=== PATIENT | female | born 1965 | race Asian ===

== ENCOUNTER → 2018-11-08 | Outpatient (CLI) | payer BC, SELFPAY ==
[2018-11-08 09:49] LABS: Absolute Lymphocyte Count 2.78 X10^3/uL (0.83-4.51); Absolute Neutrophil Count 3.8 X10^3/uL (2.0-7.7); Basophil# 0.06 X10^3/uL; Basophil% 0.8 % (0-1); Eosinophil# 0.29 X10^3/uL; Eosinophils% 3.9 % (0-5); Hematocrit 43.6 % (37-47); Hemoglobin 14.5 g/dL (12.0-15.0); Lymphocyte # 2.78 X10^3/ul (4.0); Lymphocyte % 37.7 % (19-41); Mean Corp Hgb Conc 33.3 g/dL (32-36); Mean Corpuscular Hgb 28.9 pg (27.0-32.0); Mean Corpuscular Volume 86.9 fL (81-99); Mean Platelet Vol. 10.3 fl (6.2-12.0); Monocyte# 0.43 X10^3/uL; Monocyte% 5.8 % (0-10); NRBC Flagged by Analyzer 0 % (0-5); Neutrophil % 51.5 % (47-70); Platelet Count 213 K/mm3 (150-450); RBC Distribution Width SD 40.7 fl (35.1-43.9); Red Blood Count 5.02 M/mm3 (4.2-5.4); White Blood Count 7.4 K/mm3 (4.4-11.0)
[2018-11-08 10:14] LABS: Microalbumin,Random Urine 22.5 mg/L (NO RANGE EST.); Microalbumin:Creatinine Ratio 13.7 mg/g CRE (<30 mg/g CRE)
[2018-11-08 10:36] LABS: AST(SGOT) 21 U/L (15-37); Alanine Aminotransfer ALT/SGPT 38 U/L (13-56); Albumin, Serum 3.7 g/dL (3.2-5.0); Alkaline Phosphatase 77 U/L (45-117); Anion Gap 8 (5-15); BUN 17 mg/dL (7-18); BUN/Creat Ratio 27.8 RATIO (10-20); Chloride 104 mmol/L (98-107); Cholesterol 198 mg/dL (200); Creatinine, Serum 0.61 mg/dL (0.55-1.02); EST Glomerular Filtration Rate 108 mL/min (>60); Est Glom Filt Rate - Afr Amer 131 mL/min (>60); Globulin 3.7 g/dL (2.2-4.2); Glucose 123 mg/dL (74-106); High Density Lipoprotein 45 mg/dL; Potassium 3.3 mmol/L (3.5-5.1); Protein, Total 7.4 g/dL (6.4-8.2); Sodium Level 143 mmol/L (136-145); Thyroid Stim Hormone (TSH) 0.67 uIU/mL (0.358-3.74); Triglycerides 96 mg/dL; Very Low Density Lipoprotein 19 mg/dL (5-40)
== END | disposition home or self-care (01) ==
LOC: LAB 08:14
PROVIDERS: Family Provider Nurse Practitioner; PCP Nurse Practitioner; Referring Provider Nurse Practitioner; Visit Provider Nurse Practitioner
DX: I10 Essential (primary) hypertension (principal)
CPT/HCPCS: 36415; 80053; 80061; 82043; 82570; 84443; 85025

== ENCOUNTER → 2024-12-03 | Outpatient (CLI) | payer BC, SELFPAY ==
[2024-12-03 08:54] LABS: Mucous, Urine 0 SEEN /hpf (<or=2+); Red Blood Cells-Urine 0 SEEN /hpf (0-5); Squamous Epithelial Cells - UA 0 SEEN /hpf (5-10)
[2024-12-03 10:06] LABS: Hematocrit 44.4 % (37-47); Hemoglobin 15.1 g/dL (12.0-15.0); Immature Granulocytes Count 0.010 X10^3/uL (0.0-0.0); Mean Corp Hgb Conc 34.0 g/dL (32-36); Mean Corpuscular Volume 85.7 fL (81-99); Mean Platelet Vol. 10.4 fl (6.2-12.0); NRBC Flagged by Analyzer 0 % (0-5); Platelet Count 206 K/mm3 (150-450); RBC Distribution Width CV 12.6 % (11.6-14.6); RBC Distribution Width SD 39.6 fl (35.1-43.9); Red Blood Count 5.18 M/mm3 (4.2-5.4); White Blood Count 7.3 K/mm3 (4.4-11.0)
[2024-12-03 10:07] LABS: Color, Urine Yellow (Yellow); Glucose, Dipstick 1000 mg/dl (Normal); Ketone-Dipstick Negative (Negative); Leukocyte Esterase-Dipstick Negative /ul (Negative); Nitrite-Dipstick Negative (Negative); Occult Blood-Urine Negative /ul (Negative); Protein-Dipstick 15 mg/dl (Negative); Specific Gravity, Urine 1.015 (1.002-1.030); Urine Bilirubin Dipstick Negative (Negative)
[2024-12-03 10:27] LABS: Creatinine, Urine (random) 84.60 mg/dL (28.00-217.00); Microalbumin,Random Urine 13.0 mg/L (<20 mg/L)
[2024-12-03 11:00] LABS: AST(SGOT) 27 U/L (<=31); Alanine Aminotransfer ALT/SGPT 32 U/L (<=34); Albumin, Serum 4.3 g/dL (3.4-4.8); Alkaline Phosphatase 93 U/L (35-104); Anion Gap 15 (5-15); BUN 13 mg/dL (4-19); BUN/Creat Ratio 27.3 RATIO (10-20); Calcium,Total 9.6 mg/dL (7.6-11.0); Carbon Dioxide 26.0 mmol/L (21.0-32.0); Chloride 99 mmol/L (98-108); Cholesterol 231 mg/dL (<=200); Globulin 2.7 g/dL (2.2-4.2); Glucose 165 mg/dL (70-99); Low Density Lipoprotein Calc. 164 mg/dL; Potassium 3.0 mmol/L (3.3-5.1); Triglycerides 78 mg/dL; Very Low Density Lipoprotein 16 mg/dL (5-40); cholesterol:hdl ratio screen 4.52
== END | disposition home or self-care (01) ==
LOC: MTLAB 08:19
PROVIDERS: PCP Internal Medicine; Referring Provider Internal Medicine; Visit Provider Internal Medicine
DX: E11.65 Type 2 diabetes mellitus with hyperglycemia (principal); E11.29 Type 2 diabetes mellitus with other diabetic kidney complication; E78.5 Hyperlipidemia, unspecified
CPT/HCPCS: 36415; 80053; 80061; 81001; 82043; 82570; 85025

== ENCOUNTER → 2024-12-31 | Outpatient (CLI) | payer BC, SELFPAY ==
--- NOTE | 2024-12-31 06:46 | ECHOCS_ITS ---
Reason For Study Reason For Study: Left Bundle Branch Block Procedure This was a 2D Doppler, Color Flow transthoracic echocardiogram. The study was technically difficult. Contrast injection was performed. Exam performed in department. Left Ventricle Normal LV size. Left ventricular systolic function is normal. The left ventricular ejection fraction is 65 %. Stage 1 diastolic dysfunction. No regional wall motion abnormalities noted. Right Ventricle Normal RV size. Normal systolic function. Atria Normal left atrium. Normal right atrium. Bubble contrast study is negative for PFO/ASD. Mitral Valve There is mild to moderate mitral annular calcification. Tricuspid Valve Normal tricuspid valve. Mild tricuspid valve insufficiency. Aortic Valve Trisinus/trileaflet aortic valve. Pulmonic Valve Normal pulmonic valve. Great Vessels Normal aortic root. The pulmonary artery is normal size. Inferior vena cava collapse with respiration. Pericardium/Pleural No pericardial effusion. Medication 22 gauge I.V. with prn adaptor inserted into right arm. Diluted definity 1ml given slow IV push to enhance endocardial definition. Performed a rapid injection of agitated mix of 9 cc saline and 1cc air to assess for atrial septal defect. MMode/2D Measurements & Calculations LVIDd: 4.3 cm IVSd: 0.97 cm Ao root diam: 3.2 cm LVIDs: 2.9 cm LVPWd: 0.89 cm RVDd: 3.5 cm FS: 31.6 % LAV(MOD-bp): 40.1 ml LVAd ap4: 32.2 cm2 SV(MOD-sp4): 68.2 ml LAV(MOD-bp) Indexed: 24.7 ml/m2 LVLd ap4: 8.1 cm SI(MOD-sp4): 42.0 ml/m2 LAV(MOD-sp2): 43.5 ml EDV(MOD-sp4): 101.6 ml LAV(MOD-sp4): 36.6 ml EDV(sp4-el): 108.5 ml LVAs ap4: 15.8 cm2 LVLs ap4: 6.3 cm ESV(MOD-sp4): 33.4 ml ESV(sp4-el): 33.8 ml EF(MOD-sp4): 67.1 % EF(sp4-el): 68.8 % SV(sp4-el): 74.7 ml LA A4 area: 15.5 cm2 LA dimension(2D): 3.3 cm RA A4 area: 13.0 cm2 TAPSE: 1.2 cm Time Measurements MV dec time: 0.25 sec Doppler Measurements & Calculations MV E max jose: 71.1 cm/sec Lat Peak E' Jose: 8.2 cm/sec Med Peak E' Jose: 4.5 cm/sec MV A max jose: 98.6 cm/sec E/E' lat: 8.7 E/E' med: 15.7 MV E/A: 0.72 MV V2 max: 108.3 cm/sec MV P1/2t max jose: 78.5 cm/sec Ao V2 max: 142.0 cm/sec MV max P.7 mmHg MV P1/2t: 97.7 msec Ao max P.1 mmHg MV V2 mean: 59.5 cm/sec MV dec slope: 235.3 cm/sec2 Ao V2 mean: 100.5 cm/sec MV mean P.7 mmHg MVA(P1/2t): 2.3 cm2 Ao mean P.6 mmHg MV V2 VTI: 30.8 cm Ao V2 VTI: 31.3 cm AV (velocity ratio): 0.79 LV V1 max: 112.7 cm/sec PA V2 max: 115.1 cm/sec TR max jose: 222.8 cm/sec LV V1 max P.1 mmHg TR max P.9 mmHg LV V1 mean P.4 mmHg LV V1 mean: 88.0 cm/sec LV V1 VTI: 24.8 cm ECHO/Echo Complete W/ Contrast Interpretation Summary Bubble contrast study is negative for PFO/ASD. There is mild to moderate mitral annular calcification. Normal LV size. Left ventricular systolic function is normal. The left ventricular ejection fraction is 65 %. Stage 1 diastolic dysfunction. Contrast injection was performed. Ordering Physician: Giulia Prescott Referring Physician: Giulia Prescott Performed By: Ramiro Farmer RCS
--- NOTE | 2024-12-31 06:46 | CDU_ITS ---
Reason For Study Reason For Study: Carotid artery stenosis Rt. Velocities/BP Lt. Velocities/BP Prox CCA 74/13.5 cm/sec. Prox CCA 70.7/13.5 cm/sec. Mid CCA 72.1/17.3 cm/sec. Mid CCA 78.4/20.1 cm/sec. Dist CCA 57/12.6 cm/sec. Dist CCA 67.4/20.1 cm/sec. Prox ICA 59.8/20.1 cm/sec. Prox ICA 59.7/25.6 cm/sec. Mid ICA 69.9/19.2 cm/sec. Mid ICA 67.4/28.9 cm/sec. Dist ICA 59.6/20.8 cm/sec. Dist ICA 58.6/25.6 cm/sec. Rt. ICA/CCA = 0.97. Lt. ICA/CCA = 0.86. Prox ECA 161.3/9.7 cm/sec. Prox ECA 87.2/5.8 cm/sec. Rt. Vert. 45.4/15.7 cm/sec. Lt. Vert. 36.6/8 cm/sec. Right Extracranial There is intimal thickening but no significant atherosclerotic plaque noted in the right common carotid artery. There is heterogeneous, irregular atherosclerotic plaque noted in the right internal carotid artery. There is heterogeneous, irregular atherosclerotic plaque noted in the right external carotid artery. Antegrade flow is noted in the right vertebral artery. Left Extracranial There is homogeneous, smooth atherosclerotic plaque noted in the left common carotid artery. There is heterogeneous, irregular atherosclerotic plaque noted in the left internal carotid artery. There is intimal thickening but no significant atherosclerotic plaque noted in the left external carotid artery. Antegrade flow is noted in the left vertebral artery. Procedure This is a Carotid Duplex examination using B-mode, color flow and specral Doppler. Carotid Duplex [id number]. Exam performed in department. VL/Carotid Duplex Ultrasound Interpretation Summary Mild (<50%) stenosis right extracranial internal carotid. Mild (<50%) stenosis left extracranial internal carotid. Patent and antegrade vertebrals bilaterally. Ordering Physician: Giulia Prescott Referring Physician: Tash Landa Performed By: Shabana Jin RVT
--- OUTSIDE RECORDS SUMMARY | 2024-12-31 06:48 | XMS RPT_ITS | CCD ---
Author Organization [facility] Care Team Providers Care Cad Programmer Name Role Phone Annamaria Zhang E Unavailable Meliza Cullen Unavailable Abby Anmol S Unavailable Laure Kang Unavailable Unavailable Slarb, Ivy Unavailable Unavailable Unavailable Unavailable Annamaria Zhang Unavailable Meliza Cullen Unavailable Abby Anmol S Unavailable Alanis Jarrell Unavailable Unavailable Laure Kang Unavailable Unavailable Slarb, Ivy Unavailable Unavailable Unavailable Unavailable Gold Ward Unavailable Unavailable Alains Jarrell Unavailable Unavailable Gold Colby Unavailable Unavailable Renata Jensen Unavailable Unavailable Annamaria Zhang CNP Unavailable Meliza Cullen MD Unavailable KnapAnmol argueta DO S Unavailable Gold Colby LPN Unavailable Unavailable Slarb TUBE REBUILDER, Ivy Unavailable Unavailable Unavailable Unavailable Annamaria Zhang Unavailable Meliza Cullen MD Unavailable Annamaria Zhang Unavailable Annamaria Zhang Attending Unavailable Meliza Cullen MD Referring Unavailable Annamaria Zhang Consulting Unavailable Tash Landa CNP Unavailable Tash Landa CNP Unavailable Annamaria Zhang Unavailable Knapic DO , Dr. Anmol Wiley S Unavailab le Elmer DEJESUS, FABRICE Unavailable Unavailable Fast DO, Dr. Platt Primary Care Provider [phone] Fast DO, Dr. Platt Attending Provider [phone] Fast DO, Dr. Platt Referring Provider [phone] Fast, Giulia Attending Unavailable Fast, Giulia Referring Unavailable Fast, Giulia Primary Care Unavailable Fast, Giulia Referring Unavailable Tash Landa Primary Care Unavailable Fast, Giulia Attending Unavailable Medications Current Medications Medication Drug Class(es) Dates Sig (Normalized) Sig (Original) aspirin 81 mg chewable tablet (20 sources) Nonsteroidal Anti-inflammatory Drug Start: 01-29-2014 End: 10-26-2014 take 1 tablet by mouth once daily Aspirin 81 MG tablet,chewable Active 81 mg PO DAILY@0800 February 16, 2014 1:00am Completed/Discontinued Medications Medication Drug Class(es) Dates Sig (Normalized) Sig (Original) amLODIPine 5 mg oral tablet (20 sources) Dihydropyridine Calcium Channel Davon Start: 08-01-2022 take 1 tablet by mouth once daily amLODIPine 5 mg oral tablet 1 (one) Tablet qd for 90 days Quantity: 90 {Tablet} Refills: 1 Ordered: 01-Aug-2022 Tash Landa CNP Start : 01-Aug-2022 Active Start: 03-28-2022 take 1 tablet by timo th once daily amLODIPine 5 mg oral tablet 1 (one) Tablet qd for 90 days Quantity: 90 {Tablet} Refills: 1 Ordered: 29-Mar-2022 Tash Landa CNP Start : 29-Mar-2022 Active Start: 12-07-2021 End: 01-06-2022 take 1 tablet by mouth once daily amLODIPine Besylate 5 MG Oral Tablet 1 (one) Tablet qd for 30 days Quantity: 30 {Tablet} Refills: 0 Ordered: 07-Dec-2021 Tash Landa CNP Start : 07-Dec-2021 End : 06-Jan-2022 Inactive Comments: NEEDS OFFICE VISIT FOR FURTHER REFILLS Start: 02-22-2021 take 1 tablet by timo th once daily amLODIPine Besylate 5 MG Oral Tablet 1 (one) Tablet qd for 30 days Quantity: 90 {Tablet} Refills: 3 Ordered: 22-Feb-2021 Annamaria Zhang Mary Start : 22-Feb-2021 Active Start: 02-22-2020 take 1 tablet by timo th once daily amLODIPine Besylate 5 MG Oral Tablet 1 (one) Tablet qd for 30 days Quantity: 90 {Tablet} Refills: 3 Ordered: 22-Feb-2020 Annamaria Zhang CNP, CNP, Mary E Start : 22-Feb-2020 Active Start: 02-12-2019 take 1 tablet by timo th once daily amLODIPine Besylate 5 MG Oral Tablet 1 (one) Tablet qd for 30 days Quantity: 90 {Tablet} Refills: 3 Ordered: 12-Feb-2019 Annamaria Zhang CNP, CNP, Mary E Start : 12-Feb-2019 Active Start: 03-26-2018 take 1 tablet by timo th once daily AmLODIPine Besylate 5 MG Oral Tablet 1 (one) Tablet qd for 30 days Quantity: 90 {Tablet} Refills: 3 Ordered: 26-Mar-2018 Annamaria Zhang CNP, CNP, Mary E Start : 26-Mar-2018 Active Start: 02-16-2014 take 1 tablet by timo th once daily AmLODIPine Besylate 5 MG Oral Tablet 1 (one) Tablet qd for 30 days Quantity: 90 {Tablet} Refills: 3 Ordered: 10-Feb-2017 Annamaria Zhang CNP, CNP, Mary E Start : 10-Feb-2017 Active Start: 03-22-2013 End: 12-27-2013 take 1 tablet by mouth once daily NORVASC, 10MG (Oral Tablet) 1 Tablet QD for 0 days Quantity: 90 {Tablet} Refills: 3 Ordered: 27-Dec-2013 Renata Jensen CMA Start : 22-Mar-2013 End : 27-Dec-2013 Inactive Comment on above: NEEDS OFFICE VISIT F OR FURTHER REFILLS azithromycin 250 mg oral tablet (20 sources) Macrolide Antimicrobial Start: 2013 End: 2013 take 1 tablet by mouth once daily ZITHROMAX Z-GARY, 250MG (Oral Tablet) tad Tablet qd for 0 days Quantity: 1 {Package} Refills: 0 Ordered: 06-Sep-2013 Elizabeth Renteria LPN Start : 07-Jun-2013 End : 30-May-2014 Inactive hydroCHLOROthiazide 50 mg oral tablet (20 sources) Thiazide Diuretic Start: 2022 take 1 tablet by mouth once daily hydroCHLOROthiazide 50 mg oral tablet 1 (one) Tablet qd for 30 days Quantity: 30 {Tablet} Refills: 1 Ordered: 23-Jan-2023 Tash Landa CNP Start : 23-Jan-2023 Active Comments: Needs appt. Start: 06-03-2022 take 1 tablet by timo th once daily hydroCHLOROthiazide 50 mg oral tablet 1 (one) Tablet qd for 30 days Quantity: 30 {Tablet} Refills: 0 Ordered: 03-Jun-2022 Tash Landa CNP Start : 03-Jun-2022 Active Comments: Mail order. Start: 05-09-2022 take 1 tablet by timo th once daily hydroCHLOROthiazide 50 mg oral tablet 1 (one) Tablet qd for 30 days Quantity: 30 {Tablet} Refills: 3 Ordered: 09-May-2022 Tash Landa CNP Start : 09-May-2022 Active Start: 02-17-2022 take 1 tablet by timo th once daily hydroCHLOROthiazide 50 MG Oral Tablet 1 (one) Tablet qd for 30 days Quantity: 30 {Tablet} Refills: 0 Ordered: 17-Feb-2022 Tash Landa CNP Start : 17-Feb-2022 Active Comments: Mail order. Start: 12-07-2021 take 1 tablet by timo th once daily hydroCHLOROthiazide 50 MG Oral Tablet 1 (one) Tablet qd for 30 days Quantity: 30 {Tablet} Refills: 0 Ordered: 07-Dec-2021 Tash Landa CNP Start : 07-Dec-2021 Active Comments: Mail order. Start: 11-25-2020 take 1 tablet by timo th once daily hydroCHLOROthiazide 50 MG Oral Tablet 1 (one) Tablet qd for 30 days Quantity: 30 {Tablet} Refills: 0 Ordered: 25-Nov-2020 Malgorzatamelaniealyssa Annamaria Alex Start : 25-Nov-2020 Active Comments: Mail order. Start: 01-23-2020 take 1 tablet by timo th once daily hydroCHLOROthiazide 50 MG Oral Tablet 1 (one) Tablet qd for 90 days Quantity: 90 {Tablet} Refills: 3 Ordered: 23-Jan-2020 Start : 23-Jan-2020 Active Start: 10-31-2019 take 1 tablet by timo th once daily hydroCHLOROthiazide 50 MG Oral Tablet 1 (one) Tablet qd for 30 days Quantity: 30 {Tablet} Refills: 0 Ordered: 31-Oct-2019 Annamaria Zhang CNP, CNP, Mary E Start : 31-Oct-2019 Active Comments: Mail order. Start: 08-09-2019 take 1 tablet by timo th once daily hydroCHLOROthiazide 50 MG Oral Tablet 1 (one) Tablet qd for 90 days Quantity: 90 {Tablet} Refills: 0 Ordered: 09-Aug-2019 Annamaria Zhang CNP, CNP, Mary E Start : 09-Aug-2019 Active Start: 11-05-2018 take 1 tablet by timo th once daily hydroCHLOROthiazide 50 MG Oral Tablet 1 (one) Tablet qd for 90 days Quantity: 90 {Tablet} Refills: 1 Ordered: 05-Nov-2018 Leatha CHRISTIANSON Annamaria Darling CNP Start : 05-Nov-2018 Active Start: 10-31-2018 take 1 tablet by timo th once daily hydroCHLOROthiazide 50 MG Oral Tablet 1 (one) Tablet qd for 90 days Quantity: 90 {Tablet} Refills: 0 Ordered: 31-Oct-2018 Annamaria Zhang CNP, CNP, Mary E Start : 31-Oct-2018 Active Start: 10-31-2018 take 1 tablet by timo th once daily hydroCHLOROthiazide 50 MG Oral Tablet 1 (one) Tablet qd for 30 days Quantity: 30 {Tablet} Refills: 0 Ordered: 31-Oct-2018 Annamaria Zhang CNP, CNP, Mary E Start : 31-Oct-2018 Active Comments: Mail order. Start: 08-03-2018 End: 01-24-2018 take 1 tablet by mouth once daily HydroCHLOROthiazide 50 MG Oral Tablet 1 (one) Tablet qd for 90 days Quantity: 90 {Tablet} Refills: 0 Ordered: 03-Aug-2018 Annamaria Zhang CNP, CNP, Mary E Start : 03-Aug-2018 End : 24-Jan-2018 Active Start: 08-03-2018 End: 01-24-2018 take 1 tablet by mouth once daily HydroCHLOROthiazide 50 MG Oral Tablet 1 (one) Tablet qd for 90 days Quantity: 90 {Tablet} Refills: 0 Ordered: 03-Aug-2018 Annamaria Zhang CNPa SAMMYAnnamaria Start : 03-Aug-2018 End : 24-Jan-2018 Active Start: 05-09-2018 End: 01-24-2018 take 1 tablet by mouth once daily HydroCHLOROthiazide 50 MG Oral Tablet 1 (one) Tablet qd for 90 days Quantity: 90 {Tablet} Refills: 0 Ordered: 09-May-2018 Gold Ward Start : 09-May-2018 End : 24-Jan-2018 Active Start: 05-09-2018 End: 01-24-2018 take 1 tablet by mouth once daily HydroCHLOROthiazide 50 MG Oral Tablet 1 (one) Tablet qd for 90 days Quantity: 90 {Tablet} Refills: 0 Ordered: 09-May-2018 Gold Ward Start : 09-May-2018 End : 24-Jan-2018 Active Start: 05-09-2018 End: 01-24-2018 take 1 tablet by mouth once daily HydroCHLOROthiazide 50 MG Oral Tablet 1 (one) Tablet qd for 90 days Quantity: 90 {Tablet} Refills: 0 Ordered: 09-May-2018 Gold Ward Start : 09-May-2018 End : 24-Jan-2018 Active Start: 02-10-2018 End: 01-24-2018 take 1 tablet by mouth once daily HydroCHLOROthiazide 50 MG Oral Tablet 1 (one) Tablet qd for 90 days Quantity: 90 {Tablet} Refills: 0 Ordered: 10-Feb-2018 Malgorzatamelaniealyssa CHRISTIANSON Annamaria Zhang SAMMYAnnamaria Start : 10-Feb-2018 End : 24-Jan-2018 Active Start: 02-10-2018 End: 01-24-2018 take 1 tablet by mouth once daily HydroCHLOROthiazide 50 MG Oral Tablet 1 (one) Tablet qd for 90 days Quantity: 90 {Tablet} Refills: 0 Ordered: 10-Feb-2018 Malgorzatamelaniealyssa CHRISTIANSON Vanessa Annamaria Zhang CNP Start : 10-Feb-2018 End : 24-Jan-2018 Active Start: 10-26-2017 End: 01-24-2018 take 1 tablet by mouth once daily HydroCHLOROthiazide 50 MG Oral Tablet 1 (one) Tablet qd for 90 days Quantity: 90 {Tablet} Refills: 0 Ordered: 26-Oct-2017 Leatha SAMMY Annamaria Darling CNP Start : 26-Oct-2017 End : 24-Jan-2018 Inactive Start: 02-16-2014 take 1 tablet by timo th once daily Hydrochlorothiazide 25 MG tablet Active 25 mg PO DAILY February 16, 2014 1:00am Comment on above: Mail order. NEEDS OFFICE VISIT F OR FURTHER REFILLS Needs appt. ketoconazole 20 mg/ml topical cream (20 sources) Azole Antifungal Start: 2 End: 2 KETOCONAZOLE, 2% (External Cream) uad Cream bid to affected area(s) prn for 0 days Quantity: 1 {Cream} Refills: 1 Ordered: 16-Dec-2011 FABRICE Payne LPN Start : 21-Nov-2011 End : 16-Dec-2011 Inactive lisinopril 40 mg oral tablet (20 sources) Angiotensin Converting Enzyme Inhibitor Start: 4 End: 4 take 1 tablet by mouth once daily LISINOPRIL, 40MG (Oral Tablet) 1 Tablet qd for 0 days Quantity: 90 {Tablet} Refills: 0 Ordered: 27-Dec-2013 Hemalatha Nagy DO Start : 27-Dec-2013 End : 27-Dec-2013 Discontinued Comments: ??? making dizzy-- do trial off Comment on above: ??? making dizzy-- d o trial off losartan potassium 50 mg oral tablet (20 sources) Angiotensin 2 Receptor Davon Start: 3 take 1 tablet by mouth once daily losartan 50 mg oral tablet 1 (one) Tablet daily for 0 days Quantity: 30 {Tablet} Refills: 3 Ordered: 17-Oct-2022 Meliza Cullen MD Start : 17-Oct-2022 Active Start: 08-01-2022 take 1 tablet by timo th once daily losartan 50 mg oral tablet 1 (one) Tablet daily for 0 days Quantity: 30 {Tablet} Refills: 3 Ordered: 01-Aug-2022 Tash Landa CNP Start : 01-Aug-2022 Active Start: 05-11-2022 take 1 tablet by timo th once daily losartan 50 mg oral tablet 1 (one) Tablet daily for 0 days Quantity: 30 {Tablet} Refills: 3 Ordered: 11-May-2022 Tash Landa CNP Start : 11-May-2022 Active Start: 06-03-2021 take 1 tablet by timo th once daily Losartan Potassium 50 MG Oral Tablet 1 (one) Tablet daily for 0 days Quantity: 30 {Tablet} Refills: 3 Ordered: 03-Jun-2021 Annamaria Zhang Mary Start : 03-Jun-2021 Active Start: 06-08-2020 take 1 tablet by timo th once daily Losartan Potassium 50 MG Oral Tablet 1 (one) Tablet daily for 0 days Quantity: 30 {Tablet} Refills: 3 Ordered: 08-Jun-2020 Annamaria Zhang CNP E Annamaria Zhang CNP Start : 08-Jun-2020 Active Start: 01-17-2020 End: 09-21-2020 take 1 tablet by mouth once daily Losartan Potassium 25 MG Oral Tablet 1 (one) Tablet daily for 0 days Quantity: 30 {Tablet} Refills: 1 Ordered: 21-Sep-2020 Gold Colby LPN Start : 17-Jan-2020 End : 21-Sep-2020 Inactive Start: 01-17-2020 End: 12-24-2019 take 1 tablet by mouth once daily Losartan Potassium 25 MG Oral Tablet 1 (one) Tablet daily for 0 days Quantity: 30 {Tablet} Refills: 1 Ordered: 17-Jan-2020 [employer] Renata Start : 17-Jan-2020 End : 24-Dec-2019 Active Start: 01-17-2020 End: 12-24-2019 take 1 tablet by mouth once daily Losartan Potassium 25 MG Oral Tablet 1 (one) Tablet daily for 0 days Quantity: 30 {Tablet} Refills: 1 Ordered: 17-Jan-2020 [employer] Renata Start : 17-Jan-2020 End : 24-Dec-2019 Active Start: 01-17-2020 End: 12-24-2019 take 1 tablet by mouth once daily Losartan Potassium 25 MG Oral Tablet 1 (one) Tablet daily for 0 days Quantity: 30 {Tablet} Refills: 1 Ordered: 17-Jan-2020 [employer] Renata Start : 17-Jan-2020 End : 24-Dec-2019 Active Start: 01-17-2020 End: 12-24-2019 take 1 tablet by mouth once daily Losartan Potassium 25 MG Oral Tablet 1 (one) Tablet daily for 0 days Quantity: 30 {Tablet} Refills: 1 Ordered: 17-Jan-2020 [employer] Renata Start : 17-Jan-2020 End : 24-Dec-2019 Active Start: 01-17-2020 End: 12-24-2019 take 1 tablet by mouth once daily Losartan Potassium 25 MG Oral Tablet 1 (one) Tablet daily for 0 days Quantity: 30 {Tablet} Refills: 1 Ordered: 17-Jan-2020 Renata Jensen CMA Start : 17-Jan-2020 End : 24-Dec-2019 Active Start: 01-17-2020 End: 12-24-2019 take 1 tablet by mouth once daily Losartan Potassium 25 MG Oral Tablet 1 (one) Tablet daily for 0 days Quantity: 30 {Tablet} Refills: 1 Ordered: 17-Jan-2020 Renata Jensen CMA Start : 17-Jan-2020 End : 24-Dec-2019 Active Start: 01-17-2020 End: 12-24-2019 take 1 tablet by mouth once daily Losartan Potassium 25 MG Oral Tablet 1 (one) Tablet daily for 0 days Quantity: 30 {Tablet} Refills: 1 Ordered: 17-Jan-2020 Renata Jensen CMA Start : 17-Jan-2020 End : 24-Dec-2019 Active Start: 01-15-2020 take 1 tablet by timo th once daily Losartan Potassium 50 MG Oral Tablet 1 (one) Tablet daily for 0 days Quantity: 30 {Tablet} Refills: 6 Ordered: 15-Jan-2020 Annamaria Zhang CNP, CNP, Mary E Start : 15-Jan-2020 Active Start: 12-24-2019 take 1 tablet by timo th once daily Losartan Potassium 50 MG Oral Tablet 1 (one) Tablet daily for 0 days Quantity: 30 {Tablet} Refills: 6 Ordered: 24-Dec-2019 Annamaria Zhang CNP, CNP, Mary E Start : 24-Dec-2019 Active Start: 04-19-2019 End: 12-24-2019 take 1 tablet by mouth once daily Losartan Potassium 25 MG Oral Tablet 1 (one) Tablet daily for 0 days Quantity: 30 {Tablet} Refills: 1 Ordered: 24-Dec-2019 Annamaria Zhang CNP, CNP, Mary E Start : 19-Apr-2019 End : 24-Dec-2019 Inactive Start: 01-07-2019 take 1 tablet by timo th once daily Losartan Potassium 25 MG Oral Tablet 1 (one) Tablet daily for 0 days Quantity: 30 {Tablet} Refills: 3 Ordered: 07-Jan-2019 CiAnnamaria martin CNP, CNP, Mary E Start : 07-Jan-2019 Active Start: 10-10-2018 take 1 tablet by timo th once daily Losartan Potassium 25 MG Oral Tablet 1 (one) Tablet daily for 0 days Quantity: 30 {Tablet} Refills: 3 Ordered: 10-Oct-2018 Annamaria Zhang CNP, CNP, Mary E Start : 10-Oct-2018 Active Start: 12-05-2017 take 1 tablet by timo th once daily Losartan Potassium 25 MG Oral Tablet 1 (one) Tablet daily for 0 days Quantity: 30 {Tablet} Refills: 3 Ordered: 14-Jul-2018 Annamaria Zhang CNP, CNP, Mary E Start : 14-Jul-2018 Active metFORMIN hydrochloride 500 mg oral tablet (20 sources) Biguanide Start: 12-03-2021 take 2 tablets by mouth twice daily at mealtime metFORMIN HCl 500 MG Oral Tablet 2 (two) Tablet twice daily with largest meals for 0 days Quantity: 60 {Tablet} Refills: 0 Ordered: 03-Dec-2021 Cordell CHRISTIANSONTash Start : 03-Dec-2021 Active Start: 06-03-2021 take 2 tablets by mo [facility] twice daily at mealtime metFORMIN HCl 500 MG Oral Tablet 2 (two) Tablet twice daily with largest meals for 0 days Quantity: 120 {Tablet} Refills: 1 Ordered: 03-Jun-2021 Annamaria Zhang Mary Start : 03-Jun-2021 Active Start: 11-07-2018 End: 09-21-2020 take 2 tablets by mouth twice daily at mealtime metFORMIN HCl 500 MG Oral Tablet 2 (two) Tablet twice daily with largest meals for 0 days Quantity: 120 {Tablet} Refills: 3 Ordered: 21-Sep-2020 Gold Cloby LPN Start : 30-Jan-2019 End : 21-Sep-2020 Inactive Start: 07-15-2016 take 1 tablet by timo twice daily at mealtime MetFORMIN HCl 500 MG Oral Tablet 1 (one) Tablet twice daily with largest meals for 0 days Quantity: 60 {Tablet} Refills: 6 Ordered: 15-Jul-2016 Annamaria Zhang CNP, CNP, Mary E Start : 15-Jul-2016 Active methylPREDNISolone 4 mg oral tablet (20 sources) Corticosteroid Start: 09-21-2020 End: 03-21-2022 Medrol (Gary) 4 mg oral Tablet, Dose Pack as directed for 0 days Quantity: 1 {Package} Refills: 0 Ordered: 21-Mar-2022 Ivy Woodward LPN Start : 21-Sep-2020 End : 21-Mar-2022 Inactive Comments: or generic Start: 09-21-2020 Medrol 4 MG Or al Tablet Therapy Pack as directed for 0 days Quantity: 1 {Package} Refills: 0 Ordered: 21-Sep-2020 Leatha Annamaria Alex Start : 21-Sep-2020 Active Comments: or generic Comment on above: or generic 24 hr metoprolol succinate 100 mg extended release oral tablet (20 sources) beta-Adrenergic Davon Start: 10-17-2022 take 1 tablet by mouth once daily metoprolol succinate 100 mg oral Tablet, Extended Release 24 hr 1 (one) Tablet ER 24HR qd for 0 days Quantity: 90 {Tablet} Refills: 0 Ordered: 17-Oct-2022 Tash Landa CNP Start : 17-Oct-2022 Active Start: 06-21-2022 take 1 tablet by timo th once daily metoprolol succinate 100 mg oral Tablet, Extended Release 24 hr 1 (one) Tablet ER 24HR qd for 0 days Quantity: 90 {Tablet} Refills: 0 Ordered: 21-Jun-2022 Tash Landa CNP Start : 21-Jun-2022 Active Start: 03-21-2022 take 1 tablet by timo th once daily metoprolol succinate 100 mg oral Tablet, Extended Release 24 hr 1 (one) Tablet ER 24HR qd for 0 days Quantity: 90 {Tablet} Refills: 0 Ordered: 21-Mar-2022 Tash Landa CNP Start : 21-Mar-2022 Active Start: 03-18-2022 take 1 tablet by timo th once daily metoprolol succinate 100 mg oral Tablet, Extended Release 24 hr 1 (one) Tablet ER 24HR qd for 0 days Quantity: 90 {Tablet} Refills: 0 Ordered: 18-Mar-2022 Tash Landa CNP Start : 18-Mar-2022 Active Start: 02-10-2022 take 1 tablet by timo th once daily Metoprolol Succinate ER 100 MG Oral Tablet Extended Release 24 Hour 1 (one) Tablet ER 24HR qd for 0 days Quantity: 30 {Tablet} Refills: 0 Ordered: 10-Feb-2022 Tash Landa CNP Start : 10-Feb-2022 Active Comments: pt needs appt. Start: 01-18-2022 take 1 tablet by timo th once daily Metoprolol Succinate ER 100 MG Oral Tablet Extended Release 24 Hour 1 (one) Tablet ER 24HR qd for 0 days Quantity: 30 {Tablet} Refills: 0 Ordered: 18-Jan-2022 Tash Landa CNP Start : 18-Jan-2022 Active Comments: pt needs appt. Start: 12-03-2021 take 1 tablet by timo th once daily Metoprolol Succinate ER 100 MG Oral Tablet Extended Release 24 Hour 1 (one) Tablet ER 24HR qd for 0 days Quantity: 30 {Tablet} Refills: 0 Ordered: 03-Dec-2021 Tash Landa CNP Start : 03-Dec-2021 Active Comments: pt needs appt. Start: 11-25-2020 take 1 tablet by timo th once daily Metoprolol Succinate ER 100 MG Oral Tablet Extended Release 24 Hour 1 (one) Tablet ER 24HR qd for 0 days Quantity: 90 {Tablet} Refills: 3 Ordered: 25-Nov-2020 Annamaria Zhang Mary Start : 25-Nov-2020 Active Start: 12-04-2019 take 1 tablet by timo th once daily Metoprolol Succinate ER 100 MG Oral Tablet Extended Release 24 Hour 1 (one) Tablet ER 24HR qd for 0 days Quantity: 90 {Tablet} Refills: 3 Ordered: 04-Dec-2019 Annamaria Zhang CNP, CNP, Mary E Start : 04-Dec-2019 Active Start: 11-07-2018 take 1 tablet by timo th once daily Metoprolol Succinate ER 100 MG Oral Tablet Extended Release 24 Hour 1 (one) Tablet ER 24HR qd for 0 days Quantity: 90 {Tablet} Refills: 3 Ordered: 07-Nov-2018 Annamaria Zhang CNP, CNP, Mary E Start : 07-Nov-2018 Active Start: 02-10-2018 take 1 tablet by timo th once daily Metoprolol Succinate ER 100 MG Oral Tablet Extended Release 24 Hour 1 (one) Tablet ER 24HR qd for 30 days Quantity: 90 {Tablet} Refills: 3 Ordered: 10-Feb-2018 Annamaria Zhang CNP, CNP, Mary E Start : 10-Feb-2018 Active Start: 02-16-2014 take 1 tablet by timo th once daily Metoprolol Succinate ER 100 MG Oral Tablet Extended Release 24 Hour 1 (one) Tablet ER 24HR qd for 30 days Quantity: 90 {Tablet} Refills: 3 Ordered: 01-May-2017 Annamaria Zhang CNP, CNP, Mary E Start : 01-May-2017 Active Comment on above: pt needs appt. naproxen 500 mg oral tablet (20 sources) Nonsteroidal Anti-inflammatory Drug Start: 10-24-2016 End: 11-24-2017 take 1 tablet by mouth twice daily as needed for pain Naprosyn 500 MG Oral Tablet 1 (one) Tablet bid prn for knee pain for 0 days Quantity: 180 {Tablet} Refills: 0 Ordered: 24-Nov-2017 Annamaria Zhang Start : 24-Oct-2016 End : 24-Nov-2017 Inactive Comments: with food Start: 03-07-2012 End: 12-27-2013 take 1 tablet by mouth twice daily at mealtime for pain NAPROXEN, 500MG (Oral Tablet) 1 Tablet bid prn pain for 0 days Quantity: 30 {Tablet} Refills: 1 Ordered: 27-Dec-2013 Denita Jensen CMAsea Start : 07-Mar-2012 End : 27-Dec-2013 Inactive Comments: take with food Comment on above: with food take with food OneTouch Lancets (1 source) Start: 06-02-2015 ONETOUCH LANCETS (Miscellaneous) 1 (one) Misc Misc qd for 0 days Quantity: 1 {Box} Refills: 3 Ordered: 02-Jun-2015 Meliza Cullen MD Start : 02-Jun-2015 Active Comments: DX: E11.9NPI: [id number] Comment on above: DX: E11.9NPI: [id number] OneTouch Ultra 2 (3 sources) Start: 05-27-2015 ONETOUCH ULTRA 2, w/Device (Kit) uad Kit Kit qd for 0 days Quantity: 1 Kit Refills: 0 Ordered: 27-May-2015 Meliza Cullen MD Start : 27-May-2015 Active Comments: DX: E11.65 Comment on above: DX: E11.65 NPI: [id number] ONETOUCH ULTRA 2, w/Device (Kit) (20 sources) Start: 05-27-2015 ONETOUCH ULTRA 2, w/Device (Kit) uad Kit Kit qd for 0 days Quantity: 1 Kit Refills: 0 Ordered: 27-May-2015 Meliza Cullen MD Start : 27-May-2015 Active Comments: DX: E11.65 Comment on above: DX: E11.65 NPI: [id number] OneTouch Ultra Blue (1 source) Start: 05-27-2015 ONETOUCH ULTRA BLUE (In Vitro Strip) 1 (one) Strip Strip qd for 0 days Quantity: 30 {Strip} Refills: 6 Ordered: 27-May-2015 Meliza Cullen MD Start : 27-May-2015 Active Comments: DX: E11.65NPI: [id number] Comment on above: DX: [id number]: [id number] potassium chloride 20 meq extended release oral tablet (20 sources) Start: 07-26-2022 take 1 tablet by mouth once daily potassium chloride 20 mEq oral tablet, extended release 1 (one) Tablet ER daily for 90 days Quantity: 90 {Tablet} Refills: 1 Ordered: 26-Jul-2022 Tash Landa CNP Start : 26-Jul-2022 Active Start: 06-21-2022 take 1 tablet by timo th once daily potassium chloride 20 mEq oral tablet, extended release 1 (one) Tablet ER daily for 30 days Quantity: 30 {Capsule} Refills: 0 Ordered: 21-Jun-2022 Tash Landa CNP Start : 21-Jun-2022 Active Comments: Mail order. Start: 06-21-2022 take 1 tablet by timo th once daily potassium chloride 20 mEq oral tablet, extended release 1 (one) Tablet ER daily for 30 days Quantity: 30 {Tablet} Refills: 0 Ordered: 21-Jun-2022 Tash Landa CNP Start : 21-Jun-2022 Active Start: 06-03-2022 take 1 tablet by timo th once daily potassium chloride 20 mEq oral tablet, extended release 1 (one) Tablet ER daily for 30 days Quantity: 30 {Capsule} Refills: 0 Ordered: 03-Jun-2022 Tash Landa CNP Start : 03-Jun-2022 Active Comments: Mail order. Start: 06-03-2022 take 1 tablet by timo th once daily potassium chloride 20 mEq oral tablet, extended release 1 (one) Tablet ER daily for 30 days Quantity: 30 {Tablet} Refills: 0 Ordered: 03-Jun-2022 Tash Landa CNP Start : 03-Jun-2022 Active Start: 12-03-2021 take 1 tablet by timo th once daily Potassium Chloride ER 20 MEQ Oral Tablet Extended Release 1 (one) Tablet ER daily for 30 days Quantity: 30 {Tablet} Refills: 0 Ordered: 03-Dec-2021 Tash Landa CNP Start : 03-Dec-2021 Active Start: 11-08-2020 take 1 tablet by timo th once daily Potassium Chloride ER 20 MEQ Oral Tablet Extended Release 1 (one) Tablet ER daily for 90 days Quantity: 90 {Tablet} Refills: 3 Ordered: 08-Nov-2020 Annamaria Zhang Mary Start : 08-Nov-2020 Active Start: 06-08-2020 take 1 tablet by timo th once daily Potassium Chloride ER 20 MEQ Oral Tablet Extended Release 1 (one) Tablet ER daily for 30 days Quantity: 30 {Capsule} Refills: 0 Ordered: 08-Jun-2020 Annamaria Zhang CNP, CNP Vanessa Start : 08-Jun-2020 Active Comments: Mail order. Start: 11-18-2019 take 1 tablet by timo th once daily Potassium Chloride ER 20 MEQ Oral Tablet Extended Release 1 (one) Tablet ER daily for 90 days Quantity: 90 {Tablet} Refills: 3 Ordered: 18-Nov-2019 Annamaria Zhang CNP, CNP Vanessa Start : 18-Nov-2019 Active Start: 01-29-2019 take 1 tablet by timo th once daily Potassium Chloride ER 20 MEQ Oral Tablet Extended Release 1 (one) Tablet ER daily for 90 days Quantity: 90 {Tablet} Refills: 3 Ordered: 29-Jan-2019 Leatha CHRISTIANSON VanessaJavier Zhang CNP Vanessa Start : 29-Jan-2019 Active Start: 02-05-2018 take 1 tablet by timo th once daily Potassium Chloride ER 20 MEQ Oral Tablet Extended Release 1 (one) Tablet ER daily for 90 days Quantity: 90 {Tablet} Refills: 3 Ordered: 05-Feb-2018 Annamaria Zhang CNP, CNP, Mary E Start : 05-Feb-2018 Active Comment on above: Mail order. predniSONE 20 mg oral tablet (20 sources) Corticosteroid Start: 10-20-2011 End: 11-18-2011 take 1 tablet by mouth once daily PREDNISONE, 20MG (Oral Tablet) 1 Tablet qd for 0 days Quantity: 4 {Tablet} Refills: 0 Ordered: 18-Nov-2011 FABRICE Payne LPN Start : 20-Oct-2011 End : 18-Nov-2011 Inactive Problems Active Problems Problem Classification Problem Date Documented Date Episodic/Chronic Acquired foot deformities (4 sources) Bunion; Translations: [Bunion, right] 01-30-2023 Episodic Allergic reactions (20 sources) Dermatitis; Translations: [Eczema] Resolved: 4 05-13-2013 Episodic Comment on above: perservative? in fidel d Conditions associated with dizziness or vertigo (20 sources) Dizziness; Translations: [Dizzy] 12-05-2017 Episodic Conduction disorders (1 source) Left bundle-branch block, unspecified; Translations: [Left bundle-branch block, unspecified] Onset: 5 Chronic Diabetes mellitus with complications (20 sources) Type II diabetes mellitus uncontrolled; Translations: [Diabetes mellitus type 2, uncontrolled (Renamed from Uncontrolled type 2 diabetes mellitus)] Onset: 5 Resolved: 9 12-05-2017 Chronic Comment on above: stable metformin advised her to f/u w ith this. she has testing supplies at home. she is not checking. thinks metformin will cause memory loss. Diabetes mellitus with complications (20 sources) Diabetes mellitus with complications Diabetes mellitus without complication (20 sources) Type 2 diabetes mellitus without complication; Translations: [Type 2 diabetes mellitus] Resolved: 3 12-05-2017 Chronic Comment on above: A1c 6.4, she stopped it worried about Alzheimer stable metformin Diabetes mellitus without complication (20 sources) Hyperglycemia; Translations: [Hyperglycemia] Resolved: 2 12-05-2017 Episodic Diabetes mellitus without complication (20 sources) Diabetes mellitus without complication Disorders of lipid metabolism (20 sources) Hyperlipidemia; Translations: [Hyperlipidemia] 08-23-2021 Chronic Essential hypertension (20 sources) Benign hypertension; Translations: [Hypertension, benign] 12-05-2017 Chronic Comment on above: on amlodipine, metop rolol, hctz, today BP up added losartan will take at night on amlodipine, metop rolol, hctz, losartan Fluid and electrolyte disorders (20 sources) Hypokalemia; Translations: [Hypokalemia] 12-05-2017 Episodic Comment on above: reveiwed with frank de anda recent [facility] Hypertension with complications and secondary hypertension (20 sources) Hypertensive heart disease; Translations: [Hypertensive heart disease] 12-05-2017 Chronic Neoplasms of unspecified nature or uncertain behavior (20 sources) Neoplasm of uncertain behavior of skin; Translations: [Neoplasm of uncertain behavior of skin] Resolved: 4 02-23-2015 Episodic Comment on above: ? neurofibromaSuture s removed easily -- tolerated well. Nonmalignant breast conditions (20 sources) Discharge from nipple; Translations: [Breast discharge] Resolved: 4 03-20-2015 Episodic Comment on above: breast pain as well Occlusion or stenosis of precerebral arteries (20 sources) Bilateral carotid artery occlusion; Translations: [Carotid occlusion, bilateral] 12-05-2017 Chronic Other connective tissue disease (20 sources) Pain in limb; Translations: [Pain in limb] Resolved: 4 05-13-2013 Episodic Other connective tissue disease (20 sources) Leg swelling symptom; Translations: [Swelling of lower limb] 12-05-2017 Episodic Other connective tissue disease (20 sources) Pain in both feet; Translations: [Foot pain, bilateral] 09-21-2020 Episodic Comment on above: try gel pad Other connective tissue disease (4 sources) Pain in right foot; Translations: [Right foot pain] 01-30-2023 Episodic Other liver diseases (20 sources) ALT (SGPT) level raised; Translations: [Elevated ALT measurement] 03-21-2022 Episodic Other lower respiratory disease (20 sources) Cough; Translations: [Cough] Resolved: 2 12-05-2017 Episodic Comment on above: most likely drug foster e effect from sandra Other non-traumatic joint disorders (20 sources) Pain in right knee; Translations: [Knee pain] Resolved: 0 11-24-2017 Episodic Comment on above: suspect tore rt meni scus, sending for xray, nsaid, rest, ice, referral wants to go back to Dr. Mora, had surgery in past (?arthroscopic?)acute on chronic. Other non-traumatic joint disorders (20 sources) Pain in elbow; Translations: [Elbow pain] Resolved: 0 12-05-2017 Episodic Other non-traumatic joint disorders (20 sources) Knee pain; Translations: [Knee pain, left] 12-05-2017 Episodic Comment on above: has been to PT and n said, worsening pain with stepping Other nutritional; endocrine; and metabolic disorders (20 sources) Obesity, unspecified; Translations: [Obesity] Chronic Other nutritional; endocrine; and metabolic disorders (20 sources) Body mass index 30+ - obesity; Translations: [BMI 36.0-36.9,adult] Resolved: 2 12-05-2017 Chronic Other nutritional; endocrine; and metabolic disorders (20 sources) Obesity; Translations: [Obesity, unspecified] 12-05-2017 Chronic Other screening for suspected conditions (not mental disorders or infectious disease) (20 sources) Breast neoplasm screening status; Translations: [Patient encounter status] 11-07-2018 Episodic Other skin disorders (20 sources) Skin tag; Translations: [Skin tag] 12-05-2017 Episodic Other skin disorders (20 sources) Eruption; Translations: [Rash] Resolved: 4 05-13-2013 Episodic Comment on above: left arm with cirula r silvery plaques with some central clearing. treat wfor fungus if not better then biopsy. thickening of areola bilateral look like plague also. if not better biopsy rule out pagets. Other skin disorders (20 sources) Pigmented skin lesion ; Translations: [Skin mole] 11-07-2018 Episodic Comment on above: to return in future for mole removal Other upper respiratory disease (20 sources) Nasal congestion; Translations: [Nasal congestion] Resolved: 0 12-05-2017 Episodic Other upper respiratory infections (20 sources) Acute sinusitis; Translations: [Sinusitis, acute] 12-05-2017 Episodic Residual codes; unclassified (20 sources) Non-smoker; Translations: [Nonsmoker] 09-21-2020 Episodic Spondylosis; intervertebral disc disorders; other back problems (20 sources) Sciatica; Translations: [Sciatica, left side] 09-21-2020 Episodic Unclassified (20 sources) Hypertension,benign(401. 1) Unclassified (20 sources) Hypertension, benign Unclassified (20 sources) Unclassified (20 sources) BMI 37.0-37.9, adult Unclassified (20 sources) Nonsmoker; Translations: [Non-smoker] 12-05-2017 Unclassified (20 sources) BMI 36.0-36.9,adult Unclassified (20 sources) Knee pain, left (719.46) Unclassified (20 sources) Breast discharge (611.79) Unclassified (20 sources) Lesion-Unknown behavior (238.2) Unclassified (20 sources) PRE-OPERATIVE EXAMINATION, UNSPECIFIED (V72.84) Unclassified (20 sources) Rash (782.1) Unclassified (20 sources) WWV V73.21 Resolved: 4 05-13-2013 Unclassified (19 sources) Foot pain, bilateral Unclassified (20 sources) Diabetes mellitus type II, controlled, with no complications (Renamed from Controlled type 2 diabetes mellitus without complication) Past or Other Problems Problem Classification Problem Date Documented Date Episodic/Chronic Other connective tissue disease (9 sources) Pain in both feet; Translations: [Foot pain, bilateral] 12-24-2019 Comment on above: try gel pad Other non-traumatic joint disorders (20 sources) Pain in right knee; Translations: [Right knee pain] Resolved: 12-24-2019 11-24-2017 Comment on above: suspect tore rt meni scus, sending for xray, nsaid, rest, ice, referral Other skin disorders (11 sources) Inflammatory dermatosis; Translations: [Dermatitis] Resolved: 05-13-2013 05-13-2013 Episodic Comment on above: perservative? in fidel d Unclassified (20 sources) Unspecified Diagnosis 08-19-2016 Unclassified (20 sources) Carotid occlusion, bilateral Unclassified (20 sources) Skin Tag, Irritated (701.9) Unclassified (20 sources) Dizzy Unclassified (20 sources) SINUSITIS, ACUTE NOS (461.9) Unclassified (20 sources) Preprocedural examination done; Translations: [Pre-operative examination] Resolved: 05-13-2013 01-13-2015 Comment on above: requested by Dr Bree argueta Unclassified (20 sources) Non-smoker; Translations: [Nonsmoker] 12-05-2017 Unclassified (20 sources) Patient encounter status; Translations: [Pre-operative examination] Resolved: 05-13-2013 01-13-2015 Comment on above: requested by Dr Bree argueta Unclassified (20 sources) Skin mole Unclassified (20 sources) Encounter for screening mammogram for breast cancer (Renamed from Encounter for screening mammogram for malignant neoplasm of breast) Unclassified (4 sources) Sciatica, left side Results Test Name Value Interpretation Reference Range Facility Absolute lymphocyte countOrd ered By: Giulia Prescott on 12-03-2024 Lymphocytes Auto (Unsp spec) [#/Vol] 3.00 10*3/uL 0.83-4.51 [facility] Absolute neutrophil countOrd ered By: Giuliaalyssa Prescott on 12-03-2024 Neutrophils (Bld) [#/Vol] 3.5 10*3/uL 2.0-7.7 [facility] Anion gap in Serum or Plasma Ordered By: Giulia Prescott on 12-03-2024 Anion gap [Moles/Vol] 15 mmol/L 5-15 [facility] Automated lymphocyte count a s percentage of total leukocytesOrdered By: [facility] on 12-03-2024 Lymphocytes/100 WBC Auto (Unsp spec) 41.2 % High 19-41 [facility] BUN/creatinine ratioOrdered By: [facility] on 12-03-2024 Urea nitrogen/Creatinine [Mass ratio] 27.3 mg/mg High 10-20 [facility] Basophil percentageOrdered B y: Giulia on 12-03-2024 Basophils/100 WBC (Bld) 1.1 % High 0-1 [facility] Bilirubin Test strip Ql (U)O rdered By: Giuliaalyssa Prescott on 12-03-2024 Bilirubin Ql (U) Negative Negative [facility] Bilirubin, totalOrdered By: [facility] on 12-03-2024 Bilirubin [Mass/Vol] 0.86 mg/dL Normal 0.00-1.30 [facility] Comment on above: Performed By: #### L 500.4050, L502.0250, L500.4100, L100.0100, L400.0001 #### [facility] [address] [place], [address] CBC W/Diff, Automatedon 08-2 -2024 Absolute Lymph 3.00 X10 3/uL Normal 0.83-4.51 [facility] Comment on above: Performed By: #### L 500.4050, L502.0250, L500.4100, L100.0100, L400.0001 #### [facility] [address] [place], [address] Absolute Neut 3.5 X10 3/uL Normal 2.0-7.7 [facility] Comment on above: Performed By: #### L 500.4050, L502.0250, L500.4100, L100.0100, L400.0001 #### [facility] [address] [place], [address] Basophils/100 WBC (Bld) 1.1 % High 0-1 [facility] Comment on above: Performed By: #### L 500.4050, L502.0250, L500.4100, L100.0100, L400.0001 #### [facility] [address] [place], [address] Eosinophils/100 WBC (Bld) 3.7 % Normal 0-5 [facility] Comment on above: Performed By: #### L 500.4050, L502.0250, L500.4100, L100.0100, L400.0001 #### [facility] [address] [place], [address] Erythrocyte distribution width (RBC) [Ratio] 12.6 % Normal 11.6-14.6 [facility] Comment on above: Performed By: #### L 500.4050, L502.0250, L500.4100, L100.0100, L400.0001 #### [facility] [address] [place], [address] Hematocrit (Bld) [Volume fraction] 44.4 % Normal 37-47 [facility] Comment on above: Performed By: #### L 500.4050, L502.0250, L500.4100, L100.0100, L400.0001 #### [facility] [address] [place], [address] Hemoglobin (Bld) [Mass/Vol] 15.1 g/dL High 12.0-15.0 [facility] Comment on above: Performed By: #### L 500.4050, L502.0250, L500.4100, L100.0100, L400.0001 #### [facility] [address] [place], [address] IG% 0.100 Normal 0.0-0.9 [facility] Comment on above: Result Comment: IG% - Immature Granulocytes (promyelocytes, myelocytes and metamyelocytes) > 1% indicates that a LEFT SHIFT is Present. Performed By: #### L 500.4050, L502.0250, L500.4100, L100.0100, L400.0001 #### [facility] [address] [place], [address] Lymphocytes/100 WBC (Bld) 41.2 % High 19-41 [facility] Comment on above: Performed By: #### L 500.4050, L502.0250, L500.4100, L100.0100, L400.0001 #### [facility] [address] [place], [address] MCH (RBC) [Entitic mass] 29.2 pg Normal 27.0-32.0 [facility] Comment on above: Performed By: #### L 500.4050, L502.0250, L500.4100, L100.0100, L400.0001 #### [facility] [address] [place], [address] MCHC (RBC) [Mass/Vol] 34.0 g/dL Normal 32-36 [facility] Comment on above: Performed By: #### L 500.4050, L502.0250, L500.4100, L100.0100, L400.0001 #### [facility] [address] [place], [address] MCV (RBC) [Entitic vol] 85.7 fL Normal 81-99 [facility] Comment on above: Performed By: #### L 500.4050, L502.0250, L500.4100, L100.0100, L400.0001 #### [facility] [address] [place], [address] Monocytes/100 WBC (Bld) 5.6 % Normal 0-10 [facility] Comment on above: Performed By: #### L 500.4050, L502.0250, L500.4100, L100.0100, L400.0001 #### [facility] [address] [place], [address] Neutrophils/100 WBC (Bld) 48.3 % Normal 47-70 [facility] Comment on above: Performed By: #### L 500.4050, L502.0250, L500.4100, L100.0100, L400.0001 #### [facility] [address] [place], [address] Nucleated RBC (Bld) [#/Vol] 0 10*3/uL Normal 0-5 [facility] Comment on above: Performed By: #### L 500.4050, L502.0250, L500.4100, L100.0100, L400.0001 #### [facility] [address] [place], [address] Platelet mean volume (Bld) [Entitic vol] 10.4 fL Normal 6.2-12.0 [facility] Comment on above: Performed By: #### L 500.4050, L502.0250, L500.4100, L100.0100, L400.0001 #### [facility] [address] [place], [address] Platelets (Bld) [#/Vol] 206 10*3/uL Normal 150-450 [facility] Comment on above: Performed By: #### L 500.4050, L502.0250, L500.4100, L100.0100, L400.0001 #### [facility] [address] [place], [address] RBC (Bld) [#/Vol] 5.18 10*6/uL Normal 4.2-5.4 [facility] Comment on above: Performed By: #### L 500.4050, L502.0250, L500.4100, L100.0100, L400.0001 #### [facility] [address] [place], [address] RDW SD 39.6 fl Normal 35.1-43.9 [facility] Comment on above: Performed By: #### L 500.4050, L502.0250, L500.4100, L100.0100, L400.0001 #### [facility] [address] [place], [address] WBC (Bld) [#/Vol] 7.3 10*3/uL Normal 4.4-11.0 [facility] Comment on above: Performed By: #### L 500.4050, L502.0250, L500.4100, L100.0100, L400.0001 #### [facility] [address] [place], [address] Calculated very low density lipoprotein (VLDL) cholesterol measurementOrdered By: Giulia Fast on 12-03-2024 Calculated very low density lipoprotein (VLDL) cholesterol measurement 16 mg/dL 5-40 [facility] Carbon dioxide, total [Moles /volume] in Central venous bloodOrdered By: Giulia Fast on 12-03-2024 CO2 [Moles/Vol] 26.0 mmol/L Normal 21.0-32.0 [facility] Comment on above: Performed By: #### L 500.4050, L502.0250, L500.4100, L100.0100, L400.0001 #### [facility] [address] [place], [address] Chloride assayOrdered By: De bra Fast on 12-03-2024 Chloride [Moles/Vol] 99 mmol/L Normal 98-108 [facility] Comment on above: Performed By: #### L 500.4050, L502.0250, L500.4100, L100.0100, L400.0001 #### [facility] [address] [place], [address] Comprehensive Metabolic Prof ilon 12-03-2024 ALK PHOS 93 U/L Normal 35-104 [facility] Comment on above: Performed By: #### L 500.4050, L502.0250, L500.4100, L100.0100, L400.0001 #### [facility] [address] [place], [address] BUN/CRE 27.3 RATIO High 10-20 [facility] Comment on above: Performed By: #### L 500.4050, L502.0250, L500.4100, L100.0100, L400.0001 #### [facility] [address] [place], [address] GAP 15 Normal 5-15 [facility] Comment on above: Performed By: #### L 500.4050, L502.0250, L500.4100, L100.0100, L400.0001 #### [facility] [address] [place], [address] Potassium [Moles/Vol] 3.0 mmol/L Low 3.3-5.1 [facility] Comment on above: Performed By: #### L 500.4050, L502.0250, L500.4100, L100.0100, L400.0001 #### [facility] [address] [place], [place], [id number] T PROT 7.0 g/dL Normal 5.9-8.4 [facility] Comment on above: Performed By: #### L 500.4050, L502.0250, L500.4100, L100.0100, L400.0001 #### [facility] [address] [place], [place], [id number] Comprehensive Metabolic Prof ilOrdered By: Giulia Fast on 12-03-2024 AST [Catalytic activity/Vol] 27 U/L Normal <=31 [facility] Comment on above: Performed By: #### L 500.4050, L502.0250, L500.4100, L100.0100, L400.0001 #### [facility] [address] [place], [place], [address] Eosinophil percentageOrdered By: Giulia Fast on 12-03-2024 Eosinophils/100 WBC (Bld) 3.7 % 0-5 [facility] Erythrocyte distribution wid th ratioOrdered By: Giulia Fast on 12-03-2024 Erythrocyte distribution width (RBC) [Ratio] 12.6 % 11.6-14.6 [facility] Erythrocyte distribution wid th standard deviationOrdered By: Giulia Fast on 12-03-2024 Erythrocyte distribution width (RBC) [Ratio] 39.6 fl 35.1-43.9 [facility] Glomerular filtration rate ( GFR) estimation/1.73 sq m using serum, plasma, or whole bOrdered By: Giulia Fast on 12-03-2024 GFR/1.73 sq M.predicted among non-blacks MDRD (S/P/Bld) [Vol rate/Area] 108 mL/min/{1.73_m2} Normal >60 [facility] Comment on above: mL/min/1.73m2 CKD-EP I Creatinine Equation (2020) Result Comment: mL/m in/1.73m2 CKD-EPI Creatinine Equation (2020) Performed By: #### L 500.4050, L502.0250, L500.4100, L100.0100, L400.0001 #### [facility] [address] [place], [address] Hematocrit Auto (Bld) [Volum e fraction]Ordered By: Giulia Fast on 12-03-2024 Hematocrit (Bld) [Volume fraction] 44.4 % 37-47 [facility] Hemoglobin measurementOrdere d By: Giulia Fast on 12-03-2024 Hemoglobin (Bld) [Mass/Vol] 15.1 g/dL High 12.0-15.0 [facility] Immature granulocytes/100 WB C Auto (Bld)Ordered By: Giulia on 12-03-2024 Immature granulocytes/100 WBC (Bld) 0.100 % 0.0-0.9 [facility] Comment on above: IG% - Immature Granu locytes (promyelocytes, myelocytes and metamyelocytes) > 1% indicates that a LEFT SHIFT is Present. Ketones Test strip Ql (U)Ord ered By: Giulia on 12-03-2024 Ketones Ql (U) Negative Negative [facility] LDL calc ser/plasOrdered By: Giulia on 12-03-2024 Cholesterol in LDL [Mass/Vol] 164 mg/dL Normal [facility] Comment on above: Voszlxmirj=296-309 m g/dL & Higher Mtxx=140 mg/dL or greaterFriedwald Equation for LDL-C Result Comment: Bord pyzull=608-875 mg/dL Higher Puzz=519 mg/dL or greater Friedwald Equation for LDL-C Performed By: #### L 500.4050, L502.0250, L500.4100, L100.0100, L400.0001 #### [facility] [address] [place], [address] Lipid Profileon 12-03-2024 CHOL:HDL 4.52 Normal [facility] Comment on above: Performed By: #### L 500.4050, L502.0250, L500.4100, L100.0100, L400.0001 #### [facility] [address] [place], [place], [id number] Cholesterol in VLDL [Mass/Vol] 16 mg/dL Normal 5-40 [facility] Comment on above: Performed By: #### L 500.4050, L502.0250, L500.4100, L100.0100, L400.0001 #### [facility] [address] [place], [place], [id number] MCV (mean corpuscular volume ) determinationOrdered By: Giulia Fast on 12-03-2024 MCV (RBC) [Entitic vol] 85.7 fL 81-99 [facility] Mean corpuscular hemoglobin (MCH) determinationOrdered By: Giulia Fast on 12-03-2024 MCH (RBC) [Entitic mass] 29.2 pg 27.0-32.0 [facility] Mean corpuscular hemoglobin concentration (MCHC) determinationOrdered By: Giulia Fast on 12-03-2024 MCHC (RBC) [Mass/Vol] 34.0 g/dL 32-36 [facility] Mean platelet volume determi nationOrdered By: Giulia Fast on 12-03-2024 Platelet mean volume (Bld) [Entitic vol] 10.4 fL 6.2-12.0 [facility] Microalb:Creat Ratio,Random URon 12-03-2024 Creatinine [Mass/Vol] 84.60 mg/dL Normal 28.00- 217. 00 [facility] Comment on above: Performed By: #### L 500.4050, L502.0250, L500.4100, L100.0100, L400.0001 #### [facility] [address] [place], [address] MALB:CREAT 15.4 mg/g CRE Normal <30 mg/g CRE [facility] Comment on above: Performed By: #### L 500.4050, L502.0250, L500.4100, L100.0100, L400.0001 #### [facility] [address] [place], [place], [id number] MICROALBUMIN,UR 13.0 mg/L Normal <20 mg/L [facility] Comment on above: Performed By: #### L 500.4050, L502.0250, L500.4100, L100.0100, L400.0001 #### [facility] [address] [place], [place], [id number] Microscopic analysis of urin e for red blood cells (RBC)Ordered By: Giulia Fast on 12-03-2024 Microscopic analysis of urine for red blood cells (RBC) 0 SEEN /hpf 0-5 [facility] Monocyte percentageOrdered B y: Giulia Fast on 12-03-2024 Monocytes/100 WBC (Bld) 5.6 % 0-10 [facility] Mucus LM Ql (Urine sed)Order ed By: Giulia Fast on 12-03-2024 Mucus Ql (Urine sed) 0 SEEN /hpf [facility] Neutrophil percentageOrdered By: Giluia Fast on 12-03-2024 Neutrophils/100 WBC (Bld) 48.3 % 47-70 [facility] Nitrite Test strip Ql (U)Ord ered By: Giulia Fast on 12-03-2024 Nitrite Ql (U) Negative Negative [facility] Nucleated red blood cell per centageOrdered By: Giulia Fast on 12-03-2024 Nucleated RBC/100 WBC (Bld) [Ratio] 0 % 0-5 [facility] Platelet countOrdered By: De valentin Fast on 12-03-2024 Platelets (Bld) [#/Vol] 206 10*3/uL 150-450 [facility] Potassium measurement (mass/ volume)Ordered By: Giulia Fast on 12-03-2024 Potassium (Unsp spec) [Mass/Vol] 3.0 mmol/L Low 3.3-5.1 [facility] Protein Test strip Ql (U)Ord ered By: Giulia Fast on 12-03-2024 Protein Ql (U) 15 mg/dl High Negative [facility] RBC Auto (Bld) [#/Vol]Ordere d By: Giulia Fast on 12-03-2024 RBC (Bld) [#/Vol] 5.18 10*6/uL 4.2-5.4 [facility] Random urine creatinine bhumika urement (mass/volume)Ordered By: Giulia on 12-03-2024 Creatinine Unsp time (U) [Mass/Vol] 84.60 mg/dL 28.00-217. 00 [facility] Screening total cholesterol/ high density lipoprotein (HDL) cholesterol ratioOrdered By: Giulia on 12-03-2024 Cholesterol.total/Chol esterol in HDL [Mass ratio] 4.52 {ratio} [facility] Serum creatinine measurement (mass/volume)Ordered By: Giulia Fast on 12-03-2024 Creatinine [Mass/Vol] 0.48 mg/dL Low 0.70-1.20 [facility] Comment on above: Performed By: #### L 500.4050, L502.0250, L500.4100, L100.0100, L400.0001 #### [facility] [address], [place], [id number] Serum globulin measurementOr dered By: on 12-03-2024 Globulin (S) [Mass/Vol] 2.7 g/dL Normal 2.2-4.2 [facility] Comment on above: Performed By: #### L 500.4050, L502.0250, L500.4100, L100.0100, L400.0001 #### [facility] [address], [place], [id number] Serum glucose measurement (m ass/volume)Ordered By: Giulia on 12-03-2024 Glucose [Mass/Vol] 165 mg/dL High 70-99 [facility] Comment on above: Performed By: #### L 500.4050, L502.0250, L500.4100, L100.0100, L400.0001 #### [facility] [address], [place], [id number] (246) Serum or plasma alanine moon otransferase (ALT) measurementOrdered By: Giulia Fast on 12-03-2024 ALT [Catalytic activity/Vol] 32 U/L Normal <=34 [facility] Comment on above: Performed By: #### L 500.4050, L502.0250, L500.4100, L100.0100, L400.0001 #### [facility] [address] [facility]. [place], [place], [id number] Serum or plasma albumin bhumika urement (mass/volume)Ordered By: Giulia Fast on 12-03-2024 Albumin [Mass/Vol] 4.3 g/dL Normal 3.4-4.8 [facility] Comment on above: Performed By: #### L 500.4050, L502.0250, L500.4100, L100.0100, L400.0001 #### [facility] [address], [place], [id number] Serum or plasma albumin/glob ulin mass ratioOrdered By: Giulia Fast on 12-03-2024 Albumin/Globulin [Mass ratio] 1.6 {ratio} Normal 0.9-2.4 [facility] Comment on above: Performed By: #### L 500.4050, L502.0250, L500.4100, L100.0100, L400.0001 #### [facility] [address], [place], [id number] Serum or plasma alkaline vanessa sphatase measurementOrdered By: Giulia Fast on 12-03-2024 ALP [Catalytic activity/Vol] 93 U/L 35-104 [facility] Serum or plasma calcium bhumika urement (mass/volume)Ordered By: Giulia Fast on 12-03-2024 Calcium [Mass/Vol] 9.6 mg/dL Normal 7.6-11.0 [facility] Comment on above: Performed By: #### L 500.4050, L502.0250, L500.4100, L100.0100, L400.0001 #### [facility] [address] [place], [place], [id number] Serum or plasma cholesterol in HDL measurement (mass/volume)Ordered By: Giulia Fast on 12-03-2024 Cholesterol in HDL [Mass/Vol] 51 mg/dL Normal [facility] Comment on above: National Cholesterol Education Program (NCEP) guidelines:<40 mg/dL: Low HDL-cholesterol (major risk factor for CHD)>= 60 mg/dL: High HDL-cholesterol (negative risk factor for CHD)HDL-cholesterol is affected by a number of factors, e.g. smoking, exercise, hormones, sex and age. Result Comment: Opal onal Cholesterol Education Program (NCEP) guidelines: <40 mg/dL: Low HDL-cholesterol (major risk factor for CHD) >= 60 mg/dL: High HDL-cholesterol (negative risk factor for CHD) HDL-cholesterol is affected by a number of factors, e.g. smoking, exercise, hormones, sex and age. Performed By: #### L 500.4050, L502.0250, L500.4100, L100.0100, L400.0001 #### [facility] [address] [place], [place], [address] Serum or plasma cholesterol measurement (mass/volume)Ordered By: Giulia Fast on 12-03-2024 Cholesterol [Mass/Vol] 231 mg/dL High <=200 [facility] Comment on above: Cholesterol level, D esirable <200 mg/dLBorderline high cholesterol 200-239 mg/dLHigh cholesterol >=240 mg/dLRecommendations of the NCEP Adult Treatment Panel for the following risk-cutoff thresholds for the [place] population. Result Comment: Chol esterol level, Desirable <200 mg/dL Borderline high cholesterol 200-239 mg/dL High cholesterol >=240 mg/dL Recommendations of the NCEP Adult Treatment Panel for the following risk-cutoff thresholds for the [place] population. Performed By: #### L 500.4050, L502.0250, L500.4100, L100.0100, L400.0001 #### [facility] [address] [place], [place], [address] Serum or plasma urea nitroge n measurement (mass/volume)Ordered By: Giulia Fast on 12-03-2024 Urea nitrogen [Mass/Vol] 13 mg/dL Normal 4-19 [facility] Comment on above: Performed By: #### L 500.4050, L502.0250, L500.4100, L100.0100, L400.0001 #### [facility] [address] [place], [place], [address] Sodium levelOrdered By: Debr a Fast on 12-03-2024 Sodium [Moles/Vol] 140 mmol/L Normal 133-145 [facility] Comment on above: Performed By: #### L 500.4050, L502.0250, L500.4100, L100.0100, L400.0001 #### [facility] [address] [place], [address] Squamous epithelial cells de tection in urine sediment by light microscopyOrdered By: Giulia Fast on 12-03-2024 Epithelial cells.squamous LM Ql (Urine sed) 0 SEEN /hpf 5-10 [facility] Total proteinOrdered By: Constanza ra Fast on 12-03-2024 Protein [Mass/Vol] 7.0 g/dL 5.9-8.4 [facility] Triglycerides measurementOrd ered By: Giulia Fast on 12-03-2024 Triglyceride [Mass/Vol] 78 mg/dL Normal [facility] Comment on above: The drugs N-Acetylcy steine and Metamizole may falsely depress this assay. Normal range: <150 mg/dLBorderline High: 150-199 mg/dLHigh: 200-499 mg/dLVery High: >500 mg/dL Result Comment: The drugs N-Acetylcysteine and Metamizole may falsely depress this assay. Normal range: <150 mg/dL Borderline High: 150-199 mg/dL High: 200-499 mg/dL Very High: >500 mg/dL Performed By: #### L 500.4050, L502.0250, L500.4100, L100.0100, L400.0001 #### [facility] [address] [place], [address] Urinalysis, Completeon 12-03 BACTERIA 0 SEEN Normal None Seen [facility] Comment on above: Order Comment: CLEAN CATCH Performed By: #### L 500.4050, L502.0250, L500.4100, L100.0100, L400.0001 #### [facility] [address] [place], [address] EPI,SQUAMOUS 0 SEEN Normal 5-10 [facility] Comment on above: Order Comment: CLEAN CATCH Performed By: #### L 500.4050, L502.0250, L500.4100, L100.0100, L400.0001 #### [facility] [address] [place], [address] Mucus Ql (Urine sed) 0 SEEN Normal [facility] Comment on above: Order Comment: CLEAN CATCH Performed By: #### L 500.4050, L502.0250, L500.4100, L100.0100, L400.0001 #### [facility] [address] [place], [address] RBC 0 SEEN Normal 0-5 [facility] Comment on above: Order Comment: CLEAN CATCH Performed By: #### L 500.4050, L502.0250, L500.4100, L100.0100, L400.0001 #### [facility] [address] [place], [address] WBC 0 SEEN Normal 0-5 [facility] Comment on above: Order Comment: CLEAN CATCH Performed By: #### L 500.4050, L502.0250, L500.4100, L100.0100, L400.0001 #### [facility] [address] [place], [address] Urine albumin measurement [facility] detection limit of 20 mg/L or less (mass/volume)Ordered By: Giulia Fast on 12-03-2024 Albumin DL <= 20 mg/L (U) [Mass/Vol] 13.0 mg/L <20 mg/L [facility] Urine clarityOrdered By: Constanza ra Fast on 12-03-2024 Clarity (U) Clear Clear [facility] Urine color determinationOrd ered By: Giulia Fast on 12-03-2024 Color (U) Yellow Yellow [facility] Urine glucose detectionOrder ed By: Giulia Fast on 12-03-2024 Glucose Ql (U) 1000 mg/dl High Normal [facility] Urine leukocyte esterase det ection by dipstickOrdered By: Giulia on 12-03-2024 Leukocyte esterase Test strip Ql (U) Negative Negative [facility] Urine pHOrdered By: Giulia Fa st on 12-03-2024 pH (U) 6.5 [pH] 5.0 - 8.0 [facility] Urine sediment bacteria coun t by microscopy (number/high power field)Ordered By: Giulia on 12-03-2024 Bacteria LM.HPF (Urine sed) [#/Area] 0 /[HPF] None Seen [facility] Urine specific gravity measu rementOrdered By: Giulia on 12-03-2024 Specific gravity (U) [Rel density] 1.015 1.002-1.03 0 [facility] Urine urobilinogen measureme ntOrdered By: Giulia Fast on 12-03-2024 Urobilinogen Ql (U) Normal mg/dl Normal [facility] White blood cell (WBC) count Ordered By: Giulia Fast on 12-03-2024 WBC (Bld) [#/Vol] 7.3 10*3/uL 4.4-11.0 [facility] White blood cell countOrdere d By: Giulia Fast on 12-03-2024 White blood cell count 0 SEEN /hpf 0-5 [facility] CBC, PLATELETS & AUT DIFF ([id number])Ordered By: Aurist on 03-23-2022 Basophils (Bld) [#/Vol] 0.1 10*3/uL Normal 0.0-0.2 [facility]; [facility] Work Phone: Comment on above: PATIENT WAS FASTINGP ERFORMED BY: LabcoSaint Michael's Medical CenterZpkqhs0069 [facility] [id number] Basophils/100 WBC (Bld) 1 % Normal [facility]; [facility] Work Phone: Comment on above: PATIENT WAS FASTINGP ERFORMED BY: [facility] Cnldkv2766 [address] RoadDublin [place] [id number] Eosinophils (Bld) [#/Vol] 0.3 10*3/uL Normal 0.0-0.4 [facility]; [facility] Work Phone: Comment on above: PATIENT WAS FASTINGP ERFORMED BY: [facility] Ftbbtt5919 [address] RoadDublin [place] [id number] Eosinophils/100 WBC (Bld) 4 % Normal [facility]; [facility] Work Phone: Comment on above: PATIENT WAS FASTINGP ERFORMED BY: [facility] Sismej9338 [address] Roadblin [place] [id number] Erythrocyte distribution width (RBC) [Ratio] 13.2 % Normal 11.7-15.4 [facility]; [facility] Work Phone: Comment on above: PATIENT WAS FASTINGP ERFORMED BY: LabMcL[facility]6370 [address] RoadUNC Health Rex [facility] [id number] Hematocrit (Bld) [Volume fraction] 44.5 % Normal 34.0-46.6 [facility]; [facility] Work Phone: Comment on above: PATIENT WAS FASTINGP ERFORMED BY: [facility] Vcjjky25[address] RoadWilson Medical Centerin [place] [id number] Hemoglobin (Bld) [Mass/Vol] 14.5 g/dL Normal 11.1-15.9 [facility]; [facility] Work Phone: Comment on above: PATIENT WAS FASTINGP ERFORMED BY: [facility] Vrpeml5824 [address] RoadDuin [place] [id number] Immature granulocytes (Bld) [#/Vol] 0.0 10*3/uL Normal 0.0-0.1 [facility]; [facility] Work Phone: Comment on above: PATIENT WAS FASTINGP ERFORMED BY: [facility] Vpvxpq3022 [address] RoadDublin [place] [id number] Immature granulocytes/100 WBC (Bld) 0 % Normal [facility]; [facility] Work Phone: Comment on above: PATIENT WAS FASTINGP ERFORMED BY: GABE [facility] Uymttc5780 [address] RoadDublin [place] [id number] Lymphocytes (Bld) [#/Vol] 2.5 10*3/uL Normal 0.7-3.1 [facility]; [facility] Work Phone: Comment on above: PATIENT WAS FASTINGP ERFORMED BY: [facility] Dlgzyj5107 [address] RoadDublin [place] [id number] Lymphocytes/100 WBC (Bld) 41 % Normal [facility]; [facility] Work Phone: Comment on above: PATIENT WAS FASTINGP ERFORMED BY: GABE [facility] Vbkgib5088 [address] Roadblin [place] [id number] MCH (RBC) [Entitic mass] 28.1 pg Normal 26.6-33.0 [facility]; [facility] Work Phone: Comment on above: PATIENT WAS FASTINGP ERFORMED BY: [facility] Msnzig8475 [address] RoadDublin [place] [id number] MCHC (RBC) [Mass/Vol] 32.6 g/dL Normal 31.5-35.7 [facility] prehensive [facility]; [facility] Work Phone: Comment on above: PATIENT WAS FASTINGP ERFORMED BY: GABE [facility] Vlapgu2974 [address] RoadDublin [place] [id number] MCV (RBC) [Entitic vol] 86 fL Normal 79-97 [facility]; [facility] Work Phone: Comment on above: PATIENT WAS FASTINGP ERFORMED BY: GABE [facility] Yyfybm1811 [address] RoadDublin [place] [id number] Monocytes (Bld) [#/Vol] 0.4 10*3/uL Normal 0.1-0.9 [facility]; [facility] Work Phone: Comment on above: PATIENT WAS FASTINGP ERFORMED BY: [facility] Lyjtfg8353 [address] RoadDublin [place] [id number] Monocytes/100 WBC (Bld) 7 % Normal [facility]; [facility] Work Phone: Comment on above: PATIENT WAS FASTINGP ERFORMED BY: CB [facility] Jdknmn0352 [address] RoadDublin [place] [id number] Neutrophils (Bld) [#/Vol] 2.8 10*3/uL Normal 1.4-7.0 [facility]; [facility] Work Phone: Comment on above: PATIENT WAS FASTINGP ERFORMED BY: CB [facility] Zloaud6145 [address] RoadDublin [place] [id number] Neutrophils/100 WBC (Bld) 47 % Normal [facility]; [facility] Work Phone: Comment on above: PATIENT WAS FASTINGP ERFORMED BY: CB [facility] Mrclqy3862 [address] RoadDublin [place] [id number] Platelets (Bld) [#/Vol] 260 10*3/uL Normal 150-450 [facility]; [facility] Work Phone: Comment on above: PATIENT WAS FASTINGP ERFORMED BY: CB [facility] Rthkqw2736 [address] RoadDublin [place] [id number] RBC (Bld) [#/Vol] 5.16 10*6/uL Normal 3.77-5.[address] [facility]; [facility] Work Phone: Comment on above: PATIENT WAS FASTINGP ERFORMED BY: CB [facility] Xrreur8[address] RoadDublin [place] [id number] WBC (Bld) [#/Vol] 6.0 10*3/uL Normal 3.4-10.8 [facility]; [facility] Work Phone: Comment on above: PATIENT WAS FASTINGP ERFORMED BY: CB [facility] Zthqwd2039 [address]Dublin [place] [id number] HGB A1C ([id number])Ordered By: Mi ystem Senior Maintenance Mechanic on 03-23-2022 HbA1c (Bld) [Mass fraction] 12.1 % Abnormal 4.8-5.6 [facility]; [facility] Work Phone: Comment on above: . Prediabetes: 5.7 - 6.4 Diabetes: >6.4 Glycemic control for adults with diabetes: <7.0 PATIENT WAS FASTINGP ERFORMED BY: GABE [facility] Rlxhib6340 [address] RoadDublin [place] [id number] LIPID PANEL (47819)Ordered B y: Aurist on 03-23-2022 Cholesterol [Mass/Vol] 197 mg/dL Normal 100-[address] [facility] [address] [facility]; [facility] Work Phone: Comment on above: PATIENT WAS FASTINGP ERFORMED BY: CB [facility] Mrdzaf2843 [address] RoadDublin [place] [id number] Cholesterol in HDL [Mass/Vol] 45 mg/dL Normal [facility]; [facility] Work Phone: Comment on above: PATIENT WAS FASTINGP ERFORMED BY: GABE [facility] Vbwezl7650 [address] RoadDublin [place] [id number] Triglyceride [Mass/Vol] 100 mg/dL Normal 0-149 [facility]; [facility] Work Phone: Comment on above: PATIENT WAS FASTINGP ERFORMED BY: GABE [facility] Osgwpl8479 [address] RoadDublin [place] [id number] LIPID PANEL (80414) 18 mg/dL Normal 5-40 [facility]; [facility] Work Phone: Comment on above: PATIENT WAS FASTINGP ERFORMED BY: CB [facility] Ywfmfe8618 [address] RoadDublin [place] [id number] LIPID PANEL (51751) 134 mg/dL Abnormal 0-99 [facility]; [facility] Work Phone: Comment on above: PATIENT WAS FASTINGP ERFORMED BY: CB [facility] Yqjlqy1638 [address] RoadDublin [place] [id number] LIPID PANEL (13471) 3.0 {ratio} Normal 0.0-3.2 [facility]erens[facility]; [facility] Work Phone: Comment on above: LDL/HDL Ratio Men Wo men 1/2 Avg.Risk 1.0 1.5 Avg.Risk 3.6 3.2 2X Avg.Risk 6.2 5.0 3X Avg.Risk 8.0 6.1 PATIENT WAS FASTINGP ERFORMED BY: CB [facility] Kqyuwu3270 [address] RoadDublin [place] [id number] METABOLIC PANEL, COMPREHENSI VE (27780)Ordered By: Aurist on 03-23-2022 Albumin [Mass/Vol] 4.2 g/dL Normal 3.8-4.9 [facility]; [facility] Work Phone: Comment on above: PATIENT WAS FASTINGP ERFORMED BY: CB [facility] Kcekph7954 [address] RoadDublin [place] [id number] Albumin/Globulin [Mass ratio] 1.6 {ratio} Normal 1.2-2.2 [facility]; [facility] Work Phone: Comment on above: PATIENT WAS FASTINGP ERFORMED BY: CB [facility] Pmisuo5466 [address] RoadDublin [place] [id number] ALP [Catalytic activity/Vol] 111 U/L Normal 44-121 [facility]; [facility] Work Phone: Comment on above: PATIENT WAS FASTINGP ERFORMED BY: CB [facility] Rkgura4432 [address] RoadDublin [place] [id number] ALT [Catalytic activity/Vol] 26 U/L Normal 0-32 [facility]; [facility] Work Phone: Comment on above: PATIENT WAS FASTINGP ERFORMED BY: CB [facility] Rkjcuw0057 [address] RoadDublin [place] [id number] AST [Catalytic activity/Vol] 21 U/L Normal 0-40 [facility]; [facility] Work Phone: Comment on above: PATIENT WAS FASTINGP ERFORMED BY: CB [facility] Qmuekr1458 [address] RoadDublin [place] [id number] Bilirubin [Mass/Vol] 1.0 mg/dL Normal 0.0-1.2 [facility]; [facility] Work Phone: Comment on above: PATIENT WAS FASTINGP ERFORMED BY: CB [facility] Otqkug0624 [address] RoadDublin [place] [id number] Calcium [Mass/Vol] 9.6 mg/dL Normal 8.7-10.2 [facility]; [facility] Work Phone: Comment on above: PATIENT WAS FASTINGP ERFORMED BY: GABE [facility] Bcghtk[address] [facility]in [place] [id number] Chloride [Moles/Vol] 99 mmol/L Normal 96-106 [facility]erensive [facility]; [facility] Work Phone: Comment on above: PATIENT WAS FASTINGP ERFORMED BY: GABE LabcoNew Mexico Rehabilitation CenterUivlfz[address] [facility] [id number] CO2 [Moles/Vol] 27 mmol/L Normal 20-29 [facility]; [facility] Work Phone: Comment on above: PATIENT WAS FASTINGP ERFORMED BY: GABE [facility] Zzzvcb5113 [facility] [id number] Creatinine [Mass/Vol] 0.58 mg/dL Normal 0.57-1.00 [facility]erensive [facility]; [facility] Work Phone: Comment on above: PATIENT WAS FASTINGP ERFORMED BY: GABE LabMcL[facility] Michigan6370 [facility] [id number] GFR/1.73 sq M.predicted among non-blacks MDRD (S/P/Bld) [Vol rate/Area] 105 mL/min/{1.73_m2} Normal [facility]; [facility] Work Phone: Comment on above: PATIENT WAS FASTINGP ERFORMED BY: GABE [facility] Tgpeem1542 [facility] [id number] Globulin (S) [Mass/Vol] 2.7 g/dL Normal 1.5-4.5 [facility]; [facility] Work Phone: Comment on above: PATIENT WAS FASTINGP ERFORMED BY: GABE [facility] Fnpjqw[address] [facility]in [place] [id number] Glucose [Mass/Vol] 251 mg/dL Abnormal 70-99 [facility]ive [facility]; [facility] Work Phone: Comment on above: PATIENT WAS FASTINGP ERFORMED BY: GABE [facility] Rcrohj3937 [address] RoadDublin [place] [id number] Potassium [Moles/Vol] 3.5 mmol/L Normal 3.5-5.2 [facility]erens[facility]; [facility] Work Phone: Comment on above: PATIENT WAS FASTINGP ERFORMED BY: [facility] Tjoqee8294 [address] RoadDublin [place] [id number] Protein [Mass/Vol] 6.9 g/dL Normal 6.0-8.5 [facility]; [facility] Work Phone: Comment on above: PATIENT WAS FASTINGP ERFORMED BY: [facility] Apajrv1577 [address] RoadDublin [place] [id number] Sodium [Moles/Vol] 140 mmol/L Normal 134-144 [facility]; [facility] Work Phone: Comment on above: PATIENT WAS FASTINGP ERFORMED BY: [facility] Juxtlu4764 [address] RoadDublin [place] [id number] Urea nitrogen [Mass/Vol] 9 mg/dL Normal 6-24 [facility]; [facility] Work Phone: Comment on above: PATIENT WAS FASTINGP ERFORMED BY: [facility] Zdpgre1656 [address] Roadblin [place] [id number] Urea nitrogen/Creatinine [Mass ratio] 16 mg/mg Normal 9-23 [facility]; [facility] Work Phone: Comment on above: PATIENT WAS FASTINGP ERFORMED BY: [facility] Uihnet[address] [facility] Hospitalblin [place] [id number] MICROALB;CREAT RATION, RAND UR ([id number])Ordered By: Aurist on 03-23-2022 Albumin DL <= 20 mg/L (U) [Mass/Vol] 108.9 ug/mL Normal [facility]; [facility] Work Phone: Comment on above: PATIENT WAS FASTINGP ERFORMED BY: [facility] Zzejqi3990 [address] RoadDublin [place] [id number] Albumin/Creatinine (U) [Mass ratio] 53 {mg/g_creat} Abnormal 0-29 [facility]; [facility] Work Phone: Comment on above: Normal: 0 - 29 Moder ately increased: 30 - 300 Severely increased: >300 PATIENT WAS FASTINGP ERFORMED BY: [employer] Iebucv0342 [facility] [id number] Creatinine (U) [Mass/Vol] 205.6 mg/dL Normal [facility]; [facility] Work Phone: Comment on above: PATIENT WAS FASTINGP ERFORMED BY: [employer] SystemsMcLaren Central Michigan6370 [facility] [id number] CBC, Platelets & Auto Diff ( [id number])Ordered By: Aurist on 09-22-2020 Basophils (Bld) [#/Vol] 0.1 10*3/uL Normal 0.0-0.2 [facility]; [facility] Work Phone: Comment on above: PATIENT WAS FASTINGP ERFORMED BY: PixelEXX SystemsUniversity Health [facility] Aciqur3768 [facility] [id number] Basophils/100 WBC (Bld) 1 % Normal [facility]; [facility] Work Phone: Comment on above: PATIENT WAS FASTINGP ERFORMED BY: PixelEXX SystemsUniversity Health [facility] Center Acgidk8378 [facility] [id number] Eosinophils (Bld) [#/Vol] 0.3 10*3/uL Normal 0.0-0.4 [facility]; [facility] Work Phone: Comment on above: PATIENT WAS FASTINGP ERFORMED BY: PixelEXX SystemsDuane L. Waters Hospital6370 [facility] [id number] Eosinophils/100 WBC (Bld) 4 % Normal [facility]; [facility] Work Phone: Comment on above: PATIENT WAS FASTINGP ERFORMED BY: PixelEXX SystemsDuane L. Waters Hospital6370 [facility] [id number] Erythrocyte distribution width (RBC) [Ratio] 13.1 % Normal 11.7-15.4 [facility]; [facility] Work Phone: Comment on above: PATIENT WAS FASTINGP ERFORMED BY: [facility] Xbpysv0095 [address] RoadDublin [place] [id number] Hematocrit (Bld) [Volume fraction] 41.1 % Normal 34.0-46.6 [facility]; [facility] Work Phone: Comment on above: PATIENT WAS FASTINGP ERFORMED BY: [facility] Apbrwp4224 [address] RoadDublin [place] [id number] Hemoglobin (Bld) [Mass/Vol] 13.8 g/dL Normal 11.1-15.9 [facility]; [facility] Work Phone: Comment on above: PATIENT WAS FASTINGP ERFORMED BY: [facility] Ittapo1817 [address] RoadDublin [place] [id number] Immature granulocytes (Bld) [#/Vol] 0.0 10*3/uL Normal 0.0-0.1 [facility] Medicine; [facility] Work Phone: Comment on above: PATIENT WAS FASTINGP ERFORMED BY: [facility] Npuynq8983 [address] RoadDublin [place] [id number] Immature granulocytes/100 WBC (Bld) 0 % Normal [facility]; [facility] Work Phone: Comment on above: PATIENT WAS FASTINGP ERFORMED BY: [facility] Xaiezt3100 [address] RoadDublin [place] [id number] Lymphocytes (Bld) [#/Vol] 2.1 10*3/uL Normal 0.7-3.1 [facility]; [facility] Work Phone: Comment on above: PATIENT WAS FASTINGP ERFORMED BY: [facility] Komcfs3206 [address] RoadDublin [place] [id number] Lymphocytes/100 WBC (Bld) 33 % Normal [facility]; [facility] Work Phone: Comment on above: PATIENT WAS FASTINGP ERFORMED BY: [facility] Fpmhao9058 [address] RoadDublin [place] [id number] MCH (RBC) [Entitic mass] 28.9 pg Normal 26.6-33.0 [facility]; [facility] Work Phone: Comment on above: PATIENT WAS FASTINGP ERFORMED BY: CB [facility] Fpqvvw9329 [address] RoadDublin [place] [id number] MCHC (RBC) [Mass/Vol] 33.6 g/dL Normal 31.5-35.7 [facility] prehensive Internal Medicine; [facility] Work Phone: Comment on above: PATIENT WAS FASTINGP ERFORMED BY: CB [facility] Shnfwn5227 [address] RoadDublin [place] [id number] MCV (RBC) [Entitic vol] 86 fL Normal 79-97 [facility]; [facility] Work Phone: Comment on above: PATIENT WAS FASTINGP ERFORMED BY: CB [facility] Tayzpb4910 [address] RoadDublin [place] [id number] Monocytes (Bld) [#/Vol] 0.4 10*3/uL Normal 0.1-0.9 [facility]; [facility] Work Phone: Comment on above: PATIENT WAS FASTINGP ERFORMED BY: CB [facility] Uwfjtv3329 [address] RoadDublin [place] [id number] Monocytes/100 WBC (Bld) 6 % Normal [facility]; [facility] Work Phone: Comment on above: PATIENT WAS FASTINGP ERFORMED BY: CB [facility] Twtqvw9565 [address] RoadDublin [place] [id number] Neutrophils (Bld) [#/Vol] 3.5 10*3/uL Normal 1.4-7.0 [facility]; [facility] Work Phone: Comment on above: PATIENT WAS FASTINGP ERFORMED BY: CB [facility] Sovxrb6766 [address] RoadDublin [place] [id number] Neutrophils/100 WBC (Bld) 56 % Normal [facility]; [facility] Work Phone: Comment on above: PATIENT WAS FASTINGP ERFORMED BY: CB [facility] Qfzvra9044 [address] RoadDublin [place] [id number] Platelets (Bld) [#/Vol] 217 10*3/uL Normal 150-450 [facility]; [facility] Work Phone: Comment on above: PATIENT WAS FASTINGP ERFORMED BY: GABE Yulia Kamara6370 [address] RoadDublin [place] [id number] RBC (Bld) [#/Vol] 4.77 10*6/uL Normal 3.77-5.28 [facility]; [facility] Work Phone: Comment on above: PATIENT WAS FASTINGP ERFORMED BY: GABE MonicaRhea SchofieldGxcxya4793 [address] RoadDublin [place] [id number] WBC (Bld) [#/Vol] 6.4 10*3/uL Normal 3.4-10.8 [facility] Internal Medicine; [facility] Work Phone: Comment on above: PATIENT WAS FASTINGP ERFORMED BY: GABE MonicaRhea SchofieldQsteps0368 [address] RoadDublin [place] [id number] Lipid Panel (38168)Ordered B y: Aurist on 09-22-2020 Cholesterol [Mass/Vol] 229 mg/dL Abnormal 100-[address] [facility]osephensive Internal Medicine; [facility] Work Phone: Comment on above: PATIENT WAS FASTINGP ERFORMED BY: GABE Tashajoelle Ujlkbe7790 [address] RoadDublin [place] [id number] Cholesterol in HDL [Mass/Vol] 42 mg/dL Normal [facility]; [facility] Work Phone: Comment on above: PATIENT WAS FASTINGP ERFORMED BY: GABE MonicaRhea SchofieldJluyep2546 [address] RoadDublin [place] [id number] Triglyceride [Mass/Vol] 109 mg/dL Normal 0-149 [facility]; [facility] Work Phone: Comment on above: PATIENT WAS FASTINGP ERFORMED BY: GABE LabRhea SchofieldXzctrw7462 [address] RoadDublin [place] [id number] Lipid Panel (12561) 20 mg/dL Normal 5-40 [facility]; [facility] Work Phone: Comment on above: PATIENT WAS FASTINGP ERFORMED BY: GABE LabRhea SchofieldBtlwqm2333 [address] RoadDublin [place] [id number] Lipid Panel (85002) 167 mg/dL Abnormal 0-99 [facility] ehensive Internal Medicine; [facility] Work Phone: Comment on above: PATIENT WAS FASTINGP ERFORMED BY: GABE [facility] HospitalRhea Zxwjqx9743 [facility] [id number] Lipid Panel (47599) 4.0 {ratio} Abnormal 0.0-3.2 Comp [facility] toledoensive [facility]; [facility] Work Phone: Comment on above: LDL/HDL Ratio Men Wo men 1/2 Avg.Risk 1.0 1.5 Avg.Risk 3.6 3.2 2X Avg.Risk 6.2 5.0 3X Avg.Risk 8.0 6.1 PATIENT WAS FASTINGP ERFORMED BY: GABE [facility] HospitalRhea Uwwlri0554 [facility] [id number] MICROALBUMINOrdered By: Syst em Senior Maintenance Mechanic on 09-22-2020 Albumin DL <= 20 mg/L (U) [Mass/Vol] 23.3 ug/mL Normal [facility]; [facility] Work Phone: Comment on above: PATIENT WAS FASTINGP ERFORMED BY: GABE Schofieldlin6370 [facility] [id number] Albumin/Creatinine (U) [Mass ratio] 14 {mg/g_creat} Normal 0-29 [facility]; [facility] Work Phone: Comment on above: Normal: 0 - 29 Moder ately increased: 30 - 300 Severely increased: >300 PATIENT WAS FASTINGP ERFORMED BY: GABE [facility]6370 [facility] [id number] Creatinine (U) [Mass/Vol] 162.4 mg/dL Normal [facility]; [facility] Work Phone: Comment on above: PATIENT WAS FASTINGP ERFORMED BY: GABE PixelEXX SystemsDuane L. Waters Hospital6370 [facility] [id number] Metabolic Panel, Comprehensi ve (56316)Ordered By: Aurist on 09-22-2020 Albumin [Mass/Vol] 4.1 g/dL Normal 3.8-4.9 Compre hensive Internal Medicine; [facility] Work Phone: Comment on above: PATIENT WAS FASTINGP ERFORMED BY: GABE [facility] Zpzzxz0051 [address] RoadDublin [place] [id number] Albumin/Globulin [Mass ratio] 1.4 {ratio} Normal 1.2-2.2 [facility]; [facility] Work Phone: Comment on above: PATIENT WAS FASTINGP ERFORMED BY: CB [facility] Zjmeav7397 [address] RoadDublin [place] [id number] ALP [Catalytic activity/Vol] 92 U/L Normal 48-121 [facility]; [facility] Work Phone: Comment on above: PATIENT WAS FASTINGP ERFORMED BY: GABE [facility] Dnyyzw8577 [address] RoadDublin [place] [id number] ALT [Catalytic activity/Vol] 38 U/L Abnormal 0-32 [facility]; [facility] Work Phone: Comment on above: PATIENT WAS FASTINGP ERFORMED BY: [facility] Xlclmz1092 [address] RoadDublin [place] [id number] AST [Catalytic activity/Vol] 29 U/L Normal 0-40 [facility]; [facility] Work Phone: Comment on above: PATIENT WAS FASTINGP ERFORMED BY: GABE [facility] Hkvyiv5970 [address] RoadDublin [place] [id number] Bilirubin [Mass/Vol] 0.9 mg/dL Normal 0.0-1.2 [facility] Centerensive Internal Medicine; [facility] Internal Medicine Work Phone: Comment on above: PATIENT WAS FASTINGP ERFORMED BY: CB [facility] Mjcobz8206 [address] RoadDublin [place] [id number] Calcium [Mass/Vol] 9.5 mg/dL Normal 8.7-10.2 [facility] Internal Medicine; [facility] Internal Medicine Work Phone: Comment on above: PATIENT WAS FASTINGP ERFORMED BY: CB [facility] Zkvejl3835 [address] RoadDublin [place] [id number] Chloride [Moles/Vol] 102 mmol/L Normal 96-106 Comp rehensive Internal Medicine; [facility] Work Phone: Comment on above: PATIENT WAS FASTINGP ERFORMED BY: [facility]University [facility] Czclsn5124 [facility] [id number] CO2 [Moles/Vol] 28 mmol/L Normal 20-29 [facility] Internal Medicine; [facility] Work Phone: Comment on above: PATIENT WAS FASTINGP ERFORMED BY: [facility]6370 [facility] [id number] Creatinine [Mass/Vol] 0.63 mg/dL Normal 0.57-1.00 [facility]erensive [facility]; [facility] Work Phone: Comment on above: PATIENT WAS FASTINGP ERFORMED BY: [facility]6370 [facility] [id number] GFR/1.73 sq M.predicted among blacks CKD-EPI (S/P/Bld) [Vol rate/Area] 116 mL/min/1.73 Normal [facility]; [facility] Work Phone: Comment on above: [facility] currently reports eGFR in compliance with the current recommendations of the National Kidney Foundation. [facility] will update reporting as new guidelines are published from the NKF-ASN Task force. PATIENT WAS FASTINGP ERFORMED BY: [facility]6370 [facility] [id number] GFR/1.73 sq M.predicted among non-blacks CKD-EPI (S/P/Bld) [Vol rate/Area] 101 mL/min/1.73 Normal [facility]; [facility] Work Phone: Comment on above: PATIENT WAS FASTINGP ERFORMED BY: LabDuane L. Waters Hospital6370 [facility] [id number] Globulin (S) [Mass/Vol] 3.0 g/dL Normal 1.5-4.5 [facility]; [facility] Work Phone: Comment on above: PATIENT WAS FASTINGP ERFORMED BY: LabDuane L. Waters Hospital6370 [facility] [id number] Glucose [Mass/Vol] 162 mg/dL Abnormal 65-99 [facility] Internal Medicine; [facility] Work Phone: Comment on above: PATIENT WAS FASTINGP ERFORMED BY: GABE [facility] Pcwjig2400 [address] RoadDublin [place] [id number] Potassium [Moles/Vol] 3.8 mmol/L Normal 3.5-5.2 [facility] Internal Medicine; [facility] Work Phone: Comment on above: PATIENT WAS FASTINGP ERFORMED BY: CB [facility] Poajha8528 [address] RoadWilson Medical Centerin [place] [id number] Protein [Mass/Vol] 7.1 g/dL Normal 6.0-8.5 [facility] Internal Medicine; [facility] Work Phone: Comment on above: PATIENT WAS FASTINGP ERFORMED BY: [facility] Lqgasy1229 [address] RoadWilson Medical Centerin [place] [id number] Sodium [Moles/Vol] 143 mmol/L Normal 134-144 [facility] Internal Medicine; [facility] Work Phone: Comment on above: PATIENT WAS FASTINGP ERFORMED BY: [facility] Erlizd6512 [address] [facility]in [place] [id number] Urea nitrogen [Mass/Vol] 18 mg/dL Normal 6-24 [facility] Internal Medicine; [facility] Work Phone: Comment on above: PATIENT WAS FASTINGP ERFORMED BY: [facility] Hetjuo8785 [address] [facility] [id number] Urea nitrogen/Creatinine [Mass ratio] 29 mg/mg Abnormal 9-23 [facility]; [facility] Work Phone: Comment on above: PATIENT WAS FASTINGP ERFORMED BY: CB [facility] Lripmx6515 Muhammad [facility] Hospitalblin [place] [id number] TSH (83774)Ordered By: Ashvin Quezada on 09-22-2020 TSH Qn 0.977 {uIU/mL} Normal 0.450-4.50 0 [facility]; [facility] Work Phone: Comment on above: PATIENT WAS FASTINGP ERFORMED BY: [facility]6370 [facility] [id number] Blood Glucose , Office (8296 2)on 12-24-2019 Glucose Glucometer (BldC) [Moles/Vol] 148 1 Normal [facility] Work Phone: CBC, Platelets & Auto Diff ( 27800)Ordered By: Aurist on 12-24-2019 Basophils (Bld) [#/Vol] 0.1 {x10E3/uL} Normal 0.0-0.2 [facility] Work Phone: Comment on above: PATIENT NOT FASTINGP ERFORMED BY: [place] 1458670 [facility] [id number] Basophils (Bld) [#/Vol] 0.1 10*3/uL Normal 0.0-0.2 [facility]; [facility] Work Phone: Comment on above: PATIENT NOT FASTINGP ERFORMED BY: [address] [id number] Basophils/100 WBC (Bld) 1 % Normal [facility] Work Phone: Comment on above: PATIENT NOT FASTINGP ERFORMED BY: [place] 1458670 [facility] [id number] Eosinophils (Bld) [#/Vol] 0.3 {x10E3/uL} Normal 0.0-0.4 [facility] Work Phone: Comment on above: PATIENT NOT FASTINGP ERFORMED BY: [place] 1458670 [facility] [id number] Eosinophils (Bld) [#/Vol] 0.3 10*3/uL Normal 0.0-0.4 [facility]; [facility] Work Phone: Comment on above: PATIENT NOT FASTINGP ERFORMED BY: [place] 1458670 [facility] [id number] Eosinophils/100 WBC (Bld) 4 % Normal [facility] Work Phone: Comment on above: PATIENT NOT FASTINGP ERFORMED BY: [facility] Bclhal8751 [address] [facility]in [place] [id number] Erythrocyte distribution width (RBC) [Ratio] 13.2 % Normal 11.7-15.4 [facility] Work Phone: Comment on above: PATIENT NOT FASTINGP ERFORMED BY: [facility] Ambbcd3747 [address] [facility] [id number] Hematocrit (Bld) [Volume fraction] 43.3 % Normal 34.0-46.6 [facility] Work Phone: Comment on above: PATIENT NOT FASTINGP ERFORMED BY: [facility] Esxgae4256 [address] [facility] [id number] Hemoglobin (Bld) [Mass/Vol] 14.6 g/dL Normal 11.1-15.9 [facility] Work Phone: Comment on above: PATIENT NOT FASTINGP ERFORMED BY: LabUniversity [facility] Odaaaw9532 [address] [facility] [id number] Immature granulocytes (Bld) [#/Vol] 0.0 {x10E3/uL} Normal 0.0-0.1 [facility] Work Phone: Comment on above: PATIENT NOT FASTINGP ERFORMED BY: [facility] Vaufdg2977 [address] [facility]in [place] [id number] Immature granulocytes (Bld) [#/Vol] 0.0 10*3/uL Normal 0.0-0.1 [facility]; [facility] Work Phone: Comment on above: PATIENT NOT FASTINGP ERFORMED BY: [facility] Pmmrlo6686 [address] RoadWilson Medical Centerin [place] [id number] Immature granulocytes/100 WBC (Bld) 0 % Normal [facility] Work Phone: Comment on above: PATIENT NOT FASTINGP ERFORMED BY: [facility] Azgzyk8328 [address] [facility] Hospitalblin [place] [id number] Lymphocytes (Bld) [#/Vol] 3.2 {x10E3/uL} Abnormal 0.7-3.1 [facility] Work Phone: Comment on above: PATIENT NOT FASTINGP ERFORMED BY: GABE [facility] Qtyyec4673 [address] [facility] [id number] Lymphocytes (Bld) [#/Vol] 3.2 10*3/uL Abnormal 0.7-3.1 [facility]; [facility] Work Phone: Comment on above: PATIENT NOT FASTINGP ERFORMED BY: GABE [facility] Qnhuvv7028 [address] [facility] [id number] Lymphocytes/100 WBC (Bld) 40 % Normal [facility] Work Phone: Comment on above: PATIENT NOT FASTINGP ERFORMED BY: CB [facility] Hhpdtx3553 [address] [facility] [id number] MCH (RBC) [Entitic mass] 28.6 pg Normal 26.6-33.0 [facility] Internal Medicine Work Phone: Comment on above: PATIENT NOT FASTINGP ERFORMED BY: [facility] Nrxzgf5577 [facility] [id number] MCHC (RBC) [Mass/Vol] 33.7 g/dL Normal 31.5-35.7 [facility] Internal Medicine Work Phone: Comment on above: PATIENT NOT FASTINGP ERFORMED BY: GABE LabCojoelle SchofieldIgepza1075 [facility] [id number] MCV (RBC) [Entitic vol] 85 fL Normal 79-97 [facility] Internal Medicine Work Phone: Comment on above: PATIENT NOT FASTINGP ERFORMED BY: CB [facility] Rzbmkm9601 [facility] [id number] Monocytes (Bld) [#/Vol] 0.4 {x10E3/uL} Normal 0.1-0.9 [facility] Work Phone: Comment on above: PATIENT NOT FASTINGP ERFORMED BY: CB [facility] Spkkqd0289 [facility] [id number] Monocytes (Bld) [#/Vol] 0.4 10*3/uL Normal 0.1-0.9 [facility]; [facility] Work Phone: Comment on above: PATIENT NOT FASTINGP ERFORMED BY: GABE [facility] Qkoxyq1040 [address] RoadDublin [place] [id number] Monocytes/100 WBC (Bld) 5 % Normal [facility] Work Phone: Comment on above: PATIENT NOT FASTINGP ERFORMED BY: CB [facility] Dipsuc1917 [address] RoadDublin [place] [id number] Neutrophils (Bld) [#/Vol] 4.0 {x10E3/uL} Normal 1.4-7.0 [facility] Work Phone: Comment on above: PATIENT NOT FASTINGP ERFORMED BY: CB [facility] Cqmbtm2523 [address] RoadDublin [place] [id number] Neutrophils (Bld) [#/Vol] 4.0 10*3/uL Normal 1.4-7.0 [facility]; [facility] Work Phone: Comment on above: PATIENT NOT FASTINGP ERFORMED BY: CB LabCojoelle SchofieldOuxdqo3212 [address] RoadDublin [place] [id number] Neutrophils/100 WBC (Bld) 50 % Normal [facility] Work Phone: Comment on above: PATIENT NOT FASTINGP ERFORMED BY: CB [facility] Oqxcoj3707 [address] RoadDublin [place] [id number] Platelets (Bld) [#/Vol] 256 {x10E3/uL} Normal 150-450 [facility] Work Phone: Comment on above: PATIENT NOT FASTINGP ERFORMED BY: CB [facility] Meauqd2198 [address] RoadDublin [place] [id number] Platelets (Bld) [#/Vol] 256 10*3/uL Normal 150-450 [facility]; [facility] Work Phone: Comment on above: PATIENT NOT FASTINGP ERFORMED BY: CB [facility] Bsrjxs7684 [address] RoadDublin [place] [id number] RBC (Bld) [#/Vol] 5.10 {x10E6/uL} Normal 3.77-5.28 [facility] Internal Medicine Work Phone: Comment on above: PATIENT NOT FASTINGP ERFORMED BY: CB [facility] Ctdaxy8351 [address] RoadDublin [place] [id number] RBC (Bld) [#/Vol] 5.10 10*6/uL Normal 3.77-5.28 [facility] Internal Medicine; [facility] Work Phone: Comment on above: PATIENT NOT FASTINGP ERFORMED BY: CB [facility] Xoukiw6439 [address] Roadblin [place] [id number] WBC (Bld) [#/Vol] 7.9 {x10E3/uL} Normal 3.4-10.8 [facility] Internal Medicine Work Phone: Comment on above: PATIENT NOT FASTINGP ERFORMED BY: CB [facility] Vogogn1093 [address] Roadblin [place] [id number] WBC (Bld) [#/Vol] 7.9 10*3/uL Normal 3.4-10.8 [facility] Internal Medicine; [facility] Work Phone: Comment on above: PATIENT NOT FASTINGP ERFORMED BY: CB [facility] Bcltau2221 [address] [facility]in [place] [id number] HgA1C , Office (40651)on HbA1c (Bld) [Mass fraction] 6.9 % Normal 4.6 - 7.1 [facility] Internal Medicine Work Phone: Comment on above: 6.9 Metabolic Panel, Comprehensi ve (17976)Ordered By: Aurist on 12-24-2019 Albumin [Mass/Vol] 4.6 g/dL Normal 3.8-4.9 [facility] Internal Medicine Work Phone: Comment on above: PATIENT NOT FASTINGP ERFORMED BY: CB [facility] Tpyqtx2557 [address] [facility] Hospitalblin [place] [id number] Albumin/Globulin [Mass ratio] 1.5 {ratio} Normal 1.2-2.2 [facility] Internal Medicine Work Phone: Comment on above: PATIENT NOT FASTINGP ERFORMED BY: CB [facility] Lcgjal7918 [address] Roadblin [place] [id number] ALP [Catalytic activity/Vol] 97 [iU]/L Normal 39-117 [facility] Work Phone: Comment on above: PATIENT NOT FASTINGP ERFORMED BY: GABE [facility] Stlrdb3974 [address] RoadDublin [place] [id number] ALP [Catalytic activity/Vol] 97 U/L Normal 39-117 [facility]; [facility] Work Phone: Comment on above: PATIENT NOT FASTINGP ERFORMED BY: CB [facility] Cwvrdr0216 [address] RoadDublin [place] [id number] ALT [Catalytic activity/Vol] 43 [iU]/L Abnormal 0-32 [facility] Work Phone: Comment on above: PATIENT NOT FASTINGP ERFORMED BY: CB [facility] Gcivbt4194 [address] RoadDublin [place] [id number] ALT [Catalytic activity/Vol] 43 U/L Abnormal 0-32 [facility]; [facility] Work Phone: Comment on above: PATIENT NOT FASTINGP ERFORMED BY: CB [facility] Fcuahn9350 [address] RoadDublin [place] [id number] AST [Catalytic activity/Vol] 33 [iU]/L Normal 0-40 [facility] Work Phone: Comment on above: PATIENT NOT FASTINGP ERFORMED BY: GABE [facility] Hdqqdj1820 [address] RoadDublin [place] [id number] AST [Catalytic activity/Vol] 33 U/L Normal 0-40 [facility]; [facility] Work Phone: Comment on above: PATIENT NOT FASTINGP ERFORMED BY: CB [facility] Ksckto8665 [address] RoadDublin [place] [id number] Bilirubin [Mass/Vol] 0.5 mg/dL Normal 0.0-1.2 Comp [facility] toledoensive Internal Medicine Work Phone: Comment on above: PATIENT NOT FASTINGP ERFORMED BY: CB [facility] Tgqsrr8387 [address] RoadDublin [place] [id number] Calcium [Mass/Vol] 10.0 mg/dL Normal 8.7-10.2 [facility] Internal Medicine Work Phone: Comment on above: PATIENT NOT FASTINGP ERFORMED BY: CB [facility] Invmfw1566 [address] RoadDublin [place] [id number] Chloride [Moles/Vol] 99 mmol/L Normal 96-106 Comp rehensive Internal Medicine Work Phone: Comment on above: PATIENT NOT FASTINGP ERFORMED BY: CB [facility] Gucgxk0765 [address] RoadDublin [place] [id number] CO2 [Moles/Vol] 27 mmol/L Normal 20-29 [facility] Internal Medicine Work Phone: Comment on above: PATIENT NOT FASTINGP ERFORMED BY: CB [facility] Tmczei5296 [address] RoadDublin [place] [id number] Creatinine [Mass/Vol] 0.71 mg/dL Normal 0.57-1.00 [facility] Internal Medicine Work Phone: Comment on above: PATIENT NOT FASTINGP ERFORMED BY: CB [facility] Kyuixn4104 [address] RoadDublin [place] [id number] GFR/1.73 sq M predicted among blacks CKD-EPI (S/P/Bld) [Vol rate/Area] 111 mL/min/1.73 Normal [facility] Work Phone: Comment on above: PATIENT NOT FASTINGP ERFORMED BY: CB [facility] Oqkbok3173 [address] RoadDublin [place] [id number] GFR/1.73 sq M predicted among non-blacks CKD-EPI (S/P/Bld) [Vol rate/Area] 96 mL/min/1.73 Normal [facility] Work Phone: Comment on above: PATIENT NOT FASTINGP ERFORMED BY: CB [facility] Yuboek4422 [address] RoadDublin [place] [id number] Globulin (S) [Mass/Vol] 3.0 g/dL Normal 1.5-4.5 [facility] Work Phone: Comment on above: PATIENT NOT FASTINGP ERFORMED BY: CB [facility] Yrpsqu9999 [address] RoadDublin [place] [id number] Glucose [Mass/Vol] 140 mg/dL Abnormal 65-99 [facility] Internal Medicine Work Phone: Comment on above: PATIENT NOT FASTINGP ERFORMED BY: CB [facility] Bqrxqw4704 [address] RoadDublin [place] [id number] Potassium [Moles/Vol] 3.6 mmol/L Normal 3.5-5.2 [facility] Internal Medicine Work Phone: Comment on above: PATIENT NOT FASTINGP ERFORMED BY: CB [facility] Jnaaep3818 [address] RoadDublin [place] [id number] Protein [Mass/Vol] 7.6 g/dL Normal 6.0-8.5 [facility] Internal Medicine Work Phone: Comment on above: PATIENT NOT FASTINGP ERFORMED BY: CB [facility] Pmytsz4690 [address] RoadDublin [place] [id number] Sodium [Moles/Vol] 143 mmol/L Normal 134-144 [facility] Internal Medicine Work Phone: Comment on above: PATIENT NOT FASTINGP ERFORMED BY: CB [facility] Bzclde8030 [address] RoadDublin [place] [id number] Urea nitrogen [Mass/Vol] 13 mg/dL Normal 6-24 [facility] Internal Medicine Work Phone: Comment on above: PATIENT NOT FASTINGP ERFORMED BY: CB [facility] Xpnhyq1808 [address] RoadDublin [place] [id number] Urea nitrogen/Creatinine [Mass ratio] 18 mg/mg Normal 9-23 [facility] Internal Medicine Work Phone: Comment on above: PATIENT NOT FASTINGP ERFORMED BY: CB [facility] Fgwhou8777 [address] RoadDublin [place] [id number] TSH (46532)Ordered By: Ashvin Quezada on 12-24-2019 TSH Qn 1.000 {uIU/mL} Normal 0.450-4.50 0 [facility] Internal Medicine Work Phone: Comment on above: PATIENT NOT FASTINGP ERFORMED BY: CB [facility] Emkhya[address] RoadDublin [place] [id number] Blood Glucose , Office ([phone])Ordered By: Alanis Jarrell on 11-07-2018 Glucose Glucometer (BldC) [Moles/Vol] 116 1 Normal [facility] Work Phone: HgA1C , Office ([phone])Ordere d By: Alanis Jarrell on 11-07-2018 HbA1c (Bld) [Mass fraction] 6.6 % Normal 4.6 - 7.1 [facility] Work Phone: Blood Glucose , Office ([phone])Ordered By: Laure Kang on 11-24-2017 Glucose Glucometer molar conc (BldC) 118 1 Normal [facility] Work Phone: CBC, Platelets & Auto Diff ( [phone])Ordered By: Aurist on 11-24-2017 Basophils #/vol (Bld) 0.1 {x10E3/uL} Normal 0.0-0.2 [facility] Work Phone: Comment on above: PATIENT NOT FASTINGP ERFORMED BY: zoidu LabSnaptracsrp RoboinvestNov[facility] [id number] Basophils (Bld) [#/Vol] 0.1 10*3/uL Normal 0.0-0.2 [facility] Work Phone: Comment on above: PATIENT NOT FASTINGP ERFORMED BY: zoidu [facility] Promoboxxox TeravacNov[facility] [id number] Basophils Auto #/vol (Bld) 0.1 {x10E3/uL} Normal 0.0-0.2 [facility] Work Phone: Basophils/100 WBC (Bld) 1 % Normal [facility] Work Phone: Comment on above: PATIENT NOT FASTINGP ERFORMED BY: zoidu LabSnaptracsrp RoboinvestNovant Health [facility] [id number] Basophils/100 WBC Auto (Bld) 1 % Normal [facility] Work Phone: Eosinophils #/vol (Bld) 0.3 {x10E3/uL} Normal 0.0-0.4 [facility] Work Phone: Comment on above: PATIENT NOT FASTINGP ERFORMED BY: GABE LabDuane L. Waters Hospital6370 [facility] [id number] Eosinophils (Bld) [#/Vol] 0.3 10*3/uL Normal 0.0-0.4 [facility] Work Phone: Comment on above: PATIENT NOT FASTINGP ERFORMED BY: GABE Tasha Uvonjc9350 [facility] [id number] Eosinophils Auto #/vol (Bld) 0.3 {x10E3/uL} Normal 0.0-0.4 [facility] Work Phone: Eosinophils/100 WBC (Bld) 3 % Normal [facility] Work Phone: Comment on above: PATIENT NOT FASTINGP ERFORMED BY: GABE Tasha Ptulvn6101 [facility] [id number] Eosinophils/100 WBC Auto (Bld) 3 % Normal [facility] Work Phone: Erythrocyte distribution width Auto Ratio (RBC) 14.5 % Normal 12.3-15.4 [facility] Work Phone: Erythrocyte distribution width Ratio (RBC) 14.5 % Normal 12.3-15.4 [facility] Work Phone: Comment on above: PATIENT NOT FASTINGP ERFORMED BY: AGBE Tasha Vjuiem3503 [facility] [id number] Hematocrit Auto Volume Fraction (Bld) 40.7 % Normal 34.0-46.6 [facility] Work Phone: Hematocrit Volume Fraction (Bld) 40.7 % Normal 34.0-46.6 [facility] Work Phone: Comment on above: PATIENT NOT FASTINGP ERFORMED BY: LabDuane L. Waters Hospital6370 [facility] [id number] Hemoglobin mass conc (Bld) 13.8 g/dL Normal 11.1-15.9 [facility] Work Phone: Comment on above: PATIENT NOT FASTINGP ERFORMED BY: GABE LabDuane L. Waters Hospital6370 [facility] [id number] Immature granulocytes #/vol (Bld) 0.0 {x10E3/uL} Normal 0.0-0.1 [facility] Work Phone: Comment on above: PATIENT NOT FASTINGP ERFORMED BY: LabCoSaint Michael's Medical CenterMiqmsa9987 Muhammad RoadWilson Medical Centerin [place] [id number] Immature granulocytes (Bld) [#/Vol] 0.0 10*3/uL Normal 0.0-0.1 [facility] Work Phone: Comment on above: PATIENT NOT FASTINGP ERFORMED BY: LabAlice [place] [id number] [facility] [id number] Immature granulocytes/100 WBC (Bld) 0 % Normal [facility] Work Phone: Comment on above: PATIENT NOT FASTINGP ERFORMED BY: [place] [id number] [facility] [id number] Lymphocytes #/vol (Bld) 3.5 {x10E3/uL} Abnormal 0.7-3.1 [facility] Work Phone: Comment on above: PATIENT NOT FASTINGP ERFORMED BY: LabAlice V[place] [id number] [address] [facility] [id number] Lymphocytes (Bld) [#/Vol] 3.5 10*3/uL Abnormal 0.7-3.1 [facility] Work Phone: Comment on above: PATIENT NOT FASTINGP ERFORMED BY: LabAlice V[place] [id number] [address] [facility] [place] [id number] Lymphocytes Auto #/vol (Bld) 3.5 {x10E3/uL} Abnormal 0.7-3.1 [facility] Work Phone: Lymphocytes/100 WBC (Bld) 33 % Normal [facility] Work Phone: Comment on above: PATIENT NOT FASTINGP ERFORMED BY: LabDuane L. Waters Hospital[address] [facility] [place] [id number] Lymphocytes/100 WBC Auto (Bld) 33 % Normal [facility] Work Phone: MCH Auto Entitic mass (RBC) 28.7 pg Normal 26.6-33.0 [facility] Work Phone: MCH Entitic mass (RBC) 28.7 pg Normal 26.6-33.0 [facility] Internal Medicine Work Phone: Comment on above: PATIENT NOT FASTINGP ERFORMED BY: GABE LabDuane L. Waters Hospital6370 [facility] [id number] MCHC Auto mass conc (RBC) 33.9 g/dL Normal 31.5-35.7 [facility] Work Phone: MCHC mass conc (RBC) 33.9 g/dL Normal 31.5-35.7 [facility] Internal Medicine Work Phone: Comment on above: PATIENT NOT FASTINGP ERFORMED BY: GABE LabDuane L. Waters Hospital6370 [facility] [id number] MCV Auto Entitic volume (RBC) 85 fL Normal 79-97 [facility] Work Phone: MCV Entitic volume (RBC) 85 fL Normal 79-97 [facility] Work Phone: Comment on above: PATIENT NOT FASTINGP ERFORMED BY: LabDuane L. Waters Hospital6370 [facility] [id number] Monocytes #/vol (Bld) 0.5 {x10E3/uL} Normal 0.1-0.9 [facility] Work Phone: Comment on above: PATIENT NOT FASTINGP ERFORMED BY: LabDuane L. Waters Hospital6370 [facility] [id number] Monocytes (Bld) [#/Vol] 0.5 10*3/uL Normal 0.1-0.9 [facility] Work Phone: Comment on above: PATIENT NOT FASTINGP ERFORMED BY: LabDuane L. Waters Hospital6370 [facility] [id number] Monocytes Auto #/vol (Bld) 0.5 {x10E3/uL} Normal 0.1-0.9 [facility] Work Phone: Monocytes/100 WBC (Bld) 5 % Normal [facility] Work Phone: Comment on above: PATIENT NOT FASTINGP ERFORMED BY: CB [facility] Wkvojn8756 [address] RoadDublin [place] [id number] Monocytes/100 WBC Auto (Bld) 5 % Normal [facility] Work Phone: Neutrophils #/vol (Bld) 6.1 {x10E3/uL} Normal 1.4-7.0 [facility] Work Phone: Comment on above: PATIENT NOT FASTINGP ERFORMED BY: CB [facility] Lzbddy9091 [address] RoadDublin [place] [id number] Neutrophils (Bld) [#/Vol] 6.1 10*3/uL Normal 1.4-7.0 [facility] Work Phone: Comment on above: PATIENT NOT FASTINGP ERFORMED BY: GABE [facility] Egezof4[address] RoadDublin [place] [id number] Neutrophils Auto #/vol (Bld) 6.1 {x10E3/uL} Normal 1.4-7.0 [facility] Work Phone: Neutrophils/100 WBC (Bld) 58 % Normal [facility] Work Phone: Comment on above: PATIENT NOT FASTINGP ERFORMED BY: CB [facility] Ufivtz1440 [address] RoadWilson Medical Centerin [place] [id number] Neutrophils/100 WBC Auto (Bld) 58 % Normal [facility] Work Phone: Platelets #/vol (Bld) 232 {x10E3/uL} Normal 150-379 [facility] Work Phone: Comment on above: PATIENT NOT FASTINGP ERFORMED BY: CB [facility] Ldsdtl5177 [address] RoadDublin [place] [id number] Platelets (Bld) [#/Vol] 232 10*3/uL Normal 150-379 [facility] Work Phone: Comment on above: PATIENT NOT FASTINGP ERFORMED BY: CB [facility] Zelwsk8059 [address] RoadDublin [place] [id number] Platelets Auto #/vol (Bld) 232 {x10E3/uL} Normal 150-379 [facility] Work Phone: RBC #/vol (Bld) 4.81 {x10E6/uL} Normal 3.77-5.28 [facility] toledoensive Internal Medicine Work Phone: Comment on above: PATIENT NOT FASTINGP ERFORMED BY: CB [facility] Cmevik6823 [address] RoadDublin [place] [id number] RBC (Bld) [#/Vol] 4.81 10*6/uL Normal 3.77-5.28 [facility] Internal Medicine Work Phone: Comment on above: PATIENT NOT FASTINGP ERFORMED BY: CB [facility] Ecmzxy3487 [address] RoadDublin [place] [id number] RBC Auto #/vol (Bld) 4.81 {x10E6/uL} Normal 3.77-5.28 [facility] Work Phone: WBC #/vol (Bld) 10.5 {x10E3/uL} Normal 3.4-10.8 [facility] Internal Medicine Work Phone: Comment on above: PATIENT NOT FASTINGP ERFORMED BY: CB [facility] Wewmid3581 [address] RoadDuin [place] [id number] WBC (Bld) [#/Vol] 10.5 10*3/uL Normal 3.4-10.8 [facility] Internal Medicine Work Phone: Comment on above: PATIENT NOT FASTINGP ERFORMED BY: CB [facility] Khbglc7573 [address] RoadWilson Medical Centerin [place] [id number] WBC Auto #/vol (Bld) 10.5 {x10E3/uL} Normal 3.4-10.8 [facility] Internal Medicine Work Phone: HgA1C , Office ([phone])Ordere d By: Laure Kang on 11-24-2017 Hemoglobin A1c/Hemoglobin.total mass fraction (Bld) 6.4 % Normal 4.6 - 7.1 Comprehensiv e Internal Medicine Work Phone: MICROALBUMINOrdered By: Syst em Senior Maintenance Mechanic on 11-24-2017 Albumin DL <= 20 mg/L mass conc (U) 6.1 ug/mL Normal [facility] Work Phone: Comment on above: PATIENT NOT FASTINGP ERFORMED BY: GABE LabCojoelle Uobaoi5407 [address] RoadDublin [place] [id number] Albumin/Creatinine mass ratio (U) 7.8 {mg/g_creat} Normal 0.0-30.0 [facility] Work Phone: Comment on above: PATIENT NOT FASTINGP ERFORMED BY: GABE [facility] Uyhjku7524 [address] RoadDublin [place] [id number] Creatinine mass conc (U) 78.4 mg/dL Normal [facility] Work Phone: Comment on above: PATIENT NOT FASTINGP ERFORMED BY: GABE LabRhea SchofieldDgzwdu2993 Muhammad Roadblin [place] [id number] Metabolic Panel, Comprehensi ve (66328)Ordered By: Aurist on 11-24-2017 Albumin mass conc 4.2 g/dL Normal 3.5-5.5 Compreh ensive Internal Medicine Work Phone: Comment on above: PATIENT NOT FASTINGP ERFORMED BY: GABE [facility] Yfngld9290 [address] RoadDublin [place] [id number] Albumin/Globulin mass ratio 1.6 {ratio} Normal 1.2-2.2 [facility] Work Phone: Comment on above: PATIENT NOT FASTINGP ERFORMED BY: GABE [facility] Qylmks6357 [address] RoadDublin [place] [id number] ALP [Catalytic activity/Vol] 85 U/L Normal 39-117 [facility] Work Phone: Comment on above: PATIENT NOT FASTINGP ERFORMED BY: GABE [facility] Nbehaw3700 [address] RoadDublin [place] [id number] ALP enzyme act/vol 85 [iU]/L Normal 39-117 [facility]pre [facility] Work Phone: Comment on above: PATIENT NOT FASTINGP ERFORMED BY: GABE [facility] Zczafs1551 [address] RoadDublin [place] [id number] ALT [Catalytic activity/Vol] 36 U/L Abnormal 0-32 [facility] Work Phone: Comment on above: PATIENT NOT FASTINGP ERFORMED BY: CB [facility] Cewqvm1384 [address] RoadDublin [place] [id number] ALT enzyme act/vol 36 [iU]/L Abnormal 0-32 Compre [facility] centerive Internal Medicine Work Phone: Comment on above: PATIENT NOT FASTINGP ERFORMED BY: CB [facility] Welrzc6868 [address] RoadDublin [place] [id number] AST [Catalytic activity/Vol] 26 U/L Normal 0-40 [facility] Work Phone: Comment on above: PATIENT NOT FASTINGP ERFORMED BY: CB [facility] Iqyrhj2534 [address] RoadDublin [place] [id number] AST enzyme act/vol 26 [iU]/L Normal 0-40 [facility] Internal Medicine Work Phone: Comment on above: PATIENT NOT FASTINGP ERFORMED BY: CB [facility] Ddrwzk2188 [address] RoadDublin [place] [id number] Bilirubin mass conc 0.5 mg/dL Normal 0.0-1.2 Compr ensive Internal Medicine Work Phone: Comment on above: PATIENT NOT FASTINGP ERFORMED BY: GABE [facility] Zeflvx9339 [address] RoadDublin [place] [id number] Calcium mass conc 9.2 mg/dL Normal 8.7-10.2 Compreh ensive Internal Medicine Work Phone: Comment on above: PATIENT NOT FASTINGP ERFORMED BY: CB [facility] Daxshh1785 [address] RoadDublin [place] [id number] Chloride molar conc 99 mmol/L Normal 96-106 Compr ensive Internal Medicine Work Phone: Comment on above: PATIENT NOT FASTINGP ERFORMED BY: CB [facility] Ndipmy7750 [address] RoadDublin [place] [id number] CO2 molar conc 26 mmol/L Normal 20-29 Comprehens maximilian Internal Medicine Work Phone: Comment on above: PATIENT NOT FASTINGP ERFORMED BY: CB [facility] Thjhcw6162 [address] RoadDublin [place] [id number] Creatinine mass conc 0.61 mg/dL Normal 0.57-1.00 Comp rehensive Internal Medicine Work Phone: Comment on above: PATIENT NOT FASTINGP ERFORMED BY: GABE [facility] Jtglkv0635 [address] [facility] Hospitalblin [place] [id number] GFR/1.73 sq M predicted among blacks CKD-EPI vol rate/area (S/P/Bld) 120 mL/min/1.73 Normal [facility] Work Phone: Comment on above: PATIENT NOT FASTINGP ERFORMED BY: CB [facility] Twctto3631 [address] RoadWilson Medical Centerin [place] [id number] GFR/1.73 sq M predicted among non-blacks CKD-EPI vol rate/area (S/P/Bld) 104 mL/min/1.73 Normal Comprehensiv e Internal Medicine Work Phone: Comment on above: PATIENT NOT FASTINGP ERFORMED BY: LabCo Jkvxga2205 [address] [facility] [id number] Globulin Calculated mass conc (S) 2.7 g/dL Normal 1.5-4.5 [facility] Work Phone: Globulin mass conc (S) 2.7 g/dL Normal 1.5-4.5 [address] [facility] [address] josephehensive Internal Medicine Work Phone: Comment on above: PATIENT NOT FASTINGP ERFORMED BY: [facility] Xvjiqv2727 [address] [facility] [id number] Glucose mass conc 105 mg/dL Abnormal 65-99 Compreh ensive Internal Medicine Work Phone: Comment on above: PATIENT NOT FASTINGP ERFORMED BY: CB [facility] Rxlhfk8045 [address] [facility]in [place] [id number] Potassium molar conc 3.5 mmol/L Normal 3.5-5.2 Comp rehensive Internal Medicine Work Phone: Comment on above: PATIENT NOT FASTINGP ERFORMED BY: CB [facility] Ypzuas4575 [address] [facility] [id number] Protein mass conc 6.9 g/dL Normal 6.0-8.5 Compreh ensive Internal Medicine Work Phone: Comment on above: PATIENT NOT FASTINGP ERFORMED BY: GABE [facility] Szdcum4607 [facility] [id number] Sodium molar conc 140 mmol/L Normal 134-144 Compreh ensive Internal Medicine Work Phone: Comment on above: PATIENT NOT FASTINGP ERFORMED BY: GABE LabCo Scaaot5291 [facility] [id number] Urea nitrogen mass conc 14 mg/dL Normal 6-24 [facility] Work Phone: Comment on above: PATIENT NOT FASTINGP ERFORMED BY: GABE LabCoSaint Michael's Medical CenterVpxyhz5092 [facility] [id number] Urea nitrogen/Creatinine mass ratio 23 mg/mg Normal 9-23 [facility] Work Phone: Comment on above: PATIENT NOT FASTINGP ERFORMED BY: GABE LabDuane L. Waters Hospital6370 [facility] [id number] Microscopic ExaminationOrder ed By: Aurist on 11-24-2017 Bacteria LM.HPF #/area (Urine sed) Few Normal [facility] Work Phone: Comment on above: PATIENT NOT FASTINGP ERFORMED BY: GABE LabDuane L. Waters Hospital6370 [facility] [id number] Epithelial cells LM.HPF #/area (Urine sed) /[HPF] Abnormal 0 - 10 [facility] Work Phone: Comment on above: PATIENT NOT FASTINGP ERFORMED BY: GABE LabCo Wrnbbl4554 [facility] [id number] Mucus LM Ql (Urine sed) Present Normal [facility] Work Phone: Mucus Ql (Urine sed) Present Normal Comp rehensive Internal Medicine Work Phone: Comment on above: PATIENT NOT FASTINGP ERFORMED BY: GABE LabCoSaint Michael's Medical CenterKtbiya3568 [facility] [id number] RBC LM.HPF #/area (Urine sed) 0-2 Normal 0 - 2 [facility] Work Phone: Comment on above: PATIENT NOT FASTINGP ERFORMED BY: GABE [facility] Bjcehg5162 [address] RoadDublin [place] [id number] WBC LM.HPF #/area (Urine sed) 6-10 Abnormal 0 - 5 [facility] Work Phone: Comment on above: PATIENT NOT FASTINGP ERFORMED BY: GABE [facility] Ihmnyk8993 [address] RoadDublin [place] [id number] TSH (12363)Ordered By: Syste m Senior Maintenance Mechanic on 11-24-2017 Thyrotropin Qn 1.180 {uIU/mL} Normal 0.450-4.50 0 [facility] Work Phone: Comment on above: PATIENT NOT FASTINGP ERFORMED BY: GABE [facility] Qsicoo6996 [address] RoadDublin [place] [id number] URINALYSIS ([id number])Ordered By : Aurist on 11-24-2017 Appearance Nom (U) Clear Normal Compre hensive Internal Medicine Work Phone: Comment on above: PATIENT NOT FASTINGP ERFORMED BY: GABE [facility] Lonnmf3591 [address] RoadDublin [place] [id number] Bilirubin Ql (U) Negative Normal Comprehe nsive Internal Medicine Work Phone: Comment on above: PATIENT NOT FASTINGP ERFORMED BY: GABE LabAmandarp Oabfxu8170 [address] RoadDublin [place] [id number] Bilirubin Ql (U) Negative Normal Comprehe nsive Internal Medicine Work Phone: Comment on above: PATIENT NOT FASTINGP ERFORMED BY: GABE [facility] Ggsvct6237 [address] RoadDublin [place] [id number] Color Nom (U) Yellow Normal Comprehensi ve Internal Medicine Work Phone: Comment on above: PATIENT NOT FASTINGP ERFORMED BY: CB [facility] Rjettw6645 [address] RoadDublin [place] [id number] Glucose Ql (U) Negative Normal Comprehens maximilian Internal Medicine Work Phone: Comment on above: PATIENT NOT FASTINGP ERFORMED BY: CB [facility] Scpthu3518 [address] RoadDublin [place] [id number] Glucose Ql (U) Negative Normal Comprehens maximilian Internal Medicine Work Phone: Comment on above: PATIENT NOT FASTINGP ERFORMED BY: GABE Kamara6370 [address] RoadDublin [place] [id number] Hemoglobin Ql (U) Negative Normal Compreh ensive Internal Medicine Work Phone: Comment on above: PATIENT NOT FASTINGP ERFORMED BY: GABE Kamara6370 [address]Dublin [place] [id number] Hemoglobin Ql (U) Negative Normal Compreh ensive Internal Medicine Work Phone: Comment on above: PATIENT NOT FASTINGP ERFORMED BY: GABE Kamara6370 [address]Dublin [place] [id number] Hemoglobin Test strip Ql (U) Negative Normal [facility] Work Phone: Ketones Ql (U) Negative Normal Comprehens maximilian Internal Medicine Work Phone: Comment on above: PATIENT NOT FASTINGP ERFORMED BY: GABE Schofieldlin6370 [address] RoadDublin [place] [id number] Ketones Ql (U) Negative Normal Comprehens maximilian Internal Medicine Work Phone: Comment on above: PATIENT NOT FASTINGP ERFORMED BY: GABE Schofieldlin6370 [address] RoadDublin [place] [id number] Leukocyte esterase Test strip Ql (U) 1+ Abnormal [facility] Work Phone: Comment on above: PATIENT NOT FASTINGP ERFORMED BY: GABE Schofieldlin6370 [address] RoadDublin [place] [id number] Microscopic observation LM Nom (Urine sed) See below: Normal [facility] Work Phone: Comment on above: Microscopic was moshe cated and was performed. PATIENT NOT FASTINGP ERFORMED BY: GABE Schofieldlin6370 [address] RoadDublin [place] [id number] Nitrite Ql (U) Negative Normal Comprehens maximilian Internal Medicine Work Phone: Comment on above: PATIENT NOT FASTINGP ERFORMED BY: GABE Schofieldlin6370 [address] RoadDublin [place] [id number] Nitrite Ql (U) Negative Normal Comprehens maximilian Internal Medicine Work Phone: Comment on above: PATIENT NOT FASTINGP ERFORMED BY: GABE Kamara6370 [address]Dublin [place] [id number] Nitrite Test strip Ql (U) Negative Normal [facility] Work Phone: pH (U) 7.0 [pH] Normal 5.0-7.5 [facility] Work Phone: Comment on above: PATIENT NOT FASTINGP ERFORMED BY: GABE Schofieldlin6370 [address]Dublin [place] [id number] pH Test strip (U) 7.0 [pH] Normal 5.0-7.5 Compreh ensive Internal Medicine Work Phone: Protein Ql (U) Negative Normal Comprehens maximilian Internal Medicine Work Phone: Comment on above: PATIENT NOT FASTINGP ERFORMED BY: GABE Kamara6370 [address]Dublin [place] [id number] Protein Ql (U) Negative Normal Comprehens maximilian Internal Medicine Work Phone: Comment on above: PATIENT NOT FASTINGP ERFORMED BY: GABE Kamara6370 [address]Dublin [place] [id number] Protein Test strip Ql (U) Negative Normal [facility] Work Phone: Specific gravity Relative Density (U) 1.019 1 Normal 1.005-1.03 0 [facility] Work Phone: Comment on above: PATIENT NOT FASTINGP ERFORMED BY: GABE Schofieldlin6370 [address] RoadDublin [place] [id number] Urobilinogen (U) [Mass/Vol] 0.2 mg/dL Normal 0.2-1.0 [facility] Work Phone: Comment on above: PATIENT NOT FASTINGP ERFORMED BY: GABE LabCojoelle SchofieldMplqlp2272 [address] RoadDublin [place] [id number] Urobilinogen Test strip mass conc (U) 0.2 mg/dL Normal 0.2-1.0 Comprehensiv e Internal Medicine Work Phone: Comment on above: PATIENT NOT FASTINGP ERFORMED BY: CB [facility] Ddbnsv2055 Jb ChavezUNC Health Rex [facility] [id number] Basic Metabolic Profile (BMP )Ordered By: Aurist on 10-06-2016 Basic metabolic 2000 panel 141 mmol/L Normal 136-145 [facility] Work Phone: Comment on above: [facility] [address] [place], [place], [id number] Basic metabolic 2000 panel 26.3 {RATIO} Abnormal 10-20 [facility] Work Phone: Comment on above: [facility] [address]ou[address] [place], [place], [id number] Basic metabolic 2000 panel 155 mL/min Normal [facility] Work Phone: Comment on above: GFR Calc [facility] [address] [place], [place], [id number] Basic metabolic 2000 panel 7 1 Normal 5-15 [facility] Work Phone: Comment on above: [facility] [address] [place], [place], 946401 Basic metabolic 2000 panel 128 mL/min Normal [facility] Work Phone: Comment on above: Non- GFR Calc [facility] Gh[address]smwd[address] [place], [place], [id number] Basic metabolic 2000 panel 0.53 mg/dL Abnormal 0.55-1.02 [facility] Work Phone: Comment on above: The validity of the calculated GFR AND GFRAA in patients over70 years has not been determined. Clinical correlation isessential. [facility] [address] [place], [place], [id number] Basic metabolic 2000 panel 14 mg/dL Normal 7-18 [facility] Work Phone: Comment on above: [facility] [address]qej[address] [place], [place], [id number] Basic metabolic 2000 panel 96 mg/dL Normal 70-110 [facility] Work Phone: Comment on above: [facility] [address] [place], [place], 250291 Basic metabolic 2000 panel 3.3 mmol/L Abnormal 3.5-5.1 [facility] Work Phone: Comment on above: [facility] [address] [place], [place], [id number] Basic metabolic 2000 panel 8.9 mg/dL Normal 8.5-10.1 [facility] Work Phone: Comment on above: [facility] [address] [place], [place], [id number] Basic metabolic 2000 panel 104 mmol/L Normal 98-107 [facility] Work Phone: Comment on above: [facility] [address]qtpld[address] [place], [place], [address]6599691 Basic metabolic 2000 panel 30.0 mmol/L Normal 21.0-32.0 [facility] Work Phone: Comment on above: [facility] [address] [place], [place], [id number] CBC-Complete Blood Cnt No Di ffOrdered By: Aurist on 10-06-2016 Erythrocyte distribution width Auto Ratio (RBC) 13.5 % Normal 11.6-14.6 [facility] Work Phone: Erythrocyte distribution width Ratio (RBC) 13.5 % Normal 11.6-14.6 [facility] Work Phone: Comment on above: [facility] [address] [place], [place], [id number] Hematocrit Auto Volume Fraction (Bld) 39.7 % Normal 37-47 [facility] Work Phone: Hematocrit Volume Fraction (Bld) 39.7 % Normal 37-47 [facility] Work Phone: Comment on above: [facility] [address] [place], [address] Hemoglobin mass conc (Bld) 13.5 g/dL Normal 12.0-15.0 [facility] Work Phone: Comment on above: [facility] [address] [place], [address] MCH Auto Entitic mass (RBC) 29.4 pg Normal 27.0-32.0 [facility] Work Phone: MCH Entitic mass (RBC) 29.4 pg Normal 27.0-32.0 [facility] Internal Medicine Work Phone: Comment on above: [facility] [address] [place], [address] MCHC Auto mass conc (RBC) 34.0 {g/gl} Normal 32-36 [facility] Work Phone: MCHC mass conc (RBC) 34.0 {g/gl} Normal 32-36 [facility] Internal Medicine Work Phone: Comment on above: [facility] [address] [place], [address] MCV Auto Entitic volume (RBC) 86.5 fL Normal 81-99 [facility] Work Phone: MCV Entitic volume (RBC) 86.5 fL Normal 81-99 [facility] Work Phone: Comment on above: [facility] [address] [place], [address] Platelet mean volume Auto Entitic volume (Bld) 10.5 fL Normal 6.2-12.0 [facility] Work Phone: Platelet mean volume Entitic volume (Bld) 10.5 fL Normal 6.2-12.0 Comprehensi Internal Medicine Work Phone: Comment on above: [facility] [address] [place], [address] Platelets #/vol (Bld) 244 10*3/uL Normal 150-450 Co mprehensive [facility] Work Phone: Comment on above: [facility] [address] [place], [address] Platelets Auto #/vol (Bld) 244 10*3/uL Normal 150-450 [facility] Work Phone: RBC #/vol (Bld) 4.59 {M/mm3} Normal 4.2-5.4 Compreh ensive Internal Medicine Work Phone: Comment on above: [facility] [address] [place], [address] RBC Auto #/vol (Bld) 4.59 {M/mm3} Normal 4.2-5.4 [facility] Work Phone: RDW SD 41.9 fL Normal 35.1-43.9 [facility] Work Phone: WBC #/vol (Bld) 8.8 10*3/uL Normal 4.4-11.0 Comprehe nsive Internal Medicine Work Phone: Comment on above: [facility] [address] [place], [address] WBC Auto #/vol (Bld) 8.8 10*3/uL Normal 4.4-11.0 Com prehensive Internal Medicine Work Phone: CBC-Complete Blood Cnt No Diff 41.9 fL Normal 35.1-43.9 [facility] Work Phone: Comment on above: [facility] [address] [place], [address] POTASSIUM SERUM ([id number])Order ed By: Aurist on 07-14-2016 Potassium molar conc 3.9 mmol/L Normal 3.5-5.2 Comp rehensive Internal Medicine Work Phone: Comment on above: to be done in 7 days around July 21the; PATIENT NOT FASTINGPERFORMED BY: [facility]CoSaint [facility] CenterMzmakk0236 J[facility] ChavezWilson [facility] Cent[facility] [place] [id number] CBC W/Diff, AutomatedOrdered By: Aurist on 07-13-2016 Absolute Lymph 2.85 {X10_3/ul} Normal 0.83-4.51 Compr ehensive Internal Medicine Work Phone: Absolute Neut 4.0 {X10_3/uL} Normal 2.0-7.7 Compreh ensive Internal Medicine Work Phone: Comment on above: [facility] [address] [place], [address] Basophils/100 WBC (Bld) 0.5 % Normal 0-1 [facility] Work Phone: Comment on above: [facility] [address] [place], [address] Basophils/100 WBC Auto (Bld) 0.5 % Normal 0-1 [facility] Work Phone: Eosinophils/100 WBC (Bld) 4.0 % Normal 0-5 [facility] Work Phone: Comment on above: [facility] [address] [place], [address] Eosinophils/100 WBC Auto (Bld) 4.0 % Normal 0-5 [facility] Work Phone: Erythrocyte distribution width Auto Ratio (RBC) 13.6 % Normal 11.6-14.6 [facility] Work Phone: Erythrocyte distribution width Ratio (RBC) 13.6 % Normal 11.6-14.6 [facility] Work Phone: Comment on above: [facility] [address] [place], [place], [phone] Hematocrit Auto Volume Fraction (Bld) 42.8 % Normal 37-47 [facility] Work Phone: Hematocrit Volume Fraction (Bld) 42.8 % Normal 37-47 [facility] Work Phone: Comment on above: [facility] [address] [place], [address] Hemoglobin mass conc (Bld) 14.2 g/dL Normal 12.0-15.0 [facility] Work Phone: Comment on above: [facility] [address] [place], [address] IM GRAN % 0.000 % Normal 0.0-0.9 [facility] Work Phone: Comment on above: IG% - Immature Granu locytes (promyelocytes, myelocytes andmetamyelocytes) > 1% indicates that a LEFT SHIFT is Present. [facility] [address] [place], [address] Lymphocytes #/vol (Bld) 2.85 {X10_3/ul} Normal 0.83-4.51 [facility] Work Phone: Comment on above: [facility] [address] [place], [address] Lymphocytes/100 WBC (Bld) 38.3 % Normal 19-41 [facility] Work Phone: Comment on above: [facility] [address] [place], [address] Lymphocytes/100 WBC Auto (Bld) 38.3 % Normal 19-41 [facility] Work Phone: MCH Auto Entitic mass (RBC) 29.5 pg Normal 27.0-32.0 [facility] Work Phone: MCH Entitic mass (RBC) 29.5 pg Normal 27.0-32.0 [facility] Internal Medicine Work Phone: Comment on above: [facility] [address] [place], [address] MCHC Auto mass conc (RBC) 33.2 {g/gl} Normal 32-36 [facility] Work Phone: MCHC mass conc (RBC) 33.2 {g/gl} Normal 32-36 Com prehensive Internal Medicine Work Phone: Comment on above: [facility] [address] [place], [address] MCV Auto Entitic volume (RBC) 88.8 fL Normal 81-99 [facility] Work Phone: MCV Entitic volume (RBC) 88.8 fL Normal 81-99 [facility] Work Phone: Comment on above: [facility] [address] [place], [address] Monocytes/100 WBC Auto (Bld) 4.2 % Normal 0-10 [facility] Work Phone: Comment on above: [facility] [address] [place], [address] Monocytes/100 WBC Auto (Bld) 4.2 % Normal 0-10 [facility] Work Phone: Neutrophils/100 WBC (Bld) 53.0 % Normal 47-70 [facility] Work Phone: Comment on above: [facility] [address] [place], [address] Neutrophils/100 WBC Auto (Bld) 53.0 % Normal 47-70 [facility] Work Phone: Platelet mean volume Auto Entitic volume (Bld) 9.9 fL Normal 6.2-12.0 [facility] Work Phone: Platelet mean volume Entitic volume (Bld) 9.9 fL Normal 6.2-12.0 Comprehensi Internal Medicine Work Phone: Comment on above: [facility] [address] [place], [address] Platelets #/vol (Bld) 254 10*3/uL Normal 150-450 Co mprehensive [facility] Work Phone: Comment on above: [facility] [address] [place], [address] Platelets Auto #/vol (Bld) 254 10*3/uL Normal 150-450 [facility] Work Phone: RBC #/vol (Bld) 4.82 {M/mm3} Normal 4.2-5.4 Compreh ensive Internal Medicine Work Phone: Comment on above: [facility] [address] [place], [address] RBC Auto #/vol (Bld) 4.82 {M/mm3} Normal 4.2-5.4 [facility] [address] [facility] Internal [facility] Work Phone: RDW SD 44.6 fL Abnormal 35.1-43.9 [facility] Internal Medicine Work Phone: Comment on above: [facility] [address] [place], [address] WBC #/vol (Bld) 7.5 10*3/uL Normal 4.4-11.0 [facility] Work Phone: Comment on above: [facility] [address] [place], [address] WBC Auto #/vol (Bld) 7.5 10*3/uL Normal 4.4-11.0 [facility] prehensive Internal Medicine Work Phone: CBC W/Diff, Automated 44.6 fL Abnormal 35.1-43.9 [facility] prehensive Internal Medicine Work Phone: CBC W/Diff, Automated 0.000 % Normal 0.0-0.9 [facility] prehensive Internal Medicine Work Phone: Comment on above: IG% - Immature Granu locytes (promyelocytes, myelocytes andmetamyelocytes) > 1% indicates that a LEFT SHIFT is Present. CBC W/Diff, Automated 4.0 {X10_3/uL} Normal 2.0-7.7 [facility] Work Phone: CBC W/Diff, Automated 2.85 {X10_3/ul} Normal 0.83-4.51 [facility] Work Phone: Comprehensive Metabolic Prof ilOrdered By: Aurist on 07-13-2016 Comprehensive metabolic 2000 panel 0.9 {RATIO} Normal 0.9-2.4 Comprehensi ve Internal Medicine Work Phone: Comment on above: [facility] [address] [place], [place], [id number] [facility] 2000 panel 11 1 Normal 5-15 Comprehensi ve Internal Medicine Work Phone: Comment on above: [facility] [address] [place], [place], [id number] Comprehensive [facility] 2000 panel 8.6 mg/dL Normal 8.5-10.1 Comprehensi ve Internal Medicine Work Phone: Comment on above: [facility] [address] [place], [place], [phone] [facility] 2000 panel 29.0 mmol/L Normal 21.0-32.0 Comprehensi ve Internal Medicine Work Phone: Comment on above: [facility] [address] [place], [place], [id number] Comprehensive metabolic 2000 panel 102 mmol/L Normal 98-107 Comprehensi ve Internal Medicine Work Phone: Comment on above: [facility] [address] [place], [place], [id number] Comprehensive metabolic 2000 panel 14 U/L Abnormal 15-37 Comprehensi ve Internal Medicine Work Phone: Comment on above: [facility] [address] [place], [place], [id number] [facility] 2000 panel 3.9 g/dL Abnormal 2.3-3.5 Comprehensi ve Internal Medicine Work Phone: Comment on above: [facility] [address] [place], [address] Comprehensive metabolic 2000 panel 3.2 mmol/L Abnormal 3.5-5.1 Comprehensi ve Internal Medicine Work Phone: Comment on above: [facility] [address] [place], [address] Comprehensive metabolic 2000 panel 74 U/L Normal 45-117 Comprehensi ve Internal Medicine Work Phone: Comment on above: [facility] [address] [place], [address] Comprehensive metabolic 2000 panel 7.5 g/dL Normal 6.4-8.2 Comprehensi ve Internal Medicine Work Phone: Comment on above: [facility] [address] [place], [address] Comprehensive metabolic 2000 panel 27.5 {RATIO} Abnormal 10-20 Comprehensi ve Internal Medicine Work Phone: Comment on above: [facility] [address] [place], [place], [address] Comprehensive metabolic 2000 panel 163 mL/min Normal Comprehensi ve Internal Medicine Work Phone: Comment on above: GFR Calc [facility] [address] [place], [address] Comprehensive metabolic 2000 panel 30 U/L Normal 12-78 Comprehensi ve Internal Medicine Work Phone: Comment on above: [facility] [address] [place], [address] Comprehensive metabolic 2000 panel 0.60 mg/dL Normal 0.20-1.00 Comprehensi ve Internal Medicine Work Phone: Comment on above: [facility] [address] [place], [address] Comprehensive metabolic 2000 panel 142 mmol/L Normal 136-145 Comprehensi ve Internal Medicine Work Phone: Comment on above: [facility] [address] [place], [place], [phone] Comprehensive metabolic 2000 panel 3.6 g/dL Normal 3.4-5.0 Comprehensi ve Internal Medicine Work Phone: Comment on above: [facility] [address] [place], [place], [phone] Comprehensive metabolic 2000 panel 14 mg/dL Normal 7-18 Comprehensi ve Internal Medicine Work Phone: Comment on above: [facility] [address] [place], [place], [id number] Comprehensive metabolic 2000 panel 108 mg/dL Normal 70-110 Comprehensi ve Internal Medicine Work Phone: Comment on above: [facility] [address] [place], [place], [id number] Comprehensive metabolic 2000 panel 135 mL/min Normal Comprehensi ve Internal Medicine Work Phone: Comment on above: Non- GFR Calc [facility] [address] [place], [place], [phone] [facility] 2000 panel 0.51 mg/dL Abnormal 0.55-1.02 Comprehensi ve Internal Medicine Work Phone: Comment on above: The validity of the calculated GFR AND GFRAA in patients over70 years has not been determined. Clinical correlation isessential. [facility] [address] [place], [place], [phone] Lipid ProfileOrdered By: Frank tem Senior Maintenance Mechanic on 07-13-2016 Cholesterol in HDL mass conc 48 mg/dL Normal [facility] Work Phone: Comment on above: The drugs N-Acetylcy steine and Metamizole may falsely deressthis assay. Reference Range HDL <40 mg/dL Low HDL Cholesterol HDL >or= 60 mg/dL High HDL Cholesterol [facility] [address] [place], [place], [phone] Cholesterol in LDL mass conc 122 mg/dL Normal 0-130 [facility] Work Phone: Cholesterol in LDL mass conc 122 mg/dL Normal 0-130 [facility] Work Phone: Comment on above: [facility] [address] [place], [address] Cholesterol in VLDL mass conc 25 mg/dL Normal 5-40 [facility] Work Phone: Comment on above: [facility] [address] [place], [place], [phone] Cholesterol mass conc 195 mg/dL Normal Com prehensive Internal Medicine Work Phone: Comment on above: <200 mg/dL Desirable 200-240 mg/dL Borderline >240 mg/dL High Risk [facility] [address] [place], [place], [phone] Triglyceride mass conc 126 mg/dL Normal Co mprehensive Internal Medicine Work Phone: Comment on above: The drugs N-Acetylcy steine and Metamizole may falsely deressthis assay.Serum Triglycerides Reference Interval Normal <150 mg/dL Borderline high 150 - 199 mg/dL High 200 - 499 mg/dL Very High > or = 500 mg/dL [facility] [address] [place], [address] Lipid Profile 25 mg/dL Normal 5-40 Comprehensi ve Internal Medicine Work Phone: Comment on above: [facility] [address] [place], [place], [address] MicroalbOrdered By: John wesley on 07-13-2016 Creatinine mass conc 80.5 {mg/g_CRE} Abnormal [facility] Work Phone: Comment on above: [facility] [address] [place], [address] Creatinine mass conc 97.80 mg/dL Normal Com prehensive Internal Medicine Work Phone: Comment on above: [facility] [address] [employer] [place], [id number] MICROALBUMIN,UR 78.7 mg/L Normal Comprehen sive Internal Medicine Work Phone: UR CREAT 97.80 mg/dL Normal [facility] Work Phone: Microalb 78.7 mg/L Normal [facility] Work Phone: Comment on above: [facility] [address] [place] [place], [address] Microalb 97.80 mg/dL Normal [facility] Work Phone: Thyroid Stim Hormone (TSH)Or dered By: Aurist on 07-13-2016 Thyrotropin Qn 0.88 {uIU/mL} Normal 0.358-3.74 Compreh ensive Internal Medicine Work Phone: Comment on above: [facility] [address] [place] [place], [address] Urinalysis, Routine (Dipstic k)Ordered By: Aurist on 07-13-2016 CLARITY Clear Normal [facility] Work Phone: Clarity Nom (U) Clear Normal Comprehen [facility] Internal Medicine Work Phone: Comment on above: How was Urine Obtain ed? [facility] [address] [place], [place], [phone] COLOR Yellow Normal [facility] Work Phone: Color Nom (U) Yellow Normal Comprehensi ve Internal Medicine Work Phone: Comment on above: How was Urine Obtain ed? [facility] [address] [place], [id number] GLUCOSE, UR Normal Normal [facility] Work Phone: LEUK ESTERASE 25 /ul Abnormal Comprehensi ve Internal Medicine Work Phone: NITRITE UR Negative Normal [facility] Work Phone: OCCULT BLOOD-UR 10 /ul Abnormal Comprehen [facility] Internal Medicine Work Phone: pH UR 7.0 1 Normal 5.0 - 8.0 [facility] Work Phone: PROT DIPSTX 30 mg/dL Abnormal [facility] Work Phone: SP.GR. DIPSTX 1.010 1 Normal 1.002-1.03 0 [facility] Work Phone: Urinalysis, Routine (Dipstick) Yellow Normal [facility] Work Phone: Urinalysis, Routine (Dipstick) 25 /ul Abnormal [facility] Work Phone: Comment on above: How was Urine Obtain ed? [facility] [address] [place], [address] Urinalysis, Routine (Dipstick) 10 /ul Abnormal [facility] Work Phone: Comment on above: How was Urine Obtain ed? [facility] [address] [place], [address] Urinalysis, Routine (Dipstick) Negative Normal [facility] Work Phone: Comment on above: How was Urine Obtain ed? [facility] [address] [place], [address] Urinalysis, Routine (Dipstick) Normal Normal [facility] Work Phone: Comment on above: How was Urine Obtain ed? [facility] [address] [place], [address] Urinalysis, Routine (Dipstick) 30 mg/dL Abnormal [facility] Work Phone: Comment on above: How was Urine Obtain ed? [facility] [address] [place], [address] Urinalysis, Routine (Dipstick) 7.0 1 Normal 5.0 - 8.0 [facility] Work Phone: Comment on above: How was Urine Obtain ed? [facility] [address] [place], [place], [phone] Urinalysis, Routine (Dipstick) 1.010 1 Normal 1.002-1.03 0 [facility] Work Phone: Comment on above: How was Urine Obtain ed? [facility] [address] [place], [place], [id number] Urinalysis, Routine (Dipstick) Clear Normal [facility] Work Phone: Blood Glucose , Office ([phone])Ordered By: Ivy Woodward on 06-15-2016 Glucose Glucometer molar conc (BldC) 112 1 Normal [facility] Work Phone: HgA1C , Office ([phone])Ordere d By: Ivy Woodward on 06-15-2016 Hemoglobin A1c/Hemoglobin.total mass fraction (Bld) 6.2 % Normal 4.6 - 7.1 Comprehensiv e Internal Medicine Work Phone: Blood Glucose , Office ([phone])Ordered By: Ivy Woodward on 06-24-2015 Glucose Glucometer molar conc (BldC) 89 1 Normal [facility] Work Phone: HgA1C , Office ([phone])Ordere d By: Edvin Hennessy on 05-26-2015 Hemoglobin A1c/Hemoglobin.total mass fraction (Bld) 6.5 % Normal 4.6 - 7.1 Comprehensiv e Internal Medicine Work Phone: Comment on above: 6.5 CBC W/Diff, AutomatedOrdered By: Aurist on 04-23-2015 Absolute Lymph 2.70 {X10_3/ul} Normal 0.83-4.51 Compr ehensive Internal Medicine Work Phone: Absolute Neut 4.7 {X10_3/uL} Normal 2.0-7.7 Compreh ensive Internal Medicine Work Phone: Comment on above: [facility] [address] [place], [address] Basophils/100 WBC (Bld) 0.5 % Normal 0-1 [facility] Work Phone: Comment on above: [facility] [address] [place], [address] Basophils/100 WBC Auto (Bld) 0.5 % Normal 0-1 [facility] Work Phone: Eosinophils/100 WBC (Bld) 7.7 % Abnormal 0-5 [facility] Work Phone: Comment on above: [facility] [address] [place], [address] Eosinophils/100 WBC Auto (Bld) 7.7 % Abnormal 0-5 [facility] Work Phone: Erythrocyte distribution width Auto Ratio (RBC) 13.7 % Normal 11.6-14.6 [facility] Work Phone: Erythrocyte distribution width Ratio (RBC) 13.7 % Normal 11.6-14.6 [facility] Work Phone: Comment on above: [place] [address] [place], [address] Hematocrit Auto Volume Fraction (Bld) 44.1 % Normal 37-47 [facility] Work Phone: Hematocrit Volume Fraction (Bld) 44.1 % Normal 37-47 [facility] Work Phone: Comment on above: [facility] [address] [place], [address] Hemoglobin mass conc (Bld) 14.2 g/dL Normal 12.0-15.0 [facility] Work Phone: Comment on above: [facility] [address] [place], [address] IM GRAN % 0.200 % Normal 0.0-0.9 [facility] Work Phone: Comment on above: IG% - Immature Granu locytes (promyelocytes, myelocytes andmetamyelocytes) > 1% indicates that a LEFT SHIFT is Present. [facility] [address] [place], [address] Lymphocytes #/vol (Bld) 2.70 {X10_3/ul} Normal 0.83-4.51 [facility] Work Phone: Comment on above: [place] [address] [place], [address] Lymphocytes/100 WBC (Bld) 31.8 % Normal 19-41 [facility] Work Phone: Comment on above: [place] [address] [place], [address] Lymphocytes/100 WBC Auto (Bld) 31.8 % Normal 19-41 [facility] Work Phone: MCH Auto Entitic mass (RBC) 28.6 pg Normal 27.0-32.0 [facility] Work Phone: MCH Entitic mass (RBC) 28.6 pg Normal 27.0-32.0 [facility] Internal Medicine Work Phone: Comment on above: [place] [address] [place], [address] MCHC Auto mass conc (RBC) 32.2 {g/gl} Normal 32-36 [facility] Work Phone: MCHC mass conc (RBC) 32.2 {g/gl} Normal 32-36 [facility] Internal Medicine Work Phone: Comment on above: [facility] [address] [place], [place], [phone] MCV Auto Entitic volume (RBC) 88.7 fL Normal 81-99 [facility] Work Phone: MCV Entitic volume (RBC) 88.7 fL Normal 81-99 [facility] Work Phone: Comment on above: [facility] [address] [place], [address] Monocytes/100 WBC Auto (Bld) 4.8 % Normal 0-10 [facility] Work Phone: Comment on above: [facility] [address] [place], [address] Monocytes/100 WBC Auto (Bld) 4.8 % Normal 0-10 [facility] Work Phone: Neutrophils/100 WBC (Bld) 55.0 % Normal 47-70 [facility] Work Phone: Comment on above: [facility] [address] [place], [address] Neutrophils/100 WBC Auto (Bld) 55.0 % Normal 47-70 [facility] Work Phone: Platelet mean volume Auto Entitic volume (Bld) 10.1 fL Normal 6.2-12.0 [facility] Work Phone: Platelet mean volume Entitic volume (Bld) 10.1 fL Normal 6.2-12.0 Comprehensi ve Internal Medicine Work Phone: Comment on above: [facility] [address] [place], [address] Platelets #/vol (Bld) 251 10*3/uL Normal 150-450 Co mprehensive Internal Medicine Work Phone: Comment on above: [facility] [address] [place], [address] Platelets Auto #/vol (Bld) 251 10*3/uL Normal 150-450 [facility] Work Phone: RBC #/vol (Bld) 4.97 {M/mm3} Normal 4.2-5.4 Compreh ensive Internal Medicine Work Phone: Comment on above: [facility] [address] [place], [address] RBC Auto #/vol (Bld) 4.97 {M/mm3} Normal 4.2-5.4 [facility]: RDW SD 44.0 fL Abnormal 35.1-43.9 Comprehensive Internal Medicine Work Phone: Comment on above: [facility] [address] [place], [address] WBC #/vol (Bld) 8.5 10*3/uL Normal 4.4-11.0 Comprehe nsive Internal Medicine Work Phone: Comment on above: [facility] [address] [place], [address] WBC Auto #/vol (Bld) 8.5 10*3/uL Normal 4.4-11.0 [facility] prehensive Internal Medicine Work Phone: CBC W/Diff, Automated 2.70 {X10_3/ul} Normal 0.83-4.51 [facility] Internal Medicine Work Phone: CBC W/Diff, Automated 44.0 fL Abnormal 35.1-43.9 [facility] prehensive Internal Medicine Work Phone: CBC W/Diff, Automated 0.200 % Normal 0.0-0.9 [facility] prehensive Internal Medicine Work Phone: Comment on above: IG% - Immature Granu locytes (promyelocytes, myelocytes andmetamyelocytes) > 1% indicates that a LEFT SHIFT is Present. CBC W/Diff, Automated 4.7 {X10_3/uL} Normal 2.0-7.7 [facility] Internal Medicine Work Phone: Comprehensive Metabolic Prof ilOrdered By: Aurist on 04-23-2015 Comprehensive metabolic 2000 panel 3.5 mmol/L Normal 3.5-5.1 Comprehensi ve Internal Medicine Work Phone: Comment on above: [facility] [address] [place], [address] Comprehensive metabolic 2000 panel 29.3 {RATIO} Abnormal 10-20 Comprehensi ve Internal Medicine Work Phone: Comment on above: [facility] [address] [place], [place], [address] Comprehensive metabolic 2000 panel 45 U/L Normal 12-78 Comprehensi ve Internal Medicine Work Phone: Comment on above: [facility] [address] [place], [place], [address] Comprehensive metabolic 2000 panel 70 U/L Normal 50-136 Comprehensi ve Internal Medicine Work Phone: Comment on above: [facility] [address] [place], [place], [id number] Comprehensive metabolic 2000 panel 22 U/L Normal 15-37 Comprehensi ve Internal Medicine Work Phone: Comment on above: [facility] [address] [place], [place], [address] Comprehensive metabolic 2000 panel 8.2 mg/dL Abnormal 8.5-10.1 Comprehensi ve Internal Medicine Work Phone: Comment on above: [facility] [address] [place], [place], [address] Comprehensive metabolic 2000 panel 1.0 {RATIO} Normal 0.9-2.4 Comprehensi ve Internal Medicine Work Phone: Comment on above: [facility] [address] [place], [place], [address] Comprehensive metabolic 2000 panel 3.8 g/dL Abnormal 2.3-3.5 Comprehensi ve Internal Medicine Work Phone: Comment on above: [facility] [address] [place], [place], [address] Comprehensive metabolic 2000 panel 3.7 g/dL Normal 3.4-5.0 Comprehensi ve Internal Medicine Work Phone: Comment on above: [facility] [address] [place], [place], [address] Comprehensive metabolic 2000 panel 7.5 g/dL Normal 6.4-8.2 Comprehensi ve Internal Medicine Work Phone: Comment on above: [facility] [address] [place], [place], [address] Comprehensive metabolic 2000 panel 0.50 mg/dL Normal 0.20-1.00 Comprehensi ve Internal Medicine Work Phone: Comment on above: [facility] [address] [place], [place], [id number] Comprehensive metabolic 2000 panel 142 mmol/L Normal 136-145 Comprehensi ve Internal Medicine Work Phone: Comment on above: [facility] [address] [place], [place], [id number] Comprehensive metabolic 2000 panel 117 mL/min Normal Comprehensi ve Internal Medicine Work Phone: Comment on above: Non- GFR Calc [facility] [address] [place], [place], [address] Comprehensive metabolic 2000 panel 0.58 mg/dL Normal 0.55-1.20 Comprehensi ve Internal Medicine Work Phone: Comment on above: The validity of the calculated GFR AND GFRAA in patients over70 years has not been determined. Clinical correlation isessential. [facility] [address] [place], [place], [address] Comprehensive metabolic 2000 panel 17 mg/dL Normal 7-18 Comprehensi ve Internal Medicine Work Phone: Comment on above: [facility] [address] [place], [place], [address] Comprehensive metabolic 2000 panel 119 mg/dL Abnormal 70-110 Comprehensi ve Internal Medicine Work Phone: Comment on above: Fasting Glucose resu lt from 110 to <126 mg/dLsuggests IMPAIRED HOMEOSTASIS per A.D.A. criteria. [facility] [address] [place], [place], [address] Comprehensive metabolic 2000 panel 107 mmol/L Normal 98-107 Comprehensi ve Internal Medicine Work Phone: Comment on above: [facility] [address] [place], [place], [address] Comprehensive metabolic 2000 panel 28.0 mmol/L Normal 21.0-32.0 Comprehensi ve Internal Medicine Work Phone: Comment on above: [facility] [address] [place], [place], [address] Comprehensive metabolic 2000 panel 7 1 Normal 5-15 Comprehensi ve Internal Medicine Work Phone: Comment on above: [facility] [address] [place], [place], [address] Comprehensive metabolic 2000 panel 141 mL/min Normal Comprehensi ve Internal Medicine Work Phone: Comment on above: GFR Calc [facility] [address] [place], [place], [id number] Lipid ProfileOrdered By: Frank tem Senior Maintenance Mechanic on 04-23-2015 Cholesterol in HDL mass conc 47 mg/dL Normal Comprehensive Internal Medicine Work Phone: Comment on above: Reference Range HDL <40 mg/dL Low HDL Cholesterol HDL >or= 60 mg/dL High HDL Cholesterol [place] [address] [place], [place], [address] Cholesterol in LDL mass conc 126 mg/dL Normal 0-130 [facility] Internal Medicine Work Phone: Cholesterol in LDL mass conc 126 mg/dL Normal 0-130 [facility] Internal Medicine Work Phone: Comment on above: [facility] [address] [place], [place], [address] Cholesterol in VLDL mass conc 19 mg/dL Normal 5-40 Comprehensive Internal Medicine Work Phone: Comment on above: [facility] [address] [place], [place], [address] Cholesterol mass conc 192 mg/dL Normal Com prehensive Internal Medicine Work Phone: Comment on above: <200 mg/dL Desirable 200-240 mg/dL Borderline >240 mg/dL High Risk [facility] [address] [place], [place], [address] Triglyceride mass conc 95 mg/dL Normal Co mprehensive Internal Medicine Work Phone: Comment on above: Serum Triglycerides Reference Interval Normal <150 mg/dL Borderline high 150 - 199 mg/dL High 200 - 499 mg/dL Very High > or = 500 mg/dL [facility] [address] [place], [place], [address] Lipid Profile 19 mg/dL Normal 5-40 Comprehensi ve Internal Medicine Work Phone: Comment on above: [facility] [address] [place], [place], [address] Microalbumin,Random UrineOrd ered By: Aurist on 04-23-2015 Albumin DL <= 20 mg/L mass conc (U) 140.0 mg/L Normal Comprehensive Internal Medicine Work Phone: Comment on above: [facility] [address] [place], [place], [address] Thyroid Stim Hormone (TSH)Or dered By: Aurist on 04-23-2015 Thyrotropin Qn 0.62 {uIU/mL} Normal 0.358-3.74 Compreh ensive Internal Medicine Work Phone: Comment on above: [facility] [address] [place], [place], [address] Urinalysis, Office ([id number])Or dered By: Annalee Robledo on 04-17-2015 Bilirubin Ql (U) Negative Normal Comprehe nsive Internal Medicine Work Phone: Glucose Test strip mass conc (U) Negative Normal [facility] Medicine Work Phone: Hemoglobin Ql (U) Negative Normal Compreh ensive Internal Medicine Work Phone: Hemoglobin Test strip Ql (U) Negative Normal [facility] Medicine Work Phone: Ketones Ql (U) Moderate Normal Comprehens [facility] Internal Medicine Work Phone: Leukocyte esterase Test strip Ql (U) Large Normal [facility] Internal Medicine Work Phone: Nitrite Ql (U) Negative Normal Comprehens [facility] Internal Medicine Work Phone: Nitrite Test strip Ql (U) Negative Normal [facility] Work Phone: pH (U) 7.5 [pH] Normal [facility] Work Phone: pH Test strip (U) 7.5 [pH] Normal Compreh ensive Internal Medicine Work Phone: Protein Ql (U) 30 mg/dL Normal Comprehens [facility] Internal Medicine Work Phone: Protein Test strip Ql (U) 30 mg/dL Normal [facility] Medicine Work Phone: Specific gravity Relative Density (U) 1.025 1 Normal Comprehensi ve Internal Medicine Work Phone: Urobilinogen mass/time (24H U) Normal Normal [facility] Medicine Work Phone: Urinalysis, Office ([id number])on 04-17-2015 Bilirubin Ql (U) Negative Normal Comprehe nsive Internal Medicine Work Phone: Glucose Test strip (U) [Mass/Vol] Negative Normal [facility] Medicine Work Phone: Hemoglobin Ql (U) Negative Normal Compreh ensive Internal Medicine Work Phone: Nitrite Ql (U) Negative Normal Comprehens [facility] Internal Medicine Work Phone: ALDOSTERONE ([id number])Ordered B y: Aurist on 02-05-2014 Aldosterone mass conc 4.9 ng/dL Normal 0.0-30.0 Com prehensive Internal Medicine Work Phone: Comment on above: PATIENT NOT FASTINGP ERFORMED BY: [facility] [address] [id number] Information: [id number] CATECHOLAMINES TOTAL, URINE ([id number])Ordered By: Aurist on 02-05-2014 Dopamine mass conc (U) 251 ug/L Normal [facility] Internal Medicine Work Phone: Comment on above: 24 HR URINE COLLECTI ON; PATIENT NOT FASTINGPERFORMED BY: LabSnaptracs[address] [id number] Information: SRC:KARLY [id number] 4@720AM FINIS H Dopamine mass/time (24H U) 226 {ug/24_hr} Normal 0-510 Comprehensive Internal Medicine Work Phone: Comment on above: 24 HR URINE COLLECTI ON; PATIENT NOT FASTINGPERFORMED BY: [employer] [id number] Information: SRC:KARLY [id number] 4@720AM FINIS H Epinephrine mass conc (U) 4 ug/L Normal Comprehensive Internal Medicine Work Phone: Comment on above: 24 HR URINE COLLECTI ON; PATIENT NOT FASTINGPERFORMED BY: [employer] [id number] Information: SRC:KARLY [id number] 4@720AM FINIS H Epinephrine mass/time (24H U) 4 {ug/24_hr} Normal 0-20 Comprehensive Internal Medicine Work Phone: Comment on above: 24 HR URINE COLLECTI ON; PATIENT NOT FASTINGPERFORMED BY: Lab[address] [id number] Information: SRC:KARLY [id number] 4@720AM FINIS H Norepinephrine mass conc (U) 56 ug/L Normal Comprehensive Internal Medicine Work Phone: Comment on above: 24 HR URINE COLLECTI ON; PATIENT NOT FASTINGPERFORMED BY: Lab[address] [id number] Information: SRC:KARLY [id number] 4@720AM FINIS H Norepinephrine mass/time (24H U) 50 {ug/24_hr} Normal 0-135 Comprehensive Internal Medicine Work Phone: Comment on above: 24 HR URINE COLLECTI ON; PATIENT NOT FASTINGPERFORMED BY: [employer]7 [facility] [id number] Information: SRC:KARLY [id number] 4@720AM FINIS H METANEPHRINES - URINE ([id number] )Ordered By: Aurist on 02-05-2014 Metanephrine mass/time (24H U) 104 {ug/24_hr} Normal 45-290 Comprehensive Internal Medicine Work Phone: Comment on above: (Hypertensive) >17 y ears 11 months: 35 - 460 24 HR URINE COLLECTI ON; PATIENT NOT FASTINGPERFORMED BY: [employer] [place] [address] [id number] Metanephrines mass conc (24H U) 116 ug/L Normal Comprehensive Internal Medicine Work Phone: Comment on above: 24 HR URINE COLLECTI ON; PATIENT NOT FASTINGPERFORMED BY: [employer]1447 [facility] [id number] Normetanephrine mass conc (24H U) 406 ug/L Normal Comprehensive Internal Medicine Work Phone: Comment on above: 24 HR URINE COLLECTI ON; PATIENT NOT FASTINGPERFORMED BY: [employer] [id number] Normetanephrine mass/time (24H U) 365 {ug/24_hr} Normal 82-500 Comprehensive Internal Medicine Work Phone: Comment on above: (Hypertensive) >17 y ears 11 months: 110 - 1050 24 HR URINE COLLECTI ON; PATIENT NOT FASTINGPERFORMED BY: Dotstudiozton1447 [facility] [id number] RENIN ([id number])Ordered By: Frank tem Senior Maintenance Mechanic on 02-05-2014 Renin enzyme act/vol (P) 0.15 {ng/mL/hr} Normal Comprehensive Internal Medicine Work Phone: Comment on above: Adult Normal Salt In take: Upright 1.31 - 3.95 Supine 0.15 - 2.33 . Salt Excretion (Na mEq/24 hr): Na= 0 - 30 8.82 - 23.86 Na= 30 - 75 4.09 - 7.73 Na= 75 - 150 1.44 - 2.80 Na= >150 0.39 - 1.31 PATIENT NOT FASTINGP ERFORMED BY: [employer] [address] [id number] Information: [id number] ORDER URINE VMA ([id number])Ordered By: Aurist on 02-05-2014 Vanillylmandelate mass conc (U) 2.8 mg/L Normal Comprehensive Internal Medicine Work Phone: Comment on above: 24 HR URINE COLLECTI ON; PATIENT NOT FASTINGPERFORMED BY: [employer] [id number] Vanillylmandelate mass/time (24H U) 2.5 {mg/24_hr} Normal 0.0-7.5 [facility] Medicine Work Phone: Comment on above: 24 HR URINE COLLECTI ON; PATIENT NOT FASTINGPERFORMED BY: [employer] [id number] CBCDOrdered By: System Manag er on 04-25-2013 Erythrocyte distribution width Auto Ratio (RBC) 13.6 % Normal 11.6-14.6 [facility] Internal Medicine Work Phone: Erythrocyte distribution width Ratio (RBC) 13.6 % Normal 11.6-14.6 [facility] Work Phone: Hematocrit Auto Volume Fraction (Bld) 39.5 % Normal 37-47 [facility] Internal Medicine Work Phone: Hematocrit Volume Fraction (Bld) 39.5 % Normal 37-47 [facility] Internal Medicine Work Phone: Hemoglobin mass conc (Bld) 12.9 g/dL Normal 12.0-15.0 [facility] Internal [facility] Work Phone: MCH Auto Entitic mass (RBC) 27.8 pg Normal 27.0-32.0 [facility] Internal Medicine Work Phone: MCH Entitic mass (RBC) 27.8 pg Normal 27.0-32.0 [facility] Internal [facility] Work Phone: MCHC Auto mass conc (RBC) 32.7 {g/gl} Normal 32-36 Comprehensive Internal Medicine Work Phone: MCHC mass conc (RBC) 32.7 {g/gl} Normal 32-36 Com prehensive Internal Medicine Work Phone: MCV Auto Entitic volume (RBC) 85.1 fL Normal 81-99 [facility] Medicine Work Phone: MCV Entitic volume (RBC) 85.1 fL Normal 81-99 [facility] Internal Medicine Work Phone: Platelet mean volume Auto Entitic volume (Bld) 10.0 fL Normal 6.2-12.0 [facility] Internal Medicine Work Phone: Platelet mean volume Entitic volume (Bld) 10.0 fL Normal 6.2-12.0 Comprehensi ve Internal Medicine Work Phone: Platelets #/vol (Bld) 283 10*3/uL Normal 150-450 [address] [facility] [address] [facility] [facility] Internal [facility] Work Phone: Platelets Auto #/vol (Bld) 283 10*3/uL Normal 150-450 [facility] Internal Medicine Work Phone: RBC #/vol (Bld) 4.64 {M/mm3} Normal 4.2-5.4 Compreh ensive Internal Medicine Work Phone: RBC Auto #/vol (Bld) 4.64 {M/mm3} Normal 4.2-5.4 [facility] [address] [facility] Internal Medicine Work Phone: WBC #/vol (Bld) 6.8 10*3/uL Normal 4.4-11.0 Comprehe nsive Internal Medicine Work Phone: WBC Auto #/vol (Bld) 6.8 10*3/uL Normal 4.4-11.0 Com prehensive Internal Medicine Work Phone: CBCD 0.100 % Normal 0.0-0.9 [facility] Internal Medicine Work Phone: Comment on above: IG% - Immature Granu locytes (promyelocytes, myelocytes andmetamyelocytes) > 1% indicates that a LEFT SHIFT is Present. CBCD 3.7 {X10_3/uL} Normal 2.0-7.7 Comprehens [facility] Internal Medicine Work Phone: CBCD 41.9 fL Normal 35.1-43.9 [facility] Internal Medicine Work Phone: CBCD 54.2 % Normal 47-70 Comprehensive Internal Medicine Work Phone: CBCD 34.8 % Normal 19-41 Comprehensive Internal Medicine Work Phone: CBCD 5.1 % Abnormal 0-5 [facility] Internal Medicine Work Phone: CBCD 0.7 % Normal 0-1 [facility] Internal Medicine Work Phone: CMPOrdered By: System Manage r on 04-25-2013 Albumin mass conc 3.5 g/dL Normal 3.4-5.0 Compreh [facility] Internal Medicine Work Phone: Albumin/Globulin mass ratio 0.9 {RATIO} Normal 0.9-2.4 [facility] Internal Medicine Work Phone: ALP enzyme act/vol 96 U/L Normal 50-136 [facility] Internal Medicine Work Phone: ALT enzyme act/vol 27 U/L Normal 12-78 [facility] Internal Medicine Work Phone: AST enzyme act/vol 15 U/L Normal 15-37 [facility] Internal Medicine Work Phone: Bilirubin mass conc 0.50 mg/dL Normal 0.00-1.00 [facility] Internal Medicine Work Phone: Calcium mass conc 8.6 mg/dL Normal 8.5-10.1 Compreh [facility] Internal Medicine Work Phone: Chloride molar conc 105 mmol/L Normal 98-107 [facility] Internal Medicine Work Phone: CO2 molar conc 26.0 mmol/L Normal 21.0-32.0 [facility] Work Phone: Creatinine mass conc 0.6 mg/dL Normal 0.6-1.0 Comp rehensive Internal Medicine Work Phone: GFR/1.73 sq M predicted among non-blacks MDRD vol rate/area (S/P/Bld) 113 mL/min/{1.73_m2} Normal Compreh ensive Internal Medicine Work Phone: Globulin Calculated mass conc (S) 3.9 g/dL Normal 2.7-4.2 [facility] Medicine Work Phone: Globulin mass conc (S) 3.9 g/dL Normal 2.7-4.2 Co mprehensive Internal Medicine Work Phone: Glucose mass conc 101 mg/dL Normal 70-110 Compreh ensive Internal Medicine Work Phone: Potassium molar conc 4.0 mmol/L Normal 3.5-5.1 Comp rehensive Internal Medicine Work Phone: Protein mass conc 7.4 g/dL Normal 6.4-8.2 Compreh ensive Internal Medicine Work Phone: Sodium molar conc 140 mmol/L Normal 136-145 Compreh ensive Internal Medicine Work Phone: Urea nitrogen mass conc 13 mg/dL Normal 7-18 [facility] Work Phone: Urea nitrogen/Creatinine mass ratio 21.7 {RATIO} Abnormal 10-20 [facility] Work Phone: CMP 137 mL/min Normal [facility] Work Phone: CMP 9 1 Normal 5-15 [facility] Work Phone: CMP 7.4 g/dL Normal 6.4-8.2 [facility] Work Phone: CMP 3.9 g/dL Normal 2.7-4.2 [facility] Work Phone: LIPIDOrdered By: John nathan on 04-25-2013 Cholesterol in HDL mass conc 43 mg/dL Normal Comprehensive Internal Medicine Work Phone: Comment on above: Reference RangeHDL < 40 mg/dL Low HDL CholesterolHDL >or= 60 mg/dL High HDL Cholesterol Cholesterol in LDL mass conc 126 mg/dL Normal 0-130 [facility] Medicine Work Phone: Cholesterol mass conc 183 mg/dL Normal Com prehensive Internal Medicine Work Phone: Comment on above: <200 mg/dL Desirable 200-240 mg/dL Borderline>240 mg/dL High Risk Triglyceride mass conc 71 mg/dL Normal 0-199 Co mprehensive Internal Medicine Work Phone: Comment on above: Serum Triglycerides Reference IntervalNormal <150 mg/dLBorderline high 150 - 199 mg/dLHigh 200 - 499 mg/dLVery High > or = 500 mg/dL LIPID 14 mg/dL Normal 5-40 [facility] Internal Medicine Work Phone: MIACREOrdered By: System Man ager on 04-25-2013 Creatinine mass conc 7.8 {mg/g_CRE} Normal [facility] Medicine Work Phone: MIACRE 133.8 mg/dL Normal [facility] Medicine Work Phone: MIACRE 10.5 mg/L Normal [facility] Work Phone: CBC (Auto) ([id number])Ordered By : Aurist on 04-13-2012 Erythrocyte distribution width Auto Ratio (RBC) 13.9 % Normal 12.3-15.4 [facility] Work Phone: Erythrocyte distribution width Ratio (RBC) 13.9 % Normal 12.3-15.4 [facility] Work Phone: Comment on above: PATIENT NOT FASTINGP ERFORMED BY: CellPly6370 [facility] [id number] Hematocrit Auto Volume Fraction (Bld) 41.9 % Normal 34.0-46.6 [facility] Work Phone: Hematocrit Volume Fraction (Bld) 41.9 % Normal 34.0-46.6 [facility] Work Phone: Comment on above: PATIENT NOT FASTINGP ERFORMED BY: CellPly6370 [facility] [id number] Hemoglobin mass conc (Bld) 13.9 g/dL Normal 11.1-15.9 [facility] Internal Medicine Work Phone: Comment on above: PATIENT NOT FASTINGP ERFORMED BY: GABE [facility] [id number] [facility] [place] [id number] MCH Auto Entitic mass (RBC) 28.4 pg Normal 26.6-33.0 [facility] Internal Medicine Work Phone: MCH Entitic mass (RBC) 28.4 pg Normal 26.6-33.0 [facility] Internal Medicine Work Phone: Comment on above: PATIENT NOT FASTINGP ERFORMED BY: GABE [facility] [id number] [address] [facility] [id number] MCHC Auto mass conc (RBC) 33.2 g/dL Normal 31.5-35.7 [facility] Work Phone: MCHC mass conc (RBC) 33.2 g/dL Normal 31.5-35.7 [facility] Internal Medicine Work Phone: Comment on above: PATIENT NOT FASTINGP ERFORMED BY: GABE [facility] [id number] [facility] [id number] MCV Auto Entitic volume (RBC) 86 fL Normal 79-97 [facility] Work Phone: MCV Entitic volume (RBC) 86 fL Normal 79-97 [facility] Work Phone: Comment on above: PATIENT NOT FASTINGP ERFORMED BY: GABE [facility] [id number] [facility] [id number] Platelets #/vol (Bld) 290 {x10E3/uL} Normal 140-415 [facility] Internal Medicine Work Phone: Comment on above: PATIENT NOT FASTINGP ERFORMED BY: CB [facility] [id number] [facility] [id number] Platelets (Bld) [#/Vol] 290 10*3/uL Normal 140-415 [facility] Medicine Work Phone: Comment on above: PATIENT NOT FASTINGP ERFORMED BY: GABE [facility] [id number] [facility] [id number] Platelets Auto #/vol (Bld) 290 {x10E3/uL} Normal 140-415 [facility] Internal Medicine Work Phone: RBC #/vol (Bld) 4.89 {x10E6/uL} Normal 3.77-5.28 [facility] Internal Medicine Work Phone: Comment on above: PATIENT NOT FASTINGP ERFORMED BY: CB [facility] Gtvlau5658 Muhammad RoadDublin [place] [id number] RBC (Bld) [#/Vol] 4.89 10*6/uL Normal 3.77-5.28 [facility] Internal Medicine Work Phone: Comment on above: PATIENT NOT FASTINGP ERFORMED BY: CB [facility] [id number] [address] RoadWilson [facility] Centerin [place] [id number] RBC Auto #/vol (Bld) 4.89 {x10E6/uL} Normal 3.77-5.28 [facility] Work Phone: WBC #/vol (Bld) 8.6 {x10E3/uL} Normal 4.0-10.5 [facility] Internal Medicine Work Phone: Comment on above: PATIENT NOT FASTINGP ERFORMED BY: CB [facility] Evbzvj7731 [facility] [id number] WBC (Bld) [#/Vol] 8.6 10*3/uL Normal 4.0-10.[address] [facility] Internal [facility] Work Phone: Comment on above: PATIENT NOT FASTINGP ERFORMED BY: CB [facility] Gyeqrb8648 [facility] [id number] WBC Auto #/vol (Bld) 8.6 {x10E3/uL} Normal 4.0-10.5 [facility] Internal Medicine Work Phone: Metabolic Panel, Comprehensi ve ([id number])Ordered By: Aurist on 04-13-2012 Albumin mass conc 4.4 g/dL Normal 3.5-5.5 Compreh [facility] Internal Medicine Work Phone: Comment on above: PATIENT NOT FASTINGP ERFORMED BY: CB [facility] Hktmqh1511 [facility] [id number] Information: [id number] Albumin/Globulin mass ratio 1.7 {ratio} Normal 1.1-2.5 [facility] Work Phone: Comment on above: PATIENT NOT FASTINGP ERFORMED BY: GABE Kamara6370 [facility] [id number] Information: [id number] ALP [Catalytic activity/Vol] 79 U/L Normal 25-150 [facility] Internal Medicine Work Phone: Comment on above: PATIENT NOT FASTINGP ERFORMED BY: GABE [facility]CoSaint [facility] Medical CenterNkogot6841 [facility] [id number] Information: [id number] ALP enzyme act/vol 79 [iU]/L Normal 25-150 [facility] Internal Medicine Work Phone: Comment on above: PATIENT NOT FASTINGP ERFORMED BY: [facility] Bhabtx1199 [facility] [id number] Information: [id number] ALT [Catalytic activity/Vol] 18 U/L Normal 0-32 [facility] Work Phone: Comment on above: PATIENT NOT FASTINGP ERFORMED BY: GABE Cordova Iiiqvj9719 [facility] [id number] Information: [id number] ALT enzyme act/vol 18 [iU]/L Normal 0-32 [facility] Internal Medicine Work Phone: Comment on above: PATIENT NOT FASTINGP ERFORMED BY: GBAE LabCoSaint Michael's Medical CenterLgqtds0635 [facility] [id number] Information: [id number] AST [Catalytic activity/Vol] 16 U/L Normal 0-40 [facility] Work Phone: Comment on above: PATIENT NOT FASTINGP ERFORMED BY: GABE LabAmanda Ehowxl4357 [facility] [id number] Information: [id number] AST enzyme act/vol 16 [iU]/L Normal 0-40 [facility] Internal Medicine Work Phone: Comment on above: PATIENT NOT FASTINGP ERFORMED BY: GABE [facility] Glkuey2258 [facility] RoadWilson [facility] Centerin [place] [id number] Information: [id number] Bilirubin mass conc 0.5 mg/dL Normal 0.0-1.2 Compr ens[facility] Work Phone: Comment on above: PATIENT NOT FASTINGP ERFORMED BY: CB [facility] Lpqnfv8193 [facility] [id number] Information: [id number] Calcium mass conc 9.4 mg/dL Normal 8.7-10.2 Compreh ensive [facility] Work Phone: Comment on above: PATIENT NOT FASTINGP ERFORMED BY: GABE [facility] Pncomi5714 [facility] [id number] Information: [id number] Chloride molar conc 104 mmol/L Normal 97-108 Compr ens[facility] Work Phone: Comment on above: PATIENT NOT FASTINGP ERFORMED BY: GABE [facility] Sbubyo6446 [facility] [place] [id number] Information: [id number] CO2 molar conc 23 mmol/L Normal 20-32 Comprehens [facility] Internal Medicine Work Phone: Comment on above: PATIENT NOT FASTINGP ERFORMED BY: GABE [facility] Inuvdj2349 [facility] [id number] Information: [id number] Creatinine mass conc 0.54 mg/dL Abnormal 0.57-1.00 [facility] to[facility]oensive [facility] Work Phone: Comment on above: PATIENT NOT FASTINGP ERFORMED BY: CB [facility] Fcegxc5696 [facility] [place] [id number] Information: [id number] GFR/1.73 sq M predicted among blacks CKD-EPI vol rate/area (S/P/Bld) 130 mL/min/1.73 Normal [facility] Work Phone: Comment on above: PATIENT NOT FASTINGP ERFORMED BY: GABE [facility]6370 [facility] [id number] Information: [id number] GFR/1.73 sq M predicted among non-blacks CKD-EPI vol rate/area (S/P/Bld) 113 mL/min/1.73 Normal Comprehensiv e Internal Medicine Work Phone: Comment on above: PATIENT NOT FASTINGP ERFORMED BY: [place] 1458670 [facility] [id number] Information: [id number] Globulin Calculated mass conc (S) 2.6 g/dL Normal 1.5-4.5 [facility] Work Phone: Globulin mass conc (S) 2.6 g/dL Normal 1.5-4.5 Co mprehensive [facility] Work Phone: Comment on above: PATIENT NOT FASTINGP ERFORMED BY: [address] [id number] Information: [id number] Glucose mass conc 110 mg/dL Abnormal 65-99 Compreh ensive [facility] Work Phone: Comment on above: PATIENT NOT FASTINGP ERFORMED BY: MonicaAlice [place] [id number] [facility] [id number] Information: [id number] Potassium molar conc 4.0 mmol/L Normal 3.5-5.2 Comp rehensive Internal Medicine Work Phone: Comment on above: PATIENT NOT FASTINGP ERFORMED BY: [place] 1458670 [facility] [id number] Information: [id number] Protein mass conc 7.0 g/dL Normal 6.0-8.5 Compreh ensive [facility] Medicine Work Phone: Comment on above: PATIENT NOT FASTINGP ERFORMED BY: [facility]6370 [facility] [id number] Information: [id number] Sodium molar conc 140 mmol/L Normal 134-144 Compreh ensive [facility] Medicine Work Phone: Comment on above: PATIENT NOT FASTINGP ERFORMED BY: GABE AndersonCojoelle Xiyfso8030 [facility] [id number] Information: [id number] Urea nitrogen mass conc 10 mg/dL Normal 6-24 [facility] Work Phone: Comment on above: PATIENT NOT FASTINGP ERFORMED BY: GABE [facility] Fdwknt0483 [facility] [id number] Information: [id number] Urea nitrogen/Creatinine mass ratio 19 mg/mg Normal 9-23 [facility] Work Phone: Comment on above: PATIENT NOT FASTINGP ERFORMED BY: GABE AndersonCojoelle KamaraVzskoe2110 [facility] [id number] Information: [id number] PT (Prothrobim Time) (88440) Ordered By: Aurist on 04-13-2012 INR Coag RelTime (PPP) 1.0 {INR} Normal 0.8-1.2 Co [facility] Internal Medicine Work Phone: Comment on above: Reference interval i s for non-anticoagulated patients. . Suggested INR therapeutic range for Vitamin K antagonist therapy: Standard Dose (moderate intensity therapeutic range): 2.0 - 3.0 Higher intensity therapeutic range 2.5 - 3.5 PATIENT NOT FASTINGP ERFORMED BY: GABE [facility] Dcgjes6070 [facility] [id number] Prothrombin time (PT) Coag time (PPP) 10.7 {sec} Normal 9.1-12.0 [facility] Internal Medicine Work Phone: Comment on above: PATIENT NOT FASTINGP ERFORMED BY: GABE [facility] Bmzjfm2934 [facility] [place] [id number] PT Coag (PPP) [Time] 10.7 s Normal 9.1-12.0 [facility] Internal Medicine Work Phone: Comment on above: PATIENT NOT FASTINGP ERFORMED BY: GABE [facility] Ypzjfw1044 [facility] [id number] PTT (Activated Partial Throm boplastin Time) (54191)Ordered By: Aurist on 04-13-2012 aPTT Coag (PPP) [Time] 32 s Normal 24-33 [facility] Internal [facility] Work Phone: Comment on above: This test has not be en validated for monitoring unfractionated heparintherapy. aPTT-based therapeutic ranges for unfractionated heparintherapy have not been established. For general guidelines onHeparin monitoring, refer to the [facility] Directory of Services. PATIENT NOT FASTINGP ERFORMED BY: [facility]6370 [facility] [id number] aPTT Coag time (Bld) 32 {sec} Normal 24-33 [facility] Internal Medicine Work Phone: Comment on above: This test has not be en validated for monitoring unfractionated heparintherapy. aPTT-based therapeutic ranges for unfractionated heparintherapy have not been established. For general guidelines onHeparin monitoring, refer to the [facility] Directory of Services. aPTT Coag time (PPP) 32 {sec} Normal 24-33 [facility] Internal [facility] Work Phone: Comment on above: This test has not be en validated for monitoring unfractionated heparintherapy. aPTT-based therapeutic ranges for unfractionated heparintherapy have not been established. For general guidelines onHeparin monitoring, refer to the [facility] Directory of Services. PATIENT NOT FASTINGP ERFORMED BY: [facility]6370 [facility] [id number] LOWER EXT.JOINT ONLY (ROUTIN E)Ordered By: Aurist on 03-16-2012 LOWER EXT.JOINT ONLY (ROUTINE) See Note Normal [facility] Work Phone: Comment on above: PROCEDURE: MRI LEFT KNEE REASON FOR EXAM: Female, 46 years old. Left knee pain status post afall TECHNIQUE: Standardized fat and water weighted pulse sequences wereobtained in all 3 orthogonal planes. COMPARISON: Radiograph-03/07/12 FINDINGS:There is a complex tear of the posterior horn of the medial meniscusextending to the posterior meniscal root ligament with mild medialextrusion of the meniscal body (series 11 images 8-11 and series 6 images8-11). There is diffuse, less than 50% thickness articular cartilagelossof the medial femorotibial compartment. Normal medial femoral condyleandtibial plateau. Normal medial collateral ligamentous complex (MCL). Normal distalsemimembranosus, gracilis and semitendinosus tendons. Normal lateral meniscus. Normal hyaline cartilage of the lateralfemorotibial compartment. Normal lateral femoral condyle and tibialplateau. Normal proximal tibiofibular articulation. Normal lateral collateral(fibular) ligament. Normal popliteus tendon. Normal biceps femoristendon. Normal anterior cruciate ligament (ACL). Normal posterior cruciateligament (PCL). Normal congruent patellofemoral articulation. There is diffuse, % thickness articular cartilage loss of the patellofemoralcompartment.Normal medial and lateral patellar retinaculum. Normal quadriceps tendon. Normal patellar tendon. Normal Hoffa's fatpad. There is a small volume joint effusion. The soft tissues are unremarkable. The otherwise visualized osseousstructures are unremarkable. IMPRESSION:1. Complex medial meniscal tear.2. Arthrosis.3. Joint effusion. Signed:Terry Marlow M.D.March 16, 2012 at 12:59:07 PM [id number] Signed PF/PF If you are the referring physician and would like to consult with theradiologist who provided this interpretation, please contact Terry Johansen M.D. at [phone]. If this radiologist is unavailable, youwill be directed to another radiologist to assist. If you are a patient with a question regarding this report, pleasecontactyour referring physician directly. Professional Interpretation Provided By: Zaranga, Phone , These documents contain legally protected and confidential healthinformation intended only for the use of the individual or entity namedabove. If you are not the intended recipient, you are hereby notifiedthatany disclosure, copying, distribution, or other use of these documents isstrictly prohibited. If you have received this information in error,pleasenotify the sender immediately and arrange for the return or destructionofthese documents. Dictated on 03/16/12 0901 by Terry Marlow MDTranscribed on 03/16/12 1311 by ITS IMPORTSign by Terry Marlow MD on 03/16/12 1312 Sign by: Terry Marlow MD KNEE,4 OR MORE VIEWSOrdered By: Aurist on 03-07-2012 KNEE,4 OR MORE VIEWS See Note Normal Comp rehensive Internal Medicine Work Phone: Comment on above: PROCEDURES: X-RAY - LEFT KNEE REASON FOR EXAM: Female, 46 years old. Pain, twisting injury TECHNIQUE: Four views of the knee. COMPARISON: None. FINDINGS:Normal medial femorotibial compartment. Normal lateral femorotibialcompartment. Normal patellofemoral articulation. There is a moderatevolume joint effusion. Normal visualized distal femur. Normal visualized proximal tibia andfibula. Normal proximal tibiofibular articulation. There is periarticular soft tissue swelling. IMPRESSION:Moderate joint effusion with periarticular soft tissue swelling. Nodestructive bony process or fracture. Signed:Tomas Bazzi M.D.March 08, 2012 at 9:30:02 AM [id number] Signed GB/GB If you are the referring physician and would like to consult with theradiologist who provided this interpretation, please contact Tomas Bazzi M.D. at [phone]. If this radiologist is unavailable, you will bedirected to another radiologist to assist. If you are a patient with a question regarding this report, pleasecontactyour referring physician directly. Professional Interpretation Provided By: Zaranga, Phone , These documents contain legally protected and confidential healthinformation intended only for the use of the individual or entity namedabove. If you are not the intended recipient, you are hereby notifiedthatany disclosure, copying, distribution, or other use of these documents isstrictly prohibited. If you have received this information in error,pleasenotify the sender immediately and arrange for the return or destructionofthese documents. Dictated on 03/07/12 1049 by Tomas Bazzi MD BTranscribed on 03/08/12 0943 by ITS IMPORTSign by Tomas Bazzi MD on 03/08/12 0944 Sign by: Tomas Bazzi MD Pathology ReportOrdered By: Aurist on 01-09-2012 See Note MATER Normal [facility] Work Phone: Comment on above: Material submitted: .EXCISION BACK OF NECK Diagnosis:FIBROLIPOMA..COMMENT:DEEP MARGIN INVOLVED.CORINE/01/11/2012 Electronically signed: .Seble Cuello MD, DermatopathologistGross description: .RECEIVED IN FORMALIN LABELED ANDERS REINALDO DESIGNATED NECK ROXY BROWNLEE ELLIPTICAL PORTION OF SKIN MEASURING 2.6 X 1.1 X 1.5 CM. ONTHE SURFACE THERE IS AN ELEVATED NODULE MEASURING 0.9 CM INDIAMETER. THE MARGIN IS MARKED WITH GREEN INK. IT IS SERIALLYSECTIONED AND SUBMITTED ENTIRELY IN CASSETTES A1-A4 WITH THE TIPSSUBMITTED IN CASSETTE A1. THERE ARE SEVEN PIECES TOTAL.LMS/BXSPathologist provided ICD-9:214.1CPT .275380 PERFORMED BY: KWLAYLA [facility] [id number] [facility] [id number] BY: Jenni# [facility] Ulqpuyhaa161 [facility] [id number] Information: [id number] BILAT SCRN DIGITAL & CADOrde red By: Aurist on 10-31-2011 BILAT SCRN DIGITAL & CAD See Note Normal [facility] Work Phone: Comment on above: MAMMOGRAPHY - BILATE RAL SCREENING REASON FOR EXAM: Female, 46 years old. Routine annual screeningexamination. PERTINENT HISTORY: Superficial skin rash. TECHNIQUE: Digital examination. Mediolateral oblique (MLO) andcraniocaudad (CC) views of both breasts were obtained. CAD: CAD wasperformed on this study. COMPARISON: October 22, 2002 FINDINGS:The breast composition is composed of scattered fibroglandular densities. There are no dominant masses or suspicious calcifications. No other significant abnormalities are identified. IMPRESSION:Stable bilateral screening mammogram. Yearly follow-up recommended. (A) ASSESSMENT CATEGORY:BIRADS Category 2: Benign finding(s). A letter regarding these resultswill be sent to the patient by the facility within 30 days. Approximately 10% of breast cancers are not detected by mammography. Anormal mammogram should not delay biopsy of a clinically suspiciousabnormality. Signed:Lavelle Martinez MDJuly 2011 at 5:53:08 PM [id number] Signed TP/TP If you are the referring physician and would like to consult with theradiologist who provided this interpretation, please contact Lavelle Martinez MD at [phone]. If this radiologist is unavailable, you will bedirected to another radiologist to assist. If you are a patient with a question regarding this report, pleasecontactyour referring physician directly. Professional Interpretation Provided By: Zaranga, Phone , Dictated on 10/31/11 1133 by Lavelle Martinez MDTranscribed on 11/04/111939 by ITS IMPORTSign by Lavelle Martinez MD on 11/04/111940 Sign by: Lavelle Martinez MD Vital Signs Date Time Vital Sign Value Performing Clinician Facility 01-30-2023 13:24-0400 Body height 149.86 cm FABRICE Payne LPN [facility]; [facility] Work Phone: 01-30-2023 13:24-0400 Body mass index (BMI) [Ratio] 36.36 kg/m2 FABRICE Payne LPN [facility]; [facility] Work Phone: 01-30-2023 13:24-0400 Body surface area Derived from formula 1.76 m2 FABRICE Payne LPN [facility]; [facility] Work Phone: 01-30-2023 13:24-0400 Body temperature 97.6 [degF] FABRICE Payne LPN [facility]; [facility] Work Phone: Comment on above: Method: Temporal 01-30-2023 13:24-040 Body weight 81.65 kg FABRICE Payne LPN [facility]; [facility] Work Phone: 01-30-2023 13:24-0400 Diastolic blood pressure 84 mm[Hg] FABRICE Payne LPN [facility]; [facility] Work Phone: Comment on above: Patient Position: Sitting; Cuff Location : Left Arm; Cuff Size: Standard 01-30-2023 13:24-0400 Heart rate 70 /min FABRICE Payne LPN [facility]; [facility] Work Phone: Comment on above: Pattern: Regular 01-30-2023 13:24-0400 Respiratory rate 18 /min FABRICE Payne LPN [facility]; [facility] Work Phone: Comment on above: Pattern: Unlabored 01-30-2023 13:24-0400 SaO2% (BldA) [Mass fraction] 97 % FABRICE Payne LPN [facility]; [facility] Work Phone: Comment on above: Room air 01-30-2023 13:24-0400 Systolic blood pressure 126 mm[Hg] FABRICE Payne LPN [facility]; [facility] Work Phone: Comment on above: Patient Position: Sitting; Cuff Location : Left Arm; Cuff Size: Standard 03-21-2022 10:20-0500 Body height 149.86 cm Tash Landa [employer] Work Phone: [facility]; [facility] Work Phone: Comment on above: pt did not report, says she forgot 03-21-2022 10:20-0500 Body mass index (BMI) [Ratio] 36.36 kg/m2 Tash Landa [employer] Work Phone: [facility]; [facility] Work Phone: Comment on above: pt did not report, says she forgot 03-21-2022 10:20-0500 Body surface area Derived from formula 1.76 m2 Tash Landa [employer] Work Phone: [facility]; [facility] Work Phone: Comment on above: pt did not report, says she forgot 03-21-2022 10:20-0500 Body weight 81.67 kg Tash Landa [employer] Work Phone: [facility]; [facility] Work Phone: Comment on above: pt did not report, says she forgot 09-21-2020 15:50-0400 Body height 149.86 cm Gold Colby LPN [facility]; [facility] Work Phone: 09-21-2020 15:50-0400 Body mass index (BMI) [Ratio] 36.36 kg/m2 Gold Colby LPN [facility]; [facility] Work Phone: 09-21-2020 15:50-0400 Body surface area Derived from formula 1.76 m2 Gold Colby LPN [facility]; [facility] Work Phone: 09-21-2020 15:50-0400 Body temperature 97.8 [degF] Gold Colby LPN [facility]; [facility] Work Phone: Comment on above: Method: Infrared 09-21-2020 15:50-0400 Body weight 81.67 kg Gold Colby LPN [facility]; [facility] Work Phone: 09-21-2020 15:50-0400 Diastolic blood pressure 80 mm[Hg] Gold Colby LPN [facility]; [facility] Work Phone: Comment on above: Patient Position: Sitting; Cuff Location : Left Arm; Cuff Size: Standard 09-21-2020 15:50-0400 Heart rate 75 /min Gold Colby LPN [facility]; [facility] Work Phone: Comment on above: Pattern: Regular 09-21-2020 15:50-0400 Respiratory rate 17 /min Gold Colby LPN [facility]; [facility] Work Phone: Comment on above: Pattern: Unlabored 09-21-2020 15:50-0400 SaO2% (BldA) [Mass fraction] 97 % Gold Colby LPN [facility]; [facility] Work Phone: Comment on above: Room air 09-21-2020 15:50-0400 Systolic blood pressure 140 mm[Hg] Gold Colby LPN [facility]; [facility] Work Phone: Comment on above: Patient Position: Sitting; Cuff Location : Left Arm; Cuff Size: Standard 12-24-2019 10:03-0400 Body height 149.86 cm Annamaria Zhang CNP Work Phone: [facility] Work Phone: 12-24-2019 10:03-0400 Body mass index (BMI) [Ratio] 36.41 kg/m2 Annamaria Zhang CNP Work Phone: [facility] Work Phone: 12-24-2019 10:03-0400 Body surface area Derived from formula 1.76 m2 Annamaria Zhang CNP Work Phone: [facility] Work Phone: 12-24-2019 10:03-0400 Body temperature 97.1 [degF] Annamaria Zhang CNP Work Phone: [facility] Work Phone: Comment on above: Method: Temporal 12-24-2019 10:03-0400 Body weight 81.76 kg Annamaria Zhang CNP Work Phone: [facility] Work Phone: 12-24-2019 10:03-0400 Diastolic blood pressure 110 mm[Hg] Annamaria Zhang CNP Work Phone: [facility] Work Phone: Comment on above: Patient Position: Sitting; Cuff Location : Left Arm; Cuff Size: Standard 12-24-2019 10:03-0400 Heart rate 70 /min Annamaria Zhang [employer] Work Phone: [facility] Work Phone: Comment on above: Pattern: Regular 12-24-2019 10:03-0400 Pulse Oximetry 98 % Annamaria Zhang [facility] Work Phone: Comment on above: Room air 12-24-2019 10:03-0400 Respiratory rate 16 /min Annamaria Zhang [employer] Work Phone: [facility] Work Phone: Comment on above: Pattern: Unlabored 12-24-2019 10:03-0400 SaO2% (BldA) [Mass fraction] 98 % Annamaria Zhang CNP Work Phone: [facility] Work Phone: Comment on above: Room air 12-24-2019 10:03-0400 Systolic blood pressure 160 mm[Hg] Annamaria Zhang [employer] Work Phone: [facility] Work Phone: Comment on above: Patient Position: Sitting; Cuff Location : Left Arm; Cuff Size: Standard 11-07-2018 11:00-0400 BMI (Body Mass Index) 36.56 kg/m2 Alanis Jarrell [facility] Work Phone: 11-07-2018 11:00-0400 Body Temperature 96.9 [degF] Alanis Jarrell RN [facility] Work Phone: Comment on above: Method: Temporal 11-07-2018 11:00-0400 Body weight 82.1 kg Alanis Jarrell RN [facility] Work Phone: 11-07-2018 11:00-0400 BP Diastolic 74 mm[Hg] Alanis Jarrell RN [facility] Work Phone: Comment on above: Patient Position: Sitting; Cuff Location : Left Arm; Cuff Size: Standard 11-07-2018 11:00-0400 BP Systolic 124 mm[Hg] Alanis Jarrell RN [facility] Work Phone: Comment on above: Patient Position: Sitting; Cuff Location : Left Arm; Cuff Size: Standard 11-07-2018 11:00-0400 BSA (Body Surface Area) 1.77 m2 Alanis Jarrell RN [facility] Work Phone: 11-07-2018 11:00-0400 Height 149.86 cm Alanis Jarrell RN [facility] Work Phone: 11-07-2018 11:00-0400 Pulse (Heart Rate) 70 /min Alanis Jarrell RN [facility] Work Phone: Comment on above: Pattern: Regular 11-07-2018 11:00-0400 Pulse Oximetry 96 % Annamaria Zhang [facility] Work Phone: Comment on above: Room air 11-07-2018 11:00-0400 Respiratory Rate 16 /min Alanis Jarrell RN [facility] Work Phone: Comment on above: Pattern: Unlabored 11-07-2018 11:00-0400 SaO2% (BldA) [Mass fraction] 96 % Alanis Jarrell RN [facility] Work Phone: Comment on above: Room air 12-05-2017 09:13-0400 BMI (Body Mass Index) 37.62 kg/m2 Annamaria Zhang CNP Work Phone: [facility] Work Phone: 12-05-2017 09:13-0400 Body Temperature 96.8 [degF] Annamaria Zhang CNP Work Phone: [facility] Work Phone: Comment on above: Method: Temporal 12-05-2017 09:13-0400 Body weight 84.48 kg Annamaria Zhang CNP Work Phone: [facility] Work Phone: 12-05-2017 09:13-0400 BP Diastolic 108 mm[Hg] Annamaria Zhang CNP Work Phone: [facility] Work Phone: Comment on above: Patient Position: Sitting; Cuff Location : Left Arm; Cuff Size: Standard 12-05-2017 09:13-0400 BP Systolic 178 mm[Hg] Annamaria Zhang [employer] Work Phone: [facility] Work Phone: Comment on above: Patient Position: Sitting; Cuff Location : Left Arm; Cuff Size: Standard 12-05-2017 09:13-0400 BSA (Body Surface Area) 1.79 m2 Annamaria Zhang [employer] Work Phone: [facility] Work Phone: 12-05-2017 09:13-0400 Height 149.86 cm Annamaria Zhang [employer] Work Phone: [facility] Work Phone: 12-05-2017 09:13-0400 Pulse (Heart Rate) 94 /min Annamaria Zhang [employer] Work Phone: [facility] Work Phone: Comment on above: Pattern: Regular 12-05-2017 09:13-0400 Pulse Oximetry 96 % Annamaria Zhang [facility] Work Phone: Comment on above: Room air 12-05-2017 09:13-0400 Respiratory Rate 18 /min Annamaria Zhang [employer] Work Phone: [facility] Work Phone: Comment on above: Pattern: Unlabored 12-05-2017 09:13-0400 SaO2% (BldA) [Mass fraction] 96 % Annamaria Zhang [employer] Work Phone: [facility] Work Phone: Comment on above: Room air 12-05-2017 09:13-0400 Weight 84.48 kg Annamaria Zhang [facility] Work Phone: 11-24-2017 11:12-0400 BP Diastolic 105 mm[Hg] Annamaria Zhang [facility] Work Phone: Comment on above: Patient Position: Sitting; Cuff Location : Left Arm; Cuff Size: Standard 11-24-2017 11:12-0400 BP Systolic 185 mm[Hg] Annamaria Zhang [facility] Work Phone: Comment on above: Patient Position: Sitting; Cuff Location : Left Arm; Cuff Size: Standard 11-24-2017 10:12-0400 BMI (Body Mass Index) 37.82 kg/m2 Laure Kang [facility] Work Phone: 11-24-2017 10:12-0400 Body Temperature 97 [degF] Laure Kang [facility] Work Phone: Comment on above: Method: Temporal 11-24-2017 10:120400 Body weight 84.94 kg Laure Kang [facility] Internal Medicine Work Phone: 11-24-2017 10:12-0400 BP Diastolic 110 mm[Hg] Laure Kang [facility] Work Phone: Comment on above: Patient Position: Sitting; Cuff Location : Left Arm; Cuff Size: Standard 11-24-2017 10:12-0400 BP Systolic 192 mm[Hg] Laure Kang [facility] Internal Medicine Work Phone: Comment on above: Patient Position: Sitting; Cuff Location : Left Arm; Cuff Size: Standard 11-24-2017 10:120400 BSA (Body Surface Area) 1.79 m2 Laure Kang [facility] Internal Medicine Work Phone: 11-24-2017 10:12-0400 Height 149.86 cm Laure Kang [facility] Work Phone: 11-24-2017 10:12-0400 Pulse (Heart Rate) 70 /min Laure Kang [facility] Work Phone: Comment on above: Pattern: Regular 11-24-2017 10:12-0400 Pulse Oximetry 98 % Annamaria Zhang [facility] Internal Medicine Work Phone: Comment on above: Room air 11-24-2017 10:12-0400 Respiratory Rate 17 /min Laure Kang [facility] Work Phone: Comment on above: Pattern: Unlabored 11-24-2017 10:12-0400 SaO2% (BldA) [Mass fraction] 98 % Laure Kang [facility] Internal [facility] Work Phone: Comment on above: Room air 11-24-2017 10:12-0400 Weight 84.94 kg Annamaria Zhang [facility] Internal [facility] Work Phone: 08-19-2016 09:19-0400 BMI (Body Mass Index) 36.56 kg/m2 Ivy Woodward LPN [facility] Work Phone: 08-19-2016 09:19-0400 Body Temperature 97.3 [degF] Ivy Woodward [employer] [facility] Work Phone: 08-19-2016 09:0400 Body weight 82.1 kg Ivy Woodward LPN [facility] Work Phone: 08-19-2016 09:0400 BP Diastolic 80 mm[Hg] Ivy Matarb [employer] [facility] Work Phone: Comment on above: Patient Position: Sitting; Cuff Location : Left Arm; Cuff Size: Standard 08-19-2016 09:190400 BP Systolic 124 mm[Hg] Ivy Woodward [employer] [facility] Work Phone: Comment on above: Patient Position: Sitting; Cuff Location : Left Arm; Cuff Size: Standard 08-19-2016 09:0400 BSA (Body Surface Area) 1.77 m2 Ivy Woodward [employer] [facility] Work Phone: 08-19-2016 09:0400 Height 149.86 cm Ivy Woodward [employer] [facility] Work Phone: 08-19-2016 09:19-0400 Pulse (Heart Rate) 68 /min Ivy Woodward LPN [facility] Work Phone: Comment on above: Pattern: Regular 08-19-2016 09:19-0400 Pulse Oximetry 97 % Annamaria Zhang [facility] Work Phone: Comment on above: Room air 08-19-2016 09:19-0400 Respiratory Rate 17 /min Ivy Woodward LPN [facility] Work Phone: Comment on above: Pattern: Unlabored 08-19-2016 09:19-0400 SaO2% (BldA) [Mass fraction] 97 % Ivy Matarb [employer] [facility] Work Phone: Comment on above: Room air 08-19-2016 09:19-0400 Weight 82.1 kg Annamaria Zhang [facility] Work Phone: 06-15-2016 15:00-0500 BMI (Body Mass Index) 36.56 kg/m2 Ivy Woodward [employer] [facility] Work Phone: 06-15-2016 15:00-0500 Body weight 82.1 kg Ivy Woodward [employer] [facility] Work Phone: 06-15-2016 15:00-0500 BP Diastolic 86 mm[Hg] Ivy Matarb [employer] [facility] Work Phone: Comment on above: Patient Position: Sitting; Cuff Location : Left Arm; Cuff Size: Standard 06-15-2016 15:00-0500 BP Systolic 136 mm[Hg] Ivy Matarb [employer] [facility] Work Phone: Comment on above: Patient Position: Sitting; Cuff Location : Left Arm; Cuff Size: Standard 06-15-2016 15:00-0500 BSA (Body Surface Area) 1.77 m2 Ivy Woodward [employer] [facility] Work Phone: 06-15-2016 15:00-0500 Height 149.86 cm Ivy Woodward [employer] [facility] Work Phone: 06-15-2016 15:00-0500 Pulse (Heart Rate) 80 /min Ivy Woodward LPN [facility] Work Phone: Comment on above: Pattern: Regular 06-15-2016 15:00-0500 Pulse Oximetry 94 % Annamaria Zhang [facility] Work Phone: Comment on above: Room air 06-15-2016 15:00-0500 Respiratory Rate 16 /min Ivy Woodward [employer] [facility] Work Phone: Comment on above: Pattern: Unlabored 06-15-2016 15:00-0500 SaO2% (BldA) [Mass fraction] 94 % Ivy Matarb [employer] [facility] Work Phone: Comment on above: Room air 06-15-2016 15:00-0500 Weight 82.1 kg Annamaria Zhang [facility] Work Phone: 06-24-2015 14:04-0400 BMI (Body Mass Index) 36.56 kg/m2 Ivy Slarb [employer] [facility] Work Phone: 06-24-2015 14:04-0400 Body Temperature 97.6 [degF] Ivy Slarb [employer] [facility] Work Phone: 06-24-2015 14:04-0400 Body weight 82.1 kg Ivy Slarb [employer] [facility] Work Phone: 06-24-2015 14:04-0400 BP Diastolic 88 mm[Hg] Ivy Slarb [employer] [facility] Work Phone: Comment on above: Patient Position: Sitting; Cuff Location : Left Arm; Cuff Size: Standard 06-24-2015 14:04-0400 BP Systolic 148 mm[Hg] Ivy Slarb [employer] [facility] Work Phone: Comment on above: Patient Position: Sitting; Cuff Location : Left Arm; Cuff Size: Standard 06-24-2015 14:04-0400 BSA (Body Surface Area) 1.77 m2 Ivy Slarb [employer] [facility] Work Phone: 06-24-2015 14:04-0400 Height 149.86 cm Ivy Slarb [employer] [facility] Work Phone: 06-24-2015 14:04-0400 Pulse (Heart Rate) 73 /min Ivy Slarb [employer] [facility] Work Phone: Comment on above: Pattern: Regular 06-24-2015 14:04-0400 Pulse Oximetry 97 % Annamaria Zhang [facility] Work Phone: Comment on above: Room air 06-24-2015 14:04-0400 Respiratory Rate 16 /min Ivy Slarb [employer] [facility] Work Phone: Comment on above: Pattern: Unlabored 06-24-2015 14:04-0400 SaO2% (BldA) [Mass fraction] 97 % Ivy Woodward [employer] [facility] Work Phone: Comment on above: Room air 06-24-2015 14:04-0400 Weight 82.1 kg Annamaria Zhang [facility] Work Phone: 05-26-2015 13:30-0500 BMI (Body Mass Index) 37.97 kg/m2 Ivy Woodward [employer] [facility] Work Phone: 05-26-2015 13:30-0500 Body Temperature 97.8 [degF] Ivy Slaradha RICHMONDN [facility] Work Phone: 05-26-2015 13:30-0500 Body weight 85.28 kg Ivy Slaradha RICHMONDN [facility] Work Phone: 05-26-2015 13:30-0500 BP Diastolic 88 mm[Hg] Ivy Crissy RICHMONDN [facility] Work Phone: Comment on above: Patient Position: Sitting; Cuff Location : Left Arm; Cuff Size: Standard 05-26-2015 13:30-0500 BP Systolic 152 mm[Hg] Ivy Slaradha RICHMONDN [facility] Work Phone: Comment on above: Patient Position: Sitting; Cuff Location : Left Arm; Cuff Size: Standard 05-26-2015 13:30-0500 BSA (Body Surface Area) 1.8 m2 Ivy Crissy DEJESUS [facility] Work Phone: 05-26-2015 13:30-0500 Height 149.86 cm Ivy Esperanzaradha RICHMONDN [facility] Work Phone: 05-26-2015 13:30-0500 Pulse (Heart Rate) 87 /min Ivyalyssa Woodward [employer] [facility] Work Phone: Comment on above: Pattern: Regular 05-26-2015 13:30-0500 Pulse Oximetry 98 % Annamaria Zhang [facility] Work Phone: Comment on above: Room air 05-26-2015 13:30-0500 Respiratory Rate 18 /min Ivy Slarb [employer] [facility] Work Phone: Comment on above: Pattern: Unlabored 05-26-2015 13:30-0500 SaO2% (BldA) [Mass fraction] 98 % Ivy Woodward LPN [facility] Work Phone: Comment on above: Room air 05-26-2015 13:30-0500 Weight 85.28 kg Annamaria Zhang [facility] Work Phone: 04-17-2015 09:08-0500 BMI (Body Mass Index) 37.97 kg/m2 Ivy Woodward [employer] [facility] Work Phone: 04-17-2015 09:08-0500 Body Temperature 97.6 [degF] Ivy Woodward LPN [facility] Work Phone: 04-17-2015 09:08-0500 Body weight 85.28 kg Ivy Woodward LPN [facility] Work Phone: 04-17-2015 09:08-0500 BP Diastolic 88 mm[Hg] Ivy Woodward LPN [facility] Work Phone: Comment on above: Patient Position: Sitting; Cuff Location : Left Arm; Cuff Size: Standard 04-17-2015 09:08-0500 BP Systolic 132 mm[Hg] Ivy Woodward LPN [facility] Work Phone: Comment on above: Patient Position: Sitting; Cuff Location : Left Arm; Cuff Size: Standard 04-17-2015 09:08-0500 BSA (Body Surface Area) 1.8 m2 Ivy Woodward LPN [facility] Work Phone: 04-17-2015 09:08-0500 Height 149.86 cm Ivy Woodward LPN [facility] Work Phone: 04-17-2015 09:08-0500 Pulse (Heart Rate) 83 /min Ivy Woodward LPN [facility] Work Phone: Comment on above: Pattern: Regular 04-17-2015 09:08-0500 Pulse Oximetry 96 % Annamaria Zhang [facility] Work Phone: Comment on above: Room air 04-17-2015 09:08-0500 Respiratory Rate 18 /min Ivy Woodward [employer] [facility] Work Phone: Comment on above: Pattern: Unlabored 04-17-2015 09:08-0500 SaO2% (BldA) [Mass fraction] 96 % Ivy Matarb [employer] REBU[employer] [facility] Work Phone: Comment on above: Room air 04-17-2015 09:08-0500 Weight 85.28 kg Annamaria Zhang [facility] Work Phone: 02-26-2014 14:40-0500 BMI (Body Mass Index) 36.63 kg/m2 Ivy Esperanzarb TU[employer] REBUILDER [facility] Work Phone: 02-26-2014 14:40-0500 Body Temperature 97.4 [degF] Ivy Matarb [employer] RE[employer] [facility] Work Phone: Comment on above: Method: Tympanic 02-26-2014 14:40-0500 Body weight 82.27 kg Ivy Matarb [employer] RE[employer] [facility] Work Phone: 02-26-2014 14:40-0500 BP Diastolic 82 mm[Hg] Ivy Slarb [employer] RE[employer] [facility] Work Phone: Comment on above: Patient Position: Sitting; Cuff Location : Left Arm; Cuff Size: Standard 02-26-2014 14:40-0500 BP Systolic 124 mm[Hg] Ivy Esperanzarb [employer] REBUILDER [facility] Work Phone: Comment on above: Patient Position: Sitting; Cuff Location : Left Arm; Cuff Size: Standard 02-26-2014 14:40-0500 BSA (Body Surface Area) 1.77 m2 Ivy Esperanzarb [employer] REBUILDER [facility] Work Phone: 02-26-2014 14:40-0500 Height 149.86 cm Ivy Esperanzarb [employer] REBUILDER [facility] Work Phone: 02-26-2014 14:40-0500 Pulse Oximetry 98 % Annamaria Zhang [facility] Work Phone: Comment on above: Room air 02-26-2014 14:40-0500 Respiratory Rate 16 /min Ivy Woodward OLEG [facility] Work Phone: Comment on above: Pattern: Unlabored 02-26-2014 14:40-0500 SaO2% (BldA) [Mass fraction] 98 % Ivy Woodward LPN [facility] Work Phone: Comment on above: Room air 02-26-2014 14:40-0500 Weight 82.27 kg Annamaria Zhang [facility] Work Phone: 01-29-2014 11:41-0400 BMI (Body Mass Index) 36.96 kg/m2 Mariah Ford RN [facility] Work Phone: 01-29-2014 11:41-0400 Body Temperature 98.1 [degF] Mariah Ford RN [facility] Work Phone: Comment on above: Method: Temporal 01-29-2014 11:41-0400 Body weight 83.01 kg Mariah Ford RN [facility] Work Phone: 01-29-2014 11:41-0400 BP Diastolic 78 mm[Hg] Mariah Ford RN [facility] Work Phone: Comment on above: Patient Position: Sitting; Cuff Location : Left Arm; Cuff Size: Large 01-29-2014 11:41-0400 BP Systolic 138 mm[Hg] Mariah Ford RN [facility] Work Phone: Comment on above: Patient Position: Sitting; Cuff Location : Left Arm; Cuff Size: Large 01-29-2014 11:41-0400 BSA (Body Surface Area) 1.78 m2 Mariah Ford RN [facility] Work Phone: 01-29-2014 11:41-0400 Height 149.86 cm Mariah Ford RN [facility] Work Phone: 01-29-2014 11:41-0400 Pulse (Heart Rate) 69 /min Mariah Ford RN [facility] Work Phone: Comment on above: Pattern: Regular 01-29-2014 11:41-0400 Pulse Oximetry 97 % Annamaria Zhang [facility] Work Phone: Comment on above: Room air 01-29-2014 11:41-0400 Respiratory Rate 17 /min Mariah Ford RN [facility] Work Phone: Comment on above: Pattern: Unlabored 01-29-2014 11:41-0400 SaO2% (BldA) [Mass fraction] 97 % Mariah Ford RN [facility] Work Phone: Comment on above: Room air 01-29-2014 11:41-0400 Weight 83.01 kg Annamaria Zhang [facility] Work Phone: 01-08-2014 11:37-0400 BMI (Body Mass Index) 37.05 kg/m2 Mariah Ford RN [facility] Work Phone: 01-08-2014 11:37-0400 Body weight 83.21 kg Mariah Ford RN [facility] Work Phone: 01-08-2014 11:37-0400 BP Diastolic 98 mm[Hg] Mariah Ford RN [facility] Work Phone: Comment on above: Patient Position: Sitting; Cuff Location : Left Arm; Cuff Size: Large 01-08-2014 11:37-0400 BP Systolic 150 mm[Hg] Mariah Ford RN [facility] Work Phone: Comment on above: Patient Position: Sitting; Cuff Location : Left Arm; Cuff Size: Large 01-08-2014 11:37-0400 BSA (Body Surface Area) 1.78 m2 Mariah Ford RN [facility] Work Phone: 01-08-2014 11:37-0400 Height 149.86 cm Mariah Ford RN [facility] Work Phone: 01-08-2014 11:37-0400 Pulse (Heart Rate) 77 /min Mariah Ford RN [facility] Work Phone: Comment on above: Pattern: Regular 01-08-2014 11:37-0400 Pulse Oximetry 98 % Annamaria Zhang [facility] Work Phone: Comment on above: Room air 01-08-2014 11:37-0400 Respiratory Rate 18 /min Mariah Ford RN [facility] Work Phone: Comment on above: Pattern: Unlabored 01-08-2014 11:37-0400 SaO2% (BldA) [Mass fraction] 98 % Mariah Ford RN [facility] Work Phone: Comment on above: Room air 01-08-2014 11:37-0400 Weight 83.21 kg Annamaria Zhang [facility] Work Phone: 12-27-2013 15:48-0400 BP Diastolic 98 mm[Hg] Renata Jensen [facility] Work Phone: Comment on above: Patient Position: Sitting; Cuff Location : Left Arm; Cuff Size: Standard after 2nd catapress 12-27-2013 15:48-0400 BP Systolic 158 mm[Hg] Renata Jensen [facility] Work Phone: Comment on above: Patient Position: Sitting; Cuff Location : Left Arm; Cuff Size: Standard after 2nd catapress 12-27-2013 15:48-0400 Pulse (Heart Rate) 88 /min Renata Jensen [facility] Work Phone: Comment on above: Pattern: Regular after 2nd catapress 12-27-2013 15:33-0400 BP Diastolic 118 mm[Hg] Annamaria Zhang [facility] Work Phone: Comment on above: Patient Position: Sitting; Cuff Location : Left Arm; Cuff Size: Standard 12-27-2013 15:33-0400 BP Systolic 178 mm[Hg] Annamaria Zhang [facility] Work Phone: Comment on above: Patient Position: Sitting; Cuff Location : Left Arm; Cuff Size: Standard 12-27-2013 15:33-0400 Pulse (Heart Rate) 78 /min Annamaria Zhang [facility] Work Phone: Comment on above: Pattern: Regular 12-27-2013 14:19-0400 BMI (Body Mass Index) 36.25 kg/m2 Renata Jensen [facility] Work Phone: 12-27-2013 14:19-0400 Body weight 81.42 kg Renata Jensen [facility] Work Phone: 12-27-2013 14:19-0400 BP Diastolic 112 mm[Hg] Renata Jensen [facility] Work Phone: Comment on above: Patient Position: Sitting; Cuff Location : Left Arm; Cuff Size: Standard 12-27-2013 14:190400 BP Systolic 160 mm[Hg] Renata Jensen [facility] Work Phone: Comment on above: Patient Position: Sitting; Cuff Location : Left Arm; Cuff Size: Standard 12-27-2013 14:0400 BSA (Body Surface Area) 1.76 m2 Renata Jensen [facility] Work Phone: 12-27-2013 14:0400 Height 149.86 cm Renata Jensen [facility] Work Phone: 12-27-2013 14:-0400 Pulse (Heart Rate) 115 /min Renata Jensen [facility] Work Phone: Comment on above: Pattern: Regular 12-27-2013 14:19-0400 Pulse Oximetry 98 % Annamaria Zhang [facility] Work Phone: Comment on above: Room air 12-27-2013 14:19-0400 Respiratory Rate 16 /min Renata Jensen [facility] Work Phone: Comment on above: Pattern: Unlabored 12-27-2013 14:19-0400 SaO2% (BldA) [Mass fraction] 98 % Renata Jensen [facility] Work Phone: Comment on above: Room air 12-27-2013 14:19-0400 Weight 81.42 kg Annamaria Zhang [facility] Work Phone: 09-06-2013 14:07-0400 BMI (Body Mass Index) 36.25 kg/m2 Elizabeth Renteria [facility] Work Phone: 09-06-2013 14:07-0400 Body Temperature 97.8 [degF] Elizabeth Renteria [facility] Work Phone: Comment on above: Method: Oral 09-06-2013 14:07-0400 Body weight 81.42 kg Elizabeth Renteria LPN [facility] Work Phone: 09-06-2013 14:07-0400 BP Diastolic 80 mm[Hg] Elizabeth Renteria LPN [facility] Work Phone: Comment on above: Patient Position: Sitting; Cuff Location : Left Arm; Cuff Size: Standard 09-06-2013 14:07-0400 BP Systolic 128 mm[Hg] Elizabeth Renteria LPN [facility] Work Phone: Comment on above: Patient Position: Sitting; Cuff Location : Left Arm; Cuff Size: Standard 09-06-2013 14:07-0400 BSA (Body Surface Area) 1.76 m2 Elizabeth Renteria LPN [facility] Work Phone: 09-06-2013 14:07-0400 Height 149.86 cm Elizabeth Renteria LPN [facility] Work Phone: 09-06-2013 14:07-0400 Pulse (Heart Rate) 86 /min Elizabeth Renteria LPN [facility] Work Phone: Comment on above: Pattern: Regular 09-06-2013 14:07-0400 Pulse Oximetry 99 % Annamaria Zhang [facility] Work Phone: Comment on above: Room air 09-06-2013 14:07-0400 Respiratory Rate 16 /min Elizabeth Renteria LPN [facility] Work Phone: 09-06-2013 14:07-0400 SaO2% (BldA) [Mass fraction] 99 % Elizabeth Renteria LPN [facility] Work Phone: Comment on above: Room air 09-06-2013 14:07-0400 Weight 81.42 kg Annamaria Zhang [facility] Work Phone: 06-07-2013 10:33-0500 BMI (Body Mass Index) 36.56 kg/m2 Mariah Ford RN [facility] Work Phone: 06-07-2013 10:33-0500 Body Temperature 97.1 [degF] Mariah Ford RN [facility] Work Phone: Comment on above: Method: Oral 06-07-2013 10:33-0500 Body weight 82.1 kg Mariah Ford RN [facility] Work Phone: 06-07-2013 10:33-0500 BP Diastolic 102 mm[Hg] Mariah Ford RN [facility] Work Phone: Comment on above: Patient Position: Sitting; Cuff Location : Left Arm; Cuff Size: Large 06-07-2013 10:33-0500 BP Systolic 160 mm[Hg] Mariah Ford RN [facility] Work Phone: Comment on above: Patient Position: Sitting; Cuff Location : Left Arm; Cuff Size: Large 06-07-2013 10:33-0500 BSA (Body Surface Area) 1.77 m2 Mariah Ford RN [facility] Work Phone: 06-07-2013 10:33-0500 Height 149.86 cm Mariah Ford RN [facility] Work Phone: 06-07-2013 10:33-0500 Pulse (Heart Rate) 122 /min Mariah Ford RN [facility] Work Phone: Comment on above: Pattern: Regular 06-07-2013 10:33-0500 Pulse Oximetry 97 % Annamaria Zhang [facility] Work Phone: Comment on above: Room air 06-07-2013 10:33-0500 Respiratory Rate 20 /min Mariah Ford RN [facility] Work Phone: Comment on above: Pattern: Unlabored 06-07-2013 10:33-0500 SaO2% (BldA) [Mass fraction] 97 % Mariah Ford RN [facility] Work Phone: Comment on above: Room air 06-07-2013 10:33-0500 Weight 82.1 kg Annamaria Zhang [facility] Work Phone: 03-22-2013 08:190500 BMI (Body Mass Index) 36.56 kg/m2 Alanis Jarrell RN [facility] Work Phone: 03-22-2013 08:19-0500 Body Temperature 98 [degF] Alanis Jarrell RN [facility] Work Phone: Comment on above: Method: Temporal 03-22-2013 08:19-0500 Body weight 82.1 kg Alanis Jarrell RN [facility] Work Phone: 03-22-2013 08:19-0500 BP Diastolic 78 mm[Hg] Alanis Jarrell RN [facility] Work Phone: Comment on above: Patient Position: Sitting; Cuff Location : Left Arm; Cuff Size: Standard 03-22-2013 08:19-0500 BP Systolic 130 mm[Hg] Alanis Jarrell RN [facility] Work Phone: Comment on above: Patient Position: Sitting; Cuff Location : Left Arm; Cuff Size: Standard 03-22-2013 08:19-0500 BSA (Body Surface Area) 1.77 m2 Alanis Jarrell RN [facility] Work Phone: 03-22-2013 08:19-0500 Height 149.86 cm Alanis Jarrell RN [facility] Work Phone: 03-22-2013 08:19-0500 Pulse (Heart Rate) 72 /min Alanis Jarrell RN [facility] Work Phone: Comment on above: Pattern: Regular 03-22-2013 08:19-0500 Pulse Oximetry 97 % Annamaria Zhang [facility] Work Phone: Comment on above: Room air 03-22-2013 08:19-0500 Respiratory Rate 16 /min Alanis Jarrell RN [facility] Work Phone: Comment on above: Pattern: Unlabored 03-22-2013 08:19-0500 SaO2% (BldA) [Mass fraction] 97 % Alanis Jarrlel RN [facility] Work Phone: Comment on above: Room air 03-22-2013 08:19-0500 Weight 82.1 kg Annamaria Zhang [facility] Work Phone: 04-13-2012 11:19-0500 BMI (Body Mass Index) 34.36 kg/m2 Mariah Ford RN [facility] Work Phone: 04-13-2012 11:19-0500 Body Temperature 98.6 [degF] Mariah Ford RN [facility] Work Phone: Comment on above: Method: Oral 04-13-2012 11:19-0500 Body weight 77.17 kg Mariah Ford RN [facility] Work Phone: 04-13-2012 11:19-0500 BP Diastolic 80 mm[Hg] Mariah Ford RN [facility] Work Phone: Comment on above: Patient Position: Sitting; Cuff Location : Left Arm; Cuff Size: Large 04-13-2012 11:19-0500 BP Systolic 132 mm[Hg] Mariah Ford RN [facility] Work Phone: Comment on above: Patient Position: Sitting; Cuff Location : Left Arm; Cuff Size: Large 04-13-2012 11:19-0500 BSA (Body Surface Area) 1.72 m2 Mariah Ford RN [facility] Work Phone: 04-13-2012 11:19-0500 Height 149.86 cm Mariah Ford RN [facility] Work Phone: 04-13-2012 11:19-0500 Pulse (Heart Rate) 78 /min Mariah Ford RN [facility] Work Phone: Comment on above: Pattern: Regular 04-13-2012 11:19-0500 Respiratory Rate 16 /min Mariah Ford RN [facility] Work Phone: Comment on above: Pattern: Unlabored 04-13-2012 11:19-0500 Weight 77.17 kg Annamaria Zhang [facility] Work Phone: 03-14-2012 09:56-0500 BMI (Body Mass Index) 33.73 kg/m2 Elizabeth Renteria LPN [facility] Work Phone: 03-14-2012 09:56-0500 Body Temperature 98.6 [degF] Elizabeth Renteria LPN [facility] Work Phone: Comment on above: Method: Oral 03-14-2012 09:56-0500 Body weight 75.75 kg Elizabeth Renteria LPN [facility] Work Phone: 03-14-2012 09:56-0500 BP Diastolic 90 mm[Hg] Elizabeth Renteria LPN [facility] Work Phone: Comment on above: Patient Position: Sitting; Cuff Location : Left Arm; Cuff Size: Standard 03-14-2012 09:56-0500 BP Systolic 148 mm[Hg] Elizabeth Renteria LPN [facility] Work Phone: Comment on above: Patient Position: Sitting; Cuff Location : Left Arm; Cuff Size: Standard 03-14-2012 09:56-0500 BSA (Body Surface Area) 1.71 m2 Elizabeth Renteria LPN [facility] Work Phone: 03-14-2012 09:56-0500 Height 149.86 cm Elizabeth Renteria LPN [facility] Work Phone: 03-14-2012 09:56-0500 Pulse (Heart Rate) 76 /min Elizabeth Renteria LPN [facility] Work Phone: Comment on above: Pattern: Regular 03-14-2012 09:56-0500 Respiratory Rate 17 /min Elizabeth Renteria LPN [facility] Work Phone: Comment on above: Pattern: Unlabored 03-14-2012 09:56-0500 Weight 75.75 kg Annamaria Zhang [facility] Work Phone: 03-07-2012 09:48-0500 BMI (Body Mass Index) 33.73 kg/m2 Elizabeth Renteria LPN [facility] Work Phone: 03-07-2012 09:48-0500 Body Temperature 98.4 [degF] Elizabeth Renteria LPN [facility] Work Phone: Comment on above: Method: Oral 03-07-2012 09:48-0500 Body weight 75.75 kg Elizabeth Renteria LPN [facility] Work Phone: 03-07-2012 09:48-0500 BP Diastolic 80 mm[Hg] Elizabeth Renteria LPN [facility] Work Phone: Comment on above: Patient Position: Sitting; Cuff Location : Left Arm; Cuff Size: Standard 03-07-2012 09:48-0500 BP Systolic 138 mm[Hg] Elizabeth Dexter DEJESUS [facility] Work Phone: Comment on above: Patient Position: Sitting; Cuff Location : Left Arm; Cuff Size: Standard 03-07-2012 09:48-0500 BSA (Body Surface Area) 1.71 m2 Elizabeth Renteria LPN [facility] Work Phone: 03-07-2012 09:48-0500 Height 149.86 cm Elizabeth Dexter DEJESUS [facility] Work Phone: 03-07-2012 09:48-0500 Pulse (Heart Rate) 84 /min Elizabeth Renteria LPN [facility] Work Phone: Comment on above: Pattern: Regular 03-07-2012 09:48-0500 Respiratory Rate 18 /min Elizabeth Renteria LPN [facility] Work Phone: 03-07-2012 09:48-0500 Weight 75.75 kg Annamaria Zhang [facility] Work Phone: 01-18-2012 12:09-0400 BMI (Body Mass Index) 33.73 kg/m2 Alanis Jarrell RN [facility] Work Phone: 01-18-2012 12:09-0400 Body Temperature 98.2 [degF] Alanis Jarrell RN [facility] Work Phone: Comment on above: Method: Oral 01-18-2012 12:09-0400 Body weight 75.75 kg Alanis Jarrell RN [facility] Work Phone: 01-18-2012 12:09-0400 BP Diastolic 84 mm[Hg] Alanis Jarrell RN [facility] Work Phone: Comment on above: Patient Position: Sitting; Cuff Location : Left Arm; Cuff Size: Standard 01-18-2012 12:09-0400 BP Systolic 144 mm[Hg] Alanis Jarrell RN [facility] Work Phone: Comment on above: Patient Position: Sitting; Cuff Location : Left Arm; Cuff Size: Standard 01-18-2012 12:090400 BSA (Body Surface Area) 1.71 m2 Alanis Jarrell RN [facility] Work Phone: 01-18-2012 12:09-0400 Height 149.86 cm Alanis Jarrell RN [facility] Work Phone: 01-18-2012 12:090400 Pulse (Heart Rate) 72 /min Alanis Jarrell RN [facility] Work Phone: Comment on above: Pattern: Regular 01-18-2012 12:090400 Respiratory Rate 16 /min Alanis Jarrell RN [facility] Work Phone: Comment on above: Pattern: Unlabored 01-18-2012 12:09-0400 Weight 75.75 kg Annamaria Zhang [facility] Work Phone: 01-09-2012 11:16-0400 BMI (Body Mass Index) 33.73 kg/m2 FABRICE Payne LPN [facility] Work Phone: 01-09-2012 11:16-0400 Body Temperature 97.8 [degF] FABRICE Payne LPN [facility] Work Phone: Comment on above: Method: Oral 01-09-2012 11:16-0400 Body weight 75.75 kg FABRICE Payne LPN [facility] Work Phone: 01-09-2012 11:16-0400 BP Diastolic 90 mm[Hg] FABRICE Payne LPN [facility] Work Phone: Comment on above: Patient Position: Sitting; Cuff Location : Left Arm; Cuff Size: Standard 01-09-2012 11:16-0400 BP Systolic 142 mm[Hg] FABRICE Payne LPN [facility] Work Phone: Comment on above: Patient Position: Sitting; Cuff Location : Left Arm; Cuff Size: Standard 01-09-2012 11:16-0400 BSA (Body Surface Area) 1.71 m2 FABRICE Payne LPN [facility] Work Phone: 01-09-2012 11:16-0400 Height 149.86 cm FABRICE Payne LPN [facility] Work Phone: 01-09-2012 11:16-0400 Pulse (Heart Rate) 74 /min FABRICE Payne LPN [facility] Work Phone: Comment on above: Pattern: Regular 01-09-2012 11:16-0400 Respiratory Rate 18 /min FABRICE Payne LPN [facility] Work Phone: Comment on above: Pattern: Unlabored 01-09-2012 11:16-0400 Weight 75.75 kg Annamaria Zhang [facility] Work Phone: 12-16-2011 10:31-0400 BP Diastolic 104 mm[Hg] Annamaria Zhang [facility] Work Phone: Comment on above: Patient Position: Sitting; Cuff Location : Left Arm; Cuff Size: Standard 12-16-2011 10:31-0400 BP Systolic 178 mm[Hg] Annamaria Zhang [facility] Work Phone: Comment on above: Patient Position: Sitting; Cuff Location : Left Arm; Cuff Size: Standard 12-16-2011 10:00-0400 BMI (Body Mass Index) 33.73 kg/m2 FABRICE Payne LPN [facility] Work Phone: Comment on above: patient has been rushing around this am and just took her b/p meds 30 minutes ago 12-16-2011 10:00-0400 Body Temperature 98.2 [degF] FABRICE Payne LPN [facility] Work Phone: Comment on above: Method: Oral patient has been nicol alfred around this am and just took her b/p meds 30 minutes ago 12-16-2011 10:00-0400 Body weight 75.75 kg FABRICE Payne LPN [facility] Work Phone: Comment on above: patient has been rushing around this am and just took her b/p meds 30 minutes ago 12-16-2011 10:00-0400 BP Diastolic 100 mm[Hg] FABRICE Payne LPN [facility] Work Phone: Comment on above: Patient Position: Sitting; Cuff Location : Left Arm; Cuff Size: Standard patient has been nicol alfred around this am and just took her b/p meds 30 minutes ago 12-16-2011 10:00-0400 BP Systolic 144 mm[Hg] FABRICE Payne LPN [facility] Work Phone: Comment on above: Patient Position: Sitting; Cuff Location : Left Arm; Cuff Size: Standard patient has been nicol alfred around this am and just took her b/p meds 30 minutes ago 12-16-2011 10:00-0400 BSA (Body Surface Area) 1.71 m2 FABRICE Elmer DEJESUS [facility] Work Phone: Comment on above: patient has been rushing around this am and just took her b/p meds 30 minutes ago 12-16-2011 10:00-0400 Height 149.86 cm FABRICE Payne LPN [facility] Work Phone: Comment on above: patient has been rushing around this am and just took her b/p meds 30 minutes ago 12-16-2011 10:00-0400 Pulse (Heart Rate) 74 /min FABRICE Payne LPN [facility] Work Phone: Comment on above: Pattern: Regular patient has been nicol alfred around this am and just took her b/p meds 30 minutes ago 12-16-2011 10:00-0400 Respiratory Rate 20 /min FABRICE Payne LPN [facility] Work Phone: Comment on above: Pattern: Unlabored patient has been nicol alfred around this am and just took her b/p meds 30 minutes ago 12-16-2011 10:00-0400 Weight 75.75 kg Annamaria Zhang [facility] Work Phone: Comment on above: patient has been rushing around this am and just took her b/p meds 30 minutes ago 11-18-2011 12:02-0400 BP Diastolic 128 mm[Hg] Alanis Jarrell RN [facility] Work Phone: Comment on above: Patient Position: Sitting; Cuff Location : Left Arm; Cuff Size: Standard 11-18-2011 12:02-0400 BP Systolic 192 mm[Hg] Alanis Jarrell RN [facility] Work Phone: Comment on above: Patient Position: Sitting; Cuff Location : Left Arm; Cuff Size: Standard 11-18-2011 11:40-0400 BP Diastolic 122 mm[Hg] Alanis Jarrell RN [facility] Work Phone: Comment on above: Patient Position: Sitting; Cuff Location : Left Arm; Cuff Size: Standard 11-18-2011 11:40-0400 BP Systolic 200 mm[Hg] Alanis Jarrell RN [facility] Work Phone: Comment on above: Patient Position: Sitting; Cuff Location : Left Arm; Cuff Size: Standard 11-18-2011 11:25-0400 BP Diastolic 128 mm[Hg] Alanis Jarrell RN [facility] Work Phone: Comment on above: Patient Position: Sitting; Cuff Location : Left Arm; Cuff Size: Standard 11-18-2011 11:25-0400 BP Systolic 201 mm[Hg] Alanis Jarrell RN [facility] Work Phone: Comment on above: Patient Position: Sitting; Cuff Location : Left Arm; Cuff Size: Standard 11-18-2011 11:05-0400 BP Diastolic 118 mm[Hg] Alanis Jarrell RN [facility] Work Phone: Comment on above: Patient Position: Sitting; Cuff Location : Left Arm; Cuff Size: Standard 11-18-2011 11:05-0400 BP Systolic 200 mm[Hg] Alanis Jarrell RN [facility] Work Phone: Comment on above: Patient Position: Sitting; Cuff Location : Left Arm; Cuff Size: Standard 11-18-2011 09:56-0400 BMI (Body Mass Index) 33.73 kg/m2 FABRICE Payne LPN [facility] Work Phone: 11-18-2011 09:56-0400 Body Temperature 97.8 [degF] FABRICE Payne LPN [facility] Work Phone: Comment on above: Method: Oral 11-18-2011 09:56-0400 Body weight 75.75 kg FABRICE Payne LPN [facility] Work Phone: 11-18-2011 09:56-0400 BP Diastolic 120 mm[Hg] FABRICE Payne OLEG [facility] Work Phone: Comment on above: Patient Position: Sitting; Cuff Location : Left Arm; Cuff Size: Standard 11-18-2011 09:56-0400 BP Systolic 210 mm[Hg] FABRICE Payne OLEG [facility] Work Phone: Comment on above: Patient Position: Sitting; Cuff Location : Left Arm; Cuff Size: Standard 11-18-2011 09:56-0400 BSA (Body Surface Area) 1.71 m2 FABRICE Payne OLEG [facility] Work Phone: 11-18-2011 09:56-0400 Height 149.86 cm FABRICE Payne [employer] [facility] Work Phone: 11-18-2011 09:56-0400 Pulse (Heart Rate) 76 /min FABRICE Elmer [employer] [facility] Work Phone: Comment on above: Pattern: Regular 11-18-2011 09:56-0400 Respiratory Rate 18 /min FABRICE Payne [employer] [facility] Work Phone: Comment on above: Pattern: Unlabored 11-18-2011 09:56-0400 Weight 75.75 kg Annamaria Zhang [facility] Work Phone: 10-31-2011 10:56-0400 BP Diastolic 98 mm[Hg] Alanis Jarrell RN [facility] Work Phone: Comment on above: Patient Position: Sitting; Cuff Location : Left Arm; Cuff Size: Standard 10-31-2011 10:56-0400 BP Systolic 148 mm[Hg] Alanis Jarrell RN [facility] Work Phone: Comment on above: Patient Position: Sitting; Cuff Location : Left Arm; Cuff Size: Standard 10-31-2011 10:13-0400 Body weight 75.81 kg Mraiah Ford RN [facility] Work Phone: 10-31-2011 10:13-0400 BP Diastolic 102 mm[Hg] Mariah Ford RN [facility] Work Phone: Comment on above: Patient Position: Sitting; Cuff Location : Left Arm; Cuff Size: Large 10-31-2011 10:13-0400 BP Systolic 178 mm[Hg] Mariah Ford RN [facility] Work Phone: Comment on above: Patient Position: Sitting; Cuff Location : Left Arm; Cuff Size: Large 10-31-2011 10:13-0400 Pulse (Heart Rate) 88 /min Mariah Ford RN [facility] Work Phone: Comment on above: Pattern: Regular 10-31-2011 10:13-0400 Respiratory Rate 20 /min Mariah Ford RN [facility] Work Phone: Comment on above: Pattern: Unlabored 10-31-2011 10:13-0400 Weight 75.81 kg Annamaria Zhang [facility] Work Phone: 10-20-2011 14:02-0400 Body weight 75.81 kg Mariah Ford RN [facility] Work Phone: 10-20-2011 14:02-0400 BP Diastolic 122 mm[Hg] Mariah Ford RN [facility] Work Phone: Comment on above: Patient Position: Sitting; Cuff Location : Left Arm; Cuff Size: Large 10-20-2011 14:02-0400 BP Systolic 218 mm[Hg] Mariah Ford RN [facility] Work Phone: Comment on above: Patient Position: Sitting; Cuff Location : Left Arm; Cuff Size: Large 10-20-2011 14:02-0400 Pulse (Heart Rate) 100 /min Mariah Ford RN [facility] Work Phone: Comment on above: Pattern: Regular 10-20-2011 14:02-0400 Respiratory Rate 20 /min Mariah Ford RN [facility] Work Phone: Comment on above: Pattern: Unlabored 10-20-2011 14:02-0400 Weight 75.81 kg Annamaria Zhang [facility] Work Phone: 10-18-2006 11:51-0400 Body weight 75.81 kg Elizabeth Renteria LPN [facility] Work Phone: 10-18-2006 11:51-0400 BP Diastolic 90 mm[Hg] Elizabeth Renteria LPN [facility] Work Phone: Comment on above: Patient Position: Sitting; Cuff Location : Left Arm; Cuff Size: Standard 10-18-2006 11:51-0400 BP Systolic 146 mm[Hg] Elizabeth Renteria LPN [facility] Work Phone: Comment on above: Patient Position: Sitting; Cuff Location : Left Arm; Cuff Size: Standard 10-18-2006 11:51-0400 Head Circumference 0 cm Annamaria Zhang [facility] Work Phone: 10-18-2006 11:51-0400 Head Occipital-frontal circumference 0 cm Elizabeth Renteria LPN [facility] Work Phone: 10-18-2006 11:51-0400 Height 0 cm Elizabeth Renteria LPN [facility] Work Phone: 10-18-2006 11:51-0400 Pulse (Heart Rate) 86 /min Elizabeth Renteria LPN [facility] Work Phone: Comment on above: Pattern: Regular 10-18-2006 11:51-0400 Respiratory Rate 16 /min Elizabeth Renteria LPN [facility] Work Phone: Comment on above: Pattern: Unlabored 10-18-2006 11:51-0400 Weight 75.81 kg Annamaria Zhang [facility] Work Phone: Encounters Encounter Date Encounter Type Care Provider Facility Start: 12-31-2024 ambulatory Giulia Fast Facility:[facility] Start: 12-03-2024 End: 12-03-[address] Giulia Prescott DO Work Phone: [facility] Start: 12-03-2024 End: 12-03-[address] Giulia Prescott DO [facility] Work Phone: Start: 12-03-2024 End: 12-03-2024 ambulatory Giulia Fast Facility:[facility] Start: 01-30-2023 Review Tash Landa CNP Work Phone: [facility] Start: 03-21-2022 End: 03-21-2022 Office outpatient visit 15 minutes Annamaria Zhang Work Phone: [facility] Start: 03-18-2022 ambulatory Annamaria Zhang [facility] Start: 11-30-2020 End: 11-30-2020 Annotation/Addendum Annamaria Zhang [employer] Work Phone: [facility] Start: 09-21-2020 End: 09-21-2020 Office outpatient visit 15 minutes Annamaria Zhang [employer] Work Phone: [facility] Start: 04-22-2020 End: 04-22-2020 Phone Encounter Annamaria Zhang [facility] [employer] [facility] Start: 04-21-2020 End: 04-21-2020 Annotation/Addendum Annamaria Zhang [facility] Start: 01-15-2020 End: 01-15-2020 Annotation/Addendum Annamaria Zhang [facility] Start: 12-24-2019 End: 12-24-2019 Office outpatient visit 25 minutes Annamaria Zhang [employer] Work Phone: [facility] Start: 08-09-2019 End: 08-09-2019 Annotation/Addendum Annamaria Zhang [facility] Start: 11-07-2018 End: 11-07-2018 Office outpatient visit 25 minutes Annamaria Zhang [facility] Start: 10-31-2018 End: 10-31-2018 Annotation/Addendum Annamaria Zhang [facility] Start: 12-05-2017 End: 12-05-2017 Office outpatient visit 15 minutes Annamaria Zhang [facility] Start: 11-24-2017 End: 11-24-2017 Office outpatient visit 25 minutes Annamaria Zhang [facility] Start: 11-06-2017 End: 11-06-2017 Lab Order Annamaria Zhang [facility] Start: 11-06-2017 End: 11-06-2017 Annotation/Addendum Annamaria Zhang [facility] Start: 08-19-2016 End: 08-19-2016 Office outpatient visit 15 minutes Annamaria Zhang [facility] Start: 07-15-2016 End: 07-15-2016 Annotation/Addendum Annamaria Zhang [facility] Start: 07-13-2016 End: 07-13-2016 Annotation/Addendum Annamaria Ciesalyssa [facility]ios [employer] [facility] Start: 06-15-2016 End: 06-15-2016 Office outpatient visit 25 minutes Annamaria [facility] Start: 06-24-2015 End: 06-24-2015 Office outpatient visit 15 minutes Annamaria [facility] Start: 06-02-2015 End: 06-02-2015 Refill Request Annamaria Rios [facility] Start: 05-27-2015 End: 05-27-2015 Refill Request Annamaria Rios [employer] [facility] Start: 05-26-2015 End: 05-26-2015 Office outpatient visit 25 minutes Annamaria [facility] Start: 04-17-2015 End: 04-17-2015 Office outpatient visit 15 minutes Annamaria Rios [facility] Start: 02-26-2014 End: 02-26-2014 Annotation/Addendum Annamaria Mcgarrymelaniealyssa Rios [employer] [facility] Start: 02-26-2014 End: 02-26-2014 Office outpatient visit 15 minutes Annamaria [facility] Start: 01-29-2014 End: 01-29-2014 Office outpatient visit 25 minutes Annamaria [facility] Start: 01-08-2014 End: 01-08-2014 Office outpatient visit 15 minutes Annamaria Rios [facility] Start: 12-27-2013 End: 12-30-2013 Office outpatient visit 25 minutes Annamaria Rios [facility] Start: 09-06-2013 End: 09-06-2013 Office outpatient visit 15 minutes Annamaria Rios [facility] Start: 06-07-2013 End: 06-07-2013 Patient encounter Annamaria Rios [employer] [facility] Start: 03-22-2013 End: 03-22-2013 Patient encounter Annamaria Rios [employer] [facility] Start: 03-22-2013 End: 03-22-2013 Preprocedural examination done Annamaria Malgorzatamelaniealyssa Work Phone: [facility] Start: 04-13-2012 End: 04-13-2012 Patient encounter Annamaria Malgorzatamelaniealyssa Rios [employer] [facility] Start: 04-13-2012 End: 04-13-2012 Preprocedural examination done Annamaria Bravoalyssa Work Phone: [facility] Start: 03-14-2012 End: 03-14-2012 Office outpatient visit 15 minutes Annamaria [facility] Start: 03-07-2012 End: 03-07-2012 Office outpatient visit 25 minutes Annamaria Zhang [facility] Start: 01-18-2012 End: 01-18-2012 Patient encounter Annamaria Rios [employer] [facility] Start: 01-09-2012 End: 01-09-2012 Patient encounter Annamaria Rios [employer] [facility] Start: 12-16-2011 End: 12-18-2011 Patient encounter Annamaria Rios [employer] [facility] Start: 11-18-2011 End: 11-18-2011 Patient encounter Annamaria Rios [employer] [facility] Start: 10-31-2011 End: 10-31-2011 Patient encounter Annamaria Rios [employer] [facility] Start: 10-20-2011 End: 10-20-2011 Patient encounter Annamaria Rios [employer] [facility] Start: 10-18-2006 End: 10-18-2006 Patient encounter Annamaria Rios [employer] [facility] Start: 10-18-2006 End: 10-18-2006 Historical Summary Annamaria Zhang [facility] [employer] [facility] Encounter for other preprocedural examination Annamaria Zhang [facility] Work Phone: Comment on above: requested by Dr Bree argueta End: 05-13-2013 Preprocedural examination done [facility] Work Phone: Comment on above: requested by Dr Bree argueta Procedures Date Procedure Procedure Detail Performing Clinician Start: 12-03-2024 Urine microalbumin/creatinin e ratio measurement Dr. Giulia Prescott DO Work Phone: Start: 12-03-2024 Urnls dip stick/tablet reagent auto microscopy Dr. Giulia Prescott DO Work Phone: Start: 01-30-2023 End: 01-30-2023 Foot min 3 Views Procedure Note: See Note; NOTES: [facility] [address] [place] [address] Foot min 3 Views MR#: [id number] Acct: [id number] Name: ANDERS NAJERA Rep #: [id number] : 1965 F [id number] From: Lavelle Martinez MD PCP: Status: DEP AMB Study: Foot min 3 Views Date of Exam: 01/30/23 Exam# [id number] Ordering Dr: Tash LandaC [id number] STUDY: X-RAY - RIGHT FOOT CLINICAL: Female, 57 years old. Pain. TECHNIQUE: 3 view(s) of the foot. COMPARISON: None. FINDINGS: Osteopenia. Mild arthrosis of the tibiotalar Normal subtalar joint. Superior and inferior calcaneal spurs. Mild arthrosis of the midfoot. Mild arthrosis at the TMT joints. Moderate arthrosis of the MTP and IP joints with minimal hammertoe deformities. Hallux valgus deformity with small bunion. . Normal soft tissues otherwise. RAD/Foot min 3 Views IMPRESSION: Osteopenia with osteoarthritic changes as described. Calcaneal Spurs. No acute abnormality or erosive changes. Electronically Signed: Lavelle Martinez MD at 15:13 EDT , CC: CARMEN Landa Academic Affairs Specialist: Signed Tash Landa [facility] Work Phone: Start: 08-19-2016 End: 08-19-2016 Knee 4 or More Views Comments: See Note; NOTES: [facility] Imaging Services [address] [place] [id number] [address] 4[address] Knee 4 or More Views MR#: [id number] Acct: [id number] Name: ANDERS NAJERA Rep #: [id number] : 1965 F 50 From: Jair Moise MD PCP: Annamaria Zhang Status: REG CLI Study: Knee 4 or More Views Date of Exam: 08/19/16 Exam# [id number] Ordering Dr: Annamaria Zhang STUDY: X-RAY - RIGHT KNEE REASON FOR EXAM: Female, 50 years old. Knee pain. Torn meniscus. TECHNIQUE: 4 view(s) of the knee. COMPARISON: September 06, 2013. FINDINGS: Normal visualized distal femur. Normal visualized proximal tibia and fibula. Normal proximal tibiofibular articulation. There is no demonstrated fracture. Normal medial femorotibial compartment. There is mild degenerative arthrosis of the lateral femorotibial compartment. There is mild degenerative arthrosis of the patellofemoral articulation. The soft tissue structures are unremarkable. RAD/Knee 4 or More Views IMPRESSION: Degenerative arthrosis. Electronically Signed: Jair Moise MD at 11:26 EDT , Service support , CC: Annamaria Zhang Academic Affairs Specialist: Signed Annamaria Zhang Work Phone: Start: 04-17-2015 End: 04-17-2015 Ecg routine ecg w/least 12 lds w/i&r [MEASUREMENTS ANALYSIS] Date of Test: 04/17/2015 10:04:14; Heart Rate: 67; OR Interval: 162; QRS: 94; QT Interval: 396; Corrected QT Interval (QTc): 408; P Wave [place]: 53; QRS Wave [place]: 11; T Wave [place]: 56; Blood Pressure: 132/88 [ECG DIAGNOSTIC STATEMENTS] Date of Test: 04/17/2015 10:04:14; Summary: Sinus Rhythm WITHIN NORMAL LIMITS Annamaria Zhang Work Phone: Start: 01-13-2014 End: 01-13-2014 Carotid Duplex Ultrasound Comments: See Note; NOTES: [facility] Cardiovascular Services [address] [place] [address] Carotid Duplex Ultrasound 01/08/14 1318 MR#: [id number] Acct: [id number] Name: ANDERS NAJERA Rep #: [id number] : 1965 48 From: Ajit Fagan MD Attending Dr: Hemalatha Nagy DO Status: REG CLI Ordering Dr: Hemalatha Nagy DO Date: 01/08/14 Location: [facility] Sex: F A Admitted: Rt. Velocities/BP Lt. Velocities/BP Prox CCA 76.8/19.9 cm/sec. Prox CCA 95.1/ 25.1 cm/sec. Mid CCA 90.3/24.6 cm/sec. Mid CCA 85.6/29.1 cm/sec. Dist CCA 79.2/24 cm/sec. Dist CCA 73.1/ 24.4 cm/sec. Subclavian artery 120/13.4 cm/sec. Subclavian artery 207/22 cm/sec. Prox ICA 72.7/27 cm/sec. Prox ICA 78.6/ 19.6 cm/sec. Mid ICA 75.7/22.9 cm/sec. Mid ICA 69.9/23.6 cm/sec. Dist ICA 53.8/16.5 cm/sec. Dist ICA 81.7/ 29.1 cm/sec. Rt. ICA/CCA = 0.8. Lt. ICA/CCA = 1.0. Prox ECA 184/9.8 cm/sec. Prox ECA 129/22 cm/sec. Rt. Vert. 46.9/15.2 cm/sec. Lt. Vert. 44/14.1 cm/sec. Heterogenous structure noted on the L side of the thyroid measuring 0.84 x 1.56 cm. No vascular flow noted within. Right Extracranial There is homogeneous, smooth atherosclerotic plaque noted in the right common carotid artery. There is intimal thickening but no significant atherosclerotic plaque noted in the right internal carotid artery. There is intimal thickening but no significant atherosclerotic plaque noted in the right external carotid artery. Antegrade flow is noted in the right vertebral artery. Left Extracranial There is homogeneous, smooth atherosclerotic plaque noted in the left common carotid artery. There is intimal thickening but no significant atherosclerotic plaque noted in the left internal carotid artery. There is intimal thickening but no significant atherosclerotic plaque noted in the left external carotid artery. Antegrade flow is noted in the left vertebral artery. Procedure Carotid Duplex 37716. The exam was diagnostic. Exam performed in department. Interpretation Summary Mild (<50%) stenosis right extracranial internal carotid. Mild (<50%) stenosis left extracranial internal carotid. Flow within the vertebral arteries is antegrade bilaterally. _ Ordering Physician: Hemalatha Nagy Performed By: CHOCO Perez 01/13/141811 Date Ajit Fagan MD CC: Hemalatha Nagy DO Date Dictated: 01/08/14 1318 Date Transcribed: 01/13/141811 Academic Affairs Specialist: Signed Annamaria Zhang Start: 09-06-2013 End: 09-06-2013 Knee 4 or More Views Comments: See Note; NOTES: [facility] Imaging Services [address] [place] [address] Radiology Report MR#: [id number] Acct: [id number] Name: ANDERS NAJERA Rep #: [id number] : 1965 F 48 From: Warren Cain DO PCP: Status: REG CLI Study: Knee 4 or More Views Date of Exam: 09/06/13 Exam# [id number] Ordering Dr: Annamaria Zhang STUDY: X-RAY - LEFT KNEE REASON FOR EXAM: Female, 48 years old. Bilateral knee pain. TECHNIQUE: 4 view(s) of the knee. COMPARISON: None. FINDINGS: Normal visualized distal femur. Normal visualized proximal tibia and fibula. Normal proximal tibiofibular articulation. There is no acute fracture, dislocation or destructive osseous pathology. Normal medial femorotibial compartment. Normal lateral femorotibial compartment. There is mild degenerative arthrosis of the patellofemoral articulation. There is no demonstrated joint effusion. The soft tissue structures are unremarkable. IMPRESSION: Degenerative arthrosis. Electronically Signed: Warren Cain DO at 16:25 EDT Tel [phone], Service support [phone], CC: Annamaria Zhang Academic Affairs Specialist: Signed Annamaria Zhang Work Phone: Plan of Treatment Date Care Activity Detail Author Start: 01-30-2023 Patient Education Bunion (Hallux Valgus): foot care [facility]; [facility] Work Phone: Start: 01-30-2023 Procedure Education Eprescribed prescriptions (G8553) [facility]; [facility] Work Phone: Start: 01-30-2023 Blood count complete auto&auto difrntl wbc CBC, PLATELETS & AUT DIFF (66213) [facility]; [facility] Work Phone: Start: 01-30-2023 Urinalysis qual/semiquant except immunoassays URINALYSIS (17746) [facility]; [facility] Work Phone: Start: 01-30-2023 Creatinine other source MICROALB;CREAT RATION, RAND UR (94539) [facility]; [facility] Work Phone: Start: 01-30-2023 Lipid panel LIPID PANEL (58265) [facility]; [facility] Work Phone: Start: 01-30-2023 Assay of thyroid stimulating hormone tsh TSH (THYROID STIMULATING HORMONE) (19803) [facility]; [facility] Work Phone: Start: 01-30-2023 Comprehensive metabolic panel METABOLIC PANEL, COMPREHENSIVE (58364) [facility]; [facility] Work Phone: Start: 03-21-2022 Blood count complete auto&auto difrntl wbc CBC, PLATELETS & AUT DIFF (13142) [facility]; [facility] Work Phone: Start: 03-21-2022 Comprehensive metabolic panel METABOLIC PANEL, COMPREHENSIVE (47131) : R74.01 and I10 [facility]; [facility] Work Phone: Start: 03-21-2022 Creatinine other source MICROALB;CREAT RATION, RAND UR (56303) [facility]; [facility] Work Phone: Start: 03-21-2022 Hemoglobin glycosylated a1c HGB A1C (55400) [facility]; [facility] Work Phone: Start: 03-21-2022 Procedure Education Eprescribed prescriptions (G8553) [facility]; [facility] Work Phone: Start: 03-21-2022 Lipid panel LIPID PANEL (89835) [facility]; [facility] Work Phone: Start: 09-22-2020 Urine albumin quantitative MICROALBUMIN: CREATININE RATIO (29367) AND (97311) [facility]; [facility] Work Phone: Start: 09-22-2020 Assay of thyroid stimulating hormone tsh TSH (13040) [facility]; [facility] Work Phone: Start: 09-22-2020 Blood count complete auto&auto difrntl wbc CBC, Platelets & Auto Diff (21728) [facility]; [facility] Work Phone: Start: 09-22-2020 Lipid panel Lipid Panel (00719) [facility]; [facility] Work Phone: Start: 09-22-2020 Comprehensive metabolic panel Metabolic Panel, Comprehensive (36351) [facility]; [facility] Work Phone: Start: 09-21-2020 Patient Education Sciatica: nerve pain [facility]; [facility] Work Phone: Start: 09-21-2020 Procedure Education Eprescribed prescriptions (G8553) [facility]; [facility] Work Phone: Start: 09-21-2020 Provider Instructions for Treatment Follow up if no improvement or if symptoms worsen [facility]; [facility] Work Phone: Start: 04-22-2020 Lipid panel LIPID PANEL (40996) [facility]; [facility] Work Phone: Start: 04-22-2020 25 hydroxy includes fractions if performed CALCIFEDIOL (27040) [facility]; [facility] Work Phone: Start: 04-22-2020 Assay of thyroid stimulating hormone tsh TSH (THYROID STIMULATING HORMONE) (06280) [facility]; [facility] Work Phone: Start: 04-22-2020 TSH Qn TSH (THYROID STIMULATING HORMONE) (75557) [facility]; [facility] Work Phone: Start: 04-22-2020 HbA1c (Bld) [Mass fraction] HGB A1C (93653) [facility]; [facility] Work Phone: Start: 04-22-2020 Hemoglobin glycosylated a1c HGB A1C (54572) [facility]; [facility] Work Phone: Start: 04-22-2020 CBC, PLATELETS & MANUAL DIFF (17088) CBC, PLATELETS & MANUAL DIFF (89776) [facility]; [facility] Work Phone: Start: 04-22-2020 Comprehensive metabolic panel METABOLIC PANEL, COMPREHENSIVE (50102) [facility]; [facility] Work Phone: Start: 04-21-2020 Lipid panel LIPID PANEL (43146) [facility]; [facility] Work Phone: Start: 12-24-2019 Procedure Education Eprescribed prescriptions (G8553) [facility] Work Phone: Start: 12-24-2019 Provider Instructions for Treatment Follow up in 3 months [facility] Work Phone: Start: 12-24-2019 Urnls dip stick/tablet rgnt auto w/o microscopy URINALYSIS W/O MICRO (53350) [facility] Work Phone: Start: 12-24-2019 Urine albumin quantitative MICROALBUMIN: CREATININE RATIO (31164) AND (05315) [facility] Work Phone: Start: 12-24-2019 Assay of thyroid stimulating hormone tsh TSH (21355) [facility] Work Phone: Start: 12-24-2019 Blood count complete auto&auto difrntl wbc CBC, Platelets & Auto Diff (19524) [facility] Work Phone: Start: 12-24-2019 Comprehensive metabolic panel Metabolic Panel, Comprehensive (55062) [facility] Work Phone: Start: 08-09-2019 Lipid panel LIPID PANEL (50443) [facility] Work Phone: Start: 08-09-2019 Comprehensive metabolic panel METABOLIC PANEL, COMPREHENSIVE (68129) [facility] Work Phone: Start: 08-09-2019 Blood count complete auto&auto difrntl wbc CBC, PLATELETS & AUT DIFF (36013) [facility] Work Phone: Start: 08-09-2019 Urine albumin quantitative MICROALBUMIN: CREATININE RATIO (85836) AND (54184) [facility] Work Phone: Start: 08-09-2019 HbA1c (Bld) [Mass fraction] HGB A1C (50812) [facility] Work Phone: Start: 08-09-2019 Hemoglobin glycosylated a1c HGB A1C (54664) [facility] Work Phone: Start: 11-08-2018 Urine albumin quantitative MICROALBUMIN: CREATININE RATIO (96211) AND (46745) [facility] Work Phone: Start: 11-08-2018 Lipid panel LIPID PANEL (15983) [facility] Work Phone: Start: 11-08-2018 Assay of thyroid stimulating hormone tsh TSH (02516) [facility] Work Phone: Start: 11-08-2018 TSH Qn TSH (99969) [facility] Work Phone: Start: 11-08-2018 Blood count complete auto&auto difrntl wbc CBC, Platelets & Auto Diff (78046) [facility] Work Phone: Start: 11-08-2018 Comprehensive metabolic panel Metabolic Panel, Comprehensive (25118) [facility] Work Phone: Start: 11-07-2018 Procedure Education Eprescribed prescriptions (G8553) [facility] Work Phone: Start: 11-07-2018 Provider Instructions for Treatment [facility] Work Phone: Start: 12-05-2017 Procedure Education Eprescribed prescriptions (G8553) [facility] Work Phone: Start: 12-05-2017 Provider Instructions for Treatment Follow up in 3 months [facility] Work Phone: Start: 11-24-2017 Procedure Education Eprescribed prescriptions (G8553) [facility] Work Phone: Start: 11-24-2017 Provider Instructions for Treatment [facility] Work Phone: Start: 11-06-2017 Assay of thyroid stimulating hormone tsh TSH (THYROID STIMULATING HORMONE) (06253) [facility] Work Phone: Start: 11-06-2017 Thyrotropin Qn TSH (THYROID STIMULATING HORMONE) (07776) [facility] Work Phone: Start: 11-06-2017 Lipid panel LIPID PANEL (22082) [facility] Work Phone: Start: 11-06-2017 25 hydroxy includes fractions if performed CALCIFEDIOL (11509) [facility] Work Phone: Start: 11-06-2017 Blood count complete automated CBC & PLATELETS (AUTO) (51984) [facility] Work Phone: Start: 11-06-2017 Comprehensive metabolic panel METABOLIC PANEL, COMPREHENSIVE (58235) [facility] Work Phone: Start: 08-19-2016 Procedure Education Eprescribed prescriptions (G8553) [facility] Work Phone: Start: 08-19-2016 Provider Instructions for Treatment [facility] Work Phone: Start: 06-15-2016 Comprehensive metabolic panel Metabolic Panel, Comprehensive (71396) [facility] Work Phone: Start: 06-15-2016 Lipid panel Lipid Panel (10369) [facility] Work Phone: Start: 06-15-2016 Urine albumin quantitative MICROALBUMIN: CREATININE RATIO (50836) AND (78327) [facility] Work Phone: Start: 06-15-2016 Urinalysis qual/semiquant except immunoassays URINALYSIS (34093) [facility] Work Phone: Start: 06-15-2016 Blood count complete auto&auto difrntl wbc CBC, Platelets & Auto Diff (86794) [facility] Work Phone: Start: 06-15-2016 Assay of thyroid stimulating hormone tsh TSH (92753) [facility] Work Phone: Start: 06-15-2016 Thyrotropin Qn TSH (12078) [facility] Work Phone: Start: 06-15-2016 Procedure Education Eprescribed prescriptions (G8553) [facility] Work Phone: Start: 06-15-2016 Provider Instructions for Treatment Follow up in 3 months [facility] Work Phone: Start: 06-24-2015 Procedure Education Eprescribed prescriptions (G8553) [facility] Work Phone: Start: 06-24-2015 Provider Instructions for Treatment [facility] Work Phone: Start: 05-26-2015 Provider Instructions for Treatment Follow up in 4 weeks [facility] Work Phone: Start: 04-17-2015 Provider Instructions for Treatment Follow up in 3 weeks [facility] Work Phone: Start: 04-17-2015 Assay of thyroid stimulating hormone tsh TSH (17279) [facility] Work Phone: Start: 04-17-2015 Thyrotropin Qn TSH (12049) [facility] Work Phone: Start: 04-17-2015 Urine albumin quantitative MICROALBUMIN URINE QUANT (91972) [facility] Work Phone: Start: 04-17-2015 Comprehensive metabolic panel METABOLIC PANEL, COMPREHENSIVE (97902) [facility] Work Phone: Start: 04-17-2015 Lipid panel LIPID PANEL (63921) [facility] Work Phone: Start: 04-17-2015 Blood count manual cell count each CBC with auto diff (73136) [facility] Work Phone: Start: 02-26-2014 Provider Instructions for Treatment Follow up if no improvement or if symptoms worsen [facility] Work Phone: Start: 01-29-2014 Provider Instructions for Treatment [facility] Work Phone: Start: 01-08-2014 Provider Instructions for Treatment [facility] Work Phone: Start: 12-27-2013 Procedure Education Eprescribed prescriptions (G8553) [facility] Work Phone: Start: 12-27-2013 Provider Instructions for Treatment [facility] Work Phone: Start: 06-07-2013 Provider Instructions for Treatment [facility] Work Phone: Start: 03-22-2013 Urine albumin quantitative MICROALBUMIN: CREATININE RATIO (46006) AND (49277) [facility] Work Phone: Start: 03-22-2013 Comprehensive metabolic panel METABOLIC PANEL, COMPREHENSIVE (22730) [facility] Work Phone: Start: 03-22-2013 Lipid panel LIPID PANEL (39667) [facility] Work Phone: Start: 03-22-2013 Blood count manual cell count each CBC WITH MANUAL DIFF (99652) [facility] Work Phone: Start: 04-13-2012 Patient Education Instructions for the Patient Before and After Surgery *: instructions [facility] Work Phone: Start: 03-14-2012 Provider Instructions for Treatment Follow up - Make appt after diagnostic tests [facility] Work Phone: Start: 03-07-2012 Provider Instructions for Treatment Follow up Dec 5 with [facility] Work Phone: Start: 01-09-2012 Provider Instructions for Treatment Biopsy with Epi [facility] Work Phone: Start: 12-16-2011 Patient Education High Blood Pressure (Essential Hypertension) *: cardiovascular health [facility] Work Phone: Start: 10-31-2011 Patient Education Itching: rash [facility] Work Phone: Start: 10-31-2011 Provider Instructions for Treatment [facility] Work Phone: Start: 10-20-2011 Provider Instructions for Treatment [facility] Work Phone: Start: 10-18-2006 Provider Instructions for Treatment [facility] Work Phone: Start: 10-18-2006 Blood count complete automated CBC (Auto) (36670) [facility] Work Phone: Start: 10-18-2006 Lipid panel Lipid Panel (82795) [facility] Work Phone: Start: 10-18-2006 Potassium molar conc Potassium Serum (80503) [facility] Work Phone: Start: 10-18-2006 Potassium serum plasma/whole blood Potassium Serum (38379) [facility] Work Phone: [facility] Work Phone: [facility] Work Phone: [facility] Work Phone: [facility] Work Phone: [facility] Work Phone: [facility]: [facility]: [facility] Work [facility]: [facility] Work [facility]: [facility] Work [facility]: [facility] Work [facility]: [facility] Work Phone: [facility] Work Phone: [facility] Work Phone[facility] Work Phone[facility] Work Phone: [facility] Work Phone: [facility] Work Phone: [facility] Work Phone: [facility]; [facility] Work Phone: Payers Date Payer Category Payer Self-pay 2006 Unknown [id number] 1965 Unknown [id number] Unknown [place] Unknown [id number] [id number] Unknown [id number] Social History Date Type Detail Facility Current Work/Study Status: Never smoker [facility] Work Phone: Comment on above: [place] Exercise History: Does not exercise. [facility] Work Phone: Living Situation [facility] Work Phone: Comment on above: lives with s pouse Tobacco use: Never smoker. [facility] Work Phone: Current Work/Study Status: Current Work/Study Status: [facility] Work Phone: Comment on above: [place] Exercise History: Exercise History: [facility] Work Phone: Tobacco use: Tobacco use: [facility] Work Phone: Start: 01-30-2023 [facility] Start: 1965 Sex Assigned At Female W [facility] Medical Equipment Procedure Code Equipment Code Equipment Origin al Text Equipment Identifier Dates ONETOUCH LANCETS (Miscellaneous) 1 (one) Misc Misc qd for 0 days Quantity: 1 {Box} Refills: 3 Ordered: 02-Jun-2015 Meliza Cullen MD Start : 02-Jun-2015 Active Comments: DX: E11.9NPI: [id number] Start: 06-02-2015 Comment on above: DX: E11.9NPI: [id number] ONETOUCH ULTRA BLUE (In Vitro Strip) 1 (one) Strip Strip qd for 0 days Quantity: 30 {Strip} Refills: 6 Ordered: 27-May-2015 Meliza Cullen MD Start : 27-May-2015 Active Comments: DX: E11.65NPI: [id number] Start: 05-27-2015 Comment on above: DX: E11.65NPI: [id number] ONETOUCH LANCETS (Miscellaneous) 1 (one) Misc Misc qd for 0 days Quantity: 1 {Box} Refills: 3 Ordered: 02-Jun-2015 Meliza Cullen MD Start : 02-Jun-2015 Active Comments: DX: E11.9NPI: [id number] Start: 06-02-2015 Comment on above: DX: E11.9NPI: [id number] ONETOUCH ULTRA BLUE (In Vitro Strip) 1 (one) Strip Strip qd for 0 days Quantity: 30 {Strip} Refills: 6 Ordered: 27-May-2015 Meliza Cullen MD Start : 27-May-2015 Active Comments: DX: E11.65NPI: [id number] Start: 05-27-2015 Comment on above: DX: E11.65NPI: [id number] ONETOUCH LANCETS (Miscellaneous) 1 (one) Misc Misc qd for 0 days Quantity: 1 {Box} Refills: 3 Ordered: 02-Jun-2015 Meliza Cullen MD Start : 02-Jun-2015 Active Comments: DX: E11.9NPI: [id number] Start: 06-02-2015 Comment on above: DX: E11.9NPI: [id number] ONETOUCH ULTRA BLUE (In Vitro Strip) 1 (one) Strip Strip qd for 0 days Quantity: 30 {Strip} Refills: 6 Ordered: 27-May-2015 Meliza Cullen MD Start : 27-May-2015 Active Comments: DX: E11.65NPI: [id number] Start: 05-27-2015 Comment on above: DX: E11.65NPI: [id number] ONETOUCH LANCETS (Miscellaneous) 1 (one) Misc Misc qd for 0 days Quantity: 1 {Box} Refills: 3 Ordered: 02-Jun-2015 Meliza Cullen MD Start : 02-Jun-2015 Active Comments: DX: E11.9NPI: [id number] Start: 06-02-2015 Comment on above: DX: E11.9NPI: [id number] ONETOUCH ULTRA BLUE (In Vitro Strip) 1 (one) Strip Strip qd for 0 days Quantity: 30 {Strip} Refills: 6 Ordered: 27-May-2015 Meliza Cullen MD Start : 27-May-2015 Active Comments: DX: E11.65NPI: [id number] Start: 05-27-2015 Comment on above: DX: E11.65NPI: [id number] ONETOUCH LANCETS (Miscellaneous) 1 (one) Misc Misc qd for 0 days Quantity: 1 {Box} Refills: 3 Ordered: 02-Jun-2015 Meliza Cullen MD Start : 02-Jun-2015 Active Comments: DX: E11.9NPI: [id number] Start: 06-02-2015 Comment on above: DX: E11.9NPI: [id number] ONETOUCH ULTRA BLUE (In Vitro Strip) 1 (one) Strip Strip qd for 0 days Quantity: 30 {Strip} Refills: 6 Ordered: 27-May-2015 Meliza Cullen MD Start : 27-May-2015 Active Comments: DX: E11.65NPI: [id number] Start: 05-27-2015 Comment on above: DX: E11.65NPI: [id number] ONETOUCH LANCETS (Miscellaneous) 1 (one) Misc Misc qd for 0 days Quantity: 1 {Box} Refills: 3 Ordered: 02-Jun-2015 Meliza Cullen MD Start : 02-Jun-2015 Active Comments: DX: E11.9NPI: [id number] Start: 06-02-2015 Comment on above: DX: E11.9NPI: [id number] ONETOUCH ULTRA BLUE (In Vitro Strip) 1 (one) Strip Strip qd for 0 days Quantity: 30 {Strip} Refills: 6 Ordered: 27-May-2015 Meliza Cullen MD Start : 27-May-2015 Active Comments: DX: E11.65NPI: [id number] Start: 05-27-2015 Comment on above: DX: E11.65NPI: [id number] ONETOUCH LANCETS (Miscellaneous) 1 (one) Misc Misc qd for 0 days Quantity: 1 {Box} Refills: 3 Ordered: 02-Jun-2015 Meliza Cullen MD Start : 02-Jun-2015 Active Comments: DX: E11.9NPI: [id number] Start: 06-02-2015 Comment on above: DX: E11.9NPI: [id number] ONETOUCH ULTRA BLUE (In Vitro Strip) 1 (one) Strip Strip qd for 0 days Quantity: 30 {Strip} Refills: 6 Ordered: 27-May-2015 Meliza Cullen MD Start : 27-May-2015 Active Comments: DX: E11.65NPI: [id number] Start: 05-27-2015 Comment on above: DX: E11.65NPI: [id number] ONETOUCH LANCETS (Miscellaneous) 1 (one) Misc Misc qd for 0 days Quantity: 1 {Box} Refills: 3 Ordered: 02-Jun-2015 Meliza Cullen MD Start : 02-Jun-2015 Active Comments: DX: E11.9NPI: [id number] Start: 06-02-2015 Comment on above: DX: E11.9NPI: [id number] ONETOUCH ULTRA BLUE (In Vitro Strip) 1 (one) Strip Strip qd for 0 days Quantity: 30 {Strip} Refills: 6 Ordered: 27-May-2015 Meliza Cullen MD Start : 27-May-2015 Active Comments: DX: E11.65NPI: [id number] Start: 05-27-2015 Comment on above: DX: E11.65NPI: [id number] ONETOUCH LANCETS (Miscellaneous) 1 (one) Misc Misc qd for 0 days Quantity: 1 {Box} Refills: 3 Ordered: 02-Jun-2015 Meliza Cullen MD Start : 02-Jun-2015 Active Comments: DX: E11.9NPI: [id number] Start: 06-02-2015 Comment on above: DX: E11.9NPI: [id number] ONETOUCH ULTRA BLUE (In Vitro Strip) 1 (one) Strip Strip qd for 0 days Quantity: 30 {Strip} Refills: 6 Ordered: 27-May-2015 Meliza Cullen MD Start : 27-May-2015 Active Comments: DX: E11.65NPI: [id number] Start: 05-27-2015 Comment on above: DX: E11.65NPI: [id number] ONETOUCH LANCETS (Miscellaneous) 1 (one) Misc Misc qd for 0 days Quantity: 1 {Box} Refills: 3 Ordered: 02-Jun-2015 Meliza Cullen MD Start : 02-Jun-2015 Active Comments: DX: E11.9NPI: [id number] Start: 06-02-2015 Comment on above: DX: E11.9NPI: [id number] ONETOUCH ULTRA BLUE (In Vitro Strip) 1 (one) Strip Strip qd for 0 days Quantity: 30 {Strip} Refills: 6 Ordered: 27-May-2015 Meliza Cullen MD Start : 27-May-2015 Active Comments: DX: E11.65NPI: [id number] Start: 05-27-2015 Comment on above: DX: E11.65NPI: [id number] ONETOUCH LANCETS (Miscellaneous) 1 (one) Misc Misc qd for 0 days Quantity: 1 {Box} Refills: 3 Ordered: 02-Jun-2015 Meliza Cullen MD Start : 02-Jun-2015 Active Comments: DX: E11.9NPI: [id number] Start: 06-02-2015 Comment on above: DX: E11.9NPI: [id number] ONETOUCH ULTRA BLUE (In Vitro Strip) 1 (one) Strip Strip qd for 0 days Quantity: 30 {Strip} Refills: 6 Ordered: 27-May-2015 Meliza Cullen MD Start : 27-May-2015 Active Comments: DX: E11.65NPI: [id number] Start: 05-27-2015 Comment on above: DX: E11.65NPI: [id number] ONETOUCH LANCETS (Miscellaneous) 1 (one) Misc Misc qd for 0 days Quantity: 1 {Box} Refills: 3 Ordered: 02-Jun-2015 Meliza Cullen MD Start : 02-Jun-2015 Active Comments: DX: E11.9NPI: [id number] Start: 06-02-2015 Comment on above: DX: E11.9NPI: [id number] ONETOUCH ULTRA BLUE (In Vitro Strip) 1 (one) Strip Strip qd for 0 days Quantity: 30 {Strip} Refills: 6 Ordered: 27-May-2015 Meliza Cullen MD Start : 27-May-2015 Active Comments: DX: E11.65NPI: [id number] Start: 05-27-2015 Comment on above: DX: E11.65NPI: [id number] ONETOUCH LANCETS (Miscellaneous) 1 (one) Misc Misc qd for 0 days Quantity: 1 {Box} Refills: 3 Ordered: 02-Jun-2015 Meliza Cullen MD Start : 02-Jun-2015 Active Comments: DX: E11.9NPI: [id number] Start: 06-02-2015 Comment on above: DX: E11.9NPI: [id number] ONETOUCH ULTRA BLUE (In Vitro Strip) 1 (one) Strip Strip qd for 0 days Quantity: 30 {Strip} Refills: 6 Ordered: 27-May-2015 Meliza Cullen MD Start : 27-May-2015 Active Comments: DX: E11.65NPI: [id number] Start: 05-27-2015 Comment on above: DX: E11.65NPI: [id number] ONETOUCH LANCETS (Miscellaneous) 1 (one) Misc Misc qd for 0 days Quantity: 1 {Box} Refills: 3 Ordered: 02-Jun-2015 Meliza Cullen MD Start : 02-Jun-2015 Active Comments: DX: E11.9NPI: [id number] Start: 06-02-2015 Comment on above: DX: E11.9NPI: [id number] ONETOUCH ULTRA BLUE (In Vitro Strip) 1 (one) Strip Strip qd for 0 days Quantity: 30 {Strip} Refills: 6 Ordered: 27-May-2015 Meliza Cullen MD Start : 27-May-2015 Active Comments: DX: E11.65NPI: [id number] Start: 05-27-2015 Comment on above: DX: E11.65NPI: [id number] ONETOUCH LANCETS (Miscellaneous) 1 (one) Misc Misc qd for 0 days Quantity: 1 {Box} Refills: 3 Ordered: 02-Jun-2015 Meliza Cullen MD Start : 02-Jun-2015 Active Comments: DX: E11.9NPI: [id number] Start: 06-02-2015 Comment on above: DX: E11.9NPI: [id number] ONETOUCH ULTRA BLUE (In Vitro Strip) 1 (one) Strip Strip qd for 0 days Quantity: 30 {Strip} Refills: 6 Ordered: 27-May-2015 Meliza Cullen MD Start : 27-May-2015 Active Comments: DX: E11.65NPI: [id number] Start: 05-27-2015 Comment on above: DX: E11.65NPI: [id number] ONETOUCH LANCETS (Miscellaneous) 1 (one) Misc Misc qd for 0 days Quantity: 1 {Box} Refills: 3 Ordered: 02-Jun-2015 Meliza Cullen MD Start : 02-Jun-2015 Active Comments: DX: E11.9NPI: [id number] Start: 06-02-2015 Comment on above: DX: E11.9NPI: [id number] ONETOUCH ULTRA BLUE (In Vitro Strip) 1 (one) Strip Strip qd for 0 days Quantity: 30 {Strip} Refills: 6 Ordered: 27-May-2015 Meliza Cullen MD Start : 27-May-2015 Active Comments: DX: E11.65NPI: [id number] Start: 05-27-2015 Comment on above: DX: E11.65NPI: [id number] ONETOUCH LANCETS (Miscellaneous) 1 (one) Misc Misc qd for 0 days Quantity: 1 {Box} Refills: 3 Ordered: 02-Jun-2015 Meliza Cullen MD Start : 02-Jun-2015 Active Comments: DX: E11.9NPI: [id number] Start: 06-02-2015 Comment on above: DX: E11.9NPI: [id number] ONETOUCH ULTRA BLUE (In Vitro Strip) 1 (one) Strip Strip qd for 0 days Quantity: 30 {Strip} Refills: 6 Ordered: 27-May-2015 Meliza Cullen MD Start : 27-May-2015 Active Comments: DX: E11.65NPI: [id number] Start: 05-27-2015 Comment on above: DX: E11.65NPI: [id number] ONETOUCH LANCETS (Miscellaneous) 1 (one) Misc Misc qd for 0 days Quantity: 1 {Box} Refills: 3 Ordered: 02-Jun-2015 Meliza Cullen MD Start : 02-Jun-2015 Active Comments: DX: E11.9NPI: [id number] Start: 06-02-2015 Comment on above: DX: E11.9NPI: [id number] ONETOUCH ULTRA BLUE (In Vitro Strip) 1 (one) Strip Strip qd for 0 days Quantity: 30 {Strip} Refills: 6 Ordered: 27-May-2015 Meliza Cullen MD Start : 27-May-2015 Active Comments: DX: E11.65NPI: [id number] Start: 05-27-2015 Comment on above: DX: E11.65NPI: [id number] ONETOUCH LANCETS (Miscellaneous) 1 (one) Misc Misc qd for 0 days Quantity: 1 {Box} Refills: 3 Ordered: 02-Jun-2015 Meliza Cullen MD Start : 02-Jun-2015 Active Comments: DX: E11.9NPI: [id number] Start: 06-02-2015 Comment on above: DX: E11.9NPI: [id number] ONETOUCH ULTRA BLUE (In Vitro Strip) 1 (one) Strip Strip qd for 0 days Quantity: 30 {Strip} Refills: 6 Ordered: 27-May-2015 Meliza Cullen MD Start : 27-May-2015 Active Comments: DX: E11.65NPI: [id number] Start: 05-27-2015 Comment on above: DX: E11.65NPI: [id number] ONETOUCH LANCETS (Miscellaneous) 1 (one) Misc Misc qd for 0 days Quantity: 1 {Box} Refills: 3 Ordered: 02-Jun-2015 Meliza Cullen MD Start : 02-Jun-2015 Active Comments: DX: E11.9NPI: [id number] Start: 06-02-2015 Comment on above: DX: E11.9NPI: [id number] ONETOUCH ULTRA BLUE (In Vitro Strip) 1 (one) Strip Strip qd for 0 days Quantity: 30 {Strip} Refills: 6 Ordered: 27-May-2015 Meliza Cullen MD Start : 27-May-2015 Active Comments: DX: E11.65NPI: [id number] Start: 05-27-2015 Comment on above: DX: E11.65NPI: [id number] ONETOUCH LANCETS (Miscellaneous) 1 (one) Misc Misc qd for 0 days Quantity: 1 {Box} Refills: 3 Ordered: 02-Jun-2015 Meliza Cullen MD Start : 02-Jun-2015 Active Comments: DX: E11.9NPI: [id number] Start: 06-02-2015 Comment on above: DX: E11.9NPI: [id number] ONETOUCH ULTRA BLUE (In Vitro Strip) 1 (one) Strip Strip qd for 0 days Quantity: 30 {Strip} Refills: 6 Ordered: 27-May-2015 Meliza Cullen MD Start : 27-May-2015 Active Comments: DX: E11.65NPI: [id number] Start: 05-27-2015 Comment on above: DX: E11.65NPI: [id number] ONETOUCH LANCETS (Miscellaneous) 1 (one) Misc Misc qd for 0 days Quantity: 1 {Box} Refills: 3 Ordered: 02-Jun-2015 Meliza Cullen MD Start : 02-Jun-2015 Active Comments: DX: E11.9NPI: [id number] Start: 06-02-2015 Comment on above: DX: E11.9NPI: [id number] ONETOUCH ULTRA BLUE (In Vitro Strip) 1 (one) Strip Strip qd for 0 days Quantity: 30 {Strip} Refills: 6 Ordered: 27-May-2015 Meliza Cullen MD Start : 27-May-2015 Active Comments: DX: E11.65NPI: [id number] Start: 05-27-2015 Comment on above: DX: E11.65NPI: [id number] ONETOUCH LANCETS (Miscellaneous) 1 (one) Misc Misc qd for 0 days Quantity: 1 {Box} Refills: 3 Ordered: 02-Jun-2015 Meliza Cullen MD Start : 02-Jun-2015 Active Comments: DX: E11.9NPI: [id number] Start: 06-02-2015 Comment on above: DX: E11.9NPI: [id number] ONETOUCH ULTRA BLUE (In Vitro Strip) 1 (one) Strip Strip qd for 0 days Quantity: 30 {Strip} Refills: 6 Ordered: 27-May-2015 Meliza Cullen MD Start : 27-May-2015 Active Comments: DX: E11.65NPI: [id number] Start: 05-27-2015 Comment on above: DX: E11.65NPI: [id number] ONETOUCH LANCETS (Miscellaneous) 1 (one) Misc Misc qd for 0 days Quantity: 1 {Box} Refills: 3 Ordered: 02-Jun-2015 Meliza Cullen MD Start : 02-Jun-2015 Active Comments: DX: E11.9NPI: [id number] Start: 06-02-2015 Comment on above: DX: E11.9NPI: [id number] 8869 ONETOUCH ULTRA BLUE (In Vitro Strip) 1 (one) Strip Strip qd for 0 days Quantity: 30 {Strip} Refills: 6 Ordered: 27-May-2015 Meliza Cullen MD Start : 27-May-2015 Active Comments: DX: E11.65NPI: [id number] Start: 05-27-2015 Comment on above: DX: E11.65NPI: [id number] ONETOUCH LANCETS (Miscellaneous) 1 (one) Misc Misc qd for 0 days Quantity: 1 {Box} Refills: 3 Ordered: 02-Jun-2015 Meliza Cullen MD Start : 02-Jun-2015 Active Comments: DX: E11.9NPI: [id number] Start: 06-02-2015 Comment on above: DX: E11.9NPI: [id number] ONETOUCH ULTRA BLUE (In Vitro Strip) 1 (one) Strip Strip qd for 0 days Quantity: 30 {Strip} Refills: 6 Ordered: 27-May-2015 Meliza Cullen MD Start : 27-May-2015 Active Comments: DX: E11.65NPI: [id number] Start: 05-27-2015 Comment on above: DX: E11.65NPI: [id number] [id number] ONETOUCH LANCETS (Miscellaneous) 1 (one) Misc Misc qd for 0 days Quantity: 1 {Box} Refills: 3 Ordered: 02-Jun-2015 Meliza Cullen MD Start : 02-Jun-2015 Active Comments: DX: E11.9NPI: [id number] Start: 06-02-2015 Comment on above: DX: E11.9NPI: [id number] [id number] ONETOUCH ULTRA BLUE (In Vitro Strip) 1 (one) Strip Strip qd for 0 days Quantity: 30 {Strip} Refills: 6 Ordered: 27-May-2015 Meliza Cullen MD Start : 27-May-2015 Active Comments: DX: E11.65NPI: [id number] Start: 05-27-2015 Comment on above: DX: E11.65NPI: [id number] ONETOUCH LANCETS (Miscellaneous) 1 (one) Misc Misc qd for 0 days Quantity: 1 {Box} Refills: 3 Ordered: 02-Jun-2015 Meliza Cullen MD Start : 02-Jun-2015 Active Comments: DX: E11.9NPI: [id number] Start: 06-02-2015 Comment on above: DX: E11.9NPI: [id number] ONETOUCH ULTRA BLUE (In Vitro Strip) 1 (one) Strip Strip qd for 0 days Quantity: 30 {Strip} Refills: 6 Ordered: 27-May-2015 Meliza Cullen MD Start : 27-May-2015 Active Comments: DX: E11.65NPI: [id number] Start: 05-27-2015 Comment on above: DX: E11.65NPI: [id number] ONETOUCH LANCETS (Miscellaneous) 1 (one) Misc Misc qd for 0 days Quantity: 1 {Box} Refills: 3 Ordered: 02-Jun-2015 Meliza Cullen MD Start : 02-Jun-2015 Active Comments: DX: E11.9NPI: [id number] Start: 06-02-2015 Comment on above: DX: E11.9NPI: [id number] [id number] ONETOUCH ULTRA BLUE (In Vitro Strip) 1 (one) Strip Strip qd for 0 days Quantity: 30 {Strip} Refills: 6 Ordered: 27-May-2015 Meliza Cullen MD Start : 27-May-2015 Active Comments: DX: E11.65NPI: [id number] Start: 05-27-2015 Comment on above: DX: E11.65NPI: [id number] ONETOUCH LANCETS (Miscellaneous) 1 (one) Misc Misc qd for 0 days Quantity: 1 {Box} Refills: 3 Ordered: 02-Jun-2015 Meliza Cullen MD Start : 02-Jun-2015 Active Comments: DX: E11.9NPI: [id number] Start: 06-02-2015 Comment on above: DX: E11.9NPI: [id number] [id number] ONETOUCH ULTRA BLUE (In Vitro Strip) 1 (one) Strip Strip qd for 0 days Quantity: 30 {Strip} Refills: 6 Ordered: 27-May-2015 Meliza Cullen MD Start : 27-May-2015 Active Comments: DX: E11.65NPI: [id number] Start: 05-27-2015 Comment on above: DX: E11.65NPI: [id number] ONETOUCH LANCETS (Miscellaneous) 1 (one) Misc Misc qd for 0 days Quantity: 1 {Box} Refills: 3 Ordered: 02-Jun-2015 Meliza Cullen MD Start : 02-Jun-2015 Active Comments: DX: E11.9NPI: [id number] Start: 06-02-2015 Comment on above: DX: E11.9NPI: [id number] ONETOUCH ULTRA BLUE (In Vitro Strip) 1 (one) Strip Strip qd for 0 days Quantity: 30 {Strip} Refills: 6 Ordered: 27-May-2015 Meliza Cullen MD Start : 27-May-2015 Active Comments: DX: E11.65NPI: [id number] Start: 05-27-2015 Comment on above: DX: E11.65NPI: [id number] ONETOUCH LANCETS (Miscellaneous) 1 (one) Misc Misc qd for 0 days Quantity: 1 {Box} Refills: 3 Ordered: 02-Jun-2015 Meliza Cullen MD Start : 02-Jun-2015 Active Comments: DX: E11.9NPI: [id number] Start: 06-02-2015 Comment on above: DX: E11.9NPI: [id number] ONETOUCH ULTRA BLUE (In Vitro Strip) 1 (one) Strip Strip qd for 0 days Quantity: 30 {Strip} Refills: 6 Ordered: 27-May-2015 Meliza Cullen MD Start : 27-May-2015 Active Comments: DX: E11.65NPI: [id number] Start: 05-27-2015 Comment on above: DX: E11.65NPI: [id number] ONETOUCH LANCETS (Miscellaneous) 1 (one) Misc Misc qd for 0 days Quantity: 1 {Box} Refills: 3 Ordered: 02-Jun-2015 Meliza Cullen MD Start : 02-Jun-2015 Active Comments: DX: E11.9NPI: [id number] Start: 06-02-2015 Comment on above: DX: E11.9NPI: [id number] [id number] ONETOUCH ULTRA BLUE (In Vitro Strip) 1 (one) Strip Strip qd for 0 days Quantity: 30 {Strip} Refills: 6 Ordered: 27-May-2015 Meliza Cullen MD Start : 27-May-2015 Active Comments: DX: E11.65NPI: [id number] Start: 05-27-2015 Comment on above: DX: E11.65NPI: [id number] ONETOUCH LANCETS (Miscellaneous) 1 (one) Misc Misc qd for 0 days Quantity: 1 {Box} Refills: 3 Ordered: 02-Jun-2015 Meliza Cullen MD Start : 02-Jun-2015 Active Comments: DX: E11.9NPI: [id number] Start: 06-02-2015 Comment on above: DX: E11.9NPI: [id number] [id number] ONETOUCH ULTRA BLUE (In Vitro Strip) 1 (one) Strip Strip qd for 0 days Quantity: 30 {Strip} Refills: 6 Ordered: 27-May-2015 Meliza Cullen MD Start : 27-May-2015 Active Comments: DX: E11.65NPI: [id number] Start: 05-27-2015 Comment on above: DX: E11.65NPI: [id number] ONETOUCH LANCETS (Miscellaneous) 1 (one) Misc Misc qd for 0 days Quantity: 1 {Box} Refills: 3 Ordered: 02-Jun-2015 Meliza Cullen MD Start : 02-Jun-2015 Active Comments: DX: E11.9NPI: [id number] Start: 06-02-2015 Comment on above: DX: E11.9NPI: [id number] ONETOUCH ULTRA BLUE (In Vitro Strip) 1 (one) Strip Strip qd for 0 days Quantity: 30 {Strip} Refills: 6 Ordered: 27-May-2015 Meliza Cullen MD Start : 27-May-2015 Active Comments: DX: E11.65NPI: [id number] Start: 05-27-2015 Comment on above: DX: E11.65NPI: [id number] ONETOUCH LANCETS (Miscellaneous) 1 (one) Misc Misc qd for 0 days Quantity: 1 {Box} Refills: 3 Ordered: 02-Jun-2015 Meliza Cullen MD Start : 02-Jun-2015 Active Comments: DX: E11.9NPI: [id number] Start: 06-02-2015 Comment on above: DX: E11.9NPI: [id number] ONETOUCH ULTRA BLUE (In Vitro Strip) 1 (one) Strip Strip qd for 0 days Quantity: 30 {Strip} Refills: 6 Ordered: 27-May-2015 Meliza Cullen MD Start : 27-May-2015 Active Comments: DX: E11.65NPI: [id number] Start: 05-27-2015 Comment on above: DX: E11.65NPI: [id number] ONETOUCH ULTRA BLUE (In Vitro Strip) 1 (one) Strip Strip qd for 0 days Quantity: 30 {Strip} Refills: 6 Ordered: 27-May-2015 Meliza Cullen MD Start : 27-May-2015 Active Comments: DX: E11.65NPI: [id number] Start: 05-27-2015 Comment on above: DX: E11.65NPI: [id number] ONETOUCH ULTRA BLUE (In Vitro Strip) 1 (one) Strip Strip qd for 0 days Quantity: 30 {Strip} Refills: 6 Ordered: 27-May-2015 Meliza Cullen MD Start : 27-May-2015 Active Comments: DX: E11.65NPI: [id number] Start: 05-27-2015 Comment on above: DX: E11.65NPI: [id number] ONETOUCH ULTRA BLUE (In Vitro Strip) 1 (one) Strip Strip qd for 0 days Quantity: 30 {Strip} Refills: 6 Ordered: 27-May-2015 Meliza Cullen MD Start : 27-May-2015 Active Comments: DX: E11.65NPI: [id number] Start: 05-27-2015 Comment on above: DX: E11.65NPI: [id number] [id number] ONETOUCH ULTRA BLUE (In Vitro Strip) 1 (one) Strip Strip qd for 0 days Quantity: 30 {Strip} Refills: 6 Ordered: 27-May-2015 Meliza Cullen MD Start : 27-May-2015 Active Comments: DX: E11.65NPI: [id number] Start: 05-27-2015 Comment on above: DX: E11.65NPI: [id number] [id number] ONETOUCH ULTRA BLUE (In Vitro Strip) 1 (one) Strip Strip qd for 0 days Quantity: 30 {Strip} Refills: 6 Ordered: 27-May-2015 Meliza Cullen MD Start : 27-May-2015 Active Comments: DX: E11.65NPI: [id number] Start: 05-27-2015 Comment on above: DX: E11.65NPI: [id number] ONETOUCH ULTRA BLUE (In Vitro Strip) 1 (one) Strip Strip qd for 0 days Quantity: 30 {Strip} Refills: 6 Ordered: 27-May-2015 Meliza Cullen MD Start : 27-May-2015 Active Comments: DX: E11.65NPI: [id number] Start: 05-27-2015 Comment on above: DX: E11.65NPI: [id number] [id number] ONETOUCH ULTRA BLUE (In Vitro Strip) 1 (one) Strip Strip qd for 0 days Quantity: 30 {Strip} Refills: 6 Ordered: 27-May-2015 Meliza Cullen MD Start : 27-May-2015 Active Comments: DX: E11.65NPI: [id number] Start: 05-27-2015 Comment on above: DX: E11.65NPI: [id number] ONETOUCH LANCETS (Miscellaneous) 1 (one) Misc Misc qd for 0 days Quantity: 1 {Box} Refills: 3 Ordered: 02-Jun-2015 Meliza Cullen MD Start : 02-Jun-2015 Active Comments: DX: E11.9NPI: [id number] Start: 06-02-2015 Comment on above: DX: E11.9NPI: [id number] [id number] ONETOUCH ULTRA BLUE (In Vitro Strip) 1 (one) Strip Strip qd for 0 days Quantity: 30 {Strip} Refills: 6 Ordered: 27-May-2015 Meliza Cullen MD Start : 27-May-2015 Active Comments: DX: E11.65NPI: [id number] Start: 05-27-2015 Comment on above: DX: E11.65NPI: [id number] [id number] ONETOUCH LANCETS (Miscellaneous) 1 (one) Misc Misc qd for 0 days Quantity: 1 {Box} Refills: 3 Ordered: 02-Jun-2015 Meliza Cullen MD Start : 02-Jun-2015 Active Comments: DX: E11.9NPI: [id number] Start: 06-02-2015 Comment on above: DX: E11.9NPI: [id number] [id number] ONETOUCH ULTRA BLUE (In Vitro Strip) 1 (one) Strip Strip qd for 0 days Quantity: 30 {Strip} Refills: 6 Ordered: 27-May-2015 Meliza Cullen MD Start : 27-May-2015 Active Comments: DX: E11.65NPI: [id number] Start: 05-27-2015 Comment on above: DX: E11.65NPI: [id number] [id number] ONETOUCH LANCETS (Miscellaneous) 1 (one) Misc Misc qd for 0 days Quantity: 1 {Box} Refills: 3 Ordered: 02-Jun-2015 Meliza Cullen MD Start : 02-Jun-2015 Active Comments: DX: E11.9NPI: [id number] Start: 06-02-2015 Comment on above: DX: E11.9NPI: [id number] 0390 ONETOUCH ULTRA BLUE (In Vitro Strip) 1 (one) Strip Strip qd for 0 days Quantity: 30 {Strip} Refills: 6 Ordered: 27-May-2015 Meliza Cullen MD Start : 27-May-2015 Active Comments: DX: E11.65NPI: [id number] Start: 05-27-2015 Comment on above: DX: E11.65NPI: [id number] 61692 ONETOUCH LANCETS (Miscellaneous) 1 (one) Misc Misc qd for 0 days Quantity: 1 {Box} Refills: 3 Ordered: 02-Jun-2015 Meliza Cullen MD Start : 02-Jun-2015 Active Comments: DX: E11.9NPI: [id number] Start: 06-02-2015 Comment on above: DX: E11.9NPI: [id number] 6397 ONETOUCH ULTRA BLUE (In Vitro Strip) 1 (one) Strip Strip qd for 0 days Quantity: 30 {Strip} Refills: 6 Ordered: 27-May-2015 Meliza Cullen MD Start : 27-May-2015 Active Comments: DX: E11.65NPI: [id number] Start: 05-27-2015 Comment on above: DX: E11.65NPI: [id number] ONETOUCH LANCETS (Miscellaneous) 1 (one) Misc Misc qd for 0 days Quantity: 1 {Box} Refills: 3 Ordered: 02-Jun-2015 Meliza Cullen MD Start : 02-Jun-2015 Active Comments: DX: E11.9NPI: [id number] Start: 06-02-2015 Comment on above: DX: E11.9NPI: [id number] [id number] ONETOUCH ULTRA BLUE (In Vitro Strip) 1 (one) Strip Strip qd for 0 days Quantity: 30 {Strip} Refills: 6 Ordered: 27-May-2015 Meliza Cullen MD Start : 27-May-2015 Active Comments: DX: E11.65NPI: [id number] Start: 05-27-2015 Comment on above: DX: E11.65NPI: [id number] ONETOUCH LANCETS (Miscellaneous) 1 (one) Misc Misc qd for 0 days Quantity: 1 {Box} Refills: 3 Ordered: 02-Jun-2015 Meliza Cullen MD Start : 02-Jun-2015 Active Comments: DX: E11.9NPI: [id number] Start: 06-02-2015 Comment on above: DX: E11.9NPI: [id number] ONETOUCH ULTRA BLUE (In Vitro Strip) 1 (one) Strip Strip qd for 0 days Quantity: 30 {Strip} Refills: 6 Ordered: 27-May-2015 Meliza Cullen MD Start : 27-May-2015 Active Comments: DX: E11.65NPI: [id number] Start: 05-27-2015 Comment on above: DX: E11.65NPI: [id number] ONETOUCH LANCETS (Miscellaneous) 1 (one) Misc Misc qd for 0 days Quantity: 1 {Box} Refills: 3 Ordered: 02-Jun-2015 Meliza Cullen MD Start : 02-Jun-2015 Active Comments: DX: E11.9NPI: [id number] Start: 06-02-2015 Comment on above: DX: E11.9NPI: [id number] ONETOUCH ULTRA BLUE (In Vitro Strip) 1 (one) Strip Strip qd for 0 days Quantity: 30 {Strip} Refills: 6 Ordered: 27-May-2015 Meliza Cullen MD Start : 27-May-2015 Active Comments: DX: E11.65NPI: [id number] Start: 05-27-2015 Comment on above: DX: E11.65NPI: [id number] 13553 ONETOUCH LANCETS (Miscellaneous) 1 (one) Misc Misc qd for 0 days Quantity: 1 {Box} Refills: 3 Ordered: 02-Jun-2015 Meliza Cullen MD Start : 02-Jun-2015 Active Comments: DX: E11.9NPI: [id number] Start: 06-02-2015 Comment on above: DX: E11.9NPI: [id number] ONETOUCH ULTRA BLUE (In Vitro Strip) 1 (one) Strip Strip qd for 0 days Quantity: 30 {Strip} Refills: 6 Ordered: 27-May-2015 Meliza Cullen MD Start : 27-May-2015 Active Comments: DX: E11.65NPI: [id number] Start: 05-27-2015 Comment on above: DX: E11.65NPI: [id number] ONETOUCH LANCETS (Miscellaneous) 1 (one) Misc Misc qd for 0 days Quantity: 1 {Box} Refills: 3 Ordered: 02-Jun-2015 Meliza Cullen MD Start : 02-Jun-2015 Active Comments: DX: E11.9NPI: [id number] Start: 06-02-2015 Comment on above: DX: E11.9NPI: [id number] [id number] ONETOUCH ULTRA BLUE (In Vitro Strip) 1 (one) Strip Strip qd for 0 days Quantity: 30 {Strip} Refills: 6 Ordered: 27-May-2015 Meliza Cullen MD Start : 27-May-2015 Active Comments: DX: E11.65NPI: [id number] Start: 05-27-2015 Comment on above: DX: E11.65NPI: [id number] ONETOUCH LANCETS (Miscellaneous) 1 (one) Misc Misc qd for 0 days Quantity: 1 {Box} Refills: 3 Ordered: 02-Jun-2015 Meliza Cullen MD Start : 02-Jun-2015 Active Comments: DX: E11.9NPI: [id number] Start: 06-02-2015 Comment on above: DX: E11.9NPI: [id number] ONETOUCH ULTRA BLUE (In Vitro Strip) 1 (one) Strip Strip qd for 0 days Quantity: 30 {Strip} Refills: 6 Ordered: 27-May-2015 Meliza Cullen MD Start : 27-May-2015 Active Comments: DX: E11.65NPI: [id number] Start: 05-27-2015 Comment on above: DX: E11.65NPI: [id number] ONETOUCH LANCETS (Miscellaneous) 1 (one) Misc Misc qd for 0 days Quantity: 1 {Box} Refills: 3 Ordered: 02-Jun-2015 Meliza Cullen MD Start : 02-Jun-2015 Active Comments: DX: E11.9NPI: [id number] Start: 06-02-2015 Comment on above: DX: E11.9NPI: [id number] ONETOUCH ULTRA BLUE (In Vitro Strip) 1 (one) Strip Strip qd for 0 days Quantity: 30 {Strip} Refills: 6 Ordered: 27-May-2015 Meliza Cullen MD Start : 27-May-2015 Active Comments: DX: E11.65NPI: [id number] Start: 05-27-2015 Comment on above: DX: E11.65NPI: [id number] ONETOUCH LANCETS (Miscellaneous) 1 (one) Misc Misc qd for 0 days Quantity: 1 {Box} Refills: 3 Ordered: 02-Jun-2015 Meliza Cullen MD Start : 02-Jun-2015 Active Comments: DX: E11.9NPI: [id number] Start: 06-02-2015 Comment on above: DX: E11.9NPI: [id number] ONETOUCH ULTRA BLUE (In Vitro Strip) 1 (one) Strip Strip qd for 0 days Quantity: 30 {Strip} Refills: 6 Ordered: 27-May-2015 Meliza Cullen MD Start : 27-May-2015 Active Comments: DX: E11.65NPI: [id number] Start: 05-27-2015 Comment on above: DX: E11.65NPI: [id number] ONETOUCH LANCETS (Miscellaneous) 1 (one) Misc Misc qd for 0 days Quantity: 1 {Box} Refills: 3 Ordered: 02-Jun-2015 Meliza Cullen MD Start : 02-Jun-2015 Active Comments: DX: E11.9NPI: [id number] Start: 06-02-2015 Comment on above: DX: E11.9NPI: [id number] ONETOUCH ULTRA BLUE (In Vitro Strip) 1 (one) Strip Strip qd for 0 days Quantity: 30 {Strip} Refills: 6 Ordered: 27-May-2015 Meliza Cullen MD Start : 27-May-2015 Active Comments: DX: E11.65NPI: [id number] Start: 05-27-2015 Comment on above: DX: E11.65NPI: [id number] ONETOUCH LANCETS (Miscellaneous) 1 (one) Misc Misc qd for 0 days Quantity: 1 {Box} Refills: 3 Ordered: 02-Jun-2015 Meliza Cullen MD Start : 02-Jun-2015 Active Comments: DX: E11.9NPI: [id number] Start: 06-02-2015 Comment on above: DX: E11.9NPI: [id number] ONETOUCH ULTRA BLUE (In Vitro Strip) 1 (one) Strip Strip qd for 0 days Quantity: 30 {Strip} Refills: 6 Ordered: 27-May-2015 Meliza Cullen MD Start : 27-May-2015 Active Comments: DX: E11.65NPI: [id number] Start: 05-27-2015 Comment on above: DX: E11.65NPI: [id number] ONETOUCH LANCETS (Miscellaneous) 1 (one) Misc Misc qd for 0 days Quantity: 1 {Box} Refills: 3 Ordered: 02-Jun-2015 Meliza Cullen MD Start : 02-Jun-2015 Active Comments: DX: E11.9NPI: [id number] Start: 06-02-2015 Comment on above: DX: E11.9NPI: [id number] ONETOUCH ULTRA BLUE (In Vitro Strip) 1 (one) Strip Strip qd for 0 days Quantity: 30 {Strip} Refills: 6 Ordered: 27-May-2015 Meliza Cullen MD Start : 27-May-2015 Active Comments: DX: E11.65NPI: [id number] Start: 05-27-2015 Comment on above: DX: E11.65NPI: [id number] ONETOUCH LANCETS (Miscellaneous) 1 (one) Misc Misc qd for 0 days Quantity: 1 {Box} Refills: 3 Ordered: 02-Jun-2015 Meliza Cullen MD Start : 02-Jun-2015 Active Comments: DX: E11.9NPI: [id number] Start: 06-02-2015 Comment on above: DX: E11.9NPI: [id number] ONETOUCH ULTRA BLUE (In Vitro Strip) 1 (one) Strip Strip qd for 0 days Quantity: 30 {Strip} Refills: 6 Ordered: 27-May-2015 Meliza Cullen MD Start : 27-May-2015 Active Comments: DX: E11.65NPI: [id number] Start: 05-27-2015 Comment on above: DX: E11.65NPI: [id number] Clinical Notes Note Date & Type Note Facility Evaluation note No assessment information [facility] Work Phone: Instructions Name Patient Instructions Indication:Foot pain, bilateral Start:22-Sep-19 Instruction Type:Provider Instructions for Treatment How to Access Health Information Online using Patient Portal and 3rd [employer] Apps Indication:BMI 36.0-36.9,adult Start:22-Sep-19 Instruction Type:Patient Education How to access health information online Indication:Diabetes mellitus type II, controlled, with no complications (Renamed from Controlled type 2 diabetes mellitus without complication) Start:24-Dec-19 Instruction Type:Patient Education How to access health information online - Detail Indication:Diabetes mellitus type II, controlled, with no complications (Renamed from Controlled type 2 diabetes mellitus without complication) Start:24-Dec-19 Instruction Type:Patient Education Patient Instructions Indication:Nonsmoker Start:24-Dec-19 Instruction Type:Provider Instructions for Treatment How to access health information online Indication:Diabetes mellitus type II, controlled, with no complications (Renamed from Controlled type 2 diabetes mellitus without complication) Start:08-Nov-19 Instruction Type:Patient Education How to access health information online - Detail Indication:Diabetes mellitus type II, controlled, with no complications (Renamed from Controlled type 2 diabetes mellitus without complication) Start:08-Nov-19 Instruction Type:Patient Education Patient Instructions Indication:Skin mole Start:08-Nov-19 Instruction Type:Provider Instructions for Treatment How to access health information online Indication:Nonsmoker Start:06-Dec-19 Instruction Type:Patient Education How to access health information online - Detail Indication:Nonsmoker Start:06-Dec-19 Instruction Type:Patient Education Patient Instructions Indication:BMI 37.0-37.9, adult Start:06-Dec-19 Instruction Type:Provider Instructions for Treatment How to access health information online Indication:Nonsmoker Start:25-Nov-19 Instruction Type:Patient Education How to access health information online - Detail Indication:Nonsmoker Start:25-Nov-19 Instruction Type:Patient Education Patient Instructions Indication:Nonsmoker Start:25-Nov-19 Instruction Type:Provider Instructions for Treatment How to access health information online Indication:Right knee pain Start:20-Aug-19 Instruction Type:Patient Education How to access health information online - Detail Indication:Right knee pain Start:20-Aug-19 Instruction Type:Patient Education Patient Instructions Indication:Right knee pain Start:20-Aug-19 Instruction Type:Provider Instructions for Treatment How to access health information online Indication:Diabetes mellitus type 2, uncontrolled (Renamed from Uncontrolled type 2 diabetes mellitus) Start: Instruction Type:Patient Education How to access health information online - Detail Indication:Diabetes mellitus type 2, uncontrolled (Renamed from Uncontrolled type 2 diabetes mellitus) Start: Instruction Type:Patient Education Patient Instructions Indication:Diabetes mellitus type 2, uncontrolled (Renamed from Uncontrolled type 2 diabetes mellitus) Start: Instruction Type:Provider Instructions for Treatment How to access health information online Indication:Diabetes mellitus type 2, uncontrolled (Renamed from Uncontrolled type 2 diabetes mellitus) Start:24-Jun-19 Instruction Type:Patient Education How to access health information online - Detail Indication:Diabetes mellitus type 2, uncontrolled (Renamed from Uncontrolled type 2 diabetes mellitus) Start:24-Jun-19 Instruction Type:Patient Education Patient Instructions Indication:Diabetes mellitus type 2, uncontrolled (Renamed from Uncontrolled type 2 diabetes mellitus) Start:24-Jun-19 Instruction Type:Provider Instructions for Treatment Patient Instructions Indication:Diabetes mellitus type 2, uncontrolled (Renamed from Uncontrolled type 2 diabetes mellitus) Start:26-May-19 Instruction Type:Provider Instructions for Treatment How to access health information online Indication:Hypertensive heart disease Start:30-Jan-20 14 Instruction Type:Patient Education How to access health information online - Detail Indication:Hypertensive heart disease Start:30-Jan-20 Instruction Type:Patient Education Patient Instructions Indication:Hypertensive heart disease Start:30-Jan-20 14 Instruction Type:Provider Instructions for Treatment How to access health information online Indication:Hypertensive heart disease Start: Instruction Type:Patient Education How to access health information online - Detail Indication:Hypertensive heart disease Start: 4 Instruction Type:Patient Education Patient Instructions Indication:Hypertensive heart disease Start: 4 Instruction Type:Provider Instructions for Treatment How to access health information online Indication:Skin tag Start:28-Dec-19 Instruction Type:Patient Education How to access health information online - Detail Indication:Skin tag Start:28-Dec-19 Instruction Type:Patient Education Patient Instructions: sched an appt to remove skin tags Indication:Skin tag Start:28-Dec-19 14 Instruction Type:Provider Instructions for Treatment Patient Instructions Indication:Leg swelling Start:07-Sep-19 14 Instruction Type:Provider Instructions for Treatment Patient Instructions Indication:Hypertensive heart disease Start:22-Mar-20 13 Instruction Type:Provider Instructions for Treatment Patient Instructions Indication:Pre-operative examination Start: 3 Instruction Type:Provider Instructions for Treatment Patient Instructions Indication:Hypertensive heart disease Start: 2 Instruction Type:Provider Instructions for Treatment [facility] Work Phone: Instructions* Name Dates Details Patient Instructions Indication:Foot pain, bilateral Start:21-Sep-2020 Instruction Type:Provider Instructions for Treatment How to Access Health Informa tion Online using Patient Portal and [employer]rd [employer] Apps Indication:BMI 36.0-36.9,adult Start:21-Sep-2020 Instruction Type:Patient Education How to access health informa tion online Indication:Diabetes mellitus type II, controlled, with no complications (Renamed from Controlled type 2 diabetes mellitus without complication) Start:24-Dec-2019 Instruction Type:Patient Education How to access health informa tion online - Detail Indication:Diabetes mellitus type II, controlled, with no complications (Renamed from Controlled type 2 diabetes mellitus without complication) Start:24-Dec-2019 Instruction Type:Patient Education Patient Instructions Indication:Nonsmoker Start:24-Dec-2019 Instruction Type:Provider Instructions for Treatment How to access health informa tion online Indication:Diabetes mellitus type II, controlled, with no complications (Renamed from Controlled type 2 diabetes mellitus without complication) Start:07-Nov-2018 Instruction Type:Patient Education How to access health informa tion online - Detail Indication:Diabetes mellitus type II, controlled, with no complications (Renamed from Controlled type 2 diabetes mellitus without complication) Start:07-Nov-2018 Instruction Type:Patient Education Patient Instructions Indication:Skin mole Start:07-Nov-2018 Instruction Type:Provider Instructions for Treatment How to access health informa tion online Indication:Nonsmoker Start:05-Dec-2017 Instruction Type:Patient Education How to access health informa tion online - Detail Indication:Nonsmoker Start:05-Dec-2017 Instruction Type:Patient Education Patient Instructions Indication:BMI 37.0-37.9, adult Start:05-Dec-2017 Instruction Type:Provider Instructions for Treatment How to access health informa tion online Indication:Nonsmoker Start:24-Nov-2017 Instruction Type:Patient Education How to access health informa tion online - Detail Indication:Nonsmoker Start:24-Nov-2017 Instruction Type:Patient Education Patient Instructions Indication:Nonsmoker Start:24-Nov-2017 Instruction Type:Provider Instructions for Treatment How to access health informa tion online Indication:Right knee pain Start:19-Aug-2016 Instruction Type:Patient Education How to access health informa tion online - Detail Indication:Right knee pain Start:19-Aug-2016 Instruction Type:Patient Education Patient Instructions Indication:Right knee pain Start:19-Aug-2016 Instruction Type:Provider Instructions for Treatment How to access health informa tion online Indication:Diabetes mellitus type 2, uncontrolled (Renamed from Uncontrolled type 2 diabetes mellitus) Start:15-Jun-2016 Instruction Type:Patient Education How to access health informa tion online - Detail Indication:Diabetes mellitus type 2, uncontrolled (Renamed from Uncontrolled type 2 diabetes mellitus) Start:15-Jun-2016 Instruction Type:Patient Education Patient Instructions Indication:Diabetes mellitus type 2, uncontrolled (Renamed from Uncontrolled type 2 diabetes mellitus) Start:15-Jun-2016 Instruction Type:Provider Instructions for Treatment How to access health informa tion online Indication:Diabetes mellitus type 2, uncontrolled (Renamed from Uncontrolled type 2 diabetes mellitus) Start:24-Jun-2015 Instruction Type:Patient Education How to access health informa tion online - Detail Indication:Diabetes mellitus type 2, uncontrolled (Renamed from Uncontrolled type 2 diabetes mellitus) Start:24-Jun-2015 Instruction Type:Patient Education Patient Instructions Indication:Diabetes mellitus type 2, uncontrolled (Renamed from Uncontrolled type 2 diabetes mellitus) Start:24-Jun-2015 Instruction Type:Provider Instructions for Treatment Patient Instructions Indication:Diabetes mellitus type 2, uncontrolled (Renamed from Uncontrolled type 2 diabetes mellitus) Start:26-May-2015 Instruction Type:Provider Instructions for Treatment How to access health informa tion online Indication:Hypertensive heart disease Start:29-Jan-2014 Instruction Type:Patient Education How to access health informa tion online - Detail Indication:Hypertensive heart disease Start:29-Jan-2014 Instruction Type:Patient Education Patient Instructions Indication:Hypertensive heart disease Start:29-Jan-2014 Instruction Type:Provider Instructions for Treatment How to access health informa tion online Indication:Hypertensive heart disease Start:08-Jan-2014 Instruction Type:Patient Education How to access health informa tion online - Detail Indication:Hypertensive heart disease Start:08-Jan-2014 Instruction Type:Patient Education Patient Instructions Indication:Hypertensive heart disease Start:08-Jan-2014 Instruction Type:Provider Instructions for Treatment How to access health informa tion online Indication:Skin tag Start:27-Dec-2013 Instruction Type:Patient Education How to access health informa tion online - Detail Indication:Skin tag Start:27-Dec-2013 Instruction Type:Patient Education Patient Instructions: sched an appt to remove skin tags Indication:Skin tag Start:27-Dec-2013 Instruction Type:Provider Instructions for Treatment Patient Instructions Indication:Leg swelling Start:06-Sep-2013 Instruction Type:Provider Instructions for Treatment Patient Instructions Indication:Hypertensive heart disease Start:22-Mar-2013 Instruction Type:Provider Instructions for Treatment Patient Instructions Indication:Pre-operative examination Start:13-Apr-2012 Instruction Type:Provider Instructions for Treatment Patient Instructions Indication:Hypertensive heart disease Start:16-Dec-2011 Instruction Type:Provider Instructions for Treatment [facility]; [facility] Work Phone: Instructions* Name Dates Details How to access health informa tion online Indication:Diabetes mellitus type II, controlled, with no complications (Renamed from Controlled type 2 diabetes mellitus without complication) Start:24-Dec-2019 Instruction Type:Patient Education How to access health informa tion online - Detail Indication:Diabetes mellitus type II, controlled, with no complications (Renamed from Controlled type 2 diabetes mellitus without complication) Start:24-Dec-2019 Instruction Type:Patient Education Patient Instructions Indication:Nonsmoker Start:24-Dec-2019 Instruction Type:Provider Instructions for Treatment How to access health informa tion online Indication:Diabetes mellitus type II, controlled, with no complications (Renamed from Controlled type 2 diabetes mellitus without complication) Start:07-Nov-2018 Instruction Type:Patient Education How to access health informa tion online - Detail Indication:Diabetes mellitus type II, controlled, with no complications (Renamed from Controlled type 2 diabetes mellitus without complication) Start:07-Nov-2018 Instruction Type:Patient Education Patient Instructions Indication:Skin mole Start:07-Nov-2018 Instruction Type:Provider Instructions for Treatment How to access health informa tion online Indication:Nonsmoker Start:05-Dec-2017 Instruction Type:Patient Education How to access health informa tion online - Detail Indication:Nonsmoker Start:05-Dec-2017 Instruction Type:Patient Education Patient Instructions Indication:BMI 37.0-37.9, adult Start:05-Dec-2017 Instruction Type:Provider Instructions for Treatment How to access health informa tion online Indication:Nonsmoker Start:24-Nov-2017 Instruction Type:Patient Education How to access health informa tion online - Detail Indication:Nonsmoker Start:24-Nov-2017 Instruction Type:Patient Education Patient Instructions Indication:Nonsmoker Start:24-Nov-2017 Instruction Type:Provider Instructions for Treatment How to access health informa tion online Indication:Right knee pain Start:19-Aug-2016 Instruction Type:Patient Education How to access health informa tion online - Detail Indication:Right knee pain Start:19-Aug-2016 Instruction Type:Patient Education Patient Instructions Indication:Right knee pain Start:19-Aug-2016 Instruction Type:Provider Instructions for Treatment How to access health informa tion online Indication:Diabetes mellitus type 2, uncontrolled (Renamed from Uncontrolled type 2 diabetes mellitus) Start:15-Jun-2016 Instruction Type:Patient Education How to access health informa tion online - Detail Indication:Diabetes mellitus type 2, uncontrolled (Renamed from Uncontrolled type 2 diabetes mellitus) Start:15-Jun-2016 Instruction Type:Patient Education Patient Instructions Indication:Diabetes mellitus type 2, uncontrolled (Renamed from Uncontrolled type 2 diabetes mellitus) Start:15-Jun-2016 Instruction Type:Provider Instructions for Treatment How to access health informa tion online Indication:Diabetes mellitus type 2, uncontrolled (Renamed from Uncontrolled type 2 diabetes mellitus) Start:24-Jun-2015 Instruction Type:Patient Education How to access health informa tion online - Detail Indication:Diabetes mellitus type 2, uncontrolled (Renamed from Uncontrolled type 2 diabetes mellitus) Start:24-Jun-2015 Instruction Type:Patient Education Patient Instructions Indication:Diabetes mellitus type 2, uncontrolled (Renamed from Uncontrolled type 2 diabetes mellitus) Start:24-Jun-2015 Instruction Type:Provider Instructions for Treatment Patient Instructions Indication:Diabetes mellitus type 2, uncontrolled (Renamed from Uncontrolled type 2 diabetes mellitus) Start:26-May-2015 Instruction Type:Provider Instructions for Treatment How to access health informa tion online Indication:Hypertensive heart disease Start:29-Jan-2014 Instruction Type:Patient Education How to access health informa tion online - Detail Indication:Hypertensive heart disease Start:29-Jan-2014 Instruction Type:Patient Education Patient Instructions Indication:Hypertensive heart disease Start:29-Jan-2014 Instruction Type:Provider Instructions for Treatment How to access health informa tion online Indication:Hypertensive heart disease Start:08-Jan-2014 Instruction Type:Patient Education How to access health informa tion online - Detail Indication:Hypertensive heart disease Start:08-Jan-2014 Instruction Type:Patient Education Patient Instructions Indication:Hypertensive heart disease Start:08-Jan-2014 Instruction Type:Provider Instructions for Treatment How to access health informa tion online Indication:Skin tag Start:27-Dec-2013 Instruction Type:Patient Education How to access health informa tion online - Detail Indication:Skin tag Start:27-Dec-2013 Instruction Type:Patient Education Patient Instructions: sched an appt to remove skin tags Indication:Skin tag Start:27-Dec-2013 Instruction Type:Provider Instructions for Treatment Patient Instructions Indication:Leg swelling Start:06-Sep-2013 Instruction Type:Provider Instructions for Treatment Patient Instructions Indication:Hypertensive heart disease Start:22-Mar-2013 Instruction Type:Provider Instructions for Treatment Patient Instructions Indication:Pre-operative examination Start:13-Apr-2012 Instruction Type:Provider Instructions for Treatment Patient Instructions Indication:Hypertensive heart disease Start:16-Dec-2011 Instruction Type:Provider Instructions for Treatment [facility] Work Phone: Instructions* Name Dates Details Patient Instructions Indication:Foot pain, bilateral Start:21-Sep-2020 Instruction Type:Provider Instructions for Treatment How to Access Health Informa tion Online using Patient Portal and [employer]rd [employer] Apps Indication:BMI 36.0-36.9,adult Start:21-Sep-2020 Instruction Type:Patient Education How to access health informa tion online Indication:Diabetes mellitus type II, controlled, with no complications (Renamed from Controlled type 2 diabetes mellitus without complication) Start:24-Dec-2019 Instruction Type:Patient Education How to access health informa tion online - Detail Indication:Diabetes mellitus type II, controlled, with no complications (Renamed from Controlled type 2 diabetes mellitus without complication) Start:24-Dec-2019 Instruction Type:Patient Education Patient Instructions Indication:Nonsmoker Start:24-Dec-2019 Instruction Type:Provider Instructions for Treatment How to access health informa tion online Indication:Diabetes mellitus type II, controlled, with no complications (Renamed from Controlled type 2 diabetes mellitus without complication) Start:07-Nov-2018 Instruction Type:Patient Education How to access health informa tion online - Detail Indication:Diabetes mellitus type II, controlled, with no complications (Renamed from Controlled type 2 diabetes mellitus without complication) Start:07-Nov-2018 Instruction Type:Patient Education Patient Instructions Indication:Skin mole Start:07-Nov-2018 Instruction Type:Provider Instructions for Treatment How to access health informa tion online Indication:Nonsmoker Start:05-Dec-2017 Instruction Type:Patient Education How to access health informa tion online - Detail Indication:Nonsmoker Start:05-Dec-2017 Instruction Type:Patient Education Patient Instructions Indication:BMI 37.0-37.9, adult Start:05-Dec-2017 Instruction Type:Provider Instructions for Treatment How to access health informa tion online Indication:Nonsmoker Start:24-Nov-2017 Instruction Type:Patient Education How to access health informa tion online - Detail Indication:Nonsmoker Start:24-Nov-2017 Instruction Type:Patient Education Patient Instructions Indication:Nonsmoker Start:24-Nov-2017 Instruction Type:Provider Instructions for Treatment How to access health informa tion online Indication:Right knee pain Start:19-Aug-2016 Instruction Type:Patient Education How to access health informa tion online - Detail Indication:Right knee pain Start:19-Aug-2016 Instruction Type:Patient Education Patient Instructions Indication:Right knee pain Start:19-Aug-2016 Instruction Type:Provider Instructions for Treatment How to access health informa tion online Indication:Diabetes mellitus type 2, uncontrolled (Renamed from Uncontrolled type 2 diabetes mellitus) Start:15-Jun-2016 Instruction Type:Patient Education How to access health informa tion online - Detail Indication:Diabetes mellitus type 2, uncontrolled (Renamed from Uncontrolled type 2 diabetes mellitus) Start:15-Jun-2016 Instruction Type:Patient Education Patient Instructions Indication:Diabetes mellitus type 2, uncontrolled (Renamed from Uncontrolled type 2 diabetes mellitus) Start:15-Jun-2016 Instruction Type:Provider Instructions for Treatment How to access health informa tion online Indication:Diabetes mellitus type 2, uncontrolled (Renamed from Uncontrolled type 2 diabetes mellitus) Start:24-Jun-2015 Instruction Type:Patient Education How to access health informa tion online - Detail Indication:Diabetes mellitus type 2, uncontrolled (Renamed from Uncontrolled type 2 diabetes mellitus) Start:24-Jun-2015 Instruction Type:Patient Education Patient Instructions Indication:Diabetes mellitus type 2, uncontrolled (Renamed from Uncontrolled type 2 diabetes mellitus) Start:24-Jun-2015 Instruction Type:Provider Instructions for Treatment Patient Instructions Indication:Diabetes mellitus type 2, uncontrolled (Renamed from Uncontrolled type 2 diabetes mellitus) Start:26-May-2015 Instruction Type:Provider Instructions for Treatment How to access health informa tion online Indication:Hypertensive heart disease Start:29-Jan-2014 Instruction Type:Patient Education How to access health informa tion online - Detail Indication:Hypertensive heart disease Start:29-Jan-2014 Instruction Type:Patient Education Patient Instructions Indication:Hypertensive heart disease Start:29-Jan-2014 Instruction Type:Provider Instructions for Treatment How to access health informa tion online Indication:Hypertensive heart disease Start:08-Jan-2014 Instruction Type:Patient Education How to access health informa tion online - Detail Indication:Hypertensive heart disease Start:08-Jan-2014 Instruction Type:Patient Education Patient Instructions Indication:Hypertensive heart disease Start:08-Jan-2014 Instruction Type:Provider Instructions for Treatment How to access health informa tion online Indication:Skin tag Start:27-Dec-2013 Instruction Type:Patient Education How to access health informa tion online - Detail Indication:Skin tag Start:27-Dec-2013 Instruction Type:Patient Education Patient Instructions: sched an appt to remove skin tags Indication:Skin tag Start:27-Dec-2013 Instruction Type:Provider Instructions for Treatment Patient Instructions Indication:Leg swelling Start:06-Sep-2013 Instruction Type:Provider Instructions for Treatment Patient Instructions Indication:Hypertensive heart disease Start:22-Mar-2013 Instruction Type:Provider Instructions for Treatment Patient Instructions Indication:Pre-operative examination Start:13-Apr-2012 Instruction Type:Provider Instructions for Treatment Patient Instructions Indication:Hypertensive heart disease Start:16-Dec-2011 Instruction Type:Provider Instructions for Treatment [facility] Work Phone: Instructions* Name Dates Details Patient Instructions Indication:Foot pain, bilateral Start:21-Sep-2020 Instruction Type:Provider Instructions for Treatment How to Access Health Informa tion Online using Patient Portal and [employer]rd [employer] Apps Indication:BMI 36.0-36.9,adult Start:21-Sep-2020 Instruction Type:Patient Education How to access health informa tion online Indication:Diabetes mellitus type II, controlled, with no complications (Renamed from Controlled type 2 diabetes mellitus without complication) Start:24-Dec-2019 Instruction Type:Patient Education How to access health informa tion online - Detail Indication:Diabetes mellitus type II, controlled, with no complications (Renamed from Controlled type 2 diabetes mellitus without complication) Start:24-Dec-2019 Instruction Type:Patient Education Patient Instructions Indication:Nonsmoker Start:24-Dec-2019 Instruction Type:Provider Instructions for Treatment How to access health informa tion online Indication:Diabetes mellitus type II, controlled, with no complications (Renamed from Controlled type 2 diabetes mellitus without complication) Start:07-Nov-2018 Instruction Type:Patient Education How to access health informa tion online - Detail Indication:Diabetes mellitus type II, controlled, with no complications (Renamed from Controlled type 2 diabetes mellitus without complication) Start:07-Nov-2018 Instruction Type:Patient Education Patient Instructions Indication:Skin mole Start:07-Nov-2018 Instruction Type:Provider Instructions for Treatment How to access health informa tion online Indication:Nonsmoker Start:05-Dec-2017 Instruction Type:Patient Education How to access health informa tion online - Detail Indication:Nonsmoker Start:05-Dec-2017 Instruction Type:Patient Education Patient Instructions Indication:BMI 37.0-37.9, adult Start:05-Dec-2017 Instruction Type:Provider Instructions for Treatment How to access health informa tion online Indication:Nonsmoker Start:24-Nov-2017 Instruction Type:Patient Education How to access health informa tion online - Detail Indication:Nonsmoker Start:24-Nov-2017 Instruction Type:Patient Education Patient Instructions Indication:Nonsmoker Start:24-Nov-2017 Instruction Type:Provider Instructions for Treatment How to access health informa tion online Indication:Right knee pain Start:19-Aug-2016 Instruction Type:Patient Education How to access health informa tion online - Detail Indication:Right knee pain Start:19-Aug-2016 Instruction Type:Patient Education Patient Instructions Indication:Right knee pain Start:19-Aug-2016 Instruction Type:Provider Instructions for Treatment How to access health informa tion online Indication:Diabetes mellitus type 2, uncontrolled (Renamed from Uncontrolled type 2 diabetes mellitus) Start:15-Jun-2016 Instruction Type:Patient Education How to access health informa tion online - Detail Indication:Diabetes mellitus type 2, uncontrolled (Renamed from Uncontrolled type 2 diabetes mellitus) Start:15-Jun-2016 Instruction Type:Patient Education Patient Instructions Indication:Diabetes mellitus type 2, uncontrolled (Renamed from Uncontrolled type 2 diabetes mellitus) Start:15-Jun-2016 Instruction Type:Provider Instructions for Treatment How to access health informa tion online Indication:Diabetes mellitus type 2, uncontrolled (Renamed from Uncontrolled type 2 diabetes mellitus) Start:24-Jun-2015 Instruction Type:Patient Education How to access health informa tion online - Detail Indication:Diabetes mellitus type 2, uncontrolled (Renamed from Uncontrolled type 2 diabetes mellitus) Start:24-Jun-2015 Instruction Type:Patient Education Patient Instructions Indication:Diabetes mellitus type 2, uncontrolled (Renamed from Uncontrolled type 2 diabetes mellitus) Start:24-Jun-2015 Instruction Type:Provider Instructions for Treatment Patient Instructions Indication:Diabetes mellitus type 2, uncontrolled (Renamed from Uncontrolled type 2 diabetes mellitus) Start:26-May-2015 Instruction Type:Provider Instructions for Treatment How to access health informa tion online Indication:Hypertensive heart disease Start:29-Jan-2014 Instruction Type:Patient Education How to access health informa tion online - Detail Indication:Hypertensive heart disease Start:29-Jan-2014 Instruction Type:Patient Education Patient Instructions Indication:Hypertensive heart disease Start:29-Jan-2014 Instruction Type:Provider Instructions for Treatment How to access health informa tion online Indication:Hypertensive heart disease Start:08-Jan-2014 Instruction Type:Patient Education How to access health informa tion online - Detail Indication:Hypertensive heart disease Start:08-Jan-2014 Instruction Type:Patient Education Patient Instructions Indication:Hypertensive heart disease Start:08-Jan-2014 Instruction Type:Provider Instructions for Treatment How to access health informa tion online Indication:Skin tag Start:27-Dec-2013 Instruction Type:Patient Education How to access health informa tion online - Detail Indication:Skin tag Start:27-Dec-2013 Instruction Type:Patient Education Patient Instructions: sched an appt to remove skin tags Indication:Skin tag Start:27-Dec-2013 Instruction Type:Provider Instructions for Treatment Patient Instructions Indication:Leg swelling Start:06-Sep-2013 Instruction Type:Provider Instructions for Treatment Patient Instructions Indication:Hypertensive heart disease Start:22-Mar-2013 Instruction Type:Provider Instructions for Treatment Patient Instructions Indication:Pre-operative examination Start:13-Apr-2012 Instruction Type:Provider Instructions for Treatment Patient Instructions Indication:Hypertensive heart disease Start:16-Dec-2011 Instruction Type:Provider Instructions for Treatment [facility] Work Phone: Instructions* Name Dates Details Patient Instructions Indication:Foot pain, bilateral Start:21-Sep-2020 Instruction Type:Provider Instructions for Treatment How to Access Health Informa tion Online using Patient Portal and [employer] Apps Indication:BMI 36.0-36.9,adult Start:21-Sep-2020 Instruction Type:Patient Education How to access health informa tion online Indication:Diabetes mellitus type II, controlled, with no complications (Renamed from Controlled type 2 diabetes mellitus without complication) Start:24-Dec-2019 Instruction Type:Patient Education How to access health informa tion online - Detail Indication:Diabetes mellitus type II, controlled, with no complications (Renamed from Controlled type 2 diabetes mellitus without complication) Start:24-Dec-2019 Instruction Type:Patient Education Patient Instructions Indication:Nonsmoker Start:24-Dec-2019 Instruction Type:Provider Instructions for Treatment How to access health informa tion online Indication:Diabetes mellitus type II, controlled, with no complications (Renamed from Controlled type 2 diabetes mellitus without complication) Start:07-Nov-2018 Instruction Type:Patient Education How to access health informa tion online - Detail Indication:Diabetes mellitus type II, controlled, with no complications (Renamed from Controlled type 2 diabetes mellitus without complication) Start:07-Nov-2018 Instruction Type:Patient Education Patient Instructions Indication:Skin mole Start:07-Nov-2018 Instruction Type:Provider Instructions for Treatment How to access health informa tion online Indication:Nonsmoker Start:05-Dec-2017 Instruction Type:Patient Education How to access health informa tion online - Detail Indication:Nonsmoker Start:05-Dec-2017 Instruction Type:Patient Education Patient Instructions Indication:BMI 37.0-37.9, adult Start:05-Dec-2017 Instruction Type:Provider Instructions for Treatment How to access health informa tion online Indication:Nonsmoker Start:24-Nov-2017 Instruction Type:Patient Education How to access health informa tion online - Detail Indication:Nonsmoker Start:24-Nov-2017 Instruction Type:Patient Education Patient Instructions Indication:Nonsmoker Start:24-Nov-2017 Instruction Type:Provider Instructions for Treatment How to access health informa tion online Indication:Right knee pain Start:19-Aug-2016 Instruction Type:Patient Education How to access health informa tion online - Detail Indication:Right knee pain Start:19-Aug-2016 Instruction Type:Patient Education Patient Instructions Indication:Right knee pain Start:19-Aug-2016 Instruction Type:Provider Instructions for Treatment How to access health informa tion online Indication:Diabetes mellitus type 2, uncontrolled (Renamed from Uncontrolled type 2 diabetes mellitus) Start:15-Jun-2016 Instruction Type:Patient Education How to access health informa tion online - Detail Indication:Diabetes mellitus type 2, uncontrolled (Renamed from Uncontrolled type 2 diabetes mellitus) Start:15-Jun-2016 Instruction Type:Patient Education Patient Instructions Indication:Diabetes mellitus type 2, uncontrolled (Renamed from Uncontrolled type 2 diabetes mellitus) Start:15-Jun-2016 Instruction Type:Provider Instructions for Treatment How to access health informa tion online Indication:Diabetes mellitus type 2, uncontrolled (Renamed from Uncontrolled type 2 diabetes mellitus) Start:24-Jun-2015 Instruction Type:Patient Education How to access health informa tion online - Detail Indication:Diabetes mellitus type 2, uncontrolled (Renamed from Uncontrolled type 2 diabetes mellitus) Start:24-Jun-2015 Instruction Type:Patient Education Patient Instructions Indication:Diabetes mellitus type 2, uncontrolled (Renamed from Uncontrolled type 2 diabetes mellitus) Start:24-Jun-2015 Instruction Type:Provider Instructions for Treatment Patient Instructions Indication:Diabetes mellitus type 2, uncontrolled (Renamed from Uncontrolled type 2 diabetes mellitus) Start:26-May-2015 Instruction Type:Provider Instructions for Treatment How to access health informa tion online Indication:Hypertensive heart disease Start:29-Jan-2014 Instruction Type:Patient Education How to access health informa tion online - Detail Indication:Hypertensive heart disease Start:29-Jan-2014 Instruction Type:Patient Education Patient Instructions Indication:Hypertensive heart disease Start:29-Jan-2014 Instruction Type:Provider Instructions for Treatment How to access health informa tion online Indication:Hypertensive heart disease Start:08-Jan-2014 Instruction Type:Patient Education How to access health informa tion online - Detail Indication:Hypertensive heart disease Start:08-Jan-2014 Instruction Type:Patient Education Patient Instructions Indication:Hypertensive heart disease Start:08-Jan-2014 Instruction Type:Provider Instructions for Treatment How to access health informa tion online Indication:Skin tag Start:27-Dec-2013 Instruction Type:Patient Education How to access health informa tion online - Detail Indication:Skin tag Start:27-Dec-2013 Instruction Type:Patient Education Patient Instructions: sched an appt to remove skin tags Indication:Skin tag Start:27-Dec-2013 Instruction Type:Provider Instructions for Treatment Patient Instructions Indication:Leg swelling Start:06-Sep-2013 Instruction Type:Provider Instructions for Treatment Patient Instructions Indication:Hypertensive heart disease Start:22-Mar-2013 Instruction Type:Provider Instructions for Treatment Patient Instructions Indication:Pre-operative examination Start:13-Apr-2012 Instruction Type:Provider Instructions for Treatment Patient Instructions Indication:Hypertensive heart disease Start:16-Dec-2011 Instruction Type:Provider Instructions for Treatment [facility] Work Phone: Instructions* Name Dates Details Patient Instructions Indication:Foot pain, bilateral Start:21-Sep-2020 Instruction Type:Provider Instructions for Treatment How to Access Health Informa tion Online using Patient Portal and [employer]rd [employer] Apps Indication:BMI 36.0-36.9,adult Start:21-Sep-2020 Instruction Type:Patient Education How to access health informa tion online Indication:Diabetes mellitus type II, controlled, with no complications (Renamed from Controlled type 2 diabetes mellitus without complication) Start:24-Dec-2019 Instruction Type:Patient Education How to access health informa tion online - Detail Indication:Diabetes mellitus type II, controlled, with no complications (Renamed from Controlled type 2 diabetes mellitus without complication) Start:24-Dec-2019 Instruction Type:Patient Education Patient Instructions Indication:Nonsmoker Start:24-Dec-2019 Instruction Type:Provider Instructions for Treatment How to access health informa tion online Indication:Diabetes mellitus type II, controlled, with no complications (Renamed from Controlled type 2 diabetes mellitus without complication) Start:07-Nov-2018 Instruction Type:Patient Education How to access health informa tion online - Detail Indication:Diabetes mellitus type II, controlled, with no complications (Renamed from Controlled type 2 diabetes mellitus without complication) Start:07-Nov-2018 Instruction Type:Patient Education Patient Instructions Indication:Skin mole Start:07-Nov-2018 Instruction Type:Provider Instructions for Treatment How to access health informa tion online Indication:Nonsmoker Start:05-Dec-2017 Instruction Type:Patient Education How to access health informa tion online - Detail Indication:Nonsmoker Start:05-Dec-2017 Instruction Type:Patient Education Patient Instructions Indication:BMI 37.0-37.9, adult Start:05-Dec-2017 Instruction Type:Provider Instructions for Treatment How to access health informa tion online Indication:Nonsmoker Start:24-Nov-2017 Instruction Type:Patient Education How to access health informa tion online - Detail Indication:Nonsmoker Start:24-Nov-2017 Instruction Type:Patient Education Patient Instructions Indication:Nonsmoker Start:24-Nov-2017 Instruction Type:Provider Instructions for Treatment How to access health informa tion online Indication:Right knee pain Start:19-Aug-2016 Instruction Type:Patient Education How to access health informa tion online - Detail Indication:Right knee pain Start:19-Aug-2016 Instruction Type:Patient Education Patient Instructions Indication:Right knee pain Start:19-Aug-2016 Instruction Type:Provider Instructions for Treatment How to access health informa tion online Indication:Diabetes mellitus type 2, uncontrolled (Renamed from Uncontrolled type 2 diabetes mellitus) Start:15-Jun-2016 Instruction Type:Patient Education How to access health informa tion online - Detail Indication:Diabetes mellitus type 2, uncontrolled (Renamed from Uncontrolled type 2 diabetes mellitus) Start:15-Jun-2016 Instruction Type:Patient Education Patient Instructions Indication:Diabetes mellitus type 2, uncontrolled (Renamed from Uncontrolled type 2 diabetes mellitus) Start:15-Jun-2016 Instruction Type:Provider Instructions for Treatment How to access health informa tion online Indication:Diabetes mellitus type 2, uncontrolled (Renamed from Uncontrolled type 2 diabetes mellitus) Start:24-Jun-2015 Instruction Type:Patient Education How to access health informa tion online - Detail Indication:Diabetes mellitus type 2, uncontrolled (Renamed from Uncontrolled type 2 diabetes mellitus) Start:24-Jun-2015 Instruction Type:Patient Education Patient Instructions Indication:Diabetes mellitus type 2, uncontrolled (Renamed from Uncontrolled type 2 diabetes mellitus) Start:24-Jun-2015 Instruction Type:Provider Instructions for Treatment Patient Instructions Indication:Diabetes mellitus type 2, uncontrolled (Renamed from Uncontrolled type 2 diabetes mellitus) Start:26-May-2015 Instruction Type:Provider Instructions for Treatment How to access health informa tion online Indication:Hypertensive heart disease Start:29-Jan-2014 Instruction Type:Patient Education How to access health informa tion online - Detail Indication:Hypertensive heart disease Start:29-Jan-2014 Instruction Type:Patient Education Patient Instructions Indication:Hypertensive heart disease Start:29-Jan-2014 Instruction Type:Provider Instructions for Treatment How to access health informa tion online Indication:Hypertensive heart disease Start:08-Jan-2014 Instruction Type:Patient Education How to access health informa tion online - Detail Indication:Hypertensive heart disease Start:08-Jan-2014 Instruction Type:Patient Education Patient Instructions Indication:Hypertensive heart disease Start:08-Jan-2014 Instruction Type:Provider Instructions for Treatment How to access health informa tion online Indication:Skin tag Start:27-Dec-2013 Instruction Type:Patient Education How to access health informa tion online - Detail Indication:Skin tag Start:27-Dec-2013 Instruction Type:Patient Education Patient Instructions: sched an appt to remove skin tags Indication:Skin tag Start:27-Dec-2013 Instruction Type:Provider Instructions for Treatment Patient Instructions Indication:Leg swelling Start:06-Sep-2013 Instruction Type:Provider Instructions for Treatment Patient Instructions Indication:Hypertensive heart disease Start:22-Mar-2013 Instruction Type:Provider Instructions for Treatment Patient Instructions Indication:Pre-operative examination Start:13-Apr-2012 Instruction Type:Provider Instructions for Treatment Patient Instructions Indication:Hypertensive heart disease Start:16-Dec-2011 Instruction Type:Provider Instructions for Treatment [facility]; [facility] Work Phone: Instructions* Name Dates Details Patient Instructions Indication:Foot pain, bilateral Start:21-Sep-2020 Instruction Type:Provider Instructions for Treatment How to Access Health Informa tion Online using Patient Portal and [facility] [employer] Apps Indication:BMI 36.0-36.9,adult Start:21-Sep-2020 Instruction Type:Patient Education How to access health informa tion online Indication:Diabetes mellitus type II, controlled, with no complications (Renamed from Controlled type 2 diabetes mellitus without complication) Start:24-Dec-2019 Instruction Type:Patient Education How to access health informa tion online - Detail Indication:Diabetes mellitus type II, controlled, with no complications (Renamed from Controlled type 2 diabetes mellitus without complication) Start:24-Dec-2019 Instruction Type:Patient Education Patient Instructions Indication:Nonsmoker Start:24-Dec-2019 Instruction Type:Provider Instructions for Treatment How to access health informa tion online Indication:Diabetes mellitus type II, controlled, with no complications (Renamed from Controlled type 2 diabetes mellitus without complication) Start:07-Nov-2018 Instruction Type:Patient Education How to access health informa tion online - Detail Indication:Diabetes mellitus type II, controlled, with no complications (Renamed from Controlled type 2 diabetes mellitus without complication) Start:07-Nov-2018 Instruction Type:Patient Education Patient Instructions Indication:Skin mole Start:07-Nov-2018 Instruction Type:Provider Instructions for Treatment How to access health informa tion online Indication:Nonsmoker Start:05-Dec-2017 Instruction Type:Patient Education How to access health informa tion online - Detail Indication:Nonsmoker Start:05-Dec-2017 Instruction Type:Patient Education Patient Instructions Indication:BMI 37.0-37.9, adult Start:05-Dec-2017 Instruction Type:Provider Instructions for Treatment How to access health informa tion online Indication:Nonsmoker Start:24-Nov-2017 Instruction Type:Patient Education How to access health informa tion online - Detail Indication:Nonsmoker Start:24-Nov-2017 Instruction Type:Patient Education Patient Instructions Indication:Nonsmoker Start:24-Nov-2017 Instruction Type:Provider Instructions for Treatment How to access health informa tion online Indication:Right knee pain Start:19-Aug-2016 Instruction Type:Patient Education How to access health informa tion online - Detail Indication:Right knee pain Start:19-Aug-2016 Instruction Type:Patient Education Patient Instructions Indication:Right knee pain Start:19-Aug-2016 Instruction Type:Provider Instructions for Treatment How to access health informa tion online Indication:Diabetes mellitus type 2, uncontrolled (Renamed from Uncontrolled type 2 diabetes mellitus) Start:15-Jun-2016 Instruction Type:Patient Education How to access health informa tion online - Detail Indication:Diabetes mellitus type 2, uncontrolled (Renamed from Uncontrolled type 2 diabetes mellitus) Start:15-Jun-2016 Instruction Type:Patient Education Patient Instructions Indication:Diabetes mellitus type 2, uncontrolled (Renamed from Uncontrolled type 2 diabetes mellitus) Start:15-Jun-2016 Instruction Type:Provider Instructions for Treatment How to access health informa tion online Indication:Diabetes mellitus type 2, uncontrolled (Renamed from Uncontrolled type 2 diabetes mellitus) Start:24-Jun-2015 Instruction Type:Patient Education How to access health informa tion online - Detail Indication:Diabetes mellitus type 2, uncontrolled (Renamed from Uncontrolled type 2 diabetes mellitus) Start:24-Jun-2015 Instruction Type:Patient Education Patient Instructions Indication:Diabetes mellitus type 2, uncontrolled (Renamed from Uncontrolled type 2 diabetes mellitus) Start:24-Jun-2015 Instruction Type:Provider Instructions for Treatment Patient Instructions Indication:Diabetes mellitus type 2, uncontrolled (Renamed from Uncontrolled type 2 diabetes mellitus) Start:26-May-2015 Instruction Type:Provider Instructions for Treatment How to access health informa tion online Indication:Hypertensive heart disease Start:29-Jan-2014 Instruction Type:Patient Education How to access health informa tion online - Detail Indication:Hypertensive heart disease Start:29-Jan-2014 Instruction Type:Patient Education Patient Instructions Indication:Hypertensive heart disease Start:29-Jan-2014 Instruction Type:Provider Instructions for Treatment How to access health informa tion online Indication:Hypertensive heart disease Start:08-Jan-2014 Instruction Type:Patient Education How to access health informa tion online - Detail Indication:Hypertensive heart disease Start:08-Jan-2014 Instruction Type:Patient Education Patient Instructions Indication:Hypertensive heart disease Start:08-Jan-2014 Instruction Type:Provider Instructions for Treatment How to access health informa tion online Indication:Skin tag Start:27-Dec-2013 Instruction Type:Patient Education How to access health informa tion online - Detail Indication:Skin tag Start:27-Dec-2013 Instruction Type:Patient Education Patient Instructions: sched an appt to remove skin tags Indication:Skin tag Start:27-Dec-2013 Instruction Type:Provider Instructions for Treatment Patient Instructions Indication:Leg swelling Start:06-Sep-2013 Instruction Type:Provider Instructions for Treatment Patient Instructions Indication:Hypertensive heart disease Start:22-Mar-2013 Instruction Type:Provider Instructions for Treatment Patient Instructions Indication:Pre-operative examination Start:13-Apr-2012 Instruction Type:Provider Instructions for Treatment Patient Instructions Indication:Hypertensive heart disease Start:16-Dec-2011 Instruction Type:Provider Instructions for Treatment [facility] Work Phone: Instructions* Name Dates Details Patient Instructions Indication:Foot pain, bilateral Start:21-Sep-2020 Instruction Type:Provider Instructions for Treatment How to Access Health Informa tion Online using Patient Portal and [employer]rd [employer] Apps Indication:BMI 36.0-36.9,adult Start:21-Sep-2020 Instruction Type:Patient Education How to access health informa tion online Indication:Diabetes mellitus type II, controlled, with no complications (Renamed from Controlled type 2 diabetes mellitus without complication) Start:24-Dec-2019 Instruction Type:Patient Education How to access health informa tion online - Detail Indication:Diabetes mellitus type II, controlled, with no complications (Renamed from Controlled type 2 diabetes mellitus without complication) Start:24-Dec-2019 Instruction Type:Patient Education Patient Instructions Indication:Nonsmoker Start:24-Dec-2019 Instruction Type:Provider Instructions for Treatment How to access health informa tion online Indication:Diabetes mellitus type II, controlled, with no complications (Renamed from Controlled type 2 diabetes mellitus without complication) Start:07-Nov-2018 Instruction Type:Patient Education How to access health informa tion online - Detail Indication:Diabetes mellitus type II, controlled, with no complications (Renamed from Controlled type 2 diabetes mellitus without complication) Start:07-Nov-2018 Instruction Type:Patient Education Patient Instructions Indication:Skin mole Start:07-Nov-2018 Instruction Type:Provider Instructions for Treatment How to access health informa tion online Indication:Nonsmoker Start:05-Dec-2017 Instruction Type:Patient Education How to access health informa tion online - Detail Indication:Nonsmoker Start:05-Dec-2017 Instruction Type:Patient Education Patient Instructions Indication:BMI 37.0-37.9, adult Start:05-Dec-2017 Instruction Type:Provider Instructions for Treatment How to access health informa tion online Indication:Nonsmoker Start:24-Nov-2017 Instruction Type:Patient Education How to access health informa tion online - Detail Indication:Nonsmoker Start:24-Nov-2017 Instruction Type:Patient Education Patient Instructions Indication:Nonsmoker Start:24-Nov-2017 Instruction Type:Provider Instructions for Treatment How to access health informa tion online Indication:Right knee pain Start:19-Aug-2016 Instruction Type:Patient Education How to access health informa tion online - Detail Indication:Right knee pain Start:19-Aug-2016 Instruction Type:Patient Education Patient Instructions Indication:Right knee pain Start:19-Aug-2016 Instruction Type:Provider Instructions for Treatment How to access health informa tion online Indication:Diabetes mellitus type 2, uncontrolled (Renamed from Uncontrolled type 2 diabetes mellitus) Start:15-Jun-2016 Instruction Type:Patient Education How to access health informa tion online - Detail Indication:Diabetes mellitus type 2, uncontrolled (Renamed from Uncontrolled type 2 diabetes mellitus) Start:15-Jun-2016 Instruction Type:Patient Education Patient Instructions Indication:Diabetes mellitus type 2, uncontrolled (Renamed from Uncontrolled type 2 diabetes mellitus) Start:15-Jun-2016 Instruction Type:Provider Instructions for Treatment How to access health informa tion online Indication:Diabetes mellitus type 2, uncontrolled (Renamed from Uncontrolled type 2 diabetes mellitus) Start:24-Jun-2015 Instruction Type:Patient Education How to access health informa tion online - Detail Indication:Diabetes mellitus type 2, uncontrolled (Renamed from Uncontrolled type 2 diabetes mellitus) Start:24-Jun-2015 Instruction Type:Patient Education Patient Instructions Indication:Diabetes mellitus type 2, uncontrolled (Renamed from Uncontrolled type 2 diabetes mellitus) Start:24-Jun-2015 Instruction Type:Provider Instructions for Treatment Patient Instructions Indication:Diabetes mellitus type 2, uncontrolled (Renamed from Uncontrolled type 2 diabetes mellitus) Start:26-May-2015 Instruction Type:Provider Instructions for Treatment How to access health informa tion online Indication:Hypertensive heart disease Start:29-Jan-2014 Instruction Type:Patient Education How to access health informa tion online - Detail Indication:Hypertensive heart disease Start:29-Jan-2014 Instruction Type:Patient Education Patient Instructions Indication:Hypertensive heart disease Start:29-Jan-2014 Instruction Type:Provider Instructions for Treatment How to access health informa tion online Indication:Hypertensive heart disease Start:08-Jan-2014 Instruction Type:Patient Education How to access health informa tion online - Detail Indication:Hypertensive heart disease Start:08-Jan-2014 Instruction Type:Patient Education Patient Instructions Indication:Hypertensive heart disease Start:08-Jan-2014 Instruction Type:Provider Instructions for Treatment How to access health informa tion online Indication:Skin tag Start:27-Dec-2013 Instruction Type:Patient Education How to access health informa tion online - Detail Indication:Skin tag Start:27-Dec-2013 Instruction Type:Patient Education Patient Instructions: sched an appt to remove skin tags Indication:Skin tag Start:27-Dec-2013 Instruction Type:Provider Instructions for Treatment Patient Instructions Indication:Leg swelling Start:06-Sep-2013 Instruction Type:Provider Instructions for Treatment Patient Instructions Indication:Hypertensive heart disease Start:22-Mar-2013 Instruction Type:Provider Instructions for Treatment Patient Instructions Indication:Pre-operative examination Start:13-Apr-2012 Instruction Type:Provider Instructions for Treatment Patient Instructions Indication:Hypertensive heart disease Start:16-Dec-2011 Instruction Type:Provider Instructions for Treatment [facility]; [facility] Work Phone: Instructions* Name Dates Details Patient Instructions Indication:Nonsmoker Start:21-Mar-2022 Instruction Type:Provider Instructions for Treatment How to Access Health Informa tion Online using Patient Portal and [facility] [employer] Apps Indication:Nonsmoker Start:21-Mar-2022 Instruction Type:Patient Education Patient Instructions Indication:Foot pain, bilateral Start:21-Sep-2020 Instruction Type:Provider Instructions for Treatment How to Access Health Informa tion Online using Patient Portal and [employer] Apps Indication:BMI 36.0-36.9,adult Start:21-Sep-2020 Instruction Type:Patient Education How to access health informa tion online Indication:Diabetes mellitus type II, controlled, with no complications (Renamed from Controlled type 2 diabetes mellitus without complication) Start:24-Dec-2019 Instruction Type:Patient Education How to access health informa tion online - Detail Indication:Diabetes mellitus type II, controlled, with no complications (Renamed from Controlled type 2 diabetes mellitus without complication) Start:24-Dec-2019 Instruction Type:Patient Education Patient Instructions Indication:Nonsmoker Start:24-Dec-2019 Instruction Type:Provider Instructions for Treatment How to access health informa tion online Indication:Diabetes mellitus type II, controlled, with no complications (Renamed from Controlled type 2 diabetes mellitus without complication) Start:07-Nov-2018 Instruction Type:Patient Education How to access health informa tion online - Detail Indication:Diabetes mellitus type II, controlled, with no complications (Renamed from Controlled type 2 diabetes mellitus without complication) Start:07-Nov-2018 Instruction Type:Patient Education Patient Instructions Indication:Skin mole Start:07-Nov-2018 Instruction Type:Provider Instructions for Treatment How to access health informa tion online Indication:Nonsmoker Start:05-Dec-2017 Instruction Type:Patient Education How to access health informa tion online - Detail Indication:Nonsmoker Start:05-Dec-2017 Instruction Type:Patient Education Patient Instructions Indication:BMI 37.0-37.9, adult Start:05-Dec-2017 Instruction Type:Provider Instructions for Treatment How to access health informa tion online Indication:Nonsmoker Start:24-Nov-2017 Instruction Type:Patient Education How to access health informa tion online - Detail Indication:Nonsmoker Start:24-Nov-2017 Instruction Type:Patient Education Patient Instructions Indication:Nonsmoker Start:24-Nov-2017 Instruction Type:Provider Instructions for Treatment How to access health informa tion online Indication:Right knee pain Start:19-Aug-2016 Instruction Type:Patient Education How to access health informa tion online - Detail Indication:Right knee pain Start:19-Aug-2016 Instruction Type:Patient Education Patient Instructions Indication:Right knee pain Start:19-Aug-2016 Instruction Type:Provider Instructions for Treatment How to access health informa tion online Indication:Diabetes mellitus type 2, uncontrolled (Renamed from Uncontrolled type 2 diabetes mellitus) Start:15-Jun-2016 Instruction Type:Patient Education How to access health informa tion online - Detail Indication:Diabetes mellitus type 2, uncontrolled (Renamed from Uncontrolled type 2 diabetes mellitus) Start:15-Jun-2016 Instruction Type:Patient Education Patient Instructions Indication:Diabetes mellitus type 2, uncontrolled (Renamed from Uncontrolled type 2 diabetes mellitus) Start:15-Jun-2016 Instruction Type:Provider Instructions for Treatment How to access health informa tion online Indication:Diabetes mellitus type 2, uncontrolled (Renamed from Uncontrolled type 2 diabetes mellitus) Start:24-Jun-2015 Instruction Type:Patient Education How to access health informa tion online - Detail Indication:Diabetes mellitus type 2, uncontrolled (Renamed from Uncontrolled type 2 diabetes mellitus) Start:24-Jun-2015 Instruction Type:Patient Education Patient Instructions Indication:Diabetes mellitus type 2, uncontrolled (Renamed from Uncontrolled type 2 diabetes mellitus) Start:24-Jun-2015 Instruction Type:Provider Instructions for Treatment Patient Instructions Indication:Diabetes mellitus type 2, uncontrolled (Renamed from Uncontrolled type 2 diabetes mellitus) Start:26-May-2015 Instruction Type:Provider Instructions for Treatment How to access health informa tion online Indication:Hypertensive heart disease Start:29-Jan-2014 Instruction Type:Patient Education How to access health informa tion online - Detail Indication:Hypertensive heart disease Start:29-Jan-2014 Instruction Type:Patient Education Patient Instructions Indication:Hypertensive heart disease Start:29-Jan-2014 Instruction Type:Provider Instructions for Treatment How to access health informa tion online Indication:Hypertensive heart disease Start:08-Jan-2014 Instruction Type:Patient Education How to access health informa tion online - Detail Indication:Hypertensive heart disease Start:08-Jan-2014 Instruction Type:Patient Education Patient Instructions Indication:Hypertensive heart disease Start:08-Jan-2014 Instruction Type:Provider Instructions for Treatment How to access health informa tion online Indication:Skin tag Start:27-Dec-2013 Instruction Type:Patient Education How to access health informa tion online - Detail Indication:Skin tag Start:27-Dec-2013 Instruction Type:Patient Education Patient Instructions: sched an appt to remove skin tags Indication:Skin tag Start:27-Dec-2013 Instruction Type:Provider Instructions for Treatment Patient Instructions Indication:Leg swelling Start:06-Sep-2013 Instruction Type:Provider Instructions for Treatment Patient Instructions Indication:Hypertensive heart disease Start:22-Mar-2013 Instruction Type:Provider Instructions for Treatment Patient Instructions Indication:Pre-operative examination Start:13-Apr-2012 Instruction Type:Provider Instructions for Treatment Patient Instructions Indication:Hypertensive heart disease Start:16-Dec-2011 Instruction Type:Provider Instructions for Treatment [facility]; [facility] Work Phone: Instructions* Name Dates Details Patient Instructions Indication:Nonsmoker Start:21-Mar-2022 Instruction Type:Provider Instructions for Treatment How to Access Health Informa tion Online using Patient Portal and [employer] Apps Indication:Nonsmoker Start:21-Mar-2022 Instruction Type:Patient Education Patient Instructions Indication:Foot pain, bilateral Start:21-Sep-2020 Instruction Type:Provider Instructions for Treatment How to Access Health Informa tion Online using Patient Portal and [employer] Apps Indication:BMI 36.0-36.9,adult Start:21-Sep-2020 Instruction Type:Patient Education How to access health informa tion online Indication:Diabetes mellitus type II, controlled, with no complications (Renamed from Controlled type 2 diabetes mellitus without complication) Start:24-Dec-2019 Instruction Type:Patient Education How to access health informa tion online - Detail Indication:Diabetes mellitus type II, controlled, with no complications (Renamed from Controlled type 2 diabetes mellitus without complication) Start:24-Dec-2019 Instruction Type:Patient Education Patient Instructions Indication:Nonsmoker Start:24-Dec-2019 Instruction Type:Provider Instructions for Treatment How to access health informa tion online Indication:Diabetes mellitus type II, controlled, with no complications (Renamed from Controlled type 2 diabetes mellitus without complication) Start:07-Nov-2018 Instruction Type:Patient Education How to access health informa tion online - Detail Indication:Diabetes mellitus type II, controlled, with no complications (Renamed from Controlled type 2 diabetes mellitus without complication) Start:07-Nov-2018 Instruction Type:Patient Education Patient Instructions Indication:Skin mole Start:07-Nov-2018 Instruction Type:Provider Instructions for Treatment How to access health informa tion online Indication:Nonsmoker Start:05-Dec-2017 Instruction Type:Patient Education How to access health informa tion online - Detail Indication:Nonsmoker Start:05-Dec-2017 Instruction Type:Patient Education Patient Instructions Indication:BMI 37.0-37.9, adult Start:05-Dec-2017 Instruction Type:Provider Instructions for Treatment How to access health informa tion online Indication:Nonsmoker Start:24-Nov-2017 Instruction Type:Patient Education How to access health informa tion online - Detail Indication:Nonsmoker Start:24-Nov-2017 Instruction Type:Patient Education Patient Instructions Indication:Nonsmoker Start:24-Nov-2017 Instruction Type:Provider Instructions for Treatment How to access health informa tion online Indication:Right knee pain Start:19-Aug-2016 Instruction Type:Patient Education How to access health informa tion online - Detail Indication:Right knee pain Start:19-Aug-2016 Instruction Type:Patient Education Patient Instructions Indication:Right knee pain Start:19-Aug-2016 Instruction Type:Provider Instructions for Treatment How to access health informa tion online Indication:Diabetes mellitus type 2, uncontrolled (Renamed from Uncontrolled type 2 diabetes mellitus) Start:15-Jun-2016 Instruction Type:Patient Education How to access health informa tion online - Detail Indication:Diabetes mellitus type 2, uncontrolled (Renamed from Uncontrolled type 2 diabetes mellitus) Start:15-Jun-2016 Instruction Type:Patient Education Patient Instructions Indication:Diabetes mellitus type 2, uncontrolled (Renamed from Uncontrolled type 2 diabetes mellitus) Start:15-Jun-2016 Instruction Type:Provider Instructions for Treatment How to access health informa tion online Indication:Diabetes mellitus type 2, uncontrolled (Renamed from Uncontrolled type 2 diabetes mellitus) Start:24-Jun-2015 Instruction Type:Patient Education How to access health informa tion online - Detail Indication:Diabetes mellitus type 2, uncontrolled (Renamed from Uncontrolled type 2 diabetes mellitus) Start:24-Jun-2015 Instruction Type:Patient Education Patient Instructions Indication:Diabetes mellitus type 2, uncontrolled (Renamed from Uncontrolled type 2 diabetes mellitus) Start:24-Jun-2015 Instruction Type:Provider Instructions for Treatment Patient Instructions Indication:Diabetes mellitus type 2, uncontrolled (Renamed from Uncontrolled type 2 diabetes mellitus) Start:26-May-2015 Instruction Type:Provider Instructions for Treatment How to access health informa tion online Indication:Hypertensive heart disease Start:29-Jan-2014 Instruction Type:Patient Education How to access health informa tion online - Detail Indication:Hypertensive heart disease Start:29-Jan-2014 Instruction Type:Patient Education Patient Instructions Indication:Hypertensive heart disease Start:29-Jan-2014 Instruction Type:Provider Instructions for Treatment How to access health informa tion online Indication:Hypertensive heart disease Start:08-Jan-2014 Instruction Type:Patient Education How to access health informa tion online - Detail Indication:Hypertensive heart disease Start:08-Jan-2014 Instruction Type:Patient Education Patient Instructions Indication:Hypertensive heart disease Start:08-Jan-2014 Instruction Type:Provider Instructions for Treatment How to access health informa tion online Indication:Skin tag Start:27-Dec-2013 Instruction Type:Patient Education How to access health informa tion online - Detail Indication:Skin tag Start:27-Dec-2013 Instruction Type:Patient Education Patient Instructions: sched an appt to remove skin tags Indication:Skin tag Start:27-Dec-2013 Instruction Type:Provider Instructions for Treatment Patient Instructions Indication:Leg swelling Start:06-Sep-2013 Instruction Type:Provider Instructions for Treatment Patient Instructions Indication:Hypertensive heart disease Start:22-Mar-2013 Instruction Type:Provider Instructions for Treatment Patient Instructions Indication:Pre-operative examination Start:13-Apr-2012 Instruction Type:Provider Instructions for Treatment Patient Instructions Indication:Hypertensive heart disease Start:16-Dec-2011 Instruction Type:Provider Instructions for Treatment [facility]; [facility] Work Phone: Instructions* Name Dates Details Patient Instructions Indication:Nonsmoker Start:21-Mar-2022 Instruction Type:Provider Instructions for Treatment How to Access Health Informa tion Online using Patient Portal and [employer] Apps Indication:Nonsmoker Start:21-Mar-2022 Instruction Type:Patient Education Patient Instructions Indication:Foot pain, bilateral Start:21-Sep-2020 Instruction Type:Provider Instructions for Treatment How to Access Health Informa tion Online using Patient Portal and [facility] [employer] Apps Indication:BMI 36.0-36.9,adult Start:21-Sep-2020 Instruction Type:Patient Education How to access health informa tion online Indication:Diabetes mellitus type II, controlled, with no complications (Renamed from Controlled type 2 diabetes mellitus without complication) Start:24-Dec-2019 Instruction Type:Patient Education How to access health informa tion online - Detail Indication:Diabetes mellitus type II, controlled, with no complications (Renamed from Controlled type 2 diabetes mellitus without complication) Start:24-Dec-2019 Instruction Type:Patient Education Patient Instructions Indication:Nonsmoker Start:24-Dec-2019 Instruction Type:Provider Instructions for Treatment How to access health informa tion online Indication:Diabetes mellitus type II, controlled, with no complications (Renamed from Controlled type 2 diabetes mellitus without complication) Start:07-Nov-2018 Instruction Type:Patient Education How to access health informa tion online - Detail Indication:Diabetes mellitus type II, controlled, with no complications (Renamed from Controlled type 2 diabetes mellitus without complication) Start:07-Nov-2018 Instruction Type:Patient Education Patient Instructions Indication:Skin mole Start:07-Nov-2018 Instruction Type:Provider Instructions for Treatment How to access health informa tion online Indication:Nonsmoker Start:05-Dec-2017 Instruction Type:Patient Education How to access health informa tion online - Detail Indication:Nonsmoker Start:05-Dec-2017 Instruction Type:Patient Education Patient Instructions Indication:BMI 37.0-37.9, adult Start:05-Dec-2017 Instruction Type:Provider Instructions for Treatment How to access health informa tion online Indication:Nonsmoker Start:24-Nov-2017 Instruction Type:Patient Education How to access health informa tion online - Detail Indication:Nonsmoker Start:24-Nov-2017 Instruction Type:Patient Education Patient Instructions Indication:Nonsmoker Start:24-Nov-2017 Instruction Type:Provider Instructions for Treatment How to access health informa tion online Indication:Right knee pain Start:19-Aug-2016 Instruction Type:Patient Education How to access health informa tion online - Detail Indication:Right knee pain Start:19-Aug-2016 Instruction Type:Patient Education Patient Instructions Indication:Right knee pain Start:19-Aug-2016 Instruction Type:Provider Instructions for Treatment How to access health informa tion online Indication:Diabetes mellitus type 2, uncontrolled (Renamed from Uncontrolled type 2 diabetes mellitus) Start:15-Jun-2016 Instruction Type:Patient Education How to access health informa tion online - Detail Indication:Diabetes mellitus type 2, uncontrolled (Renamed from Uncontrolled type 2 diabetes mellitus) Start:15-Jun-2016 Instruction Type:Patient Education Patient Instructions Indication:Diabetes mellitus type 2, uncontrolled (Renamed from Uncontrolled type 2 diabetes mellitus) Start:15-Jun-2016 Instruction Type:Provider Instructions for Treatment How to access health informa tion online Indication:Diabetes mellitus type 2, uncontrolled (Renamed from Uncontrolled type 2 diabetes mellitus) Start:24-Jun-2015 Instruction Type:Patient Education How to access health informa tion online - Detail Indication:Diabetes mellitus type 2, uncontrolled (Renamed from Uncontrolled type 2 diabetes mellitus) Start:24-Jun-2015 Instruction Type:Patient Education Patient Instructions Indication:Diabetes mellitus type 2, uncontrolled (Renamed from Uncontrolled type 2 diabetes mellitus) Start:24-Jun-2015 Instruction Type:Provider Instructions for Treatment Patient Instructions Indication:Diabetes mellitus type 2, uncontrolled (Renamed from Uncontrolled type 2 diabetes mellitus) Start:26-May-2015 Instruction Type:Provider Instructions for Treatment How to access health informa tion online Indication:Hypertensive heart disease Start:29-Jan-2014 Instruction Type:Patient Education How to access health informa tion online - Detail Indication:Hypertensive heart disease Start:29-Jan-2014 Instruction Type:Patient Education Patient Instructions Indication:Hypertensive heart disease Start:29-Jan-2014 Instruction Type:Provider Instructions for Treatment How to access health informa tion online Indication:Hypertensive heart disease Start:08-Jan-2014 Instruction Type:Patient Education How to access health informa tion online - Detail Indication:Hypertensive heart disease Start:08-Jan-2014 Instruction Type:Patient Education Patient Instructions Indication:Hypertensive heart disease Start:08-Jan-2014 Instruction Type:Provider Instructions for Treatment How to access health informa tion online Indication:Skin tag Start:27-Dec-2013 Instruction Type:Patient Education How to access health informa tion online - Detail Indication:Skin tag Start:27-Dec-2013 Instruction Type:Patient Education Patient Instructions: sched an appt to remove skin tags Indication:Skin tag Start:27-Dec-2013 Instruction Type:Provider Instructions for Treatment Patient Instructions Indication:Leg swelling Start:06-Sep-2013 Instruction Type:Provider Instructions for Treatment Patient Instructions Indication:Hypertensive heart disease Start:22-Mar-2013 Instruction Type:Provider Instructions for Treatment Patient Instructions Indication:Pre-operative examination Start:13-Apr-2012 Instruction Type:Provider Instructions for Treatment Patient Instructions Indication:Hypertensive heart disease Start:16-Dec-2011 Instruction Type:Provider Instructions for Treatment [facility]; [facility] Work Phone: Instructions* Name Dates Details Patient Instructions Indication:Nonsmoker Start:21-Mar-2022 Instruction Type:Provider Instructions for Treatment How to Access Health Informa tion Online using Patient Portal and [employer] Apps Indication:Nonsmoker Start:21-Mar-2022 Instruction Type:Patient Education Patient Instructions Indication:Foot pain, bilateral Start:21-Sep-2020 Instruction Type:Provider Instructions for Treatment How to Access Health Informa tion Online using Patient Portal and [employer] Apps Indication:BMI 36.0-36.9,adult Start:21-Sep-2020 Instruction Type:Patient Education How to access health informa tion online Indication:Diabetes mellitus type II, controlled, with no complications (Renamed from Controlled type 2 diabetes mellitus without complication) Start:24-Dec-2019 Instruction Type:Patient Education How to access health informa tion online - Detail Indication:Diabetes mellitus type II, controlled, with no complications (Renamed from Controlled type 2 diabetes mellitus without complication) Start:24-Dec-2019 Instruction Type:Patient Education Patient Instructions Indication:Nonsmoker Start:24-Dec-2019 Instruction Type:Provider Instructions for Treatment How to access health informa tion online Indication:Diabetes mellitus type II, controlled, with no complications (Renamed from Controlled type 2 diabetes mellitus without complication) Start:07-Nov-2018 Instruction Type:Patient Education How to access health informa tion online - Detail Indication:Diabetes mellitus type II, controlled, with no complications (Renamed from Controlled type 2 diabetes mellitus without complication) Start:07-Nov-2018 Instruction Type:Patient Education Patient Instructions Indication:Skin mole Start:07-Nov-2018 Instruction Type:Provider Instructions for Treatment How to access health informa tion online Indication:Nonsmoker Start:05-Dec-2017 Instruction Type:Patient Education How to access health informa tion online - Detail Indication:Nonsmoker Start:05-Dec-2017 Instruction Type:Patient Education Patient Instructions Indication:BMI 37.0-37.9, adult Start:05-Dec-2017 Instruction Type:Provider Instructions for Treatment How to access health informa tion online Indication:Nonsmoker Start:24-Nov-2017 Instruction Type:Patient Education How to access health informa tion online - Detail Indication:Nonsmoker Start:24-Nov-2017 Instruction Type:Patient Education Patient Instructions Indication:Nonsmoker Start:24-Nov-2017 Instruction Type:Provider Instructions for Treatment How to access health informa tion online Indication:Right knee pain Start:19-Aug-2016 Instruction Type:Patient Education How to access health informa tion online - Detail Indication:Right knee pain Start:19-Aug-2016 Instruction Type:Patient Education Patient Instructions Indication:Right knee pain Start:19-Aug-2016 Instruction Type:Provider Instructions for Treatment How to access health informa tion online Indication:Diabetes mellitus type 2, uncontrolled (Renamed from Uncontrolled type 2 diabetes mellitus) Start:15-Jun-2016 Instruction Type:Patient Education How to access health informa tion online - Detail Indication:Diabetes mellitus type 2, uncontrolled (Renamed from Uncontrolled type 2 diabetes mellitus) Start:15-Jun-2016 Instruction Type:Patient Education Patient Instructions Indication:Diabetes mellitus type 2, uncontrolled (Renamed from Uncontrolled type 2 diabetes mellitus) Start:15-Jun-2016 Instruction Type:Provider Instructions for Treatment How to access health informa tion online Indication:Diabetes mellitus type 2, uncontrolled (Renamed from Uncontrolled type 2 diabetes mellitus) Start:24-Jun-2015 Instruction Type:Patient Education How to access health informa tion online - Detail Indication:Diabetes mellitus type 2, uncontrolled (Renamed from Uncontrolled type 2 diabetes mellitus) Start:24-Jun-2015 Instruction Type:Patient Education Patient Instructions Indication:Diabetes mellitus type 2, uncontrolled (Renamed from Uncontrolled type 2 diabetes mellitus) Start:24-Jun-2015 Instruction Type:Provider Instructions for Treatment Patient Instructions Indication:Diabetes mellitus type 2, uncontrolled (Renamed from Uncontrolled type 2 diabetes mellitus) Start:26-May-2015 Instruction Type:Provider Instructions for Treatment How to access health informa tion online Indication:Hypertensive heart disease Start:29-Jan-2014 Instruction Type:Patient Education How to access health informa tion online - Detail Indication:Hypertensive heart disease Start:29-Jan-2014 Instruction Type:Patient Education Patient Instructions Indication:Hypertensive heart disease Start:29-Jan-2014 Instruction Type:Provider Instructions for Treatment How to access health informa tion online Indication:Hypertensive heart disease Start:08-Jan-2014 Instruction Type:Patient Education How to access health informa tion online - Detail Indication:Hypertensive heart disease Start:08-Jan-2014 Instruction Type:Patient Education Patient Instructions Indication:Hypertensive heart disease Start:08-Jan-2014 Instruction Type:Provider Instructions for Treatment How to access health informa tion online Indication:Skin tag Start:27-Dec-2013 Instruction Type:Patient Education How to access health informa tion online - Detail Indication:Skin tag Start:27-Dec-2013 Instruction Type:Patient Education Patient Instructions: sched an appt to remove skin tags Indication:Skin tag Start:27-Dec-2013 Instruction Type:Provider Instructions for Treatment Patient Instructions Indication:Leg swelling Start:06-Sep-2013 Instruction Type:Provider Instructions for Treatment Patient Instructions Indication:Hypertensive heart disease Start:22-Mar-2013 Instruction Type:Provider Instructions for Treatment Patient Instructions Indication:Pre-operative examination Start:13-Apr-2012 Instruction Type:Provider Instructions for Treatment Patient Instructions Indication:Hypertensive heart disease Start:16-Dec-2011 Instruction Type:Provider Instructions for Treatment [facility]; [facility] Work Phone: Instructions* Name Dates Details Patient Instructions Indication:Nonsmoker Start:21-Mar-2022 Instruction Type:Provider Instructions for Treatment How to Access Health Informa tion Online using Patient Portal and [employer]rd [employer] Apps Indication:Nonsmoker Start:21-Mar-2022 Instruction Type:Patient Education Patient Instructions Indication:Foot pain, bilateral Start:21-Sep-2020 Instruction Type:Provider Instructions for Treatment How to Access Health Informa tion Online using Patient Portal and [employer]rd [employer] Apps Indication:BMI 36.0-36.9,adult Start:21-Sep-2020 Instruction Type:Patient Education How to access health informa tion online Indication:Diabetes mellitus type II, controlled, with no complications (Renamed from Controlled type 2 diabetes mellitus without complication) Start:24-Dec-2019 Instruction Type:Patient Education How to access health informa tion online - Detail Indication:Diabetes mellitus type II, controlled, with no complications (Renamed from Controlled type 2 diabetes mellitus without complication) Start:24-Dec-2019 Instruction Type:Patient Education Patient Instructions Indication:Nonsmoker Start:24-Dec-2019 Instruction Type:Provider Instructions for Treatment How to access health informa tion online Indication:Diabetes mellitus type II, controlled, with no complications (Renamed from Controlled type 2 diabetes mellitus without complication) Start:07-Nov-2018 Instruction Type:Patient Education How to access health informa tion online - Detail Indication:Diabetes mellitus type II, controlled, with no complications (Renamed from Controlled type 2 diabetes mellitus without complication) Start:07-Nov-2018 Instruction Type:Patient Education Patient Instructions Indication:Skin mole Start:07-Nov-2018 Instruction Type:Provider Instructions for Treatment How to access health informa tion online Indication:Nonsmoker Start:05-Dec-2017 Instruction Type:Patient Education How to access health informa tion online - Detail Indication:Nonsmoker Start:05-Dec-2017 Instruction Type:Patient Education Patient Instructions Indication:BMI 37.0-37.9, adult Start:05-Dec-2017 Instruction Type:Provider Instructions for Treatment How to access health informa tion online Indication:Nonsmoker Start:24-Nov-2017 Instruction Type:Patient Education How to access health informa tion online - Detail Indication:Nonsmoker Start:24-Nov-2017 Instruction Type:Patient Education Patient Instructions Indication:Nonsmoker Start:24-Nov-2017 Instruction Type:Provider Instructions for Treatment How to access health informa tion online Indication:Right knee pain Start:19-Aug-2016 Instruction Type:Patient Education How to access health informa tion online - Detail Indication:Right knee pain Start:19-Aug-2016 Instruction Type:Patient Education Patient Instructions Indication:Right knee pain Start:19-Aug-2016 Instruction Type:Provider Instructions for Treatment How to access health informa tion online Indication:Diabetes mellitus type 2, uncontrolled (Renamed from Uncontrolled type 2 diabetes mellitus) Start:15-Jun-2016 Instruction Type:Patient Education How to access health informa tion online - Detail Indication:Diabetes mellitus type 2, uncontrolled (Renamed from Uncontrolled type 2 diabetes mellitus) Start:15-Jun-2016 Instruction Type:Patient Education Patient Instructions Indication:Diabetes mellitus type 2, uncontrolled (Renamed from Uncontrolled type 2 diabetes mellitus) Start:15-Jun-2016 Instruction Type:Provider Instructions for Treatment How to access health informa tion online Indication:Diabetes mellitus type 2, uncontrolled (Renamed from Uncontrolled type 2 diabetes mellitus) Start:24-Jun-2015 Instruction Type:Patient Education How to access health informa tion online - Detail Indication:Diabetes mellitus type 2, uncontrolled (Renamed from Uncontrolled type 2 diabetes mellitus) Start:24-Jun-2015 Instruction Type:Patient Education Patient Instructions Indication:Diabetes mellitus type 2, uncontrolled (Renamed from Uncontrolled type 2 diabetes mellitus) Start:24-Jun-2015 Instruction Type:Provider Instructions for Treatment Patient Instructions Indication:Diabetes mellitus type 2, uncontrolled (Renamed from Uncontrolled type 2 diabetes mellitus) Start:26-May-2015 Instruction Type:Provider Instructions for Treatment How to access health informa tion online Indication:Hypertensive heart disease Start:29-Jan-2014 Instruction Type:Patient Education How to access health informa tion online - Detail Indication:Hypertensive heart disease Start:29-Jan-2014 Instruction Type:Patient Education Patient Instructions Indication:Hypertensive heart disease Start:29-Jan-2014 Instruction Type:Provider Instructions for Treatment How to access health informa tion online Indication:Hypertensive heart disease Start:08-Jan-2014 Instruction Type:Patient Education How to access health informa tion online - Detail Indication:Hypertensive heart disease Start:08-Jan-2014 Instruction Type:Patient Education Patient Instructions Indication:Hypertensive heart disease Start:08-Jan-2014 Instruction Type:Provider Instructions for Treatment How to access health informa tion online Indication:Skin tag Start:27-Dec-2013 Instruction Type:Patient Education How to access health informa tion online - Detail Indication:Skin tag Start:27-Dec-2013 Instruction Type:Patient Education Patient Instructions: sched an appt to remove skin tags Indication:Skin tag Start:27-Dec-2013 Instruction Type:Provider Instructions for Treatment Patient Instructions Indication:Leg swelling Start:06-Sep-2013 Instruction Type:Provider Instructions for Treatment Patient Instructions Indication:Hypertensive heart disease Start:22-Mar-2013 Instruction Type:Provider Instructions for Treatment Patient Instructions Indication:Pre-operative examination Start:13-Apr-2012 Instruction Type:Provider Instructions for Treatment Patient Instructions Indication:Hypertensive heart disease Start:16-Dec-2011 Instruction Type:Provider Instructions for Treatment [facility]; [facility] Work Phone: Instructions* Name Dates Details Patient Instructions Indication:Nonsmoker Start:30-Jan-2023 Instruction Type:Provider Instructions for Treatment How to Access Health Informa tion Online using Patient Portal and [employer]rd [employer] Apps Indication:Nonsmoker Start:30-Jan-2023 Instruction Type:Patient Education Patient Instructions Indication:Nonsmoker Start:21-Mar-2022 Instruction Type:Provider Instructions for Treatment How to Access Health Informa tion Online using Patient Portal and [employer]rd [employer] Apps Indication:Nonsmoker Start:21-Mar-2022 Instruction Type:Patient Education Patient Instructions Indication:Foot pain, bilateral Start:21-Sep-2020 Instruction Type:Provider Instructions for Treatment How to Access Health Informa tion Online using Patient Portal and [employer]rd [employer] Apps Indication:BMI 36.0-36.9,adult Start:21-Sep-2020 Instruction Type:Patient Education How to access health informa tion online Indication:Diabetes mellitus type II, controlled, with no complications (Renamed from Controlled type 2 diabetes mellitus without complication) Start:24-Dec-2019 Instruction Type:Patient Education How to access health informa tion online - Detail Indication:Diabetes mellitus type II, controlled, with no complications (Renamed from Controlled type 2 diabetes mellitus without complication) Start:24-Dec-2019 Instruction Type:Patient Education Patient Instructions Indication:Nonsmoker Start:24-Dec-2019 Instruction Type:Provider Instructions for Treatment How to access health informa tion online Indication:Diabetes mellitus type II, controlled, with no complications (Renamed from Controlled type 2 diabetes mellitus without complication) Start:07-Nov-2018 Instruction Type:Patient Education How to access health informa tion online - Detail Indication:Diabetes mellitus type II, controlled, with no complications (Renamed from Controlled type 2 diabetes mellitus without complication) Start:07-Nov-2018 Instruction Type:Patient Education Patient Instructions Indication:Skin mole Start:07-Nov-2018 Instruction Type:Provider Instructions for Treatment How to access health informa tion online Indication:Nonsmoker Start:05-Dec-2017 Instruction Type:Patient Education How to access health informa tion online - Detail Indication:Nonsmoker Start:05-Dec-2017 Instruction Type:Patient Education Patient Instructions Indication:BMI 37.0-37.9, adult Start:05-Dec-2017 Instruction Type:Provider Instructions for Treatment How to access health informa tion online Indication:Nonsmoker Start:24-Nov-2017 Instruction Type:Patient Education How to access health informa tion online - Detail Indication:Nonsmoker Start:24-Nov-2017 Instruction Type:Patient Education Patient Instructions Indication:Nonsmoker Start:24-Nov-2017 Instruction Type:Provider Instructions for Treatment How to access health informa tion online Indication:Right knee pain Start:19-Aug-2016 Instruction Type:Patient Education How to access health informa tion online - Detail Indication:Right knee pain Start:19-Aug-2016 Instruction Type:Patient Education Patient Instructions Indication:Right knee pain Start:19-Aug-2016 Instruction Type:Provider Instructions for Treatment How to access health informa tion online Indication:Diabetes mellitus type 2, uncontrolled (Renamed from Uncontrolled type 2 diabetes mellitus) Start:15-Jun-2016 Instruction Type:Patient Education How to access health informa tion online - Detail Indication:Diabetes mellitus type 2, uncontrolled (Renamed from Uncontrolled type 2 diabetes mellitus) Start:15-Jun-2016 Instruction Type:Patient Education Patient Instructions Indication:Diabetes mellitus type 2, uncontrolled (Renamed from Uncontrolled type 2 diabetes mellitus) Start:15-Jun-2016 Instruction Type:Provider Instructions for Treatment How to access health informa tion online Indication:Diabetes mellitus type 2, uncontrolled (Renamed from Uncontrolled type 2 diabetes mellitus) Start:24-Jun-2015 Instruction Type:Patient Education How to access health informa tion online - Detail Indication:Diabetes mellitus type 2, uncontrolled (Renamed from Uncontrolled type 2 diabetes mellitus) Start:24-Jun-2015 Instruction Type:Patient Education Patient Instructions Indication:Diabetes mellitus type 2, uncontrolled (Renamed from Uncontrolled type 2 diabetes mellitus) Start:24-Jun-2015 Instruction Type:Provider Instructions for Treatment Patient Instructions Indication:Diabetes mellitus type 2, uncontrolled (Renamed from Uncontrolled type 2 diabetes mellitus) Start:26-May-2015 Instruction Type:Provider Instructions for Treatment How to access health informa tion online Indication:Hypertensive heart disease Start:29-Jan-2014 Instruction Type:Patient Education How to access health informa tion online - Detail Indication:Hypertensive heart disease Start:29-Jan-2014 Instruction Type:Patient Education Patient Instructions Indication:Hypertensive heart disease Start:29-Jan-2014 Instruction Type:Provider Instructions for Treatment How to access health informa tion online Indication:Hypertensive heart disease Start:08-Jan-2014 Instruction Type:Patient Education How to access health informa tion online - Detail Indication:Hypertensive heart disease Start:08-Jan-2014 Instruction Type:Patient Education Patient Instructions Indication:Hypertensive heart disease Start:08-Jan-2014 Instruction Type:Provider Instructions for Treatment How to access health informa tion online Indication:Skin tag Start:27-Dec-2013 Instruction Type:Patient Education How to access health informa tion online - Detail Indication:Skin tag Start:27-Dec-2013 Instruction Type:Patient Education Patient Instructions: sched an appt to remove skin tags Indication:Skin tag Start:27-Dec-2013 Instruction Type:Provider Instructions for Treatment Patient Instructions Indication:Leg swelling Start:06-Sep-2013 Instruction Type:Provider Instructions for Treatment Patient Instructions Indication:Hypertensive heart disease Start:22-Mar-2013 Instruction Type:Provider Instructions for Treatment Patient Instructions Indication:Pre-operative examination Start:13-Apr-2012 Instruction Type:Provider Instructions for Treatment Patient Instructions Indication:Hypertensive heart disease Start:16-Dec-2011 Instruction Type:Provider Instructions for Treatment [facility]; [facility] Work Phone: Instructions* Name Dates Details Patient Instructions Indication:Nonsmoker Start:30-Jan-2023 Instruction Type:Provider Instructions for Treatment How to Access Health Informa tion Online using Patient Portal and [employer] Apps Indication:Nonsmoker Start:30-Jan-2023 Instruction Type:Patient Education Patient Instructions Indication:Nonsmoker Start:21-Mar-2022 Instruction Type:Provider Instructions for Treatment How to Access Health Informa tion Online using Patient Portal and [employer]rd [employer] Apps Indication:Nonsmoker Start:21-Mar-2022 Instruction Type:Patient Education Patient Instructions Indication:Foot pain, bilateral Start:21-Sep-2020 Instruction Type:Provider Instructions for Treatment How to Access Health Informa tion Online using Patient Portal and [employer]rd [employer] Apps Indication:BMI 36.0-36.9,adult Start:21-Sep-2020 Instruction Type:Patient Education How to access health informa tion online Indication:Diabetes mellitus type II, controlled, with no complications (Renamed from Controlled type 2 diabetes mellitus without complication) Start:24-Dec-2019 Instruction Type:Patient Education How to access health informa tion online - Detail Indication:Diabetes mellitus type II, controlled, with no complications (Renamed from Controlled type 2 diabetes mellitus without complication) Start:24-Dec-2019 Instruction Type:Patient Education Patient Instructions Indication:Nonsmoker Start:24-Dec-2019 Instruction Type:Provider Instructions for Treatment How to access health informa tion online Indication:Diabetes mellitus type II, controlled, with no complications (Renamed from Controlled type 2 diabetes mellitus without complication) Start:07-Nov-2018 Instruction Type:Patient Education How to access health informa tion online - Detail Indication:Diabetes mellitus type II, controlled, with no complications (Renamed from Controlled type 2 diabetes mellitus without complication) Start:07-Nov-2018 Instruction Type:Patient Education Patient Instructions Indication:Skin mole Start:07-Nov-2018 Instruction Type:Provider Instructions for Treatment How to access health informa tion online Indication:Nonsmoker Start:05-Dec-2017 Instruction Type:Patient Education How to access health informa tion online - Detail Indication:Nonsmoker Start:05-Dec-2017 Instruction Type:Patient Education Patient Instructions Indication:BMI 37.0-37.9, adult Start:05-Dec-2017 Instruction Type:Provider Instructions for Treatment How to access health informa tion online Indication:Nonsmoker Start:24-Nov-2017 Instruction Type:Patient Education How to access health informa tion online - Detail Indication:Nonsmoker Start:24-Nov-2017 Instruction Type:Patient Education Patient Instructions Indication:Nonsmoker Start:24-Nov-2017 Instruction Type:Provider Instructions for Treatment How to access health informa tion online Indication:Right knee pain Start:19-Aug-2016 Instruction Type:Patient Education How to access health informa tion online - Detail Indication:Right knee pain Start:19-Aug-2016 Instruction Type:Patient Education Patient Instructions Indication:Right knee pain Start:19-Aug-2016 Instruction Type:Provider Instructions for Treatment How to access health informa tion online Indication:Diabetes mellitus type 2, uncontrolled (Renamed from Uncontrolled type 2 diabetes mellitus) Start:15-Jun-2016 Instruction Type:Patient Education How to access health informa tion online - Detail Indication:Diabetes mellitus type 2, uncontrolled (Renamed from Uncontrolled type 2 diabetes mellitus) Start:15-Jun-2016 Instruction Type:Patient Education Patient Instructions Indication:Diabetes mellitus type 2, uncontrolled (Renamed from Uncontrolled type 2 diabetes mellitus) Start:15-Jun-2016 Instruction Type:Provider Instructions for Treatment How to access health informa tion online Indication:Diabetes mellitus type 2, uncontrolled (Renamed from Uncontrolled type 2 diabetes mellitus) Start:24-Jun-2015 Instruction Type:Patient Education How to access health informa tion online - Detail Indication:Diabetes mellitus type 2, uncontrolled (Renamed from Uncontrolled type 2 diabetes mellitus) Start:24-Jun-2015 Instruction Type:Patient Education Patient Instructions Indication:Diabetes mellitus type 2, uncontrolled (Renamed from Uncontrolled type 2 diabetes mellitus) Start:24-Jun-2015 Instruction Type:Provider Instructions for Treatment Patient Instructions Indication:Diabetes mellitus type 2, uncontrolled (Renamed from Uncontrolled type 2 diabetes mellitus) Start:26-May-2015 Instruction Type:Provider Instructions for Treatment How to access health informa tion online Indication:Hypertensive heart disease Start:29-Jan-2014 Instruction Type:Patient Education How to access health informa tion online - Detail Indication:Hypertensive heart disease Start:29-Jan-2014 Instruction Type:Patient Education Patient Instructions Indication:Hypertensive heart disease Start:29-Jan-2014 Instruction Type:Provider Instructions for Treatment How to access health informa tion online Indication:Hypertensive heart disease Start:08-Jan-2014 Instruction Type:Patient Education How to access health informa tion online - Detail Indication:Hypertensive heart disease Start:08-Jan-2014 Instruction Type:Patient Education Patient Instructions Indication:Hypertensive heart disease Start:08-Jan-2014 Instruction Type:Provider Instructions for Treatment How to access health informa tion online Indication:Skin tag Start:27-Dec-2013 Instruction Type:Patient Education How to access health informa tion online - Detail Indication:Skin tag Start:27-Dec-2013 Instruction Type:Patient Education Patient Instructions: sched an appt to remove skin tags Indication:Skin tag Start:27-Dec-2013 Instruction Type:Provider Instructions for Treatment Patient Instructions Indication:Leg swelling Start:06-Sep-2013 Instruction Type:Provider Instructions for Treatment Patient Instructions Indication:Hypertensive heart disease Start:22-Mar-2013 Instruction Type:Provider Instructions for Treatment Patient Instructions Indication:Pre-operative examination Start:13-Apr-2012 Instruction Type:Provider Instructions for Treatment Patient Instructions Indication:Hypertensive heart disease Start:16-Dec-2011 Instruction Type:Provider Instructions for Treatment [facility] Work Phone: reason for referral (narrative)No reason for referral information availableW[facility] Work Phone: Instructions Name Dates Details Nonsmoker : How to access he alth information online Indication:Nonsmoker Nonsmoker : How to access he alth information online - Detail Indication:Nonsmoker BMI 37.0-37.9, adult : Patie nt Instructions Indication:BMI 37.0-37.9, adult Nonsmoker : Patient Instruct ions Indication:Nonsmoker Right knee pain : How to acc ess health information online Indication:Right knee pain Right knee pain : How to acc ess health information online - Detail Indication:Right knee pain Right knee pain : Patient In structions Indication:Right knee pain Diabetes mellitus type 2, un controlled (Renamed from Uncontrolled type 2 diabetes mellitus) : How to access health information online Indication:Diabetes mellitus type 2, uncontrolled (Renamed from Uncontrolled type 2 diabetes mellitus) Diabetes mellitus type 2, un controlled (Renamed from Uncontrolled type 2 diabetes mellitus) : How to access health information online - Detail Indication:Diabetes mellitus type 2, uncontrolled (Renamed from Uncontrolled type 2 diabetes mellitus) Diabetes mellitus type 2, un controlled (Renamed from Uncontrolled type 2 diabetes mellitus) : Patient Instructions Indication:Diabetes mellitus type 2, uncontrolled (Renamed from Uncontrolled type 2 diabetes mellitus) Hypertensive heart disease : How to access health information online Indication:Hypertensive heart disease Hypertensive heart disease : How to access health information online - Detail Indication:Hypertensive heart disease Hypertensive heart disease : Patient Instructions Indication:Hypertensive heart disease Skin tag : How to access hea lth information online Indication:Skin tag Skin tag : How to access hea lth information online - Detail Indication:Skin tag Skin tag : Patient Instructi ons: sched an appt to remove skin tags Indication:Skin tag Leg swelling : Patient Instr uctions Indication:Leg swelling Pre-operative examination : Patient Instructions Indication:Pre-operative examination Name Dates Details Nonsmoker : How to access he alth information online Indication:Nonsmoker Nonsmoker : How to access he alth information online - Detail Indication:Nonsmoker BMI 37.0-37.9, adult : Patie nt Instructions Indication:BMI 37.0-37.9, adult Nonsmoker : Patient Instruct ions Indication:Nonsmoker Right knee pain : How to acc ess health information online Indication:Right knee pain Right knee pain : How to acc ess health information online - Detail Indication:Right knee pain Right knee pain : Patient In structions Indication:Right knee pain Diabetes mellitus type 2, un controlled (Renamed from Uncontrolled type 2 diabetes mellitus) : How to access health information online Indication:Diabetes mellitus type 2, uncontrolled (Renamed from Uncontrolled type 2 diabetes mellitus) Diabetes mellitus type 2, un controlled (Renamed from Uncontrolled type 2 diabetes mellitus) : How to access health information online - Detail Indication:Diabetes mellitus type 2, uncontrolled (Renamed from Uncontrolled type 2 diabetes mellitus) Diabetes mellitus type 2, un controlled (Renamed from Uncontrolled type 2 diabetes mellitus) : Patient Instructions Indication:Diabetes mellitus type 2, uncontrolled (Renamed from Uncontrolled type 2 diabetes mellitus) Hypertensive heart disease : How to access health information online Indication:Hypertensive heart disease Hypertensive heart disease : How to access health information online - Detail Indication:Hypertensive heart disease Hypertensive heart disease : Patient Instructions Indication:Hypertensive heart disease Skin tag : How to access hea lth information online Indication:Skin tag Skin tag : How to access hea lth information online - Detail Indication:Skin tag Skin tag : Patient Instructi ons: sched an appt to remove skin tags Indication:Skin tag Leg swelling : Patient Instr uctions Indication:Leg swelling Pre-operative examination : Patient Instructions Indication:Pre-operative examination Name Dates Details Nonsmoker : How to access he alth information online Indication:Nonsmoker Nonsmoker : How to access he alth information online - Detail Indication:Nonsmoker BMI 37.0-37.9, adult : Patie nt Instructions Indication:BMI 37.0-37.9, adult Nonsmoker : Patient Instruct ions Indication:Nonsmoker Right knee pain : How to acc ess health information online Indication:Right knee pain Right knee pain : How to acc ess health information online - Detail Indication:Right knee pain Right knee pain : Patient In structions Indication:Right knee pain Diabetes mellitus type 2, un controlled (Renamed from Uncontrolled type 2 diabetes mellitus) : How to access health information online Indication:Diabetes mellitus type 2, uncontrolled (Renamed from Uncontrolled type 2 diabetes mellitus) Diabetes mellitus type 2, un controlled (Renamed from Uncontrolled type 2 diabetes mellitus) : How to access health information online - Detail Indication:Diabetes mellitus type 2, uncontrolled (Renamed from Uncontrolled type 2 diabetes mellitus) Diabetes mellitus type 2, un controlled (Renamed from Uncontrolled type 2 diabetes mellitus) : Patient Instructions Indication:Diabetes mellitus type 2, uncontrolled (Renamed from Uncontrolled type 2 diabetes mellitus) Hypertensive heart disease : How to access health information online Indication:Hypertensive heart disease Hypertensive heart disease : How to access health information online - Detail Indication:Hypertensive heart disease Hypertensive heart disease : Patient Instructions Indication:Hypertensive heart disease Skin tag : How to access hea lth information online Indication:Skin tag Skin tag : How to access hea lth information online - Detail Indication:Skin tag Skin tag : Patient Instructi ons: sched an appt to remove skin tags Indication:Skin tag Leg swelling : Patient Instr uctions Indication:Leg swelling Pre-operative examination : Patient Instructions Indication:Pre-operative examination Name Dates Details Nonsmoker : How to access he alth information online Indication:Nonsmoker Nonsmoker : How to access he alth information online - Detail Indication:Nonsmoker BMI 37.0-37.9, adult : Patie nt Instructions Indication:BMI 37.0-37.9, adult Nonsmoker : Patient Instruct ions Indication:Nonsmoker Right knee pain : How to acc ess health information online Indication:Right knee pain Right knee pain : How to acc ess health information online - Detail Indication:Right knee pain Right knee pain : Patient In structions Indication:Right knee pain Diabetes mellitus type 2, un controlled (Renamed from Uncontrolled type 2 diabetes mellitus) : How to access health information online Indication:Diabetes mellitus type 2, uncontrolled (Renamed from Uncontrolled type 2 diabetes mellitus) Diabetes mellitus type 2, un controlled (Renamed from Uncontrolled type 2 diabetes mellitus) : How to access health information online - Detail Indication:Diabetes mellitus type 2, uncontrolled (Renamed from Uncontrolled type 2 diabetes mellitus) Diabetes mellitus type 2, un controlled (Renamed from Uncontrolled type 2 diabetes mellitus) : Patient Instructions Indication:Diabetes mellitus type 2, uncontrolled (Renamed from Uncontrolled type 2 diabetes mellitus) Hypertensive heart disease : How to access health information online Indication:Hypertensive heart disease Hypertensive heart disease : How to access health information online - Detail Indication:Hypertensive heart disease Hypertensive heart disease : Patient Instructions Indication:Hypertensive heart disease Skin tag : How to access hea lth information online Indication:Skin tag Skin tag : How to access hea lth information online - Detail Indication:Skin tag Skin tag : Patient Instructi ons: sched an appt to remove skin tags Indication:Skin tag Leg swelling : Patient Instr uctions Indication:Leg swelling Pre-operative examination : Patient Instructions Indication:Pre-operative examination Name Dates Details How to access health informa tion online Indication:Nonsmoker Start:05-Dec-2017 Instruction Type:Patient Education How to access health informa tion online - Detail Indication:Nonsmoker Start:05-Dec-2017 Instruction Type:Patient Education Patient Instructions Indication:BMI 37.0-37.9, adult Start:05-Dec-2017 Instruction Type:Provider Instructions for Treatment How to access health informa tion online Indication:Nonsmoker Start:24-Nov-2017 Instruction Type:Patient Education How to access health informa tion online - Detail Indication:Nonsmoker Start:24-Nov-2017 Instruction Type:Patient Education Patient Instructions Indication:Nonsmoker Start:24-Nov-2017 Instruction Type:Provider Instructions for Treatment How to access health informa tion online Indication:Right knee pain Start:19-Aug-2016 Instruction Type:Patient Education How to access health informa tion online - Detail Indication:Right knee pain Start:19-Aug-2016 Instruction Type:Patient Education Patient Instructions Indication:Right knee pain Start:19-Aug-2016 Instruction Type:Provider Instructions for Treatment How to access health informa tion online Indication:Diabetes mellitus type 2, uncontrolled (Renamed from Uncontrolled type 2 diabetes mellitus) Start:15-Jun-2016 Instruction Type:Patient Education How to access health informa tion online - Detail Indication:Diabetes mellitus type 2, uncontrolled (Renamed from Uncontrolled type 2 diabetes mellitus) Start:15-Jun-2016 Instruction Type:Patient Education Patient Instructions Indication:Diabetes mellitus type 2, uncontrolled (Renamed from Uncontrolled type 2 diabetes mellitus) Start:15-Jun-2016 Instruction Type:Provider Instructions for Treatment How to access health informa tion online Indication:Diabetes mellitus type 2, uncontrolled (Renamed from Uncontrolled type 2 diabetes mellitus) Start:24-Jun-2015 Instruction Type:Patient Education How to access health informa tion online - Detail Indication:Diabetes mellitus type 2, uncontrolled (Renamed from Uncontrolled type 2 diabetes mellitus) Start:24-Jun-2015 Instruction Type:Patient Education Patient Instructions Indication:Diabetes mellitus type 2, uncontrolled (Renamed from Uncontrolled type 2 diabetes mellitus) Start:24-Jun-2015 Instruction Type:Provider Instructions for Treatment Patient Instructions Indication:Diabetes mellitus type 2, uncontrolled (Renamed from Uncontrolled type 2 diabetes mellitus) Start:26-May-2015 Instruction Type:Provider Instructions for Treatment How to access health informa tion online Indication:Hypertensive heart disease Start:29-Jan-2014 Instruction Type:Patient Education How to access health informa tion online - Detail Indication:Hypertensive heart disease Start:29-Jan-2014 Instruction Type:Patient Education Patient Instructions Indication:Hypertensive heart disease Start:29-Jan-2014 Instruction Type:Provider Instructions for Treatment How to access health informa tion online Indication:Hypertensive heart disease Start:08-Jan-2014 Instruction Type:Patient Education How to access health informa tion online - Detail Indication:Hypertensive heart disease Start:08-Jan-2014 Instruction Type:Patient Education Patient Instructions Indication:Hypertensive heart disease Start:08-Jan-2014 Instruction Type:Provider Instructions for Treatment How to access health informa tion online Indication:Skin tag Start:27-Dec-2013 Instruction Type:Patient Education How to access health informa tion online - Detail Indication:Skin tag Start:27-Dec-2013 Instruction Type:Patient Education Patient Instructions: sched an appt to remove skin tags Indication:Skin tag Start:27-Dec-2013 Instruction Type:Provider Instructions for Treatment Patient Instructions Indication:Leg swelling Start:06-Sep-2013 Instruction Type:Provider Instructions for Treatment Patient Instructions Indication:Hypertensive heart disease Start:22-Mar-2013 Instruction Type:Provider Instructions for Treatment Patient Instructions Indication:Pre-operative examination Start:13-Apr-2012 Instruction Type:Provider Instructions for Treatment Patient Instructions Indication:Hypertensive heart disease Start:16-Dec-2011 Instruction Type:Provider Instructions for Treatment Name Dates Details How to access health informa tion online Indication:Nonsmoker Start:05-Dec-2017 Instruction Type:Patient Education How to access health informa tion online - Detail Indication:Nonsmoker Start:05-Dec-2017 Instruction Type:Patient Education Patient Instructions Indication:BMI 37.0-37.9, adult Start:05-Dec-2017 Instruction Type:Provider Instructions for Treatment How to access health informa tion online Indication:Nonsmoker Start:24-Nov-2017 Instruction Type:Patient Education How to access health informa tion online - Detail Indication:Nonsmoker Start:24-Nov-2017 Instruction Type:Patient Education Patient Instructions Indication:Nonsmoker Start:24-Nov-2017 Instruction Type:Provider Instructions for Treatment How to access health informa tion online Indication:Right knee pain Start:19-Aug-2016 Instruction Type:Patient Education How to access health informa tion online - Detail Indication:Right knee pain Start:19-Aug-2016 Instruction Type:Patient Education Patient Instructions Indication:Right knee pain Start:19-Aug-2016 Instruction Type:Provider Instructions for Treatment How to access health informa tion online Indication:Diabetes mellitus type 2, uncontrolled (Renamed from Uncontrolled type 2 diabetes mellitus) Start:15-Jun-2016 Instruction Type:Patient Education How to access health informa tion online - Detail Indication:Diabetes mellitus type 2, uncontrolled (Renamed from Uncontrolled type 2 diabetes mellitus) Start:15-Jun-2016 Instruction Type:Patient Education Patient Instructions Indication:Diabetes mellitus type 2, uncontrolled (Renamed from Uncontrolled type 2 diabetes mellitus) Start:15-Jun-2016 Instruction Type:Provider Instructions for Treatment How to access health informa tion online Indication:Diabetes mellitus type 2, uncontrolled (Renamed from Uncontrolled type 2 diabetes mellitus) Start:24-Jun-2015 Instruction Type:Patient Education How to access health informa tion online - Detail Indication:Diabetes mellitus type 2, uncontrolled (Renamed from Uncontrolled type 2 diabetes mellitus) Start:24-Jun-2015 Instruction Type:Patient Education Patient Instructions Indication:Diabetes mellitus type 2, uncontrolled (Renamed from Uncontrolled type 2 diabetes mellitus) Start:24-Jun-2015 Instruction Type:Provider Instructions for Treatment Patient Instructions Indication:Diabetes mellitus type 2, uncontrolled (Renamed from Uncontrolled type 2 diabetes mellitus) Start:26-May-2015 Instruction Type:Provider Instructions for Treatment How to access health informa tion online Indication:Hypertensive heart disease Start:29-Jan-2014 Instruction Type:Patient Education How to access health informa tion online - Detail Indication:Hypertensive heart disease Start:29-Jan-2014 Instruction Type:Patient Education Patient Instructions Indication:Hypertensive heart disease Start:29-Jan-2014 Instruction Type:Provider Instructions for Treatment How to access health informa tion online Indication:Hypertensive heart disease Start:08-Jan-2014 Instruction Type:Patient Education How to access health informa tion online - Detail Indication:Hypertensive heart disease Start:08-Jan-2014 Instruction Type:Patient Education Patient Instructions Indication:Hypertensive heart disease Start:08-Jan-2014 Instruction Type:Provider Instructions for Treatment How to access health informa tion online Indication:Skin tag Start:27-Dec-2013 Instruction Type:Patient Education How to access health informa tion online - Detail Indication:Skin tag Start:27-Dec-2013 Instruction Type:Patient Education Patient Instructions: sched an appt to remove skin tags Indication:Skin tag Start:27-Dec-2013 Instruction Type:Provider Instructions for Treatment Patient Instructions Indication:Leg swelling Start:06-Sep-2013 Instruction Type:Provider Instructions for Treatment Patient Instructions Indication:Hypertensive heart disease Start:22-Mar-2013 Instruction Type:Provider Instructions for Treatment Patient Instructions Indication:Pre-operative examination Start:13-Apr-2012 Instruction Type:Provider Instructions for Treatment Patient Instructions Indication:Hypertensive heart disease Start:16-Dec-2011 Instruction Type:Provider Instructions for Treatment Name Dates Details How to access health informa tion online Indication:Nonsmoker Start:05-Dec-2017 Instruction Type:Patient Education How to access health informa tion online - Detail Indication:Nonsmoker Start:05-Dec-2017 Instruction Type:Patient Education Patient Instructions Indication:BMI 37.0-37.9, adult Start:05-Dec-2017 Instruction Type:Provider Instructions for Treatment How to access health informa tion online Indication:Nonsmoker Start:24-Nov-2017 Instruction Type:Patient Education How to access health informa tion online - Detail Indication:Nonsmoker Start:24-Nov-2017 Instruction Type:Patient Education Patient Instructions Indication:Nonsmoker Start:24-Nov-2017 Instruction Type:Provider Instructions for Treatment How to access health informa tion online Indication:Right knee pain Start:19-Aug-2016 Instruction Type:Patient Education How to access health informa tion online - Detail Indication:Right knee pain Start:19-Aug-2016 Instruction Type:Patient Education Patient Instructions Indication:Right knee pain Start:19-Aug-2016 Instruction Type:Provider Instructions for Treatment How to access health informa tion online Indication:Diabetes mellitus type 2, uncontrolled (Renamed from Uncontrolled type 2 diabetes mellitus) Start:15-Jun-2016 Instruction Type:Patient Education How to access health informa tion online - Detail Indication:Diabetes mellitus type 2, uncontrolled (Renamed from Uncontrolled type 2 diabetes mellitus) Start:15-Jun-2016 Instruction Type:Patient Education Patient Instructions Indication:Diabetes mellitus type 2, uncontrolled (Renamed from Uncontrolled type 2 diabetes mellitus) Start:15-Jun-2016 Instruction Type:Provider Instructions for Treatment How to access health informa tion online Indication:Diabetes mellitus type 2, uncontrolled (Renamed from Uncontrolled type 2 diabetes mellitus) Start:24-Jun-2015 Instruction Type:Patient Education How to access health informa tion online - Detail Indication:Diabetes mellitus type 2, uncontrolled (Renamed from Uncontrolled type 2 diabetes mellitus) Start:24-Jun-2015 Instruction Type:Patient Education Patient Instructions Indication:Diabetes mellitus type 2, uncontrolled (Renamed from Uncontrolled type 2 diabetes mellitus) Start:24-Jun-2015 Instruction Type:Provider Instructions for Treatment Patient Instructions Indication:Diabetes mellitus type 2, uncontrolled (Renamed from Uncontrolled type 2 diabetes mellitus) Start:26-May-2015 Instruction Type:Provider Instructions for Treatment How to access health informa tion online Indication:Hypertensive heart disease Start:29-Jan-2014 Instruction Type:Patient Education How to access health informa tion online - Detail Indication:Hypertensive heart disease Start:29-Jan-2014 Instruction Type:Patient Education Patient Instructions Indication:Hypertensive heart disease Start:29-Jan-2014 Instruction Type:Provider Instructions for Treatment How to access health informa tion online Indication:Hypertensive heart disease Start:08-Jan-2014 Instruction Type:Patient Education How to access health informa tion online - Detail Indication:Hypertensive heart disease Start:08-Jan-2014 Instruction Type:Patient Education Patient Instructions Indication:Hypertensive heart disease Start:08-Jan-2014 Instruction Type:Provider Instructions for Treatment How to access health informa tion online Indication:Skin tag Start:27-Dec-2013 Instruction Type:Patient Education How to access health informa tion online - Detail Indication:Skin tag Start:27-Dec-2013 Instruction Type:Patient Education Patient Instructions: sched an appt to remove skin tags Indication:Skin tag Start:27-Dec-2013 Instruction Type:Provider Instructions for Treatment Patient Instructions Indication:Leg swelling Start:06-Sep-2013 Instruction Type:Provider Instructions for Treatment Patient Instructions Indication:Hypertensive heart disease Start:22-Mar-2013 Instruction Type:Provider Instructions for Treatment Patient Instructions Indication:Pre-operative examination Start:13-Apr-2012 Instruction Type:Provider Instructions for Treatment Patient Instructions Indication:Hypertensive heart disease Start:16-Dec-2011 Instruction Type:Provider Instructions for Treatment Name Dates Details How to access health informa tion online Indication:Diabetes mellitus type II, controlled, with no complications (Renamed from Controlled type 2 diabetes mellitus without complication) Start:07-Nov-2018 Instruction Type:Patient Education How to access health informa tion online - Detail Indication:Diabetes mellitus type II, controlled, with no complications (Renamed from Controlled type 2 diabetes mellitus without complication) Start:07-Nov-2018 Instruction Type:Patient Education Patient Instructions Indication:Skin mole Start:07-Nov-2018 Instruction Type:Provider Instructions for Treatment How to access health informa tion online Indication:Nonsmoker Start:05-Dec-2017 Instruction Type:Patient Education How to access health informa tion online - Detail Indication:Nonsmoker Start:05-Dec-2017 Instruction Type:Patient Education Patient Instructions Indication:BMI 37.0-37.9, adult Start:05-Dec-2017 Instruction Type:Provider Instructions for Treatment How to access health informa tion online Indication:Nonsmoker Start:24-Nov-2017 Instruction Type:Patient Education How to access health informa tion online - Detail Indication:Nonsmoker Start:24-Nov-2017 Instruction Type:Patient Education Patient Instructions Indication:Nonsmoker Start:24-Nov-2017 Instruction Type:Provider Instructions for Treatment How to access health informa tion online Indication:Right knee pain Start:19-Aug-2016 Instruction Type:Patient Education How to access health informa tion online - Detail Indication:Right knee pain Start:19-Aug-2016 Instruction Type:Patient Education Patient Instructions Indication:Right knee pain Start:19-Aug-2016 Instruction Type:Provider Instructions for Treatment How to access health informa tion online Indication:Diabetes mellitus type 2, uncontrolled (Renamed from Uncontrolled type 2 diabetes mellitus) Start:15-Jun-2016 Instruction Type:Patient Education How to access health informa tion online - Detail Indication:Diabetes mellitus type 2, uncontrolled (Renamed from Uncontrolled type 2 diabetes mellitus) Start:15-Jun-2016 Instruction Type:Patient Education Patient Instructions Indication:Diabetes mellitus type 2, uncontrolled (Renamed from Uncontrolled type 2 diabetes mellitus) Start:15-Jun-2016 Instruction Type:Provider Instructions for Treatment How to access health informa tion online Indication:Diabetes mellitus type 2, uncontrolled (Renamed from Uncontrolled type 2 diabetes mellitus) Start:24-Jun-2015 Instruction Type:Patient Education How to access health informa tion online - Detail Indication:Diabetes mellitus type 2, uncontrolled (Renamed from Uncontrolled type 2 diabetes mellitus) Start:24-Jun-2015 Instruction Type:Patient Education Patient Instructions Indication:Diabetes mellitus type 2, uncontrolled (Renamed from Uncontrolled type 2 diabetes mellitus) Start:24-Jun-2015 Instruction Type:Provider Instructions for Treatment Patient Instructions Indication:Diabetes mellitus type 2, uncontrolled (Renamed from Uncontrolled type 2 diabetes mellitus) Start:26-May-2015 Instruction Type:Provider Instructions for Treatment How to access health informa tion online Indication:Hypertensive heart disease Start:29-Jan-2014 Instruction Type:Patient Education How to access health informa tion online - Detail Indication:Hypertensive heart disease Start:29-Jan-2014 Instruction Type:Patient Education Patient Instructions Indication:Hypertensive heart disease Start:29-Jan-2014 Instruction Type:Provider Instructions for Treatment How to access health informa tion online Indication:Hypertensive heart disease Start:08-Jan-2014 Instruction Type:Patient Education How to access health informa tion online - Detail Indication:Hypertensive heart disease Start:08-Jan-2014 Instruction Type:Patient Education Patient Instructions Indication:Hypertensive heart disease Start:08-Jan-2014 Instruction Type:Provider Instructions for Treatment How to access health informa tion online Indication:Skin tag Start:27-Dec-2013 Instruction Type:Patient Education How to access health informa tion online - Detail Indication:Skin tag Start:27-Dec-2013 Instruction Type:Patient Education Patient Instructions: sched an appt to remove skin tags Indication:Skin tag Start:27-Dec-2013 Instruction Type:Provider Instructions for Treatment Patient Instructions Indication:Leg swelling Start:06-Sep-2013 Instruction Type:Provider Instructions for Treatment Patient Instructions Indication:Hypertensive heart disease Start:22-Mar-2013 Instruction Type:Provider Instructions for Treatment Patient Instructions Indication:Pre-operative examination Start:13-Apr-2012 Instruction Type:Provider Instructions for Treatment Patient Instructions Indication:Hypertensive heart disease Start:16-Dec-2011 Instruction Type:Provider Instructions for Treatment Name Dates Details How to access health informa tion online Indication:Diabetes mellitus type II, controlled, with no complications (Renamed from Controlled type 2 diabetes mellitus without complication) Start:07-Nov-2018 Instruction Type:Patient Education How to access health informa tion online - Detail Indication:Diabetes mellitus type II, controlled, with no complications (Renamed from Controlled type 2 diabetes mellitus without complication) Start:07-Nov-2018 Instruction Type:Patient Education Patient Instructions Indication:Skin mole Start:07-Nov-2018 Instruction Type:Provider Instructions for Treatment How to access health informa tion online Indication:Nonsmoker Start:05-Dec-2017 Instruction Type:Patient Education How to access health informa tion online - Detail Indication:Nonsmoker Start:05-Dec-2017 Instruction Type:Patient Education Patient Instructions Indication:BMI 37.0-37.9, adult Start:05-Dec-2017 Instruction Type:Provider Instructions for Treatment How to access health informa tion online Indication:Nonsmoker Start:24-Nov-2017 Instruction Type:Patient Education How to access health informa tion online - Detail Indication:Nonsmoker Start:24-Nov-2017 Instruction Type:Patient Education Patient Instructions Indication:Nonsmoker Start:24-Nov-2017 Instruction Type:Provider Instructions for Treatment How to access health informa tion online Indication:Right knee pain Start:19-Aug-2016 Instruction Type:Patient Education How to access health informa tion online - Detail Indication:Right knee pain Start:19-Aug-2016 Instruction Type:Patient Education Patient Instructions Indication:Right knee pain Start:19-Aug-2016 Instruction Type:Provider Instructions for Treatment How to access health informa tion online Indication:Diabetes mellitus type 2, uncontrolled (Renamed from Uncontrolled type 2 diabetes mellitus) Start:15-Jun-2016 Instruction Type:Patient Education How to access health informa tion online - Detail Indication:Diabetes mellitus type 2, uncontrolled (Renamed from Uncontrolled type 2 diabetes mellitus) Start:15-Jun-2016 Instruction Type:Patient Education Patient Instructions Indication:Diabetes mellitus type 2, uncontrolled (Renamed from Uncontrolled type 2 diabetes mellitus) Start:15-Jun-2016 Instruction Type:Provider Instructions for Treatment How to access health informa tion online Indication:Diabetes mellitus type 2, uncontrolled (Renamed from Uncontrolled type 2 diabetes mellitus) Start:24-Jun-2015 Instruction Type:Patient Education How to access health informa tion online - Detail Indication:Diabetes mellitus type 2, uncontrolled (Renamed from Uncontrolled type 2 diabetes mellitus) Start:24-Jun-2015 Instruction Type:Patient Education Patient Instructions Indication:Diabetes mellitus type 2, uncontrolled (Renamed from Uncontrolled type 2 diabetes mellitus) Start:24-Jun-2015 Instruction Type:Provider Instructions for Treatment Patient Instructions Indication:Diabetes mellitus type 2, uncontrolled (Renamed from Uncontrolled type 2 diabetes mellitus) Start:26-May-2015 Instruction Type:Provider Instructions for Treatment How to access health informa tion online Indication:Hypertensive heart disease Start:29-Jan-2014 Instruction Type:Patient Education How to access health informa tion online - Detail Indication:Hypertensive heart disease Start:29-Jan-2014 Instruction Type:Patient Education Patient Instructions Indication:Hypertensive heart disease Start:29-Jan-2014 Instruction Type:Provider Instructions for Treatment How to access health informa tion online Indication:Hypertensive heart disease Start:08-Jan-2014 Instruction Type:Patient Education How to access health informa tion online - Detail Indication:Hypertensive heart disease Start:08-Jan-2014 Instruction Type:Patient Education Patient Instructions Indication:Hypertensive heart disease Start:08-Jan-2014 Instruction Type:Provider Instructions for Treatment How to access health informa tion online Indication:Skin tag Start:27-Dec-2013 Instruction Type:Patient Education How to access health informa tion online - Detail Indication:Skin tag Start:27-Dec-2013 Instruction Type:Patient Education Patient Instructions: sched an appt to remove skin tags Indication:Skin tag Start:27-Dec-2013 Instruction Type:Provider Instructions for Treatment Patient Instructions Indication:Leg swelling Start:06-Sep-2013 Instruction Type:Provider Instructions for Treatment Patient Instructions Indication:Hypertensive heart disease Start:22-Mar-2013 Instruction Type:Provider Instructions for Treatment Patient Instructions Indication:Pre-operative examination Start:13-Apr-2012 Instruction Type:Provider Instructions for Treatment Patient Instructions Indication:Hypertensive heart disease Start:16-Dec-2011 Instruction Type:Provider Instructions for Treatment Name Dates Details How to access health informa tion online Indication:Diabetes mellitus type II, controlled, with no complications (Renamed from Controlled type 2 diabetes mellitus without complication) Start:07-Nov-2018 Instruction Type:Patient Education How to access health informa tion online - Detail Indication:Diabetes mellitus type II, controlled, with no complications (Renamed from Controlled type 2 diabetes mellitus without complication) Start:07-Nov-2018 Instruction Type:Patient Education Patient Instructions Indication:Skin mole Start:07-Nov-2018 Instruction Type:Provider Instructions for Treatment How to access health informa tion online Indication:Nonsmoker Start:05-Dec-2017 Instruction Type:Patient Education How to access health informa tion online - Detail Indication:Nonsmoker Start:05-Dec-2017 Instruction Type:Patient Education Patient Instructions Indication:BMI 37.0-37.9, adult Start:05-Dec-2017 Instruction Type:Provider Instructions for Treatment How to access health informa tion online Indication:Nonsmoker Start:24-Nov-2017 Instruction Type:Patient Education How to access health informa tion online - Detail Indication:Nonsmoker Start:24-Nov-2017 Instruction Type:Patient Education Patient Instructions Indication:Nonsmoker Start:24-Nov-2017 Instruction Type:Provider Instructions for Treatment How to access health informa tion online Indication:Right knee pain Start:19-Aug-2016 Instruction Type:Patient Education How to access health informa tion online - Detail Indication:Right knee pain Start:19-Aug-2016 Instruction Type:Patient Education Patient Instructions Indication:Right knee pain Start:19-Aug-2016 Instruction Type:Provider Instructions for Treatment How to access health informa tion online Indication:Diabetes mellitus type 2, uncontrolled (Renamed from Uncontrolled type 2 diabetes mellitus) Start:15-Jun-2016 Instruction Type:Patient Education How to access health informa tion online - Detail Indication:Diabetes mellitus type 2, uncontrolled (Renamed from Uncontrolled type 2 diabetes mellitus) Start:15-Jun-2016 Instruction Type:Patient Education Patient Instructions Indication:Diabetes mellitus type 2, uncontrolled (Renamed from Uncontrolled type 2 diabetes mellitus) Start:15-Jun-2016 Instruction Type:Provider Instructions for Treatment How to access health informa tion online Indication:Diabetes mellitus type 2, uncontrolled (Renamed from Uncontrolled type 2 diabetes mellitus) Start:24-Jun-2015 Instruction Type:Patient Education How to access health informa tion online - Detail Indication:Diabetes mellitus type 2, uncontrolled (Renamed from Uncontrolled type 2 diabetes mellitus) Start:24-Jun-2015 Instruction Type:Patient Education Patient Instructions Indication:Diabetes mellitus type 2, uncontrolled (Renamed from Uncontrolled type 2 diabetes mellitus) Start:24-Jun-2015 Instruction Type:Provider Instructions for Treatment Patient Instructions Indication:Diabetes mellitus type 2, uncontrolled (Renamed from Uncontrolled type 2 diabetes mellitus) Start:26-May-2015 Instruction Type:Provider Instructions for Treatment How to access health informa tion online Indication:Hypertensive heart disease Start:29-Jan-2014 Instruction Type:Patient Education How to access health informa tion online - Detail Indication:Hypertensive heart disease Start:29-Jan-2014 Instruction Type:Patient Education Patient Instructions Indication:Hypertensive heart disease Start:29-Jan-2014 Instruction Type:Provider Instructions for Treatment How to access health informa tion online Indication:Hypertensive heart disease Start:08-Jan-2014 Instruction Type:Patient Education How to access health informa tion online - Detail Indication:Hypertensive heart disease Start:08-Jan-2014 Instruction Type:Patient Education Patient Instructions Indication:Hypertensive heart disease Start:08-Jan-2014 Instruction Type:Provider Instructions for Treatment How to access health informa tion online Indication:Skin tag Start:27-Dec-2013 Instruction Type:Patient Education How to access health informa tion online - Detail Indication:Skin tag Start:27-Dec-2013 Instruction Type:Patient Education Patient Instructions: sched an appt to remove skin tags Indication:Skin tag Start:27-Dec-2013 Instruction Type:Provider Instructions for Treatment Patient Instructions Indication:Leg swelling Start:06-Sep-2013 Instruction Type:Provider Instructions for Treatment Patient Instructions Indication:Hypertensive heart disease Start:22-Mar-2013 Instruction Type:Provider Instructions for Treatment Patient Instructions Indication:Pre-operative examination Start:13-Apr-2012 Instruction Type:Provider Instructions for Treatment Patient Instructions Indication:Hypertensive heart disease Start:16-Dec-2011 Instruction Type:Provider Instructions for Treatment Name Dates Details How to access health informa tion online Indication:Diabetes mellitus type II, controlled, with no complications (Renamed from Controlled type 2 diabetes mellitus without complication) Start:07-Nov-2018 Instruction Type:Patient Education How to access health informa tion online - Detail Indication:Diabetes mellitus type II, controlled, with no complications (Renamed from Controlled type 2 diabetes mellitus without complication) Start:07-Nov-2018 Instruction Type:Patient Education Patient Instructions Indication:Skin mole Start:07-Nov-2018 Instruction Type:Provider Instructions for Treatment How to access health informa tion online Indication:Nonsmoker Start:05-Dec-2017 Instruction Type:Patient Education How to access health informa tion online - Detail Indication:Nonsmoker Start:05-Dec-2017 Instruction Type:Patient Education Patient Instructions Indication:BMI 37.0-37.9, adult Start:05-Dec-2017 Instruction Type:Provider Instructions for Treatment How to access health informa tion online Indication:Nonsmoker Start:24-Nov-2017 Instruction Type:Patient Education How to access health informa tion online - Detail Indication:Nonsmoker Start:24-Nov-2017 Instruction Type:Patient Education Patient Instructions Indication:Nonsmoker Start:24-Nov-2017 Instruction Type:Provider Instructions for Treatment How to access health informa tion online Indication:Right knee pain Start:19-Aug-2016 Instruction Type:Patient Education How to access health informa tion online - Detail Indication:Right knee pain Start:19-Aug-2016 Instruction Type:Patient Education Patient Instructions Indication:Right knee pain Start:19-Aug-2016 Instruction Type:Provider Instructions for Treatment How to access health informa tion online Indication:Diabetes mellitus type 2, uncontrolled (Renamed from Uncontrolled type 2 diabetes mellitus) Start:15-Jun-2016 Instruction Type:Patient Education How to access health informa tion online - Detail Indication:Diabetes mellitus type 2, uncontrolled (Renamed from Uncontrolled type 2 diabetes mellitus) Start:15-Jun-2016 Instruction Type:Patient Education Patient Instructions Indication:Diabetes mellitus type 2, uncontrolled (Renamed from Uncontrolled type 2 diabetes mellitus) Start:15-Jun-2016 Instruction Type:Provider Instructions for Treatment How to access health informa tion online Indication:Diabetes mellitus type 2, uncontrolled (Renamed from Uncontrolled type 2 diabetes mellitus) Start:24-Jun-2015 Instruction Type:Patient Education How to access health informa tion online - Detail Indication:Diabetes mellitus type 2, uncontrolled (Renamed from Uncontrolled type 2 diabetes mellitus) Start:24-Jun-2015 Instruction Type:Patient Education Patient Instructions Indication:Diabetes mellitus type 2, uncontrolled (Renamed from Uncontrolled type 2 diabetes mellitus) Start:24-Jun-2015 Instruction Type:Provider Instructions for Treatment Patient Instructions Indication:Diabetes mellitus type 2, uncontrolled (Renamed from Uncontrolled type 2 diabetes mellitus) Start:26-May-2015 Instruction Type:Provider Instructions for Treatment How to access health informa tion online Indication:Hypertensive heart disease Start:29-Jan-2014 Instruction Type:Patient Education How to access health informa tion online - Detail Indication:Hypertensive heart disease Start:29-Jan-2014 Instruction Type:Patient Education Patient Instructions Indication:Hypertensive heart disease Start:29-Jan-2014 Instruction Type:Provider Instructions for Treatment How to access health informa tion online Indication:Hypertensive heart disease Start:08-Jan-2014 Instruction Type:Patient Education How to access health informa tion online - Detail Indication:Hypertensive heart disease Start:08-Jan-2014 Instruction Type:Patient Education Patient Instructions Indication:Hypertensive heart disease Start:08-Jan-2014 Instruction Type:Provider Instructions for Treatment How to access health informa tion online Indication:Skin tag Start:27-Dec-2013 Instruction Type:Patient Education How to access health informa tion online - Detail Indication:Skin tag Start:27-Dec-2013 Instruction Type:Patient Education Patient Instructions: sched an appt to remove skin tags Indication:Skin tag Start:27-Dec-2013 Instruction Type:Provider Instructions for Treatment Patient Instructions Indication:Leg swelling Start:06-Sep-2013 Instruction Type:Provider Instructions for Treatment Patient Instructions Indication:Hypertensive heart disease Start:22-Mar-2013 Instruction Type:Provider Instructions for Treatment Patient Instructions Indication:Pre-operative examination Start:13-Apr-2012 Instruction Type:Provider Instructions for Treatment Patient Instructions Indication:Hypertensive heart disease Start:16-Dec-2011 Instruction Type:Provider Instructions for Treatment Name Dates Details How to access health informa tion online Indication:Diabetes mellitus type II, controlled, with no complications (Renamed from Controlled type 2 diabetes mellitus without complication) Start:24-Dec-2019 Instruction Type:Patient Education How to access health informa tion online - Detail Indication:Diabetes mellitus type II, controlled, with no complications (Renamed from Controlled type 2 diabetes mellitus without complication) Start:24-Dec-2019 Instruction Type:Patient Education Patient Instructions Indication:Nonsmoker Start:24-Dec-2019 Instruction Type:Provider Instructions for Treatment How to access health informa tion online Indication:Diabetes mellitus type II, controlled, with no complications (Renamed from Controlled type 2 diabetes mellitus without complication) Start:07-Nov-2018 Instruction Type:Patient Education How to access health informa tion online - Detail Indication:Diabetes mellitus type II, controlled, with no complications (Renamed from Controlled type 2 diabetes mellitus without complication) Start:07-Nov-2018 Instruction Type:Patient Education Patient Instructions Indication:Skin mole Start:07-Nov-2018 Instruction Type:Provider Instructions for Treatment How to access health informa tion online Indication:Nonsmoker Start:05-Dec-2017 Instruction Type:Patient Education How to access health informa tion online - Detail Indication:Nonsmoker Start:05-Dec-2017 Instruction Type:Patient Education Patient Instructions Indication:BMI 37.0-37.9, adult Start:05-Dec-2017 Instruction Type:Provider Instructions for Treatment How to access health informa tion online Indication:Nonsmoker Start:24-Nov-2017 Instruction Type:Patient Education How to access health informa tion online - Detail Indication:Nonsmoker Start:24-Nov-2017 Instruction Type:Patient Education Patient Instructions Indication:Nonsmoker Start:24-Nov-2017 Instruction Type:Provider Instructions for Treatment How to access health informa tion online Indication:Right knee pain Start:19-Aug-2016 Instruction Type:Patient Education How to access health informa tion online - Detail Indication:Right knee pain Start:19-Aug-2016 Instruction Type:Patient Education Patient Instructions Indication:Right knee pain Start:19-Aug-2016 Instruction Type:Provider Instructions for Treatment How to access health informa tion online Indication:Diabetes mellitus type 2, uncontrolled (Renamed from Uncontrolled type 2 diabetes mellitus) Start:15-Jun-2016 Instruction Type:Patient Education How to access health informa tion online - Detail Indication:Diabetes mellitus type 2, uncontrolled (Renamed from Uncontrolled type 2 diabetes mellitus) Start:15-Jun-2016 Instruction Type:Patient Education Patient Instructions Indication:Diabetes mellitus type 2, uncontrolled (Renamed from Uncontrolled type 2 diabetes mellitus) Start:15-Jun-2016 Instruction Type:Provider Instructions for Treatment How to access health informa tion online Indication:Diabetes mellitus type 2, uncontrolled (Renamed from Uncontrolled type 2 diabetes mellitus) Start:24-Jun-2015 Instruction Type:Patient Education How to access health informa tion online - Detail Indication:Diabetes mellitus type 2, uncontrolled (Renamed from Uncontrolled type 2 diabetes mellitus) Start:24-Jun-2015 Instruction Type:Patient Education Patient Instructions Indication:Diabetes mellitus type 2, uncontrolled (Renamed from Uncontrolled type 2 diabetes mellitus) Start:24-Jun-2015 Instruction Type:Provider Instructions for Treatment Patient Instructions Indication:Diabetes mellitus type 2, uncontrolled (Renamed from Uncontrolled type 2 diabetes mellitus) Start:26-May-2015 Instruction Type:Provider Instructions for Treatment How to access health informa tion online Indication:Hypertensive heart disease Start:29-Jan-2014 Instruction Type:Patient Education How to access health informa tion online - Detail Indication:Hypertensive heart disease Start:29-Jan-2014 Instruction Type:Patient Education Patient Instructions Indication:Hypertensive heart disease Start:29-Jan-2014 Instruction Type:Provider Instructions for Treatment How to access health informa tion online Indication:Hypertensive heart disease Start:08-Jan-2014 Instruction Type:Patient Education How to access health informa tion online - Detail Indication:Hypertensive heart disease Start:08-Jan-2014 Instruction Type:Patient Education Patient Instructions Indication:Hypertensive heart disease Start:08-Jan-2014 Instruction Type:Provider Instructions for Treatment How to access health informa tion online Indication:Skin tag Start:27-Dec-2013 Instruction Type:Patient Education How to access health informa tion online - Detail Indication:Skin tag Start:27-Dec-2013 Instruction Type:Patient Education Patient Instructions: sched an appt to remove skin tags Indication:Skin tag Start:27-Dec-2013 Instruction Type:Provider Instructions for Treatment Patient Instructions Indication:Leg swelling Start:06-Sep-2013 Instruction Type:Provider Instructions for Treatment Patient Instructions Indication:Hypertensive heart disease Start:22-Mar-2013 Instruction Type:Provider Instructions for Treatment Patient Instructions Indication:Pre-operative examination Start:13-Apr-2012 Instruction Type:Provider Instructions for Treatment Patient Instructions Indication:Hypertensive heart disease Start:16-Dec-2011 Instruction Type:Provider Instructions for Treatment Name Dates Details How to access health informa tion online Indication:Diabetes mellitus type II, controlled, with no complications (Renamed from Controlled type 2 diabetes mellitus without complication) Start:24-Dec-2019 Instruction Type:Patient Education How to access health informa tion online - Detail Indication:Diabetes mellitus type II, controlled, with no complications (Renamed from Controlled type 2 diabetes mellitus without complication) Start:24-Dec-2019 Instruction Type:Patient Education Patient Instructions Indication:Nonsmoker Start:24-Dec-2019 Instruction Type:Provider Instructions for Treatment How to access health informa tion online Indication:Diabetes mellitus type II, controlled, with no complications (Renamed from Controlled type 2 diabetes mellitus without complication) Start:07-Nov-2018 Instruction Type:Patient Education How to access health informa tion online - Detail Indication:Diabetes mellitus type II, controlled, with no complications (Renamed from Controlled type 2 diabetes mellitus without complication) Start:07-Nov-2018 Instruction Type:Patient Education Patient Instructions Indication:Skin mole Start:07-Nov-2018 Instruction Type:Provider Instructions for Treatment How to access health informa tion online Indication:Nonsmoker Start:05-Dec-2017 Instruction Type:Patient Education How to access health informa tion online - Detail Indication:Nonsmoker Start:05-Dec-2017 Instruction Type:Patient Education Patient Instructions Indication:BMI 37.0-37.9, adult Start:05-Dec-2017 Instruction Type:Provider Instructions for Treatment How to access health informa tion online Indication:Nonsmoker Start:24-Nov-2017 Instruction Type:Patient Education How to access health informa tion online - Detail Indication:Nonsmoker Start:24-Nov-2017 Instruction Type:Patient Education Patient Instructions Indication:Nonsmoker Start:24-Nov-2017 Instruction Type:Provider Instructions for Treatment How to access health informa tion online Indication:Right knee pain Start:19-Aug-2016 Instruction Type:Patient Education How to access health informa tion online - Detail Indication:Right knee pain Start:19-Aug-2016 Instruction Type:Patient Education Patient Instructions Indication:Right knee pain Start:19-Aug-2016 Instruction Type:Provider Instructions for Treatment How to access health informa tion online Indication:Diabetes mellitus type 2, uncontrolled (Renamed from Uncontrolled type 2 diabetes mellitus) Start:15-Jun-2016 Instruction Type:Patient Education How to access health informa tion online - Detail Indication:Diabetes mellitus type 2, uncontrolled (Renamed from Uncontrolled type 2 diabetes mellitus) Start:15-Jun-2016 Instruction Type:Patient Education Patient Instructions Indication:Diabetes mellitus type 2, uncontrolled (Renamed from Uncontrolled type 2 diabetes mellitus) Start:15-Jun-2016 Instruction Type:Provider Instructions for Treatment How to access health informa tion online Indication:Diabetes mellitus type 2, uncontrolled (Renamed from Uncontrolled type 2 diabetes mellitus) Start:24-Jun-2015 Instruction Type:Patient Education How to access health informa tion online - Detail Indication:Diabetes mellitus type 2, uncontrolled (Renamed from Uncontrolled type 2 diabetes mellitus) Start:24-Jun-2015 Instruction Type:Patient Education Patient Instructions Indication:Diabetes mellitus type 2, uncontrolled (Renamed from Uncontrolled type 2 diabetes mellitus) Start:24-Jun-2015 Instruction Type:Provider Instructions for Treatment Patient Instructions Indication:Diabetes mellitus type 2, uncontrolled (Renamed from Uncontrolled type 2 diabetes mellitus) Start:26-May-2015 Instruction Type:Provider Instructions for Treatment How to access health informa tion online Indication:Hypertensive heart disease Start:29-Jan-2014 Instruction Type:Patient Education How to access health informa tion online - Detail Indication:Hypertensive heart disease Start:29-Jan-2014 Instruction Type:Patient Education Patient Instructions Indication:Hypertensive heart disease Start:29-Jan-2014 Instruction Type:Provider Instructions for Treatment How to access health informa tion online Indication:Hypertensive heart disease Start:08-Jan-2014 Instruction Type:Patient Education How to access health informa tion online - Detail Indication:Hypertensive heart disease Start:08-Jan-2014 Instruction Type:Patient Education Patient Instructions Indication:Hypertensive heart disease Start:08-Jan-2014 Instruction Type:Provider Instructions for Treatment How to access health informa tion online Indication:Skin tag Start:27-Dec-2013 Instruction Type:Patient Education How to access health informa tion online - Detail Indication:Skin tag Start:27-Dec-2013 Instruction Type:Patient Education Patient Instructions: sched an appt to remove skin tags Indication:Skin tag Start:27-Dec-2013 Instruction Type:Provider Instructions for Treatment Patient Instructions Indication:Leg swelling Start:06-Sep-2013 Instruction Type:Provider Instructions for Treatment Patient Instructions Indication:Hypertensive heart disease Start:22-Mar-2013 Instruction Type:Provider Instructions for Treatment Patient Instructions Indication:Pre-operative examination Start:13-Apr-2012 Instruction Type:Provider Instructions for Treatment Patient Instructions Indication:Hypertensive heart disease Start:16-Dec-2011 Instruction Type:Provider Instructions for Treatment Name Dates Details How to access health informa tion online Indication:Diabetes mellitus type II, controlled, with no complications (Renamed from Controlled type 2 diabetes mellitus without complication) Start:24-Dec-2019 Instruction Type:Patient Education How to access health informa tion online - Detail Indication:Diabetes mellitus type II, controlled, with no complications (Renamed from Controlled type 2 diabetes mellitus without complication) Start:24-Dec-2019 Instruction Type:Patient Education Patient Instructions Indication:Nonsmoker Start:24-Dec-2019 Instruction Type:Provider Instructions for Treatment How to access health informa tion online Indication:Diabetes mellitus type II, controlled, with no complications (Renamed from Controlled type 2 diabetes mellitus without complication) Start:07-Nov-2018 Instruction Type:Patient Education How to access health informa tion online - Detail Indication:Diabetes mellitus type II, controlled, with no complications (Renamed from Controlled type 2 diabetes mellitus without complication) Start:07-Nov-2018 Instruction Type:Patient Education Patient Instructions Indication:Skin mole Start:07-Nov-2018 Instruction Type:Provider Instructions for Treatment How to access health informa tion online Indication:Nonsmoker Start:05-Dec-2017 Instruction Type:Patient Education How to access health informa tion online - Detail Indication:Nonsmoker Start:05-Dec-2017 Instruction Type:Patient Education Patient Instructions Indication:BMI 37.0-37.9, adult Start:05-Dec-2017 Instruction Type:Provider Instructions for Treatment How to access health informa tion online Indication:Nonsmoker Start:24-Nov-2017 Instruction Type:Patient Education How to access health informa tion online - Detail Indication:Nonsmoker Start:24-Nov-2017 Instruction Type:Patient Education Patient Instructions Indication:Nonsmoker Start:24-Nov-2017 Instruction Type:Provider Instructions for Treatment How to access health informa tion online Indication:Right knee pain Start:19-Aug-2016 Instruction Type:Patient Education How to access health informa tion online - Detail Indication:Right knee pain Start:19-Aug-2016 Instruction Type:Patient Education Patient Instructions Indication:Right knee pain Start:19-Aug-2016 Instruction Type:Provider Instructions for Treatment How to access health informa tion online Indication:Diabetes mellitus type 2, uncontrolled (Renamed from Uncontrolled type 2 diabetes mellitus) Start:15-Jun-2016 Instruction Type:Patient Education How to access health informa tion online - Detail Indication:Diabetes mellitus type 2, uncontrolled (Renamed from Uncontrolled type 2 diabetes mellitus) Start:15-Jun-2016 Instruction Type:Patient Education Patient Instructions Indication:Diabetes mellitus type 2, uncontrolled (Renamed from Uncontrolled type 2 diabetes mellitus) Start:15-Jun-2016 Instruction Type:Provider Instructions for Treatment How to access health informa tion online Indication:Diabetes mellitus type 2, uncontrolled (Renamed from Uncontrolled type 2 diabetes mellitus) Start:24-Jun-2015 Instruction Type:Patient Education How to access health informa tion online - Detail Indication:Diabetes mellitus type 2, uncontrolled (Renamed from Uncontrolled type 2 diabetes mellitus) Start:24-Jun-2015 Instruction Type:Patient Education Patient Instructions Indication:Diabetes mellitus type 2, uncontrolled (Renamed from Uncontrolled type 2 diabetes mellitus) Start:24-Jun-2015 Instruction Type:Provider Instructions for Treatment Patient Instructions Indication:Diabetes mellitus type 2, uncontrolled (Renamed from Uncontrolled type 2 diabetes mellitus) Start:26-May-2015 Instruction Type:Provider Instructions for Treatment How to access health informa tion online Indication:Hypertensive heart disease Start:29-Jan-2014 Instruction Type:Patient Education How to access health informa tion online - Detail Indication:Hypertensive heart disease Start:29-Jan-2014 Instruction Type:Patient Education Patient Instructions Indication:Hypertensive heart disease Start:29-Jan-2014 Instruction Type:Provider Instructions for Treatment How to access health informa tion online Indication:Hypertensive heart disease Start:08-Jan-2014 Instruction Type:Patient Education How to access health informa tion online - Detail Indication:Hypertensive heart disease Start:08-Jan-2014 Instruction Type:Patient Education Patient Instructions Indication:Hypertensive heart disease Start:08-Jan-2014 Instruction Type:Provider Instructions for Treatment How to access health informa tion online Indication:Skin tag Start:27-Dec-2013 Instruction Type:Patient Education How to access health informa tion online - Detail Indication:Skin tag Start:27-Dec-2013 Instruction Type:Patient Education Patient Instructions: sched an appt to remove skin tags Indication:Skin tag Start:27-Dec-2013 Instruction Type:Provider Instructions for Treatment Patient Instructions Indication:Leg swelling Start:06-Sep-2013 Instruction Type:Provider Instructions for Treatment Patient Instructions Indication:Hypertensive heart disease Start:22-Mar-2013 Instruction Type:Provider Instructions for Treatment Patient Instructions Indication:Pre-operative examination Start:13-Apr-2012 Instruction Type:Provider Instructions for Treatment Patient Instructions Indication:Hypertensive heart disease Start:16-Dec-2011 Instruction Type:Provider Instructions for Treatment Name Dates Details How to access health informa tion online Indication:Diabetes mellitus type II, controlled, with no complications (Renamed from Controlled type 2 diabetes mellitus without complication) Start:24-Dec-2019 Instruction Type:Patient Education How to access health informa tion online - Detail Indication:Diabetes mellitus type II, controlled, with no complications (Renamed from Controlled type 2 diabetes mellitus without complication) Start:24-Dec-2019 Instruction Type:Patient Education Patient Instructions Indication:Nonsmoker Start:24-Dec-2019 Instruction Type:Provider Instructions for Treatment How to access health informa tion online Indication:Diabetes mellitus type II, controlled, with no complications (Renamed from Controlled type 2 diabetes mellitus without complication) Start:07-Nov-2018 Instruction Type:Patient Education How to access health informa tion online - Detail Indication:Diabetes mellitus type II, controlled, with no complications (Renamed from Controlled type 2 diabetes mellitus without complication) Start:07-Nov-2018 Instruction Type:Patient Education Patient Instructions Indication:Skin mole Start:07-Nov-2018 Instruction Type:Provider Instructions for Treatment How to access health informa tion online Indication:Nonsmoker Start:05-Dec-2017 Instruction Type:Patient Education How to access health informa tion online - Detail Indication:Nonsmoker Start:05-Dec-2017 Instruction Type:Patient Education Patient Instructions Indication:BMI 37.0-37.9, adult Start:05-Dec-2017 Instruction Type:Provider Instructions for Treatment How to access health informa tion online Indication:Nonsmoker Start:24-Nov-2017 Instruction Type:Patient Education How to access health informa tion online - Detail Indication:Nonsmoker Start:24-Nov-2017 Instruction Type:Patient Education Patient Instructions Indication:Nonsmoker Start:24-Nov-2017 Instruction Type:Provider Instructions for Treatment How to access health informa tion online Indication:Right knee pain Start:19-Aug-2016 Instruction Type:Patient Education How to access health informa tion online - Detail Indication:Right knee pain Start:19-Aug-2016 Instruction Type:Patient Education Patient Instructions Indication:Right knee pain Start:19-Aug-2016 Instruction Type:Provider Instructions for Treatment How to access health informa tion online Indication:Diabetes mellitus type 2, uncontrolled (Renamed from Uncontrolled type 2 diabetes mellitus) Start:15-Jun-2016 Instruction Type:Patient Education How to access health informa tion online - Detail Indication:Diabetes mellitus type 2, uncontrolled (Renamed from Uncontrolled type 2 diabetes mellitus) Start:15-Jun-2016 Instruction Type:Patient Education Patient Instructions Indication:Diabetes mellitus type 2, uncontrolled (Renamed from Uncontrolled type 2 diabetes mellitus) Start:15-Jun-2016 Instruction Type:Provider Instructions for Treatment How to access health informa tion online Indication:Diabetes mellitus type 2, uncontrolled (Renamed from Uncontrolled type 2 diabetes mellitus) Start:24-Jun-2015 Instruction Type:Patient Education How to access health informa tion online - Detail Indication:Diabetes mellitus type 2, uncontrolled (Renamed from Uncontrolled type 2 diabetes mellitus) Start:24-Jun-2015 Instruction Type:Patient Education Patient Instructions Indication:Diabetes mellitus type 2, uncontrolled (Renamed from Uncontrolled type 2 diabetes mellitus) Start:24-Jun-2015 Instruction Type:Provider Instructions for Treatment Patient Instructions Indication:Diabetes mellitus type 2, uncontrolled (Renamed from Uncontrolled type 2 diabetes mellitus) Start:26-May-2015 Instruction Type:Provider Instructions for Treatment How to access health informa tion online Indication:Hypertensive heart disease Start:29-Jan-2014 Instruction Type:Patient Education How to access health informa tion online - Detail Indication:Hypertensive heart disease Start:29-Jan-2014 Instruction Type:Patient Education Patient Instructions Indication:Hypertensive heart disease Start:29-Jan-2014 Instruction Type:Provider Instructions for Treatment How to access health informa tion online Indication:Hypertensive heart disease Start:08-Jan-2014 Instruction Type:Patient Education How to access health informa tion online - Detail Indication:Hypertensive heart disease Start:08-Jan-2014 Instruction Type:Patient Education Patient Instructions Indication:Hypertensive heart disease Start:08-Jan-2014 Instruction Type:Provider Instructions for Treatment How to access health informa tion online Indication:Skin tag Start:27-Dec-2013 Instruction Type:Patient Education How to access health informa tion online - Detail Indication:Skin tag Start:27-Dec-2013 Instruction Type:Patient Education Patient Instructions: sched an appt to remove skin tags Indication:Skin tag Start:27-Dec-2013 Instruction Type:Provider Instructions for Treatment Patient Instructions Indication:Leg swelling Start:06-Sep-2013 Instruction Type:Provider Instructions for Treatment Patient Instructions Indication:Hypertensive heart disease Start:22-Mar-2013 Instruction Type:Provider Instructions for Treatment Patient Instructions Indication:Pre-operative examination Start:13-Apr-2012 Instruction Type:Provider Instructions for Treatment Patient Instructions Indication:Hypertensive heart disease Start:16-Dec-2011 Instruction Type:Provider Instructions for Treatment Name Dates Details How to access health informa tion online Indication:Diabetes mellitus type II, controlled, with no complications (Renamed from Controlled type 2 diabetes mellitus without complication) Start:24-Dec-2019 Instruction Type:Patient Education How to access health informa tion online - Detail Indication:Diabetes mellitus type II, controlled, with no complications (Renamed from Controlled type 2 diabetes mellitus without complication) Start:24-Dec-2019 Instruction Type:Patient Education Patient Instructions Indication:Nonsmoker Start:24-Dec-2019 Instruction Type:Provider Instructions for Treatment How to access health informa tion online Indication:Diabetes mellitus type II, controlled, with no complications (Renamed from Controlled type 2 diabetes mellitus without complication) Start:07-Nov-2018 Instruction Type:Patient Education How to access health informa tion online - Detail Indication:Diabetes mellitus type II, controlled, with no complications (Renamed from Controlled type 2 diabetes mellitus without complication) Start:07-Nov-2018 Instruction Type:Patient Education Patient Instructions Indication:Skin mole Start:07-Nov-2018 Instruction Type:Provider Instructions for Treatment How to access health informa tion online Indication:Nonsmoker Start:05-Dec-2017 Instruction Type:Patient Education How to access health informa tion online - Detail Indication:Nonsmoker Start:05-Dec-2017 Instruction Type:Patient Education Patient Instructions Indication:BMI 37.0-37.9, adult Start:05-Dec-2017 Instruction Type:Provider Instructions for Treatment How to access health informa tion online Indication:Nonsmoker Start:24-Nov-2017 Instruction Type:Patient Education How to access health informa tion online - Detail Indication:Nonsmoker Start:24-Nov-2017 Instruction Type:Patient Education Patient Instructions Indication:Nonsmoker Start:24-Nov-2017 Instruction Type:Provider Instructions for Treatment How to access health informa tion online Indication:Right knee pain Start:19-Aug-2016 Instruction Type:Patient Education How to access health informa tion online - Detail Indication:Right knee pain Start:19-Aug-2016 Instruction Type:Patient Education Patient Instructions Indication:Right knee pain Start:19-Aug-2016 Instruction Type:Provider Instructions for Treatment How to access health informa tion online Indication:Diabetes mellitus type 2, uncontrolled (Renamed from Uncontrolled type 2 diabetes mellitus) Start:15-Jun-2016 Instruction Type:Patient Education How to access health informa tion online - Detail Indication:Diabetes mellitus type 2, uncontrolled (Renamed from Uncontrolled type 2 diabetes mellitus) Start:15-Jun-2016 Instruction Type:Patient Education Patient Instructions Indication:Diabetes mellitus type 2, uncontrolled (Renamed from Uncontrolled type 2 diabetes mellitus) Start:15-Jun-2016 Instruction Type:Provider Instructions for Treatment How to access health informa tion online Indication:Diabetes mellitus type 2, uncontrolled (Renamed from Uncontrolled type 2 diabetes mellitus) Start:24-Jun-2015 Instruction Type:Patient Education How to access health informa tion online - Detail Indication:Diabetes mellitus type 2, uncontrolled (Renamed from Uncontrolled type 2 diabetes mellitus) Start:24-Jun-2015 Instruction Type:Patient Education Patient Instructions Indication:Diabetes mellitus type 2, uncontrolled (Renamed from Uncontrolled type 2 diabetes mellitus) Start:24-Jun-2015 Instruction Type:Provider Instructions for Treatment Patient Instructions Indication:Diabetes mellitus type 2, uncontrolled (Renamed from Uncontrolled type 2 diabetes mellitus) Start:26-May-2015 Instruction Type:Provider Instructions for Treatment How to access health informa tion online Indication:Hypertensive heart disease Start:29-Jan-2014 Instruction Type:Patient Education How to access health informa tion online - Detail Indication:Hypertensive heart disease Start:29-Jan-2014 Instruction Type:Patient Education Patient Instructions Indication:Hypertensive heart disease Start:29-Jan-2014 Instruction Type:Provider Instructions for Treatment How to access health informa tion online Indication:Hypertensive heart disease Start:08-Jan-2014 Instruction Type:Patient Education How to access health informa tion online - Detail Indication:Hypertensive heart disease Start:08-Jan-2014 Instruction Type:Patient Education Patient Instructions Indication:Hypertensive heart disease Start:08-Jan-2014 Instruction Type:Provider Instructions for Treatment How to access health informa tion online Indication:Skin tag Start:27-Dec-2013 Instruction Type:Patient Education How to access health informa tion online - Detail Indication:Skin tag Start:27-Dec-2013 Instruction Type:Patient Education Patient Instructions: sched an appt to remove skin tags Indication:Skin tag Start:27-Dec-2013 Instruction Type:Provider Instructions for Treatment Patient Instructions Indication:Leg swelling Start:06-Sep-2013 Instruction Type:Provider Instructions for Treatment Patient Instructions Indication:Hypertensive heart disease Start:22-Mar-2013 Instruction Type:Provider Instructions for Treatment Patient Instructions Indication:Pre-operative examination Start:13-Apr-2012 Instruction Type:Provider Instructions for Treatment Patient Instructions Indication:Hypertensive heart disease Start:16-Dec-2011 Instruction Type:Provider Instructions for Treatment Name Dates Details Nonsmoker : How to access he alth information online Indication:Nonsmoker Nonsmoker : How to access he alth information online - Detail Indication:Nonsmoker BMI 37.0-37.9, adult : Patie nt Instructions Indication:BMI 37.0-37.9, adult Nonsmoker : Patient Instruct ions Indication:Nonsmoker Right knee pain : How to acc ess health information online Indication:Right knee pain Right knee pain : How to acc ess health information online - Detail Indication:Right knee pain Right knee pain : Patient In structions Indication:Right knee pain Diabetes mellitus type 2, un controlled (Renamed from Uncontrolled type 2 diabetes mellitus) : How to access health information online Indication:Diabetes mellitus type 2, uncontrolled (Renamed from Uncontrolled type 2 diabetes mellitus) Diabetes mellitus type 2, un controlled (Renamed from Uncontrolled type 2 diabetes mellitus) : How to access health information online - Detail Indication:Diabetes mellitus type 2, uncontrolled (Renamed from Uncontrolled type 2 diabetes mellitus) Diabetes mellitus type 2, un controlled (Renamed from Uncontrolled type 2 diabetes mellitus) : Patient Instructions Indication:Diabetes mellitus type 2, uncontrolled (Renamed from Uncontrolled type 2 diabetes mellitus) Hypertensive heart disease : How to access health information online Indication:Hypertensive heart disease Hypertensive heart disease : How to access health information online - Detail Indication:Hypertensive heart disease Hypertensive heart disease : Patient Instructions Indication:Hypertensive heart disease Skin tag : How to access hea lth information online Indication:Skin tag Skin tag : How to access hea lth information online - Detail Indication:Skin tag Skin tag : Patient Instructi ons: sched an appt to remove skin tags Indication:Skin tag Leg swelling : Patient Instr uctions Indication:Leg swelling Pre-operative examination : Patient Instructions Indication:Pre-operative examination Name Dates Details How to access health informa tion online Indication:Diabetes mellitus type II, controlled, with no complications (Renamed from Controlled type 2 diabetes mellitus without complication) Start:24-Dec-2019 Instruction Type:Patient Education How to access health informa tion online - Detail Indication:Diabetes mellitus type II, controlled, with no complications (Renamed from Controlled type 2 diabetes mellitus without complication) Start:24-Dec-2019 Instruction Type:Patient Education Patient Instructions Indication:Nonsmoker Start:24-Dec-2019 Instruction Type:Provider Instructions for Treatment How to access health informa tion online Indication:Diabetes mellitus type II, controlled, with no complications (Renamed from Controlled type 2 diabetes mellitus without complication) Start:07-Nov-2018 Instruction Type:Patient Education How to access health informa tion online - Detail Indication:Diabetes mellitus type II, controlled, with no complications (Renamed from Controlled type 2 diabetes mellitus without complication) Start:07-Nov-2018 Instruction Type:Patient Education Patient Instructions Indication:Skin mole Start:07-Nov-2018 Instruction Type:Provider Instructions for Treatment How to access health informa tion online Indication:Nonsmoker Start:05-Dec-2017 Instruction Type:Patient Education How to access health informa tion online - Detail Indication:Nonsmoker Start:05-Dec-2017 Instruction Type:Patient Education Patient Instructions Indication:BMI 37.0-37.9, adult Start:05-Dec-2017 Instruction Type:Provider Instructions for Treatment How to access health informa tion online Indication:Nonsmoker Start:24-Nov-2017 Instruction Type:Patient Education How to access health informa tion online - Detail Indication:Nonsmoker Start:24-Nov-2017 Instruction Type:Patient Education Patient Instructions Indication:Nonsmoker Start:24-Nov-2017 Instruction Type:Provider Instructions for Treatment How to access health informa tion online Indication:Right knee pain Start:19-Aug-2016 Instruction Type:Patient Education How to access health informa tion online - Detail Indication:Right knee pain Start:19-Aug-2016 Instruction Type:Patient Education Patient Instructions Indication:Right knee pain Start:19-Aug-2016 Instruction Type:Provider Instructions for Treatment How to access health informa tion online Indication:Diabetes mellitus type 2, uncontrolled (Renamed from Uncontrolled type 2 diabetes mellitus) Start:15-Jun-2016 Instruction Type:Patient Education How to access health informa tion online - Detail Indication:Diabetes mellitus type 2, uncontrolled (Renamed from Uncontrolled type 2 diabetes mellitus) Start:15-Jun-2016 Instruction Type:Patient Education Patient Instructions Indication:Diabetes mellitus type 2, uncontrolled (Renamed from Uncontrolled type 2 diabetes mellitus) Start:15-Jun-2016 Instruction Type:Provider Instructions for Treatment How to access health informa tion online Indication:Diabetes mellitus type 2, uncontrolled (Renamed from Uncontrolled type 2 diabetes mellitus) Start:24-Jun-2015 Instruction Type:Patient Education How to access health informa tion online - Detail Indication:Diabetes mellitus type 2, uncontrolled (Renamed from Uncontrolled type 2 diabetes mellitus) Start:24-Jun-2015 Instruction Type:Patient Education Patient Instructions Indication:Diabetes mellitus type 2, uncontrolled (Renamed from Uncontrolled type 2 diabetes mellitus) Start:24-Jun-2015 Instruction Type:Provider Instructions for Treatment Patient Instructions Indication:Diabetes mellitus type 2, uncontrolled (Renamed from Uncontrolled type 2 diabetes mellitus) Start:26-May-2015 Instruction Type:Provider Instructions for Treatment How to access health informa tion online Indication:Hypertensive heart disease Start:29-Jan-2014 Instruction Type:Patient Education How to access health informa tion online - Detail Indication:Hypertensive heart disease Start:29-Jan-2014 Instruction Type:Patient Education Patient Instructions Indication:Hypertensive heart disease Start:29-Jan-2014 Instruction Type:Provider Instructions for Treatment How to access health informa tion online Indication:Hypertensive heart disease Start:08-Jan-2014 Instruction Type:Patient Education How to access health informa tion online - Detail Indication:Hypertensive heart disease Start:08-Jan-2014 Instruction Type:Patient Education Patient Instructions Indication:Hypertensive heart disease Start:08-Jan-2014 Instruction Type:Provider Instructions for Treatment How to access health informa tion online Indication:Skin tag Start:27-Dec-2013 Instruction Type:Patient Education How to access health informa tion online - Detail Indication:Skin tag Start:27-Dec-2013 Instruction Type:Patient Education Patient Instructions: sched an appt to remove skin tags Indication:Skin tag Start:27-Dec-2013 Instruction Type:Provider Instructions for Treatment Patient Instructions Indication:Leg swelling Start:06-Sep-2013 Instruction Type:Provider Instructions for Treatment Patient Instructions Indication:Hypertensive heart disease Start:22-Mar-2013 Instruction Type:Provider Instructions for Treatment Patient Instructions Indication:Pre-operative examination Start:13-Apr-2012 Instruction Type:Provider Instructions for Treatment Patient Instructions Indication:Hypertensive heart disease Start:16-Dec-2011 Instruction Type:Provider Instructions for Treatment Name Dates Details How to access health informa tion online Indication:Diabetes mellitus type II, controlled, with no complications (Renamed from Controlled type 2 diabetes mellitus without complication) Start:07-Nov-2018 Instruction Type:Patient Education How to access health informa tion online - Detail Indication:Diabetes mellitus type II, controlled, with no complications (Renamed from Controlled type 2 diabetes mellitus without complication) Start:07-Nov-2018 Instruction Type:Patient Education Patient Instructions Indication:Skin mole Start:07-Nov-2018 Instruction Type:Provider Instructions for Treatment How to access health informa tion online Indication:Nonsmoker Start:05-Dec-2017 Instruction Type:Patient Education How to access health informa tion online - Detail Indication:Nonsmoker Start:05-Dec-2017 Instruction Type:Patient Education Patient Instructions Indication:BMI 37.0-37.9, adult Start:05-Dec-2017 Instruction Type:Provider Instructions for Treatment How to access health informa tion online Indication:Nonsmoker Start:24-Nov-2017 Instruction Type:Patient Education How to access health informa tion online - Detail Indication:Nonsmoker Start:24-Nov-2017 Instruction Type:Patient Education Patient Instructions Indication:Nonsmoker Start:24-Nov-2017 Instruction Type:Provider Instructions for Treatment How to access health informa tion online Indication:Right knee pain Start:19-Aug-2016 Instruction Type:Patient Education How to access health informa tion online - Detail Indication:Right knee pain Start:19-Aug-2016 Instruction Type:Patient Education Patient Instructions Indication:Right knee pain Start:19-Aug-2016 Instruction Type:Provider Instructions for Treatment How to access health informa tion online Indication:Diabetes mellitus type 2, uncontrolled (Renamed from Uncontrolled type 2 diabetes mellitus) Start:15-Jun-2016 Instruction Type:Patient Education How to access health informa tion online - Detail Indication:Diabetes mellitus type 2, uncontrolled (Renamed from Uncontrolled type 2 diabetes mellitus) Start:15-Jun-2016 Instruction Type:Patient Education Patient Instructions Indication:Diabetes mellitus type 2, uncontrolled (Renamed from Uncontrolled type 2 diabetes mellitus) Start:15-Jun-2016 Instruction Type:Provider Instructions for Treatment How to access health informa tion online Indication:Diabetes mellitus type 2, uncontrolled (Renamed from Uncontrolled type 2 diabetes mellitus) Start:24-Jun-2015 Instruction Type:Patient Education How to access health informa tion online - Detail Indication:Diabetes mellitus type 2, uncontrolled (Renamed from Uncontrolled type 2 diabetes mellitus) Start:24-Jun-2015 Instruction Type:Patient Education Patient Instructions Indication:Diabetes mellitus type 2, uncontrolled (Renamed from Uncontrolled type 2 diabetes mellitus) Start:24-Jun-2015 Instruction Type:Provider Instructions for Treatment Patient Instructions Indication:Diabetes mellitus type 2, uncontrolled (Renamed from Uncontrolled type 2 diabetes mellitus) Start:26-May-2015 Instruction Type:Provider Instructions for Treatment How to access health informa tion online Indication:Hypertensive heart disease Start:29-Jan-2014 Instruction Type:Patient Education How to access health informa tion online - Detail Indication:Hypertensive heart disease Start:29-Jan-2014 Instruction Type:Patient Education Patient Instructions Indication:Hypertensive heart disease Start:29-Jan-2014 Instruction Type:Provider Instructions for Treatment How to access health informa tion online Indication:Hypertensive heart disease Start:08-Jan-2014 Instruction Type:Patient Education How to access health informa tion online - Detail Indication:Hypertensive heart disease Start:08-Jan-2014 Instruction Type:Patient Education Patient Instructions Indication:Hypertensive heart disease Start:08-Jan-2014 Instruction Type:Provider Instructions for Treatment How to access health informa tion online Indication:Skin tag Start:27-Dec-2013 Instruction Type:Patient Education How to access health informa tion online - Detail Indication:Skin tag Start:27-Dec-2013 Instruction Type:Patient Education Patient Instructions: sched an appt to remove skin tags Indication:Skin tag Start:27-Dec-2013 Instruction Type:Provider Instructions for Treatment Patient Instructions Indication:Leg swelling Start:06-Sep-2013 Instruction Type:Provider Instructions for Treatment Patient Instructions Indication:Hypertensive heart disease Start:22-Mar-2013 Instruction Type:Provider Instructions for Treatment Patient Instructions Indication:Pre-operative examination Start:13-Apr-2012 Instruction Type:Provider Instructions for Treatment Patient Instructions Indication:Hypertensive heart disease Start:16-Dec-2011 Instruction Type:Provider Instructions for Treatment Summary Purpose Family History No Family History Records Found Advance Directives No Advanced Directives Records FoundNo Advanced Directives Records Found Chief Complaint and Reason for Visit Chief Complaint Admit Date FASTING December 03, 2024 8: 17am Additional Source Comments INFORMATION SOURCE (unrecogn ized section and content) DATE CREATED AUTHOR 03/18/2022 [facility] DATE CREATED AUTHOR AUTHOR'S ORGANIZ ATION 12/23/2024 [facility] Care Teams (unrecognized sec tion and content) Team Status: Active Member Role/Relationship Status Dates [facility] Primary Care Provider Active Team Status: Inactive Member Role/Relationship Status Dates Dr. Giulia Prescott DO Primary Care Provider Active Start: December 03, 2024 End: December 03, 2024 Dr. Giulia Prescott DO Attending Provider Active St art: December 03, 2024 End: December 03, 2024 Dr. Giulia Prescott DO Referring Provider Active St art: December 03, 2024 End: December 03, 2024 Goals (unrecognized section and content) Goals may be documented in a n alternate section FOR RECORDS PERTAINING TO PATIENTS WHO ARE OR HAVE BEEN ENROLLED IN A CHEMICAL DEPENDENCY/SUBSTANCEABUSE PROGRAM, SOME INFORMATION MAY BE OMITTED. This clinical summary was aggregated from multiple sources. Caution should be exercised in using it in the provision of clinical care. This summary normalizes information from multiple sources, and as a consequence, information in this document may materially change the coding, format and clinical context of patient data. In addition, data may be omitted in some cases. CLINICAL DECISIONS SHOULD BE BASED ON THE PRIMARY CLINICAL RECORDS. [facility] [employer] [facility]. provides no warranty or guarantee of the accuracy or completeness of information in this document.
--- NOTE | 2024-12-31 20:24 | STRESSREP ---
Stress Test Report Pharmacologic myocardial perfusion stress test. 59-year-old female with a history of left bundle branch block. Resting EKG demonstrates normal sinus with a left bundle branch block with a rate of 67 bpm. Resting blood pressure is 168/94 mmHg. 0.4 mg of regadenoson was infused per usual protocol followed by rapid intravenous saline flush injection. Continuous EKG monitoring was performed. The maximum heart rate was 89 bpm which was 55% of max impacted heart rate the maximum workload was 1 metabolic equivalent. At rest there were no ST or T wave changes noted to suggest ischemia and at peak infusion nonspecific ST changes were noted which did not meet the criteria for ischemia. No clinical angina is noted. The final blood pressure was 130/80 mmHg. Myocardial perfusion protocol. 13.4 mCi of technetium 99m sestamibi was injected at rest. 0.4 mg of regadenoson was infused per usual protocol. At peak infusion 45 mCi of technetium 99m sestamibi was injected stress images were obtained stress and rest images were reconstructed and compared in the short axis vertical long and horizontal long axis. Gated images were also obtained. Perfusion SPECT analysis: Review of the stress images demonstrate normal uptake of tracer noted in all areas of the myocardium. The resting images similar demonstrated normal uptake of tracer noted in all areas of the myocardium. No areas of reversibility are noted to suggest ischemia and no previous infarct is noted. There is mildly reduced perfusion at the apex on the stress and rest images to a similar extent. This could be secondary to the left bundle branch block Gated SPECT analysis: The gated ejection fraction is 71%. Conclusion: Normal pharmacologic myocardial perfusion stress test. Preserved ejection fraction.
== END | disposition home or self-care (01) ==
LOC: CVS 06:43
PROVIDERS: PCP Nurse Practitioner Family; Referring Provider Internal Medicine; Visit Provider Internal Medicine
DX: I44.7 Left bundle-branch block, unspecified (principal); I65.29 Occlusion and stenosis of unspecified carotid artery
CPT/HCPCS: 78452; 93017; 93306; 93880; A9500; Q9957; A4216; C8929; J2785